=== PATIENT | male | born 1945 | race American Indian/Alaskan Native ===

== ENCOUNTER 2016-07-19 | Inpatient (IN) | payer MEDICAID, MEDICARE ==
[2016-07-19 00:51] LABS: Hematocrit 28.9 % (35.5-45.6); Hemoglobin 9.3 gm/dl (11.8-15.2); Mean Corpuscular HGB Conc 32 % (32-34); Mean Corpuscular Hemoglobin 29 pg (28-32); Mean Corpuscular Volume 89 fl (84-94); Platelet Count 287 K/mm3 (140-440); Red Blood Count 3.24 M/mm3 (3.65-5.03); White Blood Count 6.2 K/mm3 (4.5-11.0)
[2016-07-19 01:03] LABS: Red Cell Distribution Width 20.5 % (13.2-15.2)
[2016-07-19 01:13] LABS: BUN/Creatinine Ratio 6.12; Calcium 8.5 mg/dL (8.4-10.2); Chloride 96.5 mmol/L (98-107); Potassium 3.6 mmol/L (3.6-5.0)
[2016-07-19 03:50] LABS: Basophils % (Manual) 0 % (0.0-1.8); Blastocytes % (Manual) 0 %
[2016-07-19 03:51] LABS: Anisocytosis 1+; Diff Status Complete; Hypochromasia 1+; Smudge Cells Few
--- NOTE | 2016-07-19 07:31 | Emergency Department Report ---
ED General Adult HPI - General Chief complaint: Medical Clearance Stated complaint: BODY PAIN Time Seen by Provider: 07/19/16 07:23 Source: patient Mode of arrival: Wheelchair Limitations: No Limitations - History of Present Illness Initial comments: Patient presents to the emergency department with an apparently necrotic foot. He has had an ulcer on his foot for quite some time. The time of presentation the foot is apparently nonviable. Patient does not complain of pain. His foot is turned essentially black and gangrenous. He had a blister on the dorsum of his left foot which she identifies as an acute problem. However his foot at large is obviously gangrenous and without pulses. Despite the above the patient denies any recent fever or chills. He does not report any acute change in color. -: week(s) Location: left, lower extremity Consistency: constant Improves with: none Worsens with: none Associated Symptoms: denies other symptoms - Related Data Home Medications Medication Instructions Recorded Confirmed Last Taken Simvastatin [Zocor TAB] 20 mg PO QHS 07/20/16 07/20/16 07/19/16 Previous Rx's Medication Instructions Recorded Last Taken Type amLODIPine [Norvasc] 5 mg PO DAILY #60 tablet 12/10/13 03/16/14 14:00 Rx Labetalol [Normodyne TAB] 300 mg PO BID #60 tablet 03/19/14 Unknown Rx Allergies Allergy/AdvReac Type Severity Reaction Status Date / Time hydrocodone bitartrate AdvReac SWEAT/CRAMP Verified 03/15/15 15:37 [From Vicodin] ED Review of Systems ROS: Stated complaint: BODY PAIN Other details as noted in HPI Constitutional: denies: chills, fever Eyes: denies: eye pain, eye discharge, vision change ENT: denies: ear pain, throat pain Respiratory: denies: cough, shortness of breath, wheezing Cardiovascular: denies: chest pain, palpitations Endocrine: no symptoms reported Gastrointestinal: denies: abdominal pain, nausea, diarrhea Genitourinary: discharge. denies: urgency, dysuria Musculoskeletal: as per HPI Skin: denies: rash, lesions Neurological: denies: headache, weakness, paresthesias Psychiatric: denies: anxiety, depression Hematological/Lymphatic: denies: easy bleeding, easy bruising ED Past Medical Hx - Past Medical History Hx Hypertension: Yes Hx Heart Attack/AMI: Yes Hx Congestive Heart Failure: Yes Hx Diabetes: Yes Hx Renal Disease: Yes (M-W-F) Hx HIV: No - Surgical History Additional Surgical History: Right BKA & r wrist. Vas cath R chest-REMOVED. GRAFT LEFT UPPER ARM - Social History Smoking Status: Current Every Day Smoker Substance Use Type: None - Medications Home Medications: Home Medications Medication Instructions Recorded Confirmed Last Taken Type amLODIPine [Norvasc] 5 mg PO DAILY #60 tablet 12/10/13 07/19/16 03/16/14 14:00 Rx Labetalol [Normodyne TAB] 300 mg PO BID #60 tablet 03/19/14 07/19/16 Unknown Rx Simvastatin [Zocor TAB] 20 mg PO QHS 07/20/16 07/20/16 07/19/16 History ED Physical Exam - General Limitations: No Limitations General appearance: alert, in no apparent distress - Head Head exam: Present: atraumatic, normocephalic - Eye Eye exam: Present: normal appearance - ENT ENT exam: Present: mucous membranes moist - Neck Neck exam: Present: normal inspection - Respiratory Respiratory exam: Present: normal lung sounds bilaterally. Absent: respiratory distress - Cardiovascular Cardiovascular Exam: Present: regular rate, normal rhythm. Absent: systolic murmur, diastolic murmur, rubs, gallop - GI/Abdominal GI/Abdominal exam: Present: soft, normal bowel sounds - Rectal Rectal exam: Present: deferred - Extremities Exam Extremities exam: Present: other (bullae noted dorsum of the foot. The foot is necrotic. There are no pulses. It is cool. There is dry gangrene. On the plantar aspect of the foot there is an ulcer as well. There is edema that stands above the ankle associated with warmth to the distal calf) - Back Exam Back exam: Present: normal inspection - Neurological Exam Neurological exam: Present: alert, oriented X3 - Psychiatric Psychiatric exam: Present: normal affect, normal mood - Skin Skin exam: Present: warm, dry, intact, normal color. Absent: rash ED Course Vital Signs 07/19/16 07/19/16 07/19/16 00:20 06:31 06:46 Temperature 98.8 F Pulse Rate 75 70 Respiratory 20 20 12 Rate Blood Pressure 184/76 Blood Pressure [Left] O2 Sat by Pulse 100 Oximetry 07/19/16 07/19/16 07/19/16 06:58 07:00 08:00 Temperature 98.3 F 99 F Pulse Rate 73 82 Respiratory 10 L 15 Rate Blood Pressure 177/70 174/74 Blood Pressure 174/84 [Left] O2 Sat by Pulse 100 100 Oximetry 07/19/16 07/19/16 07/19/16 08:54 09:00 09:33 Temperature Pulse Rate 74 75 80 Respiratory 14 16 Rate Blood Pressure 177/63 177/63 177/63 Blood Pressure [Left] O2 Sat by Pulse 96 98 Oximetry 07/19/16 07/19/16 11:25 17:00 Temperature 99.4 F 99.1 F Pulse Rate 80 80 Respiratory 16 16 Rate Blood Pressure Blood Pressure 145/49 135/50 [Left] O2 Sat by Pulse 100 100 Oximetry - Reevaluation(s) Reevaluation #1: Patient was given empiric antibiotics. He does appear to have an inevitable amputation. He is admitted to the hospital service in stable condition. 08/01/16 01:53 ED Medical Decision Making - Lab Data Result diagrams: 07/28/16 06:37 07/30/16 12:48 Laboratory Results - last 24 hr 07/19/16 07/19/16 00:34 00:34 WBC 6.2 RBC 3.24 L Hgb 9.3 L Hct 28.9 L MCV 89 MCH 29 MCHC 32 RDW 20.5 H Plt Count 287 Add Manual Diff Complete Total Counted 100 Seg Neuts % (Manual) 73.0 H Band Neutrophils % 0 Lymphocytes % (Manual) 9.0 L Reactive Lymphs % (Man) 0 Monocytes % (Manual) 15.0 H Eosinophils % (Manual) 3.0 Basophils % (Manual) 0 Metamyelocytes % 0 Myelocytes % 0 Promyelocytes % 0 Blast Cells % 0 Nucleated RBC % Not Reportable Seg Neutrophils # Man 4.5 Band Neutrophils # 0.0 Lymphocytes # (Manual) 0.6 L Abs React Lymphs (Man) 0.0 Monocytes # (Manual) 0.9 H Eosinophils # (Manual) 0.2 Basophils # (Manual) 0.0 Metamyelocytes # 0.0 Myelocytes # 0.0 Promyelocytes # 0.0 Blast Cells # 0.0 WBC Morphology Not Reportable Hypersegmented Neuts Not Reportable Hyposegmented Neuts Not Reportable Hypogranular Neuts Not Reportable Smudge Cells Few Toxic Granulation Not Reportable Toxic Vacuolation Not Reportable Dohle Bodies Not Reportable Pelger-Huet Anomaly Not Reportable Maria Eugenia Rods Not Reportable Platelet Estimate Appears normal Clumped Platelets Not Reportable Plt Clumps, EDTA Not Reportable Large Platelets Not Reportable Giant Platelets Not Reportable Platelet Satelliting Not Reportable Plt Morphology Comment Not Reportable RBC Morphology Not Reportable Dimorphic RBCs Not Reportable Polychromasia Not Reportable Hypochromasia 1+ Poikilocytosis Not Reportable Anisocytosis 1+ Microcytosis Not Reportable Macrocytosis Not Reportable Spherocytes Not Reportable Pappenheimer Bodies Not Reportable Sickle Cells Not Reportable Target Cells Not Reportable Tear Drop Cells Not Reportable Ovalocytes Not Reportable Helmet Cells Not Reportable [place] Bodies Not Reportable [place] Rings Not Reportable [place] Cells Not Reportable Bite Cells Not Reportable Crenated Cell Not Reportable Elliptocytes Not Reportable Acanthocytes (Spur) Not Reportable Rouleaux Not Reportable Hemoglobin C Crystals Not Reportable Schistocytes Not Reportable Malaria parasites Not Reportable Ronal Bodies Not Reportable Hem Pathologist Commnt No Sodium 136 L Potassium 3.6 Chloride 96.5 L Carbon Dioxide 23 Anion Gap 20 BUN 38 H Creatinine 6.2 H Estimated GFR 11 BUN/Creatinine Ratio 6.12 Glucose 108 H Calcium 8.5 Critical care attestation.: If time is entered above; I have spent that time in minutes in the direct care of this critically ill patient, excluding procedure time. ED Disposition Clinical Impression: Gangrene of foot, ESRD (end stage renal disease) on dialysis Disposition: OP ADMITTED IP TO THIS HOSP Is pt being admited?: Yes Does the pt Need Aspirin: No Condition: Stable
[2016-07-19] MEDS ORDERED: ZOSYN/NS 3.375GM/50ML 50 ML IV ONE (08:22)
--- NOTE | 2016-07-19 08:27 | Admit Criteria Form ---
Admission Criteria Documentation: VASCULAR DISEASE GRG Clinical Indications for Admission to Inpatient Care (Place 'X' for any and all applicable criteria): Hospital admission is needed for appropriate care of the patient because of ANY ONE of the following (1)(2)(3)(4): [X ]I. Life-threatening or limb-threatening skin ulcer as indicated by ANY ONE of the following(5): [ ]a) Surrounding cellulitis unresponsive to outpatient treatment [ X]b) Wet gangrene [ ]c) Lymphangitis [ ]d) Bacteremia [X ]II. Gangrene requiring intensity and frequency of care not manageable to outpatient, emergency, or observation level of care(5) [ ]III. Severe pain requiring acute inpatient management [ ]IV. Interventional revascularization (eg, surgery, thrombolysis) needed (eg , critical limb ischemia)(21) [ ]V. Urgent inpatient IV anticoagulation needed due to ALL of the following: [ ]a) Temporary subtherapeutic anticoagulation unacceptable because of high risk of short-term venous or arterial thromboembolism due to ANY ONE of the following(7)(8)(9): [ ]i) Venous thromboembolism within the past 12 months [ ]ii) Underlying malignancy [ ]iii) Patient with mechanical cardiac valve(10)(11) [ ]iv) Underlying hypercoagulable state (eg, protein C or protein S deficiency, antithrombin deficiency, antiphospholipid antibodies) [ ]v) Patient at high risk of thromboembolism (eg, status post orthopedic surgery, history of recurrent venous thromboembolism) [ ]vi) Atrial fibrillation with rheumatic valvular heart disease [ ]vii) Atrial fibrillation with 3 or MORE of the following : [ ]1) Congestive heart failure [ ]2) Hypertension [ ]3) Age 65 years or older [ ]4) Diabetes mellitus [ ]5) History of thromboembolism (eg, stroke, TIA , or systemic embolization) more than 3 months ago [ ]6) Female gender [ ]b) Contraindications to outpatient use of "bridging" agent or alternative oral anticoagulant as indicated by ALL of the following: [ ]i) Contraindication to outpatient use of low-molecular -weight heparin as "bridging" agent as indicated by ANY ONE of the following(8) : [ ]1) Documented current or history of heparin- induced thrombocytopenia(12) [ ]2) Severe thrombocytopenia (eg, platelet count less than 50,000/mm3 (50 x109/L)) [ ]3) Documented allergy to heparin, low- molecular-weight heparin, or pork products [ ]4) Renal failure (creatinine clearance < 30 mL /min/1.73m2 (0.50 mL/sec/1.73m2) or on dialysis) [ ]5) Inability to manage self-injection (eg, by patient, caregiver, or visiting nurse) [ ]ii) Contraindication to outpatient use of fondaparinux as "bridging" agent as indicated by ANY ONE of the following(13)(14)(15)(16): [ ]1) Severe thrombocytopenia (eg, platelet count less than 50,000/mm3 (50 x109/L)) [ ]2) Hypersensitivity to fondaparinux, related drugs, or product components [ ]3) Renal failure (creatinine clearance less than 30 mL/min/1.73m2 (0.50 mL/sec/1.73m2) or on dialysis) [ ]4) Inability to manage self-injection (eg, by patient, caregiver, or visiting nurse) [ ]iii) Oral direct thrombin inhibitor (eg, dabigatran) or oral coagulation factor Xa inhibitor (eg, rivaroxaban) not appropriate as oral anticoagulation (eg, indication not appropriate) or contraindicated (eg, hypersensitivity, renal failure)(13)(16)(17)(18)(19)(20) [ ]. Suspected severe acute ischemia due to peripheral vascular disease as indicated by ANY ONE of the following(5)(6): [ ]a) Tissue necrosis [ ]b) Severe pain [ ]c) Acute pulselessness [ ]d) Other evidence of acute severe ischemia (eg, lactic acidosis , motor dysfunction) [ ]VII. Acute or newly diagnosed major vessel (eg, aorta) dissection, rupture, or leakage(5)(6)(22)(23) [ ]VIII.Vascular Disease and ALL of the following: [ ]a) Symptom or finding for which emergency and observation care have failed or are not considered appropriate (Use General Criteria: Observation Care as appropriate) [ ]b) Presence of ANY ONE of the following: [ ]i) A General Admission Criteria [ ]ii) A Pediatric General Admission Criteria The original [facility] content created by [facility] has been revised. The portions of the content which have been revised are identified through the use of italic text or in bold, and [facility] has neither reviewed nor approved the modified material. All other unmodified content is copyright [facility]. Please see references footnoted in the original [facility] edition 2016 Admission Criteria Met: Yes
[2016-07-19] MEDS ORDERED: DUONEB 0.5 MG-3 MG/3 ML SOLN IH PRN (08:46)
--- NOTE | 2016-07-19 08:46 | History and Physical Report ---
History of Present Illness Chief complaint: left Foot pain History of present illness: 70 YO Male with HTN, DE, DM, CHF,Nicotine Dependence, PAD, ESRD on HD(MWF) presents to ED for evaluation. PT states that his left foot blister has gotten worse over the past few days. Pt acknowledges foot pain as well as his foot changing color, and getting dark. Pt denies fever, chills, CP, palpitations, NVD , recent ill contacts. Vascular and Nephrology notified in ED. Past History Past Medical History: acute DE, diabetes, ESRD, heart failure, hypertension Past Surgical History: Other (R BKA, AVF) Social history: single, smoking Family history: diabetes, hypertension Medications and Allergies Allergies Allergy/AdvReac Type Severity Reaction Status Date / Time hydrocodone bitartrate AdvReac SWEAT/CRAMP Verified 03/15/15 15:37 [From Vicodin] Home Medications Medication Instructions Recorded Confirmed Last Taken Type amLODIPine [Norvasc] 5 mg PO DAILY #60 tablet 12/10/13 07/19/16 03/16/14 14:00 Rx Labetalol [Normodyne TAB] 300 mg PO BID #60 tablet 03/19/14 07/19/16 Unknown Rx Active Meds: Active Medications Piperacillin Sod/Tazobactam Sod (Zosyn/Ns 3.375gm/50ml) 50 mls @ 100 mls/hr IV Q6HR ONE Stop: 07/19/16 08:51 Vancomycin HCl (Vancomycin Pharmacy To Dose) 1 each IV PKCONSULT NATALIE PRN Reason: Protocol Review of Systems All systems: negative Musculoskeletal: other (foot pain) Exam - Constitutional Vitals: Temp Pulse Resp BP Pulse Ox 99 F 85 20 174/84 100 07/19/16 08:00 07/19/16 08:00 07/19/16 08:00 07/19/16 08:00 07/19/16 08:00 General appearance: Present: no acute distress - EENT Eyes: Present: PERRL ENT: hearing intact, clear oral mucosa - Neck Neck: Present: supple, normal ROM - Respiratory Respiratory: bilateral: CTA - Cardiovascular Rhythm: regular Heart Sounds: Present: S1 & S2 - Extremities Extremity abnormal: ulceration, black, cold, pulses diminished Peripheral Pulses: abnormal - Abdominal General gastrointestinal: Present: soft, non-tender, non-distended, normal bowel sounds Male genitourinary: Present: normal - Integumentary Integumentary: Present: clear, dry, decreased turgor - Musculoskeletal Musculoskeletal: generalized weakness - Psychiatric Psychiatric: appropriate mood/affect, intact judgment & insight - Neurologic Neurologic: CNII-XII intact, moves all extremities Results - Labs CBC & Chem 7: 07/19/16 00:34 07/19/16 00:34 Labs: Abnormal lab results 07/19/16 07/19/16 Range/Units 00:34 00:34 RBC 3.24 L (3.65-5.03) M/mm3 Hgb 9.3 L (11.8-15.2) gm/dl Hct 28.9 L (35.5-45.6) % RDW 20.5 H (13.2-15.2) % Seg Neuts % (Manual) 73.0 H (40.0-70.0) % Lymphocytes % (Manual) 9.0 L (13.4-35.0) % Monocytes % (Manual) 15.0 H (0.0-7.3) % Lymphocytes # (Manual) 0.6 L (1.2-5.4) K/mm3 Monocytes # (Manual) 0.9 H (0.0-0.8) K/mm3 Sodium 136 L (137-145) mmol/L Chloride 96.5 L (98-107) mmol/L BUN 38 H (9-20) mg/dL Creatinine 6.2 H (0.8-1.5) mg/dL Glucose 108 H (75-100) mg/dL Assessment and Plan - Patient Problems (1) Gangrene of foot Current Visit: Yes Status: Acute Plan to address problem: empiric abx, supportive care, Vascular surgery consulted for amputation. (2) ESRD (end stage renal disease) Current Visit: No Status: Acute Plan to address problem: Nephrology consulted, dialysis as per nephrology (3) Essential hypertension Current Visit: No Status: Acute Plan to address problem: monitor bp q shift, continue current therapy (4) Diabetes Diagnosis Date: 12/01/13 Current Visit: No Status: Chronic Plan to address problem: ada diet, insulin, accu check (5) DVT prophylaxis Current Visit: No Status: Acute
[2016-07-19] MEDS ORDERED: VANCOMYCIN PHARMACY TO DOSE IV SCH (09:00)
--- NOTE | 2016-07-19 09:06 | XRay Report ---
Portable chest: Comparison is made to prior study June 28, 2016. There is currently triple-lumen catheter entering the left jugular vein with the tip in the mid SVC. The right triple-lumen catheter seen on prior study has been removed. Interstitial pattern is somewhat prominent but unchanged. The heart is normal in size. Impression: Interval removal and placement of new triple lumen catheter.
[2016-07-19 09:10] LABS: INR 1.16 (0.87-1.13)
[2016-07-19 09:13] LABS: Albumin 2.7 g/dL (3.9-5); Albumin/Globulin Ratio 0.6 %; Bilirubin,Direct 0.2 mg/dL (0-0.2); Bilirubin,Indirect 0.4 mg/dL; Bilirubin,Total 0.6 mg/dL (0.1-1.2); Total Protein 7.2 g/dL (6.3-8.2)
[2016-07-19] MEDS ORDERED: MORPHINE ONE (09:18)
[2016-07-19] MEDS ORDERED: NORVASC ONE (09:19)
[2016-07-19] MEDS ORDERED: ZOFRAN ONE (09:19)
[2016-07-19] MEDS ORDERED: MORPHINE IV ONE (09:30)
[2016-07-19] MEDS ORDERED: ZOFRAN IV ONE (09:31)
[2016-07-19] MEDS ORDERED: NORVASC PO ONE (09:31)
[2016-07-19 09:51] LABS: Partial Thromboplastin Time 44.8 Sec. (24.2-36.6)
[2016-07-19] MEDS ORDERED: VANCOMYCIN VIAL 2,000 MG in NACL 0.9% 500 ML 500 ML IV ONE (10:00)
[2016-07-20] MEDS: TYLENOL PO PRN ×2 (00:45→19:35)
[2016-07-20] MEDS ORDERED: NACL 0.9% 1000 ML 100 ML IV PRN (09:33)
[2016-07-20 09:39] LABS: Basophils % (Auto) 1.1 % (0.0-1.8); Eosinophils % (Auto) 6.8 % (0.0-4.3); Hematocrit 26.9 % (35.5-45.6); Hemoglobin 8.5 gm/dl (11.8-15.2); Mean Corpuscular HGB Conc 32 % (32-34); Mean Corpuscular Hemoglobin 28 pg (28-32); Mean Corpuscular Volume 90 fl (84-94); Platelet Count 293 K/mm3 (140-440); Red Blood Count 3.01 M/mm3 (3.65-5.03); White Blood Count 4.4 K/mm3 (4.5-11.0)
[2016-07-20 09:52] LABS: BUN/Creatinine Ratio 5.73; Chloride 100.2 mmol/L (98-107); Red Cell Distribution Width 20.4 % (13.2-15.2)
--- NOTE | 2016-07-20 12:35 | Consultation ---
History of Present Illness - Reason for Consult Consult date: 07/20/16 peripheral vascular disease Requesting physician: JUANY FERRIS - History of Present Illness 70 year-old gentleman with history of gangrenous changes of the left great toe who was seen previously and was determined to need an angiogram. Presents to the hospital was complaining of pain at the left foot. Patient has had multiple dialysis related procedures. Patient had a right BKA 13 years ago. Patient states that now vascular workup was done at that time. Currently patient is not complaining of significant foot pain. He denies any smell of the foot in the past. Past History Past Medical History: acute MA, diabetes, ESRD, heart failure, hypertension Past Surgical History: Other (R BKA, AVF) Social history: single, smoking Family history: diabetes, hypertension Medications and Allergies Allergies Allergy/AdvReac Type Severity Reaction Status Date / Time hydrocodone bitartrate AdvReac SWEAT/CRAMP Verified 03/15/15 15:37 [From Vicodin] Home Medications Medication Instructions Recorded Confirmed Last Taken Type amLODIPine [Norvasc] 5 mg PO DAILY #60 tablet 12/10/13 07/19/16 03/16/14 14:00 Rx Labetalol [Normodyne TAB] 300 mg PO BID #60 tablet 03/19/14 07/19/16 Unknown Rx Active Meds: Active Medications Acetaminophen (Tylenol) 650 mg PO Q4H PRN PRN Reason: Pain MILD(1-3)/Fever >100.5/JACKSON Last Admin: 07/20/16 00:45 Dose: 650 mg Albuterol/Ipratropium (Duoneb 0.5 Mg-3 Mg/3 Ml Soln) 1 ampul IH Q6HRT PRN PRN Reason: Wheezing Last Admin: 07/20/16 01:16 Dose: 1 ampul Heparin Sodium (Porcine) (Heparin 10,000 Units/10 Ml) 2,000 unit IV SHRUTHI PRN PRN Reason: hemodialysis Heparin Sodium (Porcine) (Heparin) 5,000 unit IV SHRUTHI PRN PRN Reason: hemodialysis Sodium Chloride (Nacl 0.9% 1000 Ml) 100 mls @ 999 mls/hr IV SHRUTHI PRN PRN Reason: Hypotension Vancomycin HCl (Vancomycin Pharmacy To Dose) 1 each IV PKCONSULT NATALIE PRN Reason: Protocol Review of Systems Constitutional: no weight loss, no weight gain Ears, nose, mouth and throat: deferred Cardiovascular: no chest pain, no orthopnea Respiratory: no cough Gastrointestinal: no abdominal pain Genitourinary Male: no dysuria Musculoskeletal: no neck stiffness Integumentary: deferred Neurological: no head injury Psychiatric: no anxiety Exam - Physical Exam Narrative exam: Head normocephalic atraumatic Eyes extraocular muscles intact. Oral mucosa moist. Neck no carotid bruit lymph nodes or JVD. Heart regular rate and rhythm. Lungs clear to auscultation bilaterally. Abdomen soft, mild tenderness nondistended normal bowel sounds. Peripheral vascular exam 2+ femoral, left popliteal Pedal pulses are nonpalpable on the left. Extremities dry gangrene of the left foot. Right BKA - Constitutional Vitals: Temp Pulse Resp BP Pulse Ox 98.2 F 68 18 178/84 98 07/20/16 11:23 07/20/16 12:00 07/20/16 11:23 07/20/16 12:00 07/20/16 08:00 Results - Labs CBC & Chem 7: 07/20/16 09:13 07/20/16 09:13 Labs: Abnormal lab results 07/19/16 07/20/16 07/20/16 Range/Units 17:43 09:13 09:13 WBC 4.4 L (4.5-11.0) K/mm3 RBC 3.01 L (3.65-5.03) M/mm3 Hgb 8.5 L (11.8-15.2) gm/dl Hct 26.9 L (35.5-45.6) % RDW 20.4 H (13.2-15.2) % Lymph % (Auto) 6.5 L (13.4-35.0) % [place] % (Auto) 12.8 H (0.0-7.3) % Eos % (Auto) 6.8 H (0.0-4.3) % Lymph # 0.3 L (1.2-5.4) K/mm3 Seg Neutrophils % 72.8 H (40.0-70.0) % Carbon Dioxide 20 L (22-30) mmol/L BUN 43 H (9-20) mg/dL Creatinine 7.5 H (0.8-1.5) mg/dL Glucose 147 H (75-100) mg/dL POC Glucose 151 H (70-105) Calcium 8.0 L (8.4-10.2) mg/dL Assessment and Plan Peripheral vascular disease with gangrene of the right foot. It is stable at the moment. However, patient is at high risk for limb loss. Patient needs a vascular workup was an angiogram to optimize circulation to the left foot. Once the flow is optimal patient most likely will require TMA. Plan: patient will be scheduled for an angiogram on Friday.
--- NOTE | 2016-07-20 13:09 | Consultation ---
History of Present Illness - Reason for Consult Consult date: 07/20/16 end stage renal disease - History of Present Illness Mr. Oconnor is a 70yo with ESRD on HD MWF and PAD who presented to the ED with left foot blister which progressively worsened, left foot pain and darkening of color. He denies fevers, chills, nausea and vomiting. He has been admitted for further management. Past History Past Medical History: acute ID, diabetes, ESRD, heart failure, hypertension Past Surgical History: Other (R BKA, AVF) Social history: single, smoking Family history: diabetes, hypertension Medications and Allergies Allergies Allergy/AdvReac Type Severity Reaction Status Date / Time hydrocodone bitartrate AdvReac SWEAT/CRAMP Verified 03/15/15 15:37 [From Vicodin] Home Medications Medication Instructions Recorded Confirmed Last Taken Type amLODIPine [Norvasc] 5 mg PO DAILY #60 tablet 12/10/13 07/19/16 03/16/14 14:00 Rx Labetalol [Normodyne TAB] 300 mg PO BID #60 tablet 03/19/14 07/19/16 Unknown Rx Simvastatin [Zocor TAB] 20 mg PO QHS 07/20/16 07/20/16 07/19/16 History Active Meds: Active Medications Acetaminophen (Tylenol) 650 mg PO Q4H PRN PRN Reason: Pain MILD(1-3)/Fever >100.5/JACKSON Last Admin: 07/20/16 00:45 Dose: 650 mg Albuterol/Ipratropium (Duoneb 0.5 Mg-3 Mg/3 Ml Soln) 1 ampul IH Q6HRT PRN PRN Reason: Wheezing Last Admin: 07/20/16 01:16 Dose: 1 ampul Heparin Sodium (Porcine) (Heparin 10,000 Units/10 Ml) 2,000 unit IV SHRUTHI PRN PRN Reason: hemodialysis Heparin Sodium (Porcine) (Heparin) 5,000 unit IV SHRUTHI PRN PRN Reason: hemodialysis Sodium Chloride (Nacl 0.9% 1000 Ml) 100 mls @ 999 mls/hr IV SHRUTHI PRN PRN Reason: Hypotension Vancomycin HCl (Vancomycin Pharmacy To Dose) 1 each IV PKCONSULT NATALIE PRN Reason: Protocol Exam - Vital Signs Vital signs: Vital Signs Temp Pulse Resp BP Pulse Ox 98.8 F 75 20 184/76 100 07/19/16 00:20 07/19/16 00:20 07/19/16 00:20 07/19/16 00:20 07/19/16 00:20 - General Appearance General appearance: well-developed, well-nourished EENT: ATNC Respiratory: Clear to Ascultation Heart: regular, S1S2 Gastrointestinal: Present: normal. Absent: tenderness, distended Neurologic: alert and oriented x3 Musculoskeletal: Present: other (left foot dry gangrene) Results - Lab Results 07/20/16 09:13 07/20/16 09:13 Most recent lab results Calcium 8.0 mg/dL (8.4-10.2) L 07/20/16 09:13 Phosphorus 5.4 mg/dL (2.5-4.5) H 07/19/16 08:29 Assessment and Plan Impression: * End stage renal disease on HD MWF * Left foot wound * Peripheral artery disease * Type II DM * Hypertension * Anemia secondary to ESRD * Secondary hyperparathyroidism Plan: * Hemodialysis today * Note plans for arteriogram on Friday * Will resume MWF schedule next week * Epogen with dialysis * Renal diet * Abx per primary team * Tight glycemic control * Continue antiHTN medications * Will see again on Friday
[2016-07-20] MEDS: HEPARIN 10,000 UNITS/10 ML IV PRN (13:50)
[2016-07-20] MEDS: HEPARIN IV PRN (13:52)
--- NOTE | 2016-07-20 21:35 | Progress Note ---
Assessment and Plan - Patient Problems (1) Gangrene of foot Current Visit: Yes Status: Acute Plan to address problem: empiric abx, supportive care, Vascular surgery consulted for amputation. (2) ESRD (end stage renal disease) Current Visit: No Status: Acute Plan to address problem: Nephrology consulted, dialysis as per nephrology (3) Essential hypertension Current Visit: No Status: Acute Plan to address problem: monitor bp q shift, continue current therapy (4) Diabetes Diagnosis Date: 12/01/13 Current Visit: No Status: Chronic Plan to address problem: ada diet, insulin, accu check (5) DVT prophylaxis Current Visit: No Status: Acute History Interval history: Pt resting in bed, No reported nursing events. Hospitalist Physical - Constitutional Vitals: Temp Pulse Resp BP Pulse Ox 98.4 F 80 20 158/78 100 07/20/16 16:00 07/20/16 16:00 07/20/16 16:00 07/20/16 16:00 07/20/16 19:54 General appearance: Present: no acute distress - EENT Eyes: Present: PERRL, EOM intact ENT: hearing intact - Neck Neck: Present: supple - Respiratory Respiratory: bilateral: diminished - Cardiovascular Rhythm: regular Heart Sounds: Present: S1 & S2 - Extremities Extremity abnormal: ulceration, black, cold, pulses diminished Peripheral Pulses: abnormal - Abdominal General gastrointestinal: soft, non-tender, non-distended - Integumentary Integumentary: Present: clear, dry - Psychiatric Psychiatric: appropriate mood/affect, cooperative - Neurologic Neurologic: CNII-XII intact Results - Labs CBC & Chem 7: 07/20/16 09:13 07/20/16 09:13 Labs: Laboratory Last Values WBC 4.4 K/mm3 (4.5-11.0) L 07/20/16 09:13 RBC 3.01 M/mm3 (3.65-5.03) L 07/20/16 09:13 Hgb 8.5 gm/dl (11.8-15.2) L 07/20/16 09:13 Hct 26.9 % (35.5-45.6) L 07/20/16 09:13 MCV 90 fl (84-94) 07/20/16 09:13 MCH 28 pg (28-32) 07/20/16 09:13 MCHC 32 % (32-34) 07/20/16 09:13 RDW 20.4 % (13.2-15.2) H 07/20/16 09:13 Plt Count 293 K/mm3 (140-440) 07/20/16 09:13 Lymph % (Auto) 6.5 % (13.4-35.0) L 07/20/16 09:13 [place] % (Auto) 12.8 % (0.0-7.3) H 07/20/16 09:13 Eos % (Auto) 6.8 % (0.0-4.3) H 07/20/16 09:13 Baso % (Auto) 1.1 % (0.0-1.8) 07/20/16 09:13 Lymph # 0.3 K/mm3 (1.2-5.4) L 07/20/16 09:13 [place] # 0.6 K/mm3 (0.0-0.8) 07/20/16 09:13 Eos # 0.3 K/mm3 (0.0-0.4) 07/20/16 09:13 Baso # 0.0 K/mm3 (0.0-0.1) 07/20/16 09:13 Add Manual Diff Complete 07/19/16 00:34 Total Counted 100 07/19/16 00:34 Seg Neutrophils % 72.8 % (40.0-70.0) H 07/20/16 09:13 Seg Neuts % (Manual) 73.0 % (40.0-70.0) H 07/19/16 00:34 Band Neutrophils % 0 % 07/19/16 00:34 Lymphocytes % (Manual) 9.0 % (13.4-35.0) L 07/19/16 00:34 Reactive Lymphs % (Man) 0 % 07/19/16 00:34 Monocytes % (Manual) 15.0 % (0.0-7.3) H 07/19/16 00:34 Eosinophils % (Manual) 3.0 % (0.0-4.3) 07/19/16 00:34 Basophils % (Manual) 0 % (0.0-1.8) 07/19/16 00:34 Metamyelocytes % 0 % 07/19/16 00:34 Myelocytes % 0 % 07/19/16 00:34 Promyelocytes % 0 % 07/19/16 00:34 Blast Cells % 0 % 07/19/16 00:34 Nucleated RBC % Not Reportable 07/19/16 00:34 Seg Neutrophils # 3.2 K/mm3 (1.8-7.7) 07/20/16 09:13 Seg Neutrophils # Man 4.5 K/mm3 (1.8-7.7) 07/19/16 00:34 Band Neutrophils # 0.0 K/mm3 07/19/16 00:34 Lymphocytes # (Manual) 0.6 K/mm3 (1.2-5.4) L 07/19/16 00:34 Abs React Lymphs (Man) 0.0 K/mm3 07/19/16 00:34 Monocytes # (Manual) 0.9 K/mm3 (0.0-0.8) H 07/19/16 00:34 Eosinophils # (Manual) 0.2 K/mm3 (0.0-0.4) 07/19/16 00:34 Basophils # (Manual) 0.0 K/mm3 (0.0-0.1) 07/19/16 00:34 Metamyelocytes # 0.0 K/mm3 07/19/16 00:34 Myelocytes # 0.0 K/mm3 07/19/16 00:34 Promyelocytes # 0.0 K/mm3 07/19/16 00:34 Blast Cells # 0.0 K/mm3 07/19/16 00:34 WBC Morphology Not Reportable 07/19/16 00:34 Hypersegmented Neuts Not Reportable 07/19/16 00:34 Hyposegmented Neuts Not Reportable 07/19/16 00:34 Hypogranular Neuts Not Reportable 07/19/16 00:34 Smudge Cells Few 07/19/16 00:34 Toxic Granulation Not Reportable 07/19/16 00:34 Toxic Vacuolation Not Reportable 07/19/16 00:34 Dohle Bodies Not Reportable 07/19/16 00:34 Pelger-Huet Anomaly Not Reportable 07/19/16 00:34 Maria Eugenia Rods Not Reportable 07/19/16 00:34 Platelet Estimate Appears normal 07/19/16 00:34 Clumped Platelets Not Reportable 07/19/16 00:34 Plt Clumps, EDTA Not Reportable 07/19/16 00:34 Large Platelets Not Reportable 07/19/16 00:34 Giant Platelets Not Reportable 07/19/16 00:34 Platelet Satelliting Not Reportable 07/19/16 00:34 Plt Morphology Comment Not Reportable 07/19/16 00:34 RBC Morphology Not Reportable 07/19/16 00:34 Dimorphic RBCs Not Reportable 07/19/16 00:34 Polychromasia Not Reportable 07/19/16 00:34 Hypochromasia 1+ 07/19/16 00:34 Poikilocytosis Not Reportable 07/19/16 00:34 Anisocytosis 1+ 07/19/16 00:34 Microcytosis Not Reportable 07/19/16 00:34 Macrocytosis Not Reportable 07/19/16 00:34 Spherocytes Not Reportable 07/19/16 00:34 Pappenheimer Bodies Not Reportable 07/19/16 00:34 Sickle Cells Not Reportable 07/19/16 00:34 Target Cells Not Reportable 07/19/16 00:34 Tear Drop Cells Not Reportable 07/19/16 00:34 Ovalocytes Not Reportable 07/19/16 00:34 Helmet Cells Not Reportable 07/19/16 00:34 [place] Bodies Not Reportable 07/19/16 00:34 [place] Rings Not Reportable 07/19/16 00:34 [place] Cells Not Reportable 07/19/16 00:34 Bite Cells Not Reportable 07/19/16 00:34 Crenated Cell Not Reportable 07/19/16 00:34 Elliptocytes Not Reportable 07/19/16 00:34 Acanthocytes (Spur) Not Reportable 07/19/16 00:34 Rouleaux Not Reportable 07/19/16 00:34 Hemoglobin C Crystals Not Reportable 07/19/16 00:34 Schistocytes Not Reportable 07/19/16 00:34 Malaria parasites Not Reportable 07/19/16 00:34 Ronal Bodies Not Reportable 07/19/16 00:34 Hem Pathologist Commnt No 07/19/16 00:34 PT 14.7 Sec. (12.2-14.9) 07/19/16 08:29 INR 1.16 (0.87-1.13) H 07/19/16 08:29 APTT 44.8 Sec. (24.2-36.6) H 07/19/16 08:29 Sodium 137 mmol/L (137-145) 07/20/16 09:13 Potassium 4.0 mmol/L (3.6-5.0) 07/20/16 09:13 Chloride 100.2 mmol/L (98-107) 07/20/16 09:13 Carbon Dioxide 20 mmol/L (22-30) L 07/20/16 09:13 Anion Gap 21 mmol/L 07/20/16 09:13 BUN 43 mg/dL (9-20) H 07/20/16 09:13 Creatinine 7.5 mg/dL (0.8-1.5) H 07/20/16 09:13 Estimated GFR 9 ml/min 07/20/16 09:13 BUN/Creatinine Ratio 5.73 % 07/20/16 09:13 Glucose 147 mg/dL (75-100) H 07/20/16 09:13 POC Glucose 151 (70-105) H 07/19/16 17:43 Lactic Acid 0.7 mmol/L (0.7-2.0) 07/19/16 08:29 Calcium 8.0 mg/dL (8.4-10.2) L 07/20/16 09:13 Phosphorus 5.4 mg/dL (2.5-4.5) H 07/19/16 08:29 Total Bilirubin 0.6 mg/dL (0.1-1.2) 07/19/16 08:29 Direct Bilirubin 0.2 mg/dL (0-0.2) 07/19/16 08:29 Indirect Bilirubin 0.4 mg/dL 07/19/16 08:29 AST 12 units/L (5-40) 07/19/16 08:29 ALT 11 units/L (7-56) 07/19/16 08:29 Alkaline Phosphatase 148 units/L (35-129) H 07/19/16 08:29 NT-Pro-B Natriuret Pep 86602 pg/mL (0-900) H 07/19/16 08:29 Total Protein 7.2 g/dL (6.3-8.2) 07/19/16 08:29 Albumin 2.7 g/dL (3.9-5) L 07/19/16 08:29 Albumin/Globulin Ratio 0.6 % 07/19/16 08:29 Blood Type A POSITIVE 07/19/16 08:29 Antibody Screen Negative 07/19/16 08:29
[2016-07-21] MEDS: TYLENOL PO PRN (01:54)
--- NOTE | 2016-07-21 11:16 | Progress Note ---
Assessment and Plan - Patient Problems (1) Gangrene of foot Current Visit: Yes Status: Acute Plan to address problem: empiric abx, supportive care, Vascular surgery consulted for amputation. (2) ESRD (end stage renal disease) Current Visit: No Status: Acute Plan to address problem: Nephrology consulted, dialysis as per nephrology (3) Essential hypertension Current Visit: No Status: Acute Plan to address problem: monitor bp q shift, continue current therapy (4) Diabetes Diagnosis Date: 12/01/13 Current Visit: No Status: Chronic Plan to address problem: ada diet, insulin, accu check (5) DVT prophylaxis Current Visit: No Status: Acute (6) PAD (peripheral artery disease) Current Visit: Yes Status: Acute Plan to address problem: Vascular consulted, angiogram in AM. History Interval history: Pt resting in bed, No reported nursing events. Discussed care plan with patient. Pending Angiogram in AM. Hospitalist Physical - Constitutional Vitals: Temp Pulse Resp BP Pulse Ox 98.3 F 82 20 162/70 96 07/21/16 08:00 07/21/16 08:00 07/21/16 08:00 07/21/16 08:00 07/21/16 09:35 General appearance: Present: no acute distress - EENT Eyes: Present: PERRL, EOM intact ENT: hearing intact - Neck Neck: Present: supple - Respiratory Respiratory: bilateral: CTA - Cardiovascular Rhythm: regular Heart Sounds: Present: S1 & S2 - Extremities Extremity abnormal: ulceration, black, cold, pulses diminished, tenderness Peripheral Pulses: abnormal - Abdominal General gastrointestinal: soft, non-tender, non-distended - Integumentary Integumentary: Present: clear, dry - Psychiatric Psychiatric: appropriate mood/affect, cooperative - Neurologic Neurologic: CNII-XII intact Results - Labs CBC & Chem 7: 07/20/16 09:13 07/20/16 09:13 Labs: Laboratory Last Values WBC 4.4 K/mm3 (4.5-11.0) L 07/20/16 09:13 RBC 3.01 M/mm3 (3.65-5.03) L 07/20/16 09:13 Hgb 8.5 gm/dl (11.8-15.2) L 07/20/16 09:13 Hct 26.9 % (35.5-45.6) L 07/20/16 09:13 MCV 90 fl (84-94) 07/20/16 09:13 MCH 28 pg (28-32) 07/20/16 09:13 MCHC 32 % (32-34) 07/20/16 09:13 RDW 20.4 % (13.2-15.2) H 07/20/16 09:13 Plt Count 293 K/mm3 (140-440) 07/20/16 09:13 Lymph % (Auto) 6.5 % (13.4-35.0) L 07/20/16 09:13 [place] % (Auto) 12.8 % (0.0-7.3) H 07/20/16 09:13 Eos % (Auto) 6.8 % (0.0-4.3) H 07/20/16 09:13 Baso % (Auto) 1.1 % (0.0-1.8) 07/20/16 09:13 Lymph # 0.3 K/mm3 (1.2-5.4) L 07/20/16 09:13 [place] # 0.6 K/mm3 (0.0-0.8) 07/20/16 09:13 Eos # 0.3 K/mm3 (0.0-0.4) 07/20/16 09:13 Baso # 0.0 K/mm3 (0.0-0.1) 07/20/16 09:13 Add Manual Diff Complete 07/19/16 00:34 Total Counted 100 07/19/16 00:34 Seg Neutrophils % 72.8 % (40.0-70.0) H 07/20/16 09:13 Seg Neuts % (Manual) 73.0 % (40.0-70.0) H 07/19/16 00:34 Band Neutrophils % 0 % 07/19/16 00:34 Lymphocytes % (Manual) 9.0 % (13.4-35.0) L 07/19/16 00:34 Reactive Lymphs % (Man) 0 % 07/19/16 00:34 Monocytes % (Manual) 15.0 % (0.0-7.3) H 07/19/16 00:34 Eosinophils % (Manual) 3.0 % (0.0-4.3) 07/19/16 00:34 Basophils % (Manual) 0 % (0.0-1.8) 07/19/16 00:34 Metamyelocytes % 0 % 07/19/16 00:34 Myelocytes % 0 % 07/19/16 00:34 Promyelocytes % 0 % 07/19/16 00:34 Blast Cells % 0 % 07/19/16 00:34 Nucleated RBC % Not Reportable 07/19/16 00:34 Seg Neutrophils # 3.2 K/mm3 (1.8-7.7) 07/20/16 09:13 Seg Neutrophils # Man 4.5 K/mm3 (1.8-7.7) 07/19/16 00:34 Band Neutrophils # 0.0 K/mm3 07/19/16 00:34 Lymphocytes # (Manual) 0.6 K/mm3 (1.2-5.4) L 07/19/16 00:34 Abs React Lymphs (Man) 0.0 K/mm3 07/19/16 00:34 Monocytes # (Manual) 0.9 K/mm3 (0.0-0.8) H 07/19/16 00:34 Eosinophils # (Manual) 0.2 K/mm3 (0.0-0.4) 07/19/16 00:34 Basophils # (Manual) 0.0 K/mm3 (0.0-0.1) 07/19/16 00:34 Metamyelocytes # 0.0 K/mm3 07/19/16 00:34 Myelocytes # 0.0 K/mm3 07/19/16 00:34 Promyelocytes # 0.0 K/mm3 07/19/16 00:34 Blast Cells # 0.0 K/mm3 07/19/16 00:34 WBC Morphology Not Reportable 07/19/16 00:34 Hypersegmented Neuts Not Reportable 07/19/16 00:34 Hyposegmented Neuts Not Reportable 07/19/16 00:34 Hypogranular Neuts Not Reportable 07/19/16 00:34 Smudge Cells Few 07/19/16 00:34 Toxic Granulation Not Reportable 07/19/16 00:34 Toxic Vacuolation Not Reportable 07/19/16 00:34 Dohle Bodies Not Reportable 07/19/16 00:34 Pelger-Huet Anomaly Not Reportable 07/19/16 00:34 Maria Eugenia Rods Not Reportable 07/19/16 00:34 Platelet Estimate Appears normal 07/19/16 00:34 Clumped Platelets Not Reportable 07/19/16 00:34 Plt Clumps, EDTA Not Reportable 07/19/16 00:34 Large Platelets Not Reportable 07/19/16 00:34 Giant Platelets Not Reportable 07/19/16 00:34 Platelet Satelliting Not Reportable 07/19/16 00:34 Plt Morphology Comment Not Reportable 07/19/16 00:34 RBC Morphology Not Reportable 07/19/16 00:34 Dimorphic RBCs Not Reportable 07/19/16 00:34 Polychromasia Not Reportable 07/19/16 00:34 Hypochromasia 1+ 07/19/16 00:34 Poikilocytosis Not Reportable 07/19/16 00:34 Anisocytosis 1+ 07/19/16 00:34 Microcytosis Not Reportable 07/19/16 00:34 Macrocytosis Not Reportable 07/19/16 00:34 Spherocytes Not Reportable 07/19/16 00:34 Pappenheimer Bodies Not Reportable 07/19/16 00:34 Sickle Cells Not Reportable 07/19/16 00:34 Target Cells Not Reportable 07/19/16 00:34 Tear Drop Cells Not Reportable 07/19/16 00:34 Ovalocytes Not Reportable 07/19/16 00:34 Helmet Cells Not Reportable 07/19/16 00:34 Spicer-[place] Bodies Not Reportable 07/19/16 00:34 [place] Rings Not Reportable 07/19/16 00:34 [place] Cells Not Reportable 07/19/16 00:34 Bite Cells Not Reportable 07/19/16 00:34 Crenated Cell Not Reportable 07/19/16 00:34 Elliptocytes Not Reportable 07/19/16 00:34 Acanthocytes (Spur) Not Reportable 07/19/16 00:34 Rouleaux Not Reportable 07/19/16 00:34 Hemoglobin C Crystals Not Reportable 07/19/16 00:34 Schistocytes Not Reportable 07/19/16 00:34 Malaria parasites Not Reportable 07/19/16 00:34 Ronal Bodies Not Reportable 07/19/16 00:34 Hem Pathologist Commnt No 07/19/16 00:34 PT 14.7 Sec. (12.2-14.9) 07/19/16 08:29 INR 1.16 (0.87-1.13) H 07/19/16 08:29 APTT 44.8 Sec. (24.2-36.6) H 07/19/16 08:29 Sodium 137 mmol/L (137-145) 07/20/16 09:13 Potassium 4.0 mmol/L (3.6-5.0) 07/20/16 09:13 Chloride 100.2 mmol/L (98-107) 07/20/16 09:13 Carbon Dioxide 20 mmol/L (22-30) L 07/20/16 09:13 Anion Gap 21 mmol/L 07/20/16 09:13 BUN 43 mg/dL (9-20) H 07/20/16 09:13 Creatinine 7.5 mg/dL (0.8-1.5) H 07/20/16 09:13 Estimated GFR 9 ml/min 07/20/16 09:13 BUN/Creatinine Ratio 5.73 % 07/20/16 09:13 Glucose 147 mg/dL (75-100) H 07/20/16 09:13 POC Glucose 151 (70-105) H 07/19/16 17:43 Lactic Acid 0.7 mmol/L (0.7-2.0) 07/19/16 08:29 Calcium 8.0 mg/dL (8.4-10.2) L 07/20/16 09:13 Phosphorus 5.4 mg/dL (2.5-4.5) H 07/19/16 08:29 Total Bilirubin 0.6 mg/dL (0.1-1.2) 07/19/16 08:29 Direct Bilirubin 0.2 mg/dL (0-0.2) 07/19/16 08:29 Indirect Bilirubin 0.4 mg/dL 07/19/16 08:29 AST 12 units/L (5-40) 07/19/16 08:29 ALT 11 units/L (7-56) 07/19/16 08:29 Alkaline Phosphatase 148 units/L (35-129) H 07/19/16 08:29 NT-Pro-B Natriuret Pep 63111 pg/mL (0-900) H 07/19/16 08:29 Total Protein 7.2 g/dL (6.3-8.2) 07/19/16 08: Albumin 2.7 g/dL (3.9-5) L 07/19/16 08: Albumin/Globulin Ratio 0.6 % 07/19/16 08:29 Blood Type A POSITIVE 07/19/16 08:29 Antibody Screen Negative 07/19/16 08:
--- NOTE | 2016-07-21 12:01 | Progress Note ---
Assessment and Plan Peripheral vascular disease with gangrene of the right foot. It is stable at the moment. However, patient is at high risk for limb loss. Patient needs a vascular workup was an angiogram to optimize circulation to the left foot. Once the flow is optimal patient most likely will require TMA. Plan: patient will be scheduled for an angiogram on Friday. Subjective Date of service: 07/21/16 Principal diagnosis: PVD with gangrene Interval history: Patient has no complaints today Objective - Exam Narrative Exam: Dry gangrene of the left great toe and the metatarsal area. The left foot otherwise warm. - Constitutional Vitals: Vital Signs - 12hr 07/21/16 07/21/16 07/21/16 03:38 08:00 09:35 Temperature 98.3 F Pulse Rate [ 77 82 Left Popliteal] Respiratory 20 Rate Blood Pressure 162/70 [Left Arm] O2 Sat by Pulse 100 100 96 Oximetry - Labs CBC & Chem 7: 07/20/16 09:13 07/20/16 09:13
[2016-07-21] MEDS: MUCINEX ER PO SCH ×2 (12:45→21:32)
[2016-07-21] MEDS: ZOSYN/NS 2.25 GM/50ML 50 ML IV SCH ×3 (12:46→21:32)
[2016-07-21] MEDS: PERCOCET 5/325 PO PRN (15:35)
[2016-07-22] MEDS: ZOFRAN IV PRN (02:24)
[2016-07-22] MEDS: ZOSYN/NS 2.25 GM/50ML 50 ML IV SCH ×3 (05:55→22:08)
[2016-07-22] MEDS ORDERED: HEPARIN 10,000 UNITS/10 ML ONE (10:28)
[2016-07-22] MEDS ORDERED: HEPARIN/NS 5000 UNIT/500ML(CATH LAB) 1,000 ML IR ONE (10:28)
[2016-07-22] MEDS ORDERED: XYLOCAINE 1%/ EPI 1:100,000 INFILTRATI ONE (10:29)
[2016-07-22] MEDS ORDERED: ANCEF/STERILE WATER 2 GM/20 ML 20 ML IV ONE (10:29)
[2016-07-22] MEDS ORDERED: NACL 0.9% 500 ML 500 ML ONE (10:30)
[2016-07-22] MEDS: MUCINEX ER PO SCH ×2 (10:37→22:08)
[2016-07-22] MEDS: SUBLIMAZE ONE ×2 (10:50→11:20)
[2016-07-22] MEDS: VERSED ONE ×2 (10:50→11:20)
--- NOTE | 2016-07-22 12:05 | Operative Report ---
Operative Report Operative Report: Date of procedure: 07/22/2016 Pre-operative diagnosis: Left lower extremity peripheral vascular disease with gangrene Post-operative diagnosis: The same Procedure name(s): 1. Ultrasound-guided cannulation of the right common femoral artery. 2. Placement of the catheter in the aorta. 3. Aortogram. 4. Selective cannulation of the left popliteal artery from contralateral side. 5. Left leg angiogram. 6. Balloon angioplasty of distal posterior tibial artery using a 2.5 x 200 balloon. 7. Balloon angioplasty of the proximal posterior tibial artery using 3 x 40 balloon. 8. Balloon angioplasty of the distal popliteal and take off of the posterior tibial artery with 4 x 40 balloon. 9. Closure of the right common femoral artery with Angio-Seal. 10. Radiologic supervision and interpretation. Surgeon: Blue Farah MD, RPVI Clinical Administrator: None Anesthesia: Local with IV sedation Findings 1. No significant stenosis of the aorta, bilateral iliac, bilateral common femoral, left superficial femoral, left popliteal artery stenosis. 2. High-grade stenosis in the proximal left posterior tibial artery. 3. Patent left posterior tibial artery down to the ankle with occlusion at the ankle. 4. Occluded left peroneal and anterior tibial artery. 5. Complete resolution of stenosis of posterior tibial artery at the end of the procedure. 6. Successful closure of the right common femoral artery. Specimens: None EBL: Minimal IV fluids: KV0 Urine output: None Disposition: The recovery Indications: Peripheral vascular disease with tissue loss. Procedure Patient was brought to the [facility] and on the table in supine position. After adequate sedation was achieved patient was prepped draped in usual sterile fashion. The right common femoral artery was interrogated with an ultrasound and under ultrasonic guidance and micropuncture needle was inserted with good blood return. Micropuncture wire was advanced under fluoroscopic guidance without resistance. The micropuncture introducer was placed. The wire was exchanged to a Bentson wire and the micropuncture introducer was exchanged to a 5 [place] sheath. The Sos Omni flush catheter was advanced into the infrarenal aorta. The angiogram of the aorta was performed please see findings for details. The contralateral cannulation was achieved with Bentson wire and the Sos Omni Flush catheter. The tip of the catheter was advanced to the proximal SFA. The left leg angiogram was performed. The glide advantage wire was inserted through the catheter and brought down to the level of the popliteal artery. The 5 [place] sheath was exchanged to a 6 x 90 Up & Over sheath with the tip of the sheath in the popliteal artery. The glide catheter was inserted over the wire. The patient received 3000 units of heparin. The posterior tibial artery was then cannulated using a 0.014 wire. The wire was able to be advanced into the plantar artery into the foot. At 2.5 mm balloon was attempted to be advanced into the plantar artery however it did not go. The distal posterior tibial artery was then balloon angioplastied using that same balloon with significant increase in lumen. This balloon was withdrawn and 3 x 40 balloon was placed in the proximal posterior tibial artery. It was successfully angioplastied was significant improvement in the lumen. The very takeoff of the posterior tibial arteries was a distal popliteal artery were balloon angioplastied using 4 mm balloon. Postprocedure angiogram revealed complete resolution of all stenosis and excellent brisk flow down the posterior tibial artery. It filled foot through the collaterals. The 6 [place] sheath was withdrawn back to the level of the right external iliac artery. The angiogram of the right common femoral artery showed that the patient was a good candidate for an Angio-Seal closure. The arteriotomy was closed with a 6 [place] Angio-Seal. Patient tolerated procedure well and was transferred to the recovery room
--- NOTE | 2016-07-22 13:59 | Vascular Lab Report ---
MISCELLANEOUS VESSEL IDENTIFICATION: COMMENTS ON THE SCAN: The right common femoral artery was identified and under real-time ultrasound guidance was cannulated. IMPRESSION: Successful ultrasound guided arterial cannulation.
[2016-07-22] MEDS: PERCOCET 5/325 PO PRN (17:34)
[2016-07-23] MEDS: PERCOCET 5/325 PO PRN (01:14)
--- NOTE | 2016-07-23 03:16 | Progress Note ---
Assessment and Plan Impression: * End stage renal disease on HD MWF * Left foot dry gangrene * Peripheral artery disease * Type II DM * Hypertension * Anemia secondary to ESRD * Secondary hyperparathyroidism Plan: * Hemodialysis tomorrow * Vascular surgery following * Epogen with dialysis * Renal diet * Abx per primary team * Tight glycemic control * Continue antiHTN medications Subjective Date of service: 07/22/16 Principal diagnosis: PVD with gangrene Interval history: Patient has no complaints today. Objective - Vital Signs Vital signs: Vital Signs - 12hr 07/22/16 07/22/16 07/22/16 16:00 17:34 20:00 Temperature 99.0 F 99.3 F Pulse Rate [ 73 73 Left Radial] Respiratory 22 20 20 Rate Blood Pressure 193/87 168/72 [Left Arm] O2 Sat by Pulse 99 96 Oximetry - General Appearance General appearance: well-developed, well-nourished EENT: ATNC Respiratory: Present: Clear to Ascultation Cardiology: regular, S1S2 Gastrointestinal: normal, no tenderness, no distended Integumentary: no rash Neurologic: no focal deficit Musculoskeletal: other (no edema) Psychiatric: mood/affect appropriate, cooperative - Lab 07/20/16 09:13 07/20/16 09:13 Most recent lab results Calcium 8.0 mg/dL (8.4-10.2) L 07/20/16 09:13 Phosphorus 5.4 mg/dL (2.5-4.5) H 07/19/16 08:29
--- NOTE | 2016-07-23 04:12 | Progress Note ---
Assessment and Plan - Patient Problems (1) Gangrene of foot Current Visit: Yes Status: Acute Plan to address problem: empiric abx, supportive care, Vascular surgery consulted for amputation. (2) ESRD (end stage renal disease) Current Visit: No Status: Acute Plan to address problem: Nephrology consulted, dialysis as per nephrology (3) Essential hypertension Current Visit: No Status: Acute Plan to address problem: monitor bp q shift, continue current therapy (4) Diabetes Diagnosis Date: 12/01/13 Current Visit: No Status: Chronic Plan to address problem: ada diet, insulin, accu check (5) PAD (peripheral artery disease) Current Visit: Yes Status: Acute Plan to address problem: Vascular consulted, angiogram in AM. (6) DVT prophylaxis Current Visit: No Status: Acute History Interval history: Pt resting in bed, No reported nursing events. Discussed care plan with patient. Pending Angiogram today. Pt informed of high probability of limb amputation. Pt upset regarding pending amputation. Will discuss further after angiogram. Vascular surgery consulted. Hospitalist Physical - Constitutional Vitals: Temp Pulse Resp BP Pulse Ox 99.3 F 73 20 168/72 96 07/22/16 20:00 07/22/16 20:00 07/22/16 20:00 07/22/16 20:00 07/22/16 20:00 General appearance: Present: no acute distress - EENT Eyes: Present: PERRL ENT: hearing intact - Neck Neck: Present: supple - Respiratory Respiratory: bilateral: CTA - Cardiovascular Rhythm: regular Heart Sounds: Present: S1 & S2 - Extremities Extremity abnormal: ulceration, deformity, black, pulses diminished Peripheral Pulses: abnormal - Abdominal General gastrointestinal: soft, non-tender, non-distended, no hepatomegaly, no splenomegaly - Integumentary Integumentary: Present: clear, dry, decreased turgor - Psychiatric Psychiatric: appropriate mood/affect, cooperative - Neurologic Neurologic: CNII-XII intact, no gait normal Results - Labs CBC & Chem 7: 07/20/16 09:13 07/20/16 09:13 Labs: Laboratory Last Values WBC 4.4 K/mm3 (4.5-11.0) L 07/20/16 09:13 RBC 3.01 M/mm3 (3.65-5.03) L 07/20/16 09:13 Hgb 8.5 gm/dl (11.8-15.2) L 07/20/16 09:13 Hct 26.9 % (35.5-45.6) L 07/20/16 09:13 MCV 90 fl (84-94) 07/20/16 09:13 MCH 28 pg (28-32) 07/20/16 09:13 MCHC 32 % (32-34) 07/20/16 09:13 RDW 20.4 % (13.2-15.2) H 07/20/16 09:13 Plt Count 293 K/mm3 (140-440) 07/20/16 09:13 Lymph % (Auto) 6.5 % (13.4-35.0) L 07/20/16 09:13 [place] % (Auto) 12.8 % (0.0-7.3) H 07/20/16 09:13 Eos % (Auto) 6.8 % (0.0-4.3) H 07/20/16 09:13 Baso % (Auto) 1.1 % (0.0-1.8) 07/20/16 09:13 Lymph # 0.3 K/mm3 (1.2-5.4) L 07/20/16 09:13 [place] # 0.6 K/mm3 (0.0-0.8) 07/20/16 09:13 Eos # 0.3 K/mm3 (0.0-0.4) 07/20/16 09:13 Baso # 0.0 K/mm3 (0.0-0.1) 07/20/16 09:13 Add Manual Diff Complete 07/19/16 00:34 Total Counted 100 07/19/16 00:34 Seg Neutrophils % 72.8 % (40.0-70.0) H 07/20/16 09:13 Seg Neuts % (Manual) 73.0 % (40.0-70.0) H 07/19/16 00:34 Band Neutrophils % 0 % 07/19/16 00:34 Lymphocytes % (Manual) 9.0 % (13.4-35.0) L 07/19/16 00:34 Reactive Lymphs % (Man) 0 % 07/19/16 00:34 Monocytes % (Manual) 15.0 % (0.0-7.3) H 07/19/16 00:34 Eosinophils % (Manual) 3.0 % (0.0-4.3) 07/19/16 00:34 Basophils % (Manual) 0 % (0.0-1.8) 07/19/16 00:34 Metamyelocytes % 0 % 07/19/16 00:34 Myelocytes % 0 % 07/19/16 00:34 Promyelocytes % 0 % 07/19/16 00:34 Blast Cells % 0 % 07/19/16 00:34 Nucleated RBC % Not Reportable 07/19/16 00:34 Seg Neutrophils # 3.2 K/mm3 (1.8-7.7) 07/20/16 09:13 Seg Neutrophils # Man 4.5 K/mm3 (1.8-7.7) 07/19/16 00:34 Band Neutrophils # 0.0 K/mm3 07/19/16 00:34 Lymphocytes # (Manual) 0.6 K/mm3 (1.2-5.4) L 07/19/16 00:34 Abs React Lymphs (Man) 0.0 K/mm3 07/19/16 00:34 Monocytes # (Manual) 0.9 K/mm3 (0.0-0.8) H 07/19/16 00:34 Eosinophils # (Manual) 0.2 K/mm3 (0.0-0.4) 07/19/16 00:34 Basophils # (Manual) 0.0 K/mm3 (0.0-0.1) 07/19/16 00:34 Metamyelocytes # 0.0 K/mm3 07/19/16 00:34 Myelocytes # 0.0 K/mm3 07/19/16 00:34 Promyelocytes # 0.0 K/mm3 07/19/16 00:34 Blast Cells # 0.0 K/mm3 07/19/16 00:34 WBC Morphology Not Reportable 07/19/16 00:34 Hypersegmented Neuts Not Reportable 07/19/16 00:34 Hyposegmented Neuts Not Reportable 07/19/16 00:34 Hypogranular Neuts Not Reportable 07/19/16 00:34 Smudge Cells Few 07/19/16 00:34 Toxic Granulation Not Reportable 07/19/16 00:34 Toxic Vacuolation Not Reportable 07/19/16 00:34 Dohle Bodies Not Reportable 07/19/16 00:34 Pelger-Huet Anomaly Not Reportable 07/19/16 00:34 Maria Eugenia Rods Not Reportable 07/19/16 00:34 Platelet Estimate Appears normal 07/19/16 00:34 Clumped Platelets Not Reportable 07/19/16 00:34 Plt Clumps, EDTA Not Reportable 07/19/16 00:34 Large Platelets Not Reportable 07/19/16 00:34 Giant Platelets Not Reportable 07/19/16 00:34 Platelet Satelliting Not Reportable 07/19/16 00:34 Plt Morphology Comment Not Reportable 07/19/16 00:34 RBC Morphology Not Reportable 07/19/16 00:34 Dimorphic RBCs Not Reportable 07/19/16 00:34 Polychromasia Not Reportable 07/19/16 00:34 Hypochromasia 1+ 07/19/16 00:34 Poikilocytosis Not Reportable 07/19/16 00:34 Anisocytosis 1+ 07/19/16 00:34 Microcytosis Not Reportable 07/19/16 00:34 Macrocytosis Not Reportable 07/19/16 00:34 Spherocytes Not Reportable 07/19/16 00:34 Pappenheimer Bodies Not Reportable 07/19/16 00:34 Sickle Cells Not Reportable 07/19/16 00:34 Target Cells Not Reportable 07/19/16 00:34 Tear Drop Cells Not Reportable 07/19/16 00:34 Ovalocytes Not Reportable 07/19/16 00:34 Helmet Cells Not Reportable 07/19/16 00:34 [place] Bodies Not Reportable 07/19/16 00:34 [place] Rings Not Reportable 07/19/16 00:34 [place] Cells Not Reportable 07/19/16 00:34 Bite Cells Not Reportable 07/19/16 00:34 Crenated Cell Not Reportable 07/19/16 00:34 Elliptocytes Not Reportable 07/19/16 00:34 Acanthocytes (Spur) Not Reportable 07/19/16 00:34 Rouleaux Not Reportable 07/19/16 00:34 Hemoglobin C Crystals Not Reportable 07/19/16 00:34 Schistocytes Not Reportable 07/19/16 00:34 Malaria parasites Not Reportable 07/19/16 00:34 Ronal Bodies Not Reportable 07/19/16 00:34 Hem Pathologist Commnt No 07/19/16 00:34 PT 14.7 Sec. (12.2-14.9) 07/19/16 08:29 INR 1.16 (0.87-1.13) H 07/19/16 08:29 APTT 44.8 Sec. (24.2-36.6) H 07/19/16 08:29 Sodium 137 mmol/L (137-145) 07/20/16 09:13 Potassium 4.0 mmol/L (3.6-5.0) 07/20/16 09:13 Chloride 100.2 mmol/L (98-107) 07/20/16 09:13 Carbon Dioxide 20 mmol/L (22-30) L 07/20/16 09:13 Anion Gap 21 mmol/L 07/20/16 09:13 BUN 43 mg/dL (9-20) H 07/20/16 09:13 Creatinine 7.5 mg/dL (0.8-1.5) H 07/20/16 09:13 Estimated GFR 9 ml/min 07/20/16 09:13 BUN/Creatinine Ratio 5.73 % 07/20/16 09:13 Glucose 147 mg/dL (75-100) H 07/20/16 09:13 POC Glucose 130 (70-105) H 07/22/16 06:57 Lactic Acid 0.7 mmol/L (0.7-2.0) 07/19/16 08:29 Calcium 8.0 mg/dL (8.4-10.2) L 07/20/16 09:13 Phosphorus 5.4 mg/dL (2.5-4.5) H 07/19/16 08:29 Total Bilirubin 0.6 mg/dL (0.1-1.2) 07/19/16 08:29 Direct Bilirubin 0.2 mg/dL (0-0.2) 07/19/16 08:29 Indirect Bilirubin 0.4 mg/dL 07/19/16 08:29 AST 12 units/L (5-40) 07/19/16 08:29 ALT 11 units/L (7-56) 07/19/16 08:29 Alkaline Phosphatase 148 units/L (35-129) H 07/19/16 08:29 NT-Pro-B Natriuret Pep 56523 pg/mL (0-900) H 07/19/16 08:29 Total Protein 7.2 g/dL (6.3-8.2) 07/19/16 08:29 Albumin 2.7 g/dL (3.9-5) L 07/19/16 08:29 Albumin/Globulin Ratio 0.6 % 07/19/16 08:29 Random Vancomycin 15.8 ug/mL (0-40.0) 07/22/16 04:34 Blood Type A POSITIVE 07/22/16 04:34 Antibody Screen Negative 07/22/16 04:34
[2016-07-23] MEDS: TYLENOL PO PRN ×4 (05:10→23:49)
[2016-07-23] MEDS: ZOSYN/NS 2.25 GM/50ML 50 ML IV SCH ×3 (05:11→21:01)
[2016-07-23] MEDS: ZOFRAN IV PRN ×3 (05:14→18:22)
--- NOTE | 2016-07-23 08:42 | Progress Note ---
Assessment and Plan Impression: * End stage renal disease on HD MWF as outpatient * Left foot dry gangrene * Peripheral artery disease * Type II DM * Hypertension * Anemia secondary to ESRD * Secondary hyperparathyroidism Plan: * Hemodialysis TTHSAt while here * Vascular surgery following, s/p intervention * Epogen with dialysis * Renal diet * Abx per primary team * Tight glycemic control * Continue antiHTN medications Subjective Date of service: 07/23/16 Principal diagnosis: PVD with gangrene Interval history: resting well in bed today Objective - Exam Narrative Exam: General appearance: well-developed, well-nourished EENT: ATNC Respiratory: Present: Clear to Ascultation Cardiology: regular, S1S2 Gastrointestinal: normal, no tenderness, no distended Integumentary: no rash Neurologic: no focal deficit Musculoskeletal: other (no edema) Psychiatric: mood/affect appropriate, cooperative - Vital Signs Vital signs: Vital Signs - 12hr 07/23/16 08:00 Temperature 98.3 F Pulse Rate [ 87 Right Radial] Respiratory 20 Rate Blood Pressure 161/68 [Right Arm] O2 Sat by Pulse 100 Oximetry - Lab 07/20/16 09:13 07/20/16 09:13 Most recent lab results Calcium 8.0 mg/dL (8.4-10.2) L 07/20/16 09:13 Phosphorus 5.4 mg/dL (2.5-4.5) H 07/19/16 08:29
--- NOTE | 2016-07-23 09:04 | Progress Note ---
Assessment and Plan Assessment and plan: Acute gangrene of the left foot s/p arteriogram End-stage renal disease on dialysis Hypertension, benign essentiaL Diabetes mellitus type 2 Peripheral vascular disease Anemia of chronic kidney disease. Plan: Continue vancomycin and Zosyn for now Add heparin for DVT prophylaxis Continue tight glycemic control Follow-up with vascular for further recommendation We'll consult ID for abx recommendation Continue to monitor BP, and adjust medications As necessary History Interval history: Patient seen and examined. Medical records and medication list reviewed. No acute event overnight noted by the RN. Patient denies any chest pain or difficulty breathing. Patient is tolerating diet. He is getting HD now, plan for amputation per surgery Discussed plan of care at bedside with patient. Hospitalist Physical - Physical exam Narrative exam: GENERAL: Elderly AAM lying on bed appeared to be in no discomfort. HEENT: Normocephalic. Atraumatic. No conjunctival congestion or icterus. Patient has moist mucous membranes. NECK: Supple. Trachea midline. CHEST/LUNGS: Clear to auscultated bilaterally, breathing nonlabored. No wheezes crackles or rhonchi. HEART/CARDIOVASCULAR: Regular in rate and rhythm. S1 and S2 positive. ABDOMEN: Abdomen is soft, nontender. Patient has normal bowel sounds. SKIN: There is no rash. Warm and dry. NEURO: No focal motor deficit. Follows command. MUSCULOSKELETAL: No joint effusion or tenderness. EXTRIMITY: Right LE BKA, left foot blackish discoloration. PSYCH: Cooperative. - Constitutional Vitals: Temp Pulse Resp BP Pulse Ox 98.3 F 87 20 161/68 100 07/23/16 08:00 07/23/16 08:00 07/23/16 08:00 07/23/16 08:00 07/23/16 08:00 General appearance: Present: no acute distress Results - Labs CBC & Chem 7: 07/20/16 09:13 07/20/16 09:13 Labs: Laboratory Last Values WBC 4.4 K/mm3 (4.5-11.0) L 07/20/16 09:13 RBC 3.01 M/mm3 (3.65-5.03) L 07/20/16 09:13 Hgb 8.5 gm/dl (11.8-15.2) L 07/20/16 09:13 Hct 26.9 % (35.5-45.6) L 07/20/16 09:13 MCV 90 fl (84-94) 07/20/16 09:13 MCH 28 pg (28-32) 07/20/16 09:13 MCHC 32 % (32-34) 07/20/16 09:13 RDW 20.4 % (13.2-15.2) H 07/20/16 09:13 Plt Count 293 K/mm3 (140-440) 07/20/16 09:13 Lymph % (Auto) 6.5 % (13.4-35.0) L 07/20/16 09:13 [place] % (Auto) 12.8 % (0.0-7.3) H 07/20/16 09:13 Eos % (Auto) 6.8 % (0.0-4.3) H 07/20/16 09:13 Baso % (Auto) 1.1 % (0.0-1.8) 07/20/16 09:13 Lymph # 0.3 K/mm3 (1.2-5.4) L 07/20/16 09:13 [place] # 0.6 K/mm3 (0.0-0.8) 07/20/16 09:13 Eos # 0.3 K/mm3 (0.0-0.4) 07/20/16 09:13 Baso # 0.0 K/mm3 (0.0-0.1) 07/20/16 09:13 Add Manual Diff Complete 07/19/16 00:34 Total Counted 100 07/19/16 00:34 Seg Neutrophils % 72.8 % (40.0-70.0) H 07/20/16 09:13 Seg Neuts % (Manual) 73.0 % (40.0-70.0) H 07/19/16 00:34 Band Neutrophils % 0 % 07/19/16 00:34 Lymphocytes % (Manual) 9.0 % (13.4-35.0) L 07/19/16 00:34 Reactive Lymphs % (Man) 0 % 07/19/16 00:34 Monocytes % (Manual) 15.0 % (0.0-7.3) H 07/19/16 00:34 Eosinophils % (Manual) 3.0 % (0.0-4.3) 07/19/16 00:34 Basophils % (Manual) 0 % (0.0-1.8) 07/19/16 00:34 Metamyelocytes % 0 % 07/19/16 00:34 Myelocytes % 0 % 07/19/16 00:34 Promyelocytes % 0 % 07/19/16 00:34 Blast Cells % 0 % 07/19/16 00:34 Nucleated RBC % Not Reportable 07/19/16 00:34 Seg Neutrophils # 3.2 K/mm3 (1.8-7.7) 07/20/16 09:13 Seg Neutrophils # Man 4.5 K/mm3 (1.8-7.7) 07/19/16 00:34 Band Neutrophils # 0.0 K/mm3 07/19/16 00:34 Lymphocytes # (Manual) 0.6 K/mm3 (1.2-5.4) L 07/19/16 00:34 Abs React Lymphs (Man) 0.0 K/mm3 07/19/16 00:34 Monocytes # (Manual) 0.9 K/mm3 (0.0-0.8) H 07/19/16 00:34 Eosinophils # (Manual) 0.2 K/mm3 (0.0-0.4) 07/19/16 00:34 Basophils # (Manual) 0.0 K/mm3 (0.0-0.1) 07/19/16 00:34 Metamyelocytes # 0.0 K/mm3 07/19/16 00:34 Myelocytes # 0.0 K/mm3 07/19/16 00:34 Promyelocytes # 0.0 K/mm3 07/19/16 00:34 Blast Cells # 0.0 K/mm3 07/19/16 00:34 WBC Morphology Not Reportable 07/19/16 00:34 Hypersegmented Neuts Not Reportable 07/19/16 00:34 Hyposegmented Neuts Not Reportable 07/19/16 00:34 Hypogranular Neuts Not Reportable 07/19/16 00:34 Smudge Cells Few 07/19/16 00:34 Toxic Granulation Not Reportable 07/19/16 00:34 Toxic Vacuolation Not Reportable 07/19/16 00:34 Dohle Bodies Not Reportable 07/19/16 00:34 Pelger-Huet Anomaly Not Reportable 07/19/16 00:34 Maria Eugenia Rods Not Reportable 07/19/16 00:34 Platelet Estimate Appears normal 07/19/16 00:34 Clumped Platelets Not Reportable 07/19/16 00:34 Plt Clumps, EDTA Not Reportable 07/19/16 00:34 Large Platelets Not Reportable 07/19/16 00:34 Giant Platelets Not Reportable 07/19/16 00:34 Platelet Satelliting Not Reportable 07/19/16 00:34 Plt Morphology Comment Not Reportable 07/19/16 00:34 RBC Morphology Not Reportable 07/19/16 00:34 Dimorphic RBCs Not Reportable 07/19/16 00:34 Polychromasia Not Reportable 07/19/16 00:34 Hypochromasia 1+ 07/19/16 00:34 Poikilocytosis Not Reportable 07/19/16 00:34 Anisocytosis 1+ 07/19/16 00:34 Microcytosis Not Reportable 07/19/16 00:34 Macrocytosis Not Reportable 07/19/16 00:34 Spherocytes Not Reportable 07/19/16 00:34 Pappenheimer Bodies Not Reportable 07/19/16 00:34 Sickle Cells Not Reportable 07/19/16 00:34 Target Cells Not Reportable 07/19/16 00:34 Tear Drop Cells Not Reportable 07/19/16 00:34 Ovalocytes Not Reportable 07/19/16 00:34 Helmet Cells Not Reportable 07/19/16 00:34 [place] Bodies Not Reportable 07/19/16 00:34 [place] Rings Not Reportable 07/19/16 00:34 [place] Cells Not Reportable 07/19/16 00:34 Bite Cells Not Reportable 07/19/16 00:34 Crenated Cell Not Reportable 07/19/16 00:34 Elliptocytes Not Reportable 07/19/16 00:34 Acanthocytes (Spur) Not Reportable 07/19/16 00:34 Rouleaux Not Reportable 07/19/16 00:34 Hemoglobin C Crystals Not Reportable 07/19/16 00:34 Schistocytes Not Reportable 07/19/16 00:34 Malaria parasites Not Reportable 07/19/16 00:34 Ronal Bodies Not Reportable 07/19/16 00:34 Hem Pathologist Commnt No 07/19/16 00:34 PT 14.7 Sec. (12.2-14.9) 07/19/16 08:29 INR 1.16 (0.87-1.13) H 07/19/16 08:29 APTT 44.8 Sec. (24.2-36.6) H 07/19/16 08:29 Sodium 137 mmol/L (137-145) 07/20/16 09:13 Potassium 4.0 mmol/L (3.6-5.0) 07/20/16 09:13 Chloride 100.2 mmol/L (98-107) 07/20/16 09:13 Carbon Dioxide 20 mmol/L (22-30) L 07/20/16 09:13 Anion Gap 21 mmol/L 07/20/16 09:13 BUN 43 mg/dL (9-20) H 07/20/16 09:13 Creatinine 7.5 mg/dL (0.8-1.5) H 07/20/16 09:13 Estimated GFR 9 ml/min 07/20/16 09:13 BUN/Creatinine Ratio 5.73 % 07/20/16 09:13 Glucose 147 mg/dL (75-100) H 07/20/16 09:13 POC Glucose 130 (70-105) H 07/22/16 06:57 Lactic Acid 0.7 mmol/L (0.7-2.0) 07/19/16 08:29 Calcium 8.0 mg/dL (8.4-10.2) L 07/20/16 09:13 Phosphorus 5.4 mg/dL (2.5-4.5) H 07/19/16 08:29 Total Bilirubin 0.6 mg/dL (0.1-1.2) 07/19/16 08:29 Direct Bilirubin 0.2 mg/dL (0-0.2) 07/19/16 08:29 Indirect Bilirubin 0.4 mg/dL 07/19/16 08:29 AST 12 units/L (5-40) 07/19/16 08:29 ALT 11 units/L (7-56) 07/19/16 08:29 Alkaline Phosphatase 148 units/L (35-129) H 07/19/16 08:29 NT-Pro-B Natriuret Pep 09447 pg/mL (0-900) H 07/19/16 08:29 Total Protein 7.2 g/dL (6.3-8.2) 07/19/16 08:29 Albumin 2.7 g/dL (3.9-5) L 07/19/16 08:29 Albumin/Globulin Ratio 0.6 % 07/19/16 08:29 Random Vancomycin 15.8 ug/mL (0-40.0) 07/22/16 04:34 Blood Type A POSITIVE 07/22/16 04:34 Antibody Screen Negative 07/22/16 04:34
[2016-07-23] MEDS: MUCINEX ER PO SCH ×2 (09:47→21:00)
[2016-07-23] MEDS: HEPARIN 10,000 UNITS/10 ML IV PRN (11:15)
[2016-07-23] MEDS: HEPARIN IV PRN (11:30)
--- NOTE | 2016-07-23 13:28 | Consultation ---
History of Present Illness - Reason for Consult Consult date: 07/23/16 left foot gangrene Requesting physician: NORA GRIMES - History of Present Illness This is a 70 year old man with ESRD on hemodialysis, DM, tobacco abuse and CHF. Patient is a poor informant, he could not provide details regarding the events surrounding his left foot ischemic changes. He did inform me that one month prior to admission he had a clear fluid filled blister on the lateral and dorsal aspect of the left foot great toe that broke open. The weeks following that the area became dark and hard with worsening discoloration. He did not have fevers or chills. On admission to the hospital on 07/19/16 wbc was 4.4 and lactic acid 0.7. Patient underwent left lower extremity ultrasound guided cannulation of the right common femoral artery, placement of catheter in aorta, aortagram and balloon angioplasty of distal posterior tibial artery, proximal posterior tibial artery and distal popliteal. Patient has been on iv antibiotics namely vancomycin and zosyn. Past History Past Medical History: acute [place], diabetes, ESRD, heart failure, hypertension Past Surgical History: Other (R BKA, AVF) Social history: single, smoking Family history: diabetes, hypertension Medications and Allergies Allergies Allergy/AdvReac Type Severity Reaction Status Date / Time hydrocodone bitartrate AdvReac SWEAT/CRAMP Verified 03/15/15 15:37 [From Vicodin] Home Medications Medication Instructions Recorded Confirmed Last Taken Type amLODIPine [Norvasc] 5 mg PO DAILY #60 tablet 12/10/13 07/19/16 03/16/14 14:00 Rx Labetalol [Normodyne TAB] 300 mg PO BID #60 tablet 03/19/14 07/19/16 Unknown Rx Simvastatin [Zocor TAB] 20 mg PO QHS 07/20/16 07/20/16 07/19/16 History Active Meds: Active Medications Acetaminophen (Tylenol) 650 mg PO Q4H PRN PRN Reason: Pain MILD(1-3)/Fever >100.5/JACK[place] Last Admin: 07/23/16 09:47 Dose: 650 mg Albuterol/Ipratropium (Duoneb 0.5 Mg-3 Mg/3 Ml Soln) 1 ampul IH Q6HRT PRN PRN Reason: Wheezing Last Admin: 07/20/16 01:16 Dose: 1 ampul Guaifenesin (Mucinex Er) 600 mg PO BID [facility] Last Admin: 07/23/16 09:47 Dose: 600 mg Heparin Sodium (Porcine) (Heparin 10,000 Units/10 Ml) 2,000 unit IV SHRUTHI PRN PRN Reason: hemodialysis Last Admin: 07/23/16 11:15 Dose: 2,000 unit Heparin Sodium (Porcine) (Heparin) 5,000 unit IV SHRUTHI PRN PRN Reason: hemodialysis Last Admin: 07/23/16 11:30 Dose: 5,000 unit Heparin Sodium (Porcine) (Heparin) 5,000 unit SUB-Q Q8HR [facility] Sodium Chloride (Nacl 0.9% 1000 Ml) 100 mls @ 999 mls/hr IV SHRUTHI PRN PRN Reason: Hypotension Piperacillin Sod/Tazobactam Sod (Zosyn/Ns 2.25 Gm/50ml) 50 mls @ 100 mls/hr IV Q8HR [facility] Last Admin: 07/23/16 05:11 Dose: 100 mls/hr Vancomycin HCl (Vancomycin/Ns 1 Gm/250 Ml) 250 mls @ 166.667 mls/hr IV TuThSa@ 1800 [facility] Ondansetron HCl (Zofran) 4 mg IV Q4H PRN PRN Reason: Nausea And Vomiting Last Admin: 07/23/16 09:48 Dose: 4 mg Oxycodone/Acetaminophen (Percocet 5/325) 1 tab PO Q6H PRN PRN Reason: Pain, Moderate (4-6) Last Admin: 07/23/16 01:14 Dose: 1 tab Vancomycin HCl (Vancomycin Pharmacy To Dose) 1 each IV PKCONSULT [facility] PRN Reason: Protocol Review of Systems Constitutional: no weight loss, no weight gain, no fever, no chills, no sweats, no fatigue, no weakness Ears, nose, mouth and throat: deferred, no ear pain, no ear discharge, no tinnitis, no decreased hearing, no nose pain, no dental pain, no mouth pain Cardiovascular: no chest pain, no orthopnea, no palpitations, no shortness of breath, no dyspnea on exertion Respiratory: cough (ongoing x 2 weeks) Gastrointestinal: no nausea, no vomiting, no diarrhea, no melena, no hematochezia Genitourinary Male: no dysuria, no hematuria Rectal: no pain, no incontinence Musculoskeletal: no neck pain, no shooting arm pain, no low back pain Integumentary: no pruritis, no redness, no sores, no lesions, no darkening of skin Neurological: no weakness, no parathesias, no headaches, no migraines Psychiatric: no memory loss, no insomnia Endocrine: no polyphagia, no excessive thirst, no polydipsia Physical Examination - Constitutional Vitals: Selected Entries 07/23/16 07/23/16 07/23/16 08:00 10:33 12:45 Temperature 98.3 F 98 F Pulse Rate 76 Blood Pressure 148/78 General appearance: Present: no acute distress, well-nourished - EENT Eyes: Present: PERRL, EOM intact. Absent: scleral icterus, conjunctival injection ENT: hearing intact, clear oral mucosa, poor dentition - Neck Neck: Present: supple, normal ROM. Absent: enlarged thyroid, masses or JVD - Respiratory Respiratory effort: normal Respiratory: bilateral: CTA - Cardiovascular Rhythm: regular Heart Sounds: Present: S1 & S2 - Extremities Extremities: abnormal Extremity abnormal: cyanosis, ulceration, black, cold (left foot with only digits 1 and 3 present. the entire foot is black, worse on the great toe with dry gangrene) Peripheral Pulses: abnormal (not palpable) - Abdominal General gastrointestinal: Present: soft, non-tender, normal bowel sounds Male genitourinary: Present: deferred - Rectal Rectal Exam: deferred - Integumentary Integumentary: Absent: jaundice, rash, clammy Results - Labs CBC & Chem 7: 07/20/16 09:13 07/20/16 09:13 Labs: Vital Signs Temp Pulse Resp BP Pulse Ox 98 F 76 16 148/78 100 07/23/16 10:33 07/23/16 12:45 07/23/16 10:33 07/23/16 12:45 07/23/16 08:00 Temperature -Last 24 Hours Temperature 98 F Temperature 98.3 F Temperature 99.3 F Temperature 99.0 F Assessment and Plan Antibiotics: 1) vancomycin pulse dosing (07/19 2) zosyn 2.25gm iv Q8H (07/21 This is a 70 year old man with ESRD on HD via a left chest wall permacath, DM, PVD s/p right below knee amputation. Presented on 07/19/16 with one month of worsening ischemic changes of left foot with the great toe with worsening dry gangrene. No drainage or purulence noticed. Patient underwent left leg angioplasty (posterior tibial artery, proximal posterior tibial artery and distal popliteal). 1) Severe left leg peripheral arterial disease with the development of dry gangrene of the left great toe. No sign of active infection. I believe the great to will need to be amputated. He might need to have a transmetatarsal amputation or possible below knee amputation. At this point there is no significant changes to suggest gross infection, this is all dry gangrene and does not necessarily need antibiotics. Patient is clinically stable, no fevers or chills and wbc is normal 2) left great toe dry gangrene. see number one above. 3) persistent cough, patient said this hacking cough has been present for 2 weeks. Will need to check patient's Tdap status Plan: 1) discontinue vancomycin 2) continue zosyn for now, will reassess the need once decision regarding further surgery is decided. 3) obtain nasopharyngeal bordetella pertussis PCR
--- NOTE | 2016-07-23 14:01 | Progress Note ---
Assessment and Plan Status post successful revascularization via endovascular means. The foot perfusion somewhat marginal based on angiogram but clinically foot is warm and appears to ready for his trans-metatarsal amputation. Look to schedule this in the very near future within the next 24-72 hours Subjective Date of service: 07/23/16 Principal diagnosis: PVD with gangrene Interval history: Says his foot feels better. Would like to have his toes removed once no when asked going to happen Objective - Exam Narrative Exam: It is warm. Dry gangrene of the great toe and remaining digit and no odor. - Constitutional Vitals: Vital Signs - 12hr 07/23/16 07/23/16 07/23/16 08:00 10:33 10:45 Temperature 98.3 F 98 F Pulse Rate 72 76 Pulse Rate [ 87 Right Radial] Respiratory 20 16 Rate Blood Pressure 160/74 140/80 Blood Pressure 161/68 [Right Arm] O2 Sat by Pulse 100 Oximetry 07/23/16 07/23/16 07/23/16 11:00 11:15 11:18 Temperature Pulse Rate 68 68 72 Pulse Rate [ Right Radial] Respiratory Rate Blood Pressure 166/74 132/62 142/64 Blood Pressure [Right Arm] O2 Sat by Pulse Oximetry 07/23/16 07/23/16 07/23/16 11:30 11:45 12:00 Temperature Pulse Rate 100 H 94 H 92 H Pulse Rate [ Right Radial] Respiratory Rate Blood Pressure 130/70 168/80 144/72 Blood Pressure [Right Arm] O2 Sat by Pulse Oximetry 07/23/16 07/23/16 07/23/16 12:15 12:30 12:45 Temperature Pulse Rate 66 66 76 Pulse Rate [ Right Radial] Respiratory Rate Blood Pressure 150/76 182/80 148/78 Blood Pressure [Right Arm] O2 Sat by Pulse Oximetry - Labs CBC & Chem 7: 07/20/16 09:13 07/20/16 09:13
[2016-07-23] MEDS: HEPARIN SUB-Q SCH ×2 (14:26→21:00)
[2016-07-23] MEDS: TESSALON PERLES PO SCH ×2 (16:20→21:00)
[2016-07-23] MEDS ORDERED: VANCOMYCIN/NS 1 GM/250 ML 250 ML IV SCH (18:00)
[2016-07-24] MEDS: TESSALON PERLES PO SCH ×3 (06:00→21:25)
[2016-07-24] MEDS: ZOSYN/NS 2.25 GM/50ML 50 ML IV SCH ×3 (06:00→21:24)
[2016-07-24] MEDS: HEPARIN SUB-Q SCH ×3 (06:01→21:33)
--- NOTE | 2016-07-24 06:32 | Progress Note ---
Assessment and Plan Impression: * End stage renal disease on HD MWF as outpatient * Left foot dry gangrene * Peripheral artery disease * Type II DM * Hypertension * Anemia secondary to ESRD * Secondary hyperparathyroidism Plan: * Hemodialysis [facility] while here * Vascular surgery following, s/p intervention, plans for metatarsal amputation noted * Epogen with dialysis * Renal diet * Abx per primary team * Tight glycemic control * Continue antiHTN medications Subjective Date of service: 07/24/16 Principal diagnosis: PVD with gangrene Interval history: resting well in bed today Objective - Exam Narrative Exam: General appearance: well-developed, well-nourished EENT: ATNC Respiratory: Present: Clear to Ascultation Cardiology: regular, S1S2 Gastrointestinal: normal, no tenderness, no distended Integumentary: no rash Neurologic: no focal deficit Musculoskeletal: other (no edema) Psychiatric: mood/affect appropriate, cooperative - Vital Signs Vital signs: Vital Signs - 12hr 07/23/16 23:00 Temperature 100.2 F H Pulse Rate [ 83 Right Radial] Respiratory 20 Rate Blood Pressure 175/72 [Right Arm] O2 Sat by Pulse 97 Oximetry - Lab 07/20/16 09:13 07/20/16 09:13 Most recent lab results Calcium 8.0 mg/dL (8.4-10.2) L 07/20/16 09:13 Phosphorus 5.4 mg/dL (2.5-4.5) H 07/19/16 08:29
[2016-07-24 07:05] LABS: Hematocrit 28.1 % (35.5-45.6); Mean Corpuscular HGB Conc 32 % (32-34); Mean Corpuscular Hemoglobin 28 pg (28-32); Mean Corpuscular Volume 88 fl (84-94); Platelet Count 269 K/mm3 (140-440); Red Blood Count 3.21 M/mm3 (3.65-5.03); Red Cell Distribution Width 20.1 % (13.2-15.2); White Blood Count 3.9 K/mm3 (4.5-11.0)
[2016-07-24 07:15] LABS: BUN/Creatinine Ratio 3.38; Calcium 7.9 mg/dL (8.4-10.2); Chloride 95.4 mmol/L (98-107); Potassium 4.1 mmol/L (3.6-5.0)
[2016-07-24] MEDS: MUCINEX ER PO SCH ×2 (09:25→21:25)
[2016-07-24] MEDS: ZOFRAN IV PRN (11:40)
--- NOTE | 2016-07-24 17:34 | Progress Note ---
Assessment and Plan Assessment and plan: Acute gangrene of the left foot s/p left posterior tibial and popliteal angioplasty End-stage renal disease on dialysis Hypertension, benign essentiaL Diabetes mellitus type 2 Peripheral vascular disease Anemia of chronic kidney disease. Nausea/vomiting likely due to GERD? Plan: Continue Zosyn for now cont heparin for DVT prophylaxis Continue tight glycemic control Follow-up with vascular for further recommendation ID is following Continue to monitor BP, and adjust medications As necessary add protonix History Interval history: Patient seen and examined. Medical records and medication list reviewed. No acute event overnight noted by the RN. Patient c/o nausea. plan for amputation per surgery pending depending on improvement of blood supply to the foot. Discussed plan of care at bedside with patient. Hospitalist Physical - Physical exam Narrative exam: GENERAL: Elderly AAM lying on bed appeared to be in no discomfort. HEENT: Normocephalic. Atraumatic. No conjunctival congestion or icterus. Patient has moist mucous membranes. NECK: Supple. Trachea midline. CHEST/LUNGS: Clear to auscultated bilaterally, breathing nonlabored. No wheezes crackles or rhonchi. HEART/CARDIOVASCULAR: Regular in rate and rhythm. S1 and S2 positive. ABDOMEN: Abdomen is soft, nontender. Patient has normal bowel sounds. SKIN: There is no rash. Warm and dry. NEURO: No focal motor deficit. Follows command. MUSCULOSKELETAL: No joint effusion or tenderness. EXTRIMITY: Right LE BKA, left foot blackish discoloration. PSYCH: Cooperative. - Constitutional Vitals: Temp Pulse Resp BP Pulse Ox 99.5 F 76 20 183/80 98 07/24/16 16:58 07/24/16 16:58 07/24/16 16:58 07/24/16 16:58 07/24/16 08:32 General appearance: Present: no acute distress Results - Labs CBC & Chem 7: 07/24/16 06:41 07/24/16 06:41 Labs: Laboratory Last Values WBC 3.9 K/mm3 (4.5-11.0) L 07/24/16 06:41 RBC 3.21 M/mm3 (3.65-5.03) L 07/24/16 06:41 Hgb 9.0 gm/dl (11.8-15.2) L 07/24/16 06:41 Hct 28.1 % (35.5-45.6) L 07/24/16 06:41 MCV 88 fl (84-94) 07/24/16 06:41 MCH 28 pg (28-32) 07/24/16 06:41 MCHC 32 % (32-34) 07/24/16 06:41 RDW 20.1 % (13.2-15.2) H 07/24/16 06:41 Plt Count 269 K/mm3 (140-440) 07/24/16 06:41 Lymph % (Auto) Manager Payment 07/24/16 06:41 Barren % (Auto) Manager Payment 07/24/16 06:41 Eos % (Auto) Manager Payment 07/24/16 06:41 Baso % (Auto) Manager Payment 07/24/16 06:41 Lymph # Manager Payment 07/24/16 06:41 Barren # Manager Payment 07/24/16 06:41 Eos # Manager Payment 07/24/16 06:41 Baso # Manager Payment 07/24/16 06:41 Add Manual Diff Complete 07/19/16 00:34 Total Counted 100 07/19/16 00:34 Seg Neutrophils % Manager Payment 07/24/16 06:41 Seg Neuts % (Manual) 73.0 % (40.0-70.0) H 07/19/16 00:34 Band Neutrophils % 0 % 07/19/16 00:34 Lymphocytes % (Manual) 9.0 % (13.4-35.0) L 07/19/16 00:34 Reactive Lymphs % (Man) 0 % 07/19/16 00:34 Monocytes % (Manual) 15.0 % (0.0-7.3) H 07/19/16 00:34 Eosinophils % (Manual) 3.0 % (0.0-4.3) 07/19/16 00:34 Basophils % (Manual) 0 % (0.0-1.8) 07/19/16 00:34 Metamyelocytes % 0 % 07/19/16 00:34 Myelocytes % 0 % 07/19/16 00:34 Promyelocytes % 0 % 07/19/16 00:34 Blast Cells % 0 % 07/19/16 00:34 Nucleated RBC % Not Reportable 07/19/16 00:34 Seg Neutrophils # Manager Payment 07/24/16 06:41 Seg Neutrophils # Man 4.5 K/mm3 (1.8-7.7) 07/19/16 00:34 Band Neutrophils # 0.0 K/mm3 07/19/16 00:34 Lymphocytes # (Manual) 0.6 K/mm3 (1.2-5.4) L 07/19/16 00:34 Abs React Lymphs (Man) 0.0 K/mm3 07/19/16 00:34 Monocytes # (Manual) 0.9 K/mm3 (0.0-0.8) H 07/19/16 00:34 Eosinophils # (Manual) 0.2 K/mm3 (0.0-0.4) 07/19/16 00:34 Basophils # (Manual) 0.0 K/mm3 (0.0-0.1) 07/19/16 00:34 Metamyelocytes # 0.0 K/mm3 07/19/16 00:34 Myelocytes # 0.0 K/mm3 07/19/16 00:34 Promyelocytes # 0.0 K/mm3 07/19/16 00:34 Blast Cells # 0.0 K/mm3 07/19/16 00:34 WBC Morphology Not Reportable 07/19/16 00:34 Hypersegmented Neuts Not Reportable 07/19/16 00:34 Hyposegmented Neuts Not Reportable 07/19/16 00:34 Hypogranular Neuts Not Reportable 07/19/16 00:34 Smudge Cells Few 07/19/16 00:34 Toxic Granulation Not Reportable 07/19/16 00:34 Toxic Vacuolation Not Reportable 07/19/16 00:34 Dohle Bodies Not Reportable 07/19/16 00:34 Pelger-Huet Anomaly Not Reportable 07/19/16 00:34 Maria Eugenia Rods Not Reportable 07/19/16 00:34 Platelet Estimate Appears normal 07/19/16 00:34 Clumped Platelets Not Reportable 07/19/16 00:34 Plt Clumps, EDTA Not Reportable 07/19/16 00:34 Large Platelets Not Reportable 07/19/16 00:34 Giant Platelets Not Reportable 07/19/16 00:34 Platelet Satelliting Not Reportable 07/19/16 00:34 Plt Morphology Comment Not Reportable 07/19/16 00:34 RBC Morphology Not Reportable 07/19/16 00:34 Dimorphic RBCs Not Reportable 07/19/16 00:34 Polychromasia Not Reportable 07/19/16 00:34 Hypochromasia 1+ 07/19/16 00:34 Poikilocytosis Not Reportable 07/19/16 00:34 Anisocytosis 1+ 07/19/16 00:34 Microcytosis Not Reportable 07/19/16 00:34 Macrocytosis Not Reportable 07/19/16 00:34 Spherocytes Not Reportable 07/19/16 00:34 Pappenheimer Bodies Not Reportable 07/19/16 00:34 Sickle Cells Not Reportable 07/19/16 00:34 Target Cells Not Reportable 07/19/16 00:34 Tear Drop Cells Not Reportable 07/19/16 00:34 Ovalocytes Not Reportable 07/19/16 00:34 Helmet Cells Not Reportable 07/19/16 00:34 [place] Bodies Not Reportable 07/19/16 00:34 [place] Rings Not Reportable 07/19/16 00:34 [place] Cells Not Reportable 07/19/16 00:34 Bite Cells Not Reportable 07/19/16 00:34 Crenated Cell Not Reportable 07/19/16 00:34 Elliptocytes Not Reportable 07/19/16 00:34 Acanthocytes (Spur) Not Reportable 07/19/16 00:34 Rouleaux Not Reportable 07/19/16 00:34 Hemoglobin C Crystals Not Reportable 07/19/16 00:34 Schistocytes Not Reportable 07/19/16 00:34 Malaria parasites Not Reportable 07/19/16 00:34 Ronal Bodies Not Reportable 07/19/16 00:34 Hem Pathologist Commnt No 07/19/16 00:34 PT 14.7 Sec. (12.2-14.9) 07/19/16 08:29 INR 1.16 (0.87-1.13) H 07/19/16 08:29 APTT 44.8 Sec. (24.2-36.6) H 07/19/16 08:29 Sodium 135 mmol/L (137-145) L 07/24/16 06:41 Potassium 4.1 mmol/L (3.6-5.0) 07/24/16 06:41 Chloride 95.4 mmol/L (98-107) L 07/24/16 06:41 Carbon Dioxide 25 mmol/L (22-30) 07/24/16 06:41 Anion Gap 19 mmol/L 07/24/16 06:41 BUN 20 mg/dL (9-20) 07/24/16 06:41 Creatinine 5.9 mg/dL (0.8-1.5) H 07/24/16 06:41 Estimated GFR 12 ml/min 07/24/16 06:41 BUN/Creatinine Ratio 3.38 % 07/24/16 06:41 Glucose 96 mg/dL (75-100) 07/24/16 06:41 POC Glucose 130 (70-105) H 07/22/16 06:57 Lactic Acid 0.7 mmol/L (0.7-2.0) 07/19/16 08:29 Calcium 7.9 mg/dL (8.4-10.2) L 07/24/16 06:41 Phosphorus 5.4 mg/dL (2.5-4.5) H 07/19/16 08:29 Total Bilirubin 0.6 mg/dL (0.1-1.2) 07/19/16 08:29 Direct Bilirubin 0.2 mg/dL (0-0.2) 07/19/16 08:29 Indirect Bilirubin 0.4 mg/dL 07/19/16 08:29 AST 12 units/L (5-40) 07/19/16 08:29 ALT 11 units/L (7-56) 07/19/16 08:29 Alkaline Phosphatase 148 units/L (35-129) H 07/19/16 08:29 NT-Pro-B Natriuret Pep 90501 pg/mL (0-900) H 07/19/16 08:29 Total Protein 7.2 g/dL (6.3-8.2) 07/19/16 08:29 Albumin 2.7 g/dL (3.9-5) L 07/19/16 08:29 Albumin/Globulin Ratio 0.6 % 07/19/16 08:29 Random Vancomycin 15.8 ug/mL (0-40.0) 07/22/16 04:34 Blood Type A POSITIVE 07/22/16 04:34 Antibody Screen Negative 07/22/16 04:34
--- NOTE | 2016-07-24 17:38 | Progress Note ---
Assessment and Plan Patient will need toe amputation with his contact lens blocker service. However prior to that we will perform angiogram was possible improvement of foot blood supply. Subjective Date of service: 07/24/16 Principal diagnosis: PVD with gangrene Interval history: [id number] gentleman status post popliteal and posterior tibial angioplasty on the left. Patient has no new complaints. He denies pain. He is asking for possible TMA to be as soon as possible so he can go home. Objective - Exam Narrative Exam: Kacie Parekh previous below-knee amputation on the right side was recently was cauterization left side and gangrene of his toes. Patient had previous 2 toe amputation on the same side. His dialysis patient, has PermCath on the left side. - Constitutional Vitals: Vital Signs - 12hr 07/24/16 07/24/16 08:32 16:58 Temperature 99.1 F 99.5 F Pulse Rate [ 76 76 Right Radial] Respiratory 20 20 Rate Blood Pressure 187/78 183/80 [Right Arm] O2 Sat by Pulse 98 Oximetry General appearance: Present: no acute distress - EENT Eyes: PERRL - Neck Neck: supple - Respiratory Respiratory effort: normal Respiratory: bilateral: CTA - Cardiovascular Heart Sounds: Present: S1 & S2 Extremities: abnormal (left foot toe gangrene was extension of the medial side forefoot) - Gastrointestinal General gastrointestinal: Present: soft - Labs CBC & Chem 7: 07/24/16 06:41 07/24/16 06:41 Labs: Abnormal lab results 07/24/16 07/24/16 Range/Units 06:41 06:41 WBC 3.9 L (4.5-11.0) K/mm3 RBC 3.21 L (3.65-5.03) M/mm3 Hgb 9.0 L (11.8-15.2) gm/dl Hct 28.1 L (35.5-45.6) % RDW 20.1 H (13.2-15.2) % Sodium 135 L (137-145) mmol/L Chloride 95.4 L (98-107) mmol/L Creatinine 5.9 H (0.8-1.5) mg/dL Calcium 7.9 L (8.4-10.2) mg/dL
[2016-07-24] MEDS: PROTONIX PO SCH (18:24)
[2016-07-24] MEDS: ZOCOR PO SCH (21:25)
[2016-07-24] MEDS: NORMODYNE PO SCH (21:27)
[2016-07-24] MEDS ORDERED: OYSCO D 500 MG-200 UNIT PO SCH (22:00)
[2016-07-24] MEDS ORDERED: NORMODYNE PO SCH (22:00)
[2016-07-25] MEDS: ZOSYN/NS 2.25 GM/50ML 50 ML IV SCH ×3 (05:28→23:39)
[2016-07-25] MEDS: TESSALON PERLES PO SCH ×3 (05:28→23:39)
[2016-07-25] MEDS: HEPARIN SUB-Q SCH ×3 (05:30→23:38)
[2016-07-25] MEDS: NORMODYNE PO SCH ×2 (09:12→23:50)
[2016-07-25] MEDS: NORVASC PO SCH (09:13)
[2016-07-25] MEDS: TYLENOL PO PRN (09:13)
[2016-07-25] MEDS: PROTONIX PO SCH (09:13)
[2016-07-25] MEDS: MUCINEX ER PO SCH ×2 (09:13→23:39)
--- NOTE | 2016-07-25 11:57 | Progress Note ---
Assessment and Plan Antibiotics: 1) zosyn 2.25gm iv Q8H (07/21 Previous Antibiotics 1) vancomycin pulse dosing (07/19-07/03 This is a 70 year old man with ESRD on HD via a left chest wall permacath, DM, PVD s/p right below knee amputation. Presented on 07/19/16 with one month of worsening ischemic changes of left foot with the great toe with worsening dry gangrene. No drainage or purulence noticed. Patient underwent left leg angioplasty (posterior tibial artery, proximal posterior tibial artery and distal popliteal). 1) Severe left leg peripheral arterial disease with the development of dry gangrene of the left great toe. No sign of active infection. I believe the great to will need to be amputated. He might need to have a transmetatarsal amputation or possible below knee amputation. At this point there is no significant changes to suggest gross infection, this is dry gangrene and does not necessarily need antibiotics. Patient is clinically stable, no fevers or chills and wbc is normal --left great toe without drainage or acute inflammation, appears to be dry gangrene --patient to have repeat angiogram 2) left great toe dry gangrene. see number one above. 3) persistent cough, patient said this hacking cough has been present for 2 weeks. Will need to check patient's Tdap status --cough is better with tessalon perls Plan: 1) continue zosyn for now 2) follow up nasopharyngeal bordetella pertussis PCR 3) further decisions on antibiotics based on surgical plans, discussed with vascular surgery Subjective Date of service: 07/25/16 Principal diagnosis: PVD with gangrene Interval history: Patient seen in bed comfortable, no new complaints. He said his cough is better. Left foot without pain Objective - Constitutional Vitals: Selected Entries 07/24/16 07/25/16 07/25/16 23:48 07:33 09:12 Temperature 100.2 F H 98.5 F Pulse Rate 76 Pulse Rate [ 64 Left Radial] Blood Pressure 117/65 [Right Arm] Blood Pressure 82 Mean [Right Arm ] General appearance: Present: no acute distress, mild distress, well-nourished - EENT Eyes: PERRL, EOM intact, no scleral icterus, no conjunctival injection ENT: hearing intact - Neck Neck: supple, normal ROM, no enlarged thyroid, no masses or JVD - Respiratory Respiratory effort: normal Respiratory: bilateral: CTA - Breasts Breasts: deferred - Cardiovascular Rhythm: regular Heart Sounds: Present: S1 & S2 Extremities: abnormal (right BKA, left foot 1st digit dry gangrene) - Gastrointestinal General gastrointestinal: Present: soft, non-tender, normal bowel sounds - Genitourinary Male genitourinary: deferred - Integumentary Integumentary: clear, dry, no jaundice, no rash - Labs CBC & Chem 7: 07/24/16 06:41 07/24/16 06:41 Labs: Microbiology 07/19/16 09:18 Peripheral/Venous Blood Culture - Final NO GROWTH AFTER 5 DAYS 07/19/16 08:50 Peripheral/Venous Blood Culture - Final NO GROWTH AFTER 5 DAYS 07/19/16 09:18 Peripheral/Venous Blood Culture - Preliminary NO GROWTH AFTER 4 DAYS 07/19/16 08:50 Peripheral/Venous Blood Culture - Preliminary NO GROWTH AFTER 4 DAYS Laboratory Tests 07/19/16 07/19/16 07/19/16 00:34 08:29 08:29 WBC 6.2 Plt Count INR 1.16 H Potassium Creatinine Glucose POC Glucose Lactic Acid Calcium AST 12 ALT 11 Alkaline Phosphatase 148 H NT-Pro-B Natriuret Pep 65443 H Random Vancomycin 07/19/16 07/20/16 07/20/16 08:29 09:13 09:13 WBC 4.4 L Plt Count 293 INR Potassium 4.0 Creatinine 7.5 H Glucose 147 H POC Glucose Lactic Acid 0.7 Calcium 8.0 L AST ALT Alkaline Phosphatase NT-Pro-B Natriuret Pep Random Vancomycin 07/22/16 07/22/16 07/24/16 04:34 06:57 06:41 WBC Plt Count INR Potassium Creatinine 5.9 H Glucose POC Glucose 130 H Lactic Acid Calcium AST ALT Alkaline Phosphatase NT-Pro-B Natriuret Pep Random Vancomycin 15.8
--- NOTE | 2016-07-25 13:23 | Progress Note ---
Assessment and Plan Impression: * End stage renal disease on HD (outpaient MWF) * Left foot dry gangrene * Peripheral artery disease --s/p LLE revascularization * Type II DM * Hypertension * Anemia secondary to ESRD * Secondary hyperparathyroidism Plan: * Hemodialysis TTS for now; will change to MWF schedule next week * Abx per ID * Vascular surgery following - note plans for transmetatarsal amputation in future * Epogen with dialysis * Renal diet * Tight glycemic control * Continue antiHTN medications Subjective Date of service: 07/25/16 Principal diagnosis: PVD with gangrene Interval history: Patient reports persistent cough. Objective - Vital Signs Vital signs: Vital Signs - 12hr 07/25/16 07/25/16 07:33 09:12 Temperature 98.5 F Pulse Rate 76 Pulse Rate [ 64 Left Radial] Respiratory 20 Rate Blood Pressure 117/65 [Right Arm] O2 Sat by Pulse 97 Oximetry - General Appearance General appearance: well-developed, appears stated age EENT: ATNC Respiratory: Present: Clear to Ascultation Cardiology: regular, S1S2 Gastrointestinal: normal, no tenderness, no distended Integumentary: other (left foot gangrene) Musculoskeletal: other (Right BKA) Psychiatric: cooperative - Lab 07/24/16 06:41 07/24/16 06:41 Most recent lab results Calcium 7.9 mg/dL (8.4-10.2) L 07/24/16 06:41 Phosphorus 5.4 mg/dL (2.5-4.5) H 07/19/16 08:29
--- NOTE | 2016-07-25 13:32 | Progress Note ---
Assessment and Plan 70-year-old male with severe peripheral vascular disease status post endovascular revascularization of the left lower extremity. Review of angiogram demonstrates marginal flow to the foot. Patient will require revascularization in order to attempt limb salvage. Unfortunately, patient was provided food today despite NPO order. Restarted diet. Nothing by mouth after midnight. Plan for revascularization tomorrow given by mouth intake today. Subjective Date of service: 07/25/16 Principal diagnosis: PVD with gangrene Interval history: Patient in no acute distress. Left lower extremity warm to ankle, cooler in foot. Not cold. Nonpalpable pedal pulses. Gangrene of the left predominantly first ray which is dry. No infection. No purulence. Objective - Constitutional Vitals: Vital Signs - 12hr 07/25/16 07/25/16 07:33 09:12 Temperature 98.5 F Pulse Rate 76 Pulse Rate [ 64 Left Radial] Respiratory 20 Rate Blood Pressure 117/65 [Right Arm] O2 Sat by Pulse 97 Oximetry General appearance: Present: no acute distress - EENT Eyes: EOM intact ENT: hearing intact - Respiratory Respiratory effort: normal Extremities: normal temperature, normal color, abnormal (see subjective) Extremity abnormal: pulses diminished - Psychiatric Psychiatric: appropriate mood/affect, cooperative - Labs CBC & Chem 7: 07/24/16 06:41 07/24/16 06:41
--- NOTE | 2016-07-25 13:45 | Progress Note ---
Assessment and Plan Assessment and plan: Acute gangrene of the left foot s/p left posterior tibial and popliteal angioplasty End-stage renal disease on dialysis Hypertension, benign essentiaL Diabetes mellitus type 2 Peripheral vascular disease Anemia of chronic kidney disease. Nausea/vomiting likely due to GERD? Plan: Continue Zosyn for now, ID is following cont heparin for DVT prophylaxis, protonix for GERD Continue tight glycemic control will need another angiogram, planned for tomorrow Continue to monitor BP, and adjust medications As necessary cont protonix, plan for amputation depending on improvement of blood flow to the left foot. History Interval history: Patient seen and examined. Medical records and medication list reviewed. No acute event overnight noted by the RN. Revascularization postponded as he got meal in the am, plan for reattempt tomorrow plan for amputation per surgery pending depending on improvement of blood supply to the foot. Discussed plan of care at bedside with patient. Hospitalist Physical - Physical exam Narrative exam: GENERAL: Elderly AAM lying on bed appeared to be in no discomfort. HEENT: Normocephalic. Atraumatic. No conjunctival congestion or icterus. Patient has moist mucous membranes. NECK: Supple. Trachea midline. CHEST/LUNGS: Clear to auscultated bilaterally, breathing nonlabored. No wheezes crackles or rhonchi. HEART/CARDIOVASCULAR: Regular in rate and rhythm. S1 and S2 positive. ABDOMEN: Abdomen is soft, nontender. Patient has normal bowel sounds. SKIN: There is no rash. Warm and dry. NEURO: No focal motor deficit. Follows command. MUSCULOSKELETAL: No joint effusion or tenderness. EXTRIMITY: Right LE BKA, left foot blackish discoloration. PSYCH: Cooperative. - Constitutional Vitals: Temp Pulse Resp BP Pulse Ox 98.5 F 76 20 117/65 97 07/25/16 07:33 07/25/16 09:12 07/25/16 07:33 07/25/16 07:33 07/25/16 07:33 General appearance: Present: no acute distress Results - Labs CBC & Chem 7: 07/24/16 06:41 07/24/16 06:41 Labs: Laboratory Last Values WBC 3.9 K/mm3 (4.5-11.0) L 07/24/16 06:41 RBC 3.21 M/mm3 (3.65-5.03) L 07/24/16 06:41 Hgb 9.0 gm/dl (11.8-15.2) L 07/24/16 06:41 Hct 28.1 % (35.5-45.6) L 07/24/16 06:41 MCV 88 fl (84-94) 07/24/16 06:41 MCH 28 pg (28-32) 07/24/16 06:41 MCHC 32 % (32-34) 07/24/16 06:41 RDW 20.1 % (13.2-15.2) H 07/24/16 06:41 Plt Count 269 K/mm3 (140-440) 07/24/16 06:41 Lymph % (Auto) [facility] 07/24/16 06:41 [place] % (Auto) [facility] Manager 07/24/16 06:41 Eos % (Auto) [facility] Manager 07/24/16 06:41 Baso % (Auto) [facility] Service Manager 07/24/16 06:41 Lymph # [facility] Service Manager 07/24/16 06:41 [place] # [facility] Service Manager 07/24/16 06:41 Eos # [facility] Service Manager 07/24/16 06:41 Baso # [facility] Service Manager 07/24/16 06:41 Add Manual Diff Complete 07/19/16 00:34 Total Counted 100 07/19/16 00:34 Seg Neutrophils % [facility] 07/24/16 06:41 Seg Neuts % (Manual) 73.0 % (40.0-70.0) H 07/19/16 00:34 Band Neutrophils % 0 % 07/19/16 00:34 Lymphocytes % (Manual) 9.0 % (13.4-35.0) L 07/19/16 00:34 Reactive Lymphs % (Man) 0 % 07/19/16 00:34 Monocytes % (Manual) 15.0 % (0.0-7.3) H 07/19/16 00:34 Eosinophils % (Manual) 3.0 % (0.0-4.3) 07/19/16 00:34 Basophils % (Manual) 0 % (0.0-1.8) 07/19/16 00:34 Metamyelocytes % 0 % 07/19/16 00:34 Myelocytes % 0 % 07/19/16 00:34 Promyelocytes % 0 % 07/19/16 00:34 Blast Cells % 0 % 07/19/16 00:34 Nucleated RBC % Not Reportable 07/19/16 00:34 Seg Neutrophils # [facility] 07/24/16 06:41 Seg Neutrophils # Man 4.5 K/mm3 (1.8-7.7) 07/19/16 00:34 Band Neutrophils # 0.0 K/mm3 07/19/16 00:34 Lymphocytes # (Manual) 0.6 K/mm3 (1.2-5.4) L 07/19/16 00:34 Abs React Lymphs (Man) 0.0 K/mm3 07/19/16 00:34 Monocytes # (Manual) 0.9 K/mm3 (0.0-0.8) H 07/19/16 00:34 Eosinophils # (Manual) 0.2 K/mm3 (0.0-0.4) 07/19/16 00:34 Basophils # (Manual) 0.0 K/mm3 (0.0-0.1) 07/19/16 00:34 Metamyelocytes # 0.0 K/mm3 07/19/16 00:34 Myelocytes # 0.0 K/mm3 07/19/16 00:34 Promyelocytes # 0.0 K/mm3 07/19/16 00:34 Blast Cells # 0.0 K/mm3 07/19/16 00:34 WBC Morphology Not Reportable 07/19/16 00:34 Hypersegmented Neuts Not Reportable 07/19/16 00:34 Hyposegmented Neuts Not Reportable 07/19/16 00:34 Hypogranular Neuts Not Reportable 07/19/16 00:34 Smudge Cells Few 07/19/16 00:34 Toxic Granulation Not Reportable 07/19/16 00:34 Toxic Vacuolation Not Reportable 07/19/16 00:34 Dohle Bodies Not Reportable 07/19/16 00:34 Pelger-Huet Anomaly Not Reportable 07/19/16 00:34 Maria Eugenia Rods Not Reportable 07/19/16 00:34 Platelet Estimate Appears normal 07/19/16 00:34 Clumped Platelets Not Reportable 07/19/16 00:34 Plt Clumps, EDTA Not Reportable 07/19/16 00:34 Large Platelets Not Reportable 07/19/16 00:34 Giant Platelets Not Reportable 07/19/16 00:34 Platelet Satelliting Not Reportable 07/19/16 00:34 Plt Morphology Comment Not Reportable 07/19/16 00:34 RBC Morphology Not Reportable 07/19/16 00:34 Dimorphic RBCs Not Reportable 07/19/16 00:34 Polychromasia Not Reportable 07/19/16 00:34 Hypochromasia 1+ 07/19/16 00:34 Poikilocytosis Not Reportable 07/19/16 00:34 Anisocytosis 1+ 07/19/16 00:34 Microcytosis Not Reportable 07/19/16 00:34 Macrocytosis Not Reportable 07/19/16 00:34 Spherocytes Not Reportable 07/19/16 00:34 Pappenheimer Bodies Not Reportable 07/19/16 00:34 Sickle Cells Not Reportable 07/19/16 00:34 Target Cells Not Reportable 07/19/16 00:34 Tear Drop Cells Not Reportable 07/19/16 00:34 Ovalocytes Not Reportable 07/19/16 00:34 Helmet Cells Not Reportable 07/19/16 00:34 Spicer-[place] Bodies Not Reportable 07/19/16 00:34 [place] Rings Not Reportable 07/19/16 00:34 [place] Cells Not Reportable 07/19/16 00:34 Bite Cells Not Reportable 07/19/16 00:34 Crenated Cell Not Reportable 07/19/16 00:34 Elliptocytes Not Reportable 07/19/16 00:34 Acanthocytes (Spur) Not Reportable 07/19/16 00:34 Rouleaux Not Reportable 07/19/16 00:34 Hemoglobin C Crystals Not Reportable 07/19/16 00:34 Schistocytes Not Reportable 07/19/16 00:34 Malaria parasites Not Reportable 07/19/16 00:34 Ronal Bodies Not Reportable 07/19/16 00:34 Hem Pathologist Commnt No 07/19/16 00:34 PT 14.7 Sec. (12.2-14.9) 07/19/16 08:29 INR 1.16 (0.87-1.13) H 07/19/16 08:29 APTT 44.8 Sec. (24.2-36.6) H 07/19/16 08:29 Sodium 135 mmol/L (137-145) L 07/24/16 06:41 Potassium 4.1 mmol/L (3.6-5.0) 07/24/16 06:41 Chloride 95.4 mmol/L (98-107) L 07/24/16 06:41 Carbon Dioxide 25 mmol/L (22-30) 07/24/16 06:41 Anion Gap 19 mmol/L 07/24/16 06:41 BUN 20 mg/dL (9-20) 07/24/16 06:41 Creatinine 5.9 mg/dL (0.8-1.5) H 07/24/16 06:41 Estimated GFR 12 ml/min 07/24/16 06:41 BUN/Creatinine Ratio 3.38 % 07/24/16 06:41 Glucose 96 mg/dL (75-100) 07/24/16 06:41 POC Glucose 130 (70-105) H 07/22/16 06:57 Lactic Acid 0.7 mmol/L (0.7-2.0) 07/19/16 08:29 Calcium 7.9 mg/dL (8.4-10.2) L 07/24/16 06:41 Phosphorus 5.4 mg/dL (2.5-4.5) H 07/19/16 08:29 Total Bilirubin 0.6 mg/dL (0.1-1.2) 07/19/16 08:29 Direct Bilirubin 0.2 mg/dL (0-0.2) 07/19/16 08:29 Indirect Bilirubin 0.4 mg/dL 07/19/16 08:29 AST 12 units/L (5-40) 07/19/16 08:29 ALT 11 units/L (7-56) 07/19/16 08:29 Alkaline Phosphatase 148 units/L (35-129) H 07/19/16 08:29 NT-Pro-B Natriuret Pep 94907 pg/mL (0-900) H 07/19/16 08:29 Total Protein 7.2 g/dL (6.3-8.2) 07/19/16 08:29 Albumin 2.7 g/dL (3.9-5) L 07/19/16 08:29 Albumin/Globulin Ratio 0.6 % 07/19/16 08:29 Random Vancomycin 15.8 ug/mL (0-40.0) 07/22/16 04:34 Blood Type A POSITIVE 07/22/16 04:34 Antibody Screen Negative 07/22/16 04:34
[2016-07-25] MEDS: HEPARIN IV PRN (20:59)
[2016-07-25] MEDS: HEPARIN 10,000 UNITS/10 ML IV PRN (21:01)
[2016-07-25] MEDS ORDERED: HEPARIN 10,000 UNITS/10 ML ONE (21:02)
[2016-07-25] MEDS ORDERED: NACL 0.9 (PRIMING MACHINE ONLY DIALYSIS) MC ONE (21:02)
[2016-07-25] MEDS: HEPARIN ONE (23:37)
[2016-07-25] MEDS: ZOCOR PO SCH (23:39)
[2016-07-26] MEDS: ZOSYN/NS 2.25 GM/50ML 50 ML IV SCH (05:07)
[2016-07-26] MEDS: TESSALON PERLES PO SCH ×3 (05:07→21:09)
[2016-07-26] MEDS: HEPARIN SUB-Q SCH ×3 (05:24→21:36)
--- NOTE | 2016-07-26 08:04 | Progress Note ---
Assessment and Plan Impression: * End stage renal disease on HD MWF as outpatient * Left foot dry gangrene * Peripheral artery disease * Type II DM * Hypertension * Anemia secondary to ESRD * Secondary hyperparathyroidism Plan: * Hemodialysis [facility] while here * Vascular surgery following, s/p intervention, plans for metatarsal amputation noted * Epogen with dialysis * Renal diet * Abx per primary team * Tight glycemic control * Continue antiHTN medications Subjective Date of service: 07/26/16 Principal diagnosis: PVD with gangrene Interval history: resting well in bed today Objective - Exam Narrative Exam: General appearance: well-developed, well-nourished EENT: ATNC Respiratory: Present: Clear to Ascultation Cardiology: regular, S1S2 Gastrointestinal: normal, no tenderness, no distended Integumentary: no rash Neurologic: no focal deficit Musculoskeletal: other (no edema) Psychiatric: mood/affect appropriate, cooperative - Vital Signs Vital signs: Vital Signs - 12hr 07/25/16 07/25/16 07/25/16 20:15 20:30 20:45 Temperature Pulse Rate 60 59 L 60 Respiratory Rate Blood Pressure 114/67 131/63 138/68 07/25/16 07/25/16 07/25/16 21:00 21:15 21:30 Temperature Pulse Rate 61 60 60 Respiratory Rate Blood Pressure 143/65 141/68 164/68 07/25/16 07/25/16 07/25/16 21:45 22:00 22:15 Temperature Pulse Rate 68 60 61 Respiratory Rate Blood Pressure 126/78 151/70 142/70 07/25/16 07/25/16 07/25/16 22:30 22:45 23:00 Temperature Pulse Rate 67 64 66 Respiratory Rate Blood Pressure 126/66 133/61 130/60 07/25/16 07/25/16 23:05 23:50 Temperature 98.2 F Pulse Rate 63 Respiratory 20 Rate Blood Pressure 128/63 122/58 - Lab 07/24/16 06:41 07/24/16 06:41 Most recent lab results Calcium 7.9 mg/dL (8.4-10.2) L 07/24/16 06:41 Phosphorus 5.4 mg/dL (2.5-4.5) H 07/19/16 08:29
[2016-07-26] MEDS: NORMODYNE PO SCH ×3 (10:40→21:17)
[2016-07-26] MEDS: NORVASC PO SCH ×2 (10:40→11:22)
[2016-07-26] MEDS: PROTONIX PO SCH (10:40)
[2016-07-26] MEDS: MUCINEX ER PO SCH ×2 (10:40→21:09)
--- NOTE | 2016-07-26 11:29 | Progress Note ---
Assessment and Plan Current antibiotics: Zosyn 2.25 gm IV q8h 07/21 --> Previous antibiotics: Vancomycin pulse dosing (07/19-07/23) ASSESSMENT: Brando Oconnor is a 70 year old man with ESRD on chronic HD via a left chest wall permacath, type 2 DM and PVD (s/p right below knee amputation) who was admitted to [facility] on 07/19/16 with one month of worsening ischemic changes of left foot with great toe dry gangrene and he underwent left leg angioplasty (posterior tibial artery, proximal posterior tibial artery and distal popliteal) on 07/22. Problem list: 1. Peripheral vascular disease -Dry gangrene of the left great toe without signs of secondary infection -Status post left lower extremity angioplasty 07/22 -Status post right BKA 2. End-stage renal failure -Maintenance hemodialysis 3. Type 2 diabetes mellitus 4. Chronic anemia 5. Persistent cough -Patient said this hacking cough has been present for 2 weeks. -Pertussis PCR negative -Cough is better with tessalon perls PLAN: 1. Will stop Zosyn as there are no signs of active infection 2. For vascular procedure today to attempt again revascularization 3. Glycemic control Wm Luevano MD [facility] Office: [phone] Subjective Date of service: 07/26/16 Principal diagnosis: PVD with gangrene Interval history: No complaints except that he is "not being fed." ROS: No subjective fever or chills. No nausea, vomiting or diarrhea. No shortness of breath, cough or pleuritic chest pain Objective - Exam Narrative Exam: GENERAL: Well-developed, well-nourished appearing who is alert and in no acute distress. He appears somewhat chronically ill. HEAD: Normocephalic. No lesions seen. EYES: Pupils are equal reactive to light and accommodation. There is no scleral icterus. Optic fundi are not examined. EARS: Tympanic membranes are normal. THROAT: Oropharynx is normal with no evidence of oral candidiasis or pharyngitis. NECK: Supple. No enlargement of the thyroid gland. No significant cervical lymphadenopathy. No jugular venous distention at 30. LUNGS: Clear with no adventitious sounds. CHEST: Right sided PermCath with no signs of infection HEART: Regular rate. S1 and S2 are normal. There are no gallops, clicks or rubs heard. Grade II/ KEE heard best over the left upper sternal border. No diastolic murmur. ABDOMEN: Soft and nontender. Liver and spleen are not palpably enlarged or tender. No palpable masses. Bowel sounds are normoactive. EXTREMITIES: Dry gangrenous changes of the left great toe and also to a lesser extent the second toe. No signs of secondary infection. Status post right BKA with stump well healed with no signs of infection nor ischemia. : Not examined NEUROLOGIC: No focal findings. - Constitutional Vitals: Vital Signs Temp Pulse Resp BP Pulse Ox 98.4 F 61 16 127/61 97 07/26/16 11:18 07/26/16 11:18 07/26/16 11:18 07/26/16 11:18 07/26/16 11:18 Temperature -Last 24 Hours Temperature 98.4 F Temperature 98.2 F Temperature 98.1 F Temperature 98.0 F - Labs CBC & Chem 7: 07/24/16 06:41 07/24/16 06:41 Labs: Abnormal lab results Microbiology 07/19/16 09:18 Peripheral/Venous Blood Culture - Final NO GROWTH AFTER 5 DAYS 07/19/16 08:50 Peripheral/Venous Blood Culture - Final NO GROWTH AFTER 5 DAYS Pertussis PCR negative
--- NOTE | 2016-07-26 13:36 | Progress Note ---
Assessment and Plan Assessment and plan: Acute gangrene of the left foot s/p left posterior tibial and popliteal angioplasty End-stage renal disease on dialysis Hypertension, benign essentiaL Diabetes mellitus type 2 Peripheral vascular disease Anemia of chronic kidney disease. Nausea/vomiting likely due to GERD? Plan: Stopped Zosyn today, ID is following, monitor off antibiotics cont heparin for DVT prophylaxis, protonix for GERD Continue tight glycemic control will need another angiogram, planned for today as previous angioplasty did not improve the blood supply to the foot Continue to monitor BP, and adjust medications As necessary cont protonix, plan for amputation depending on improvement of blood flow to the left foot. History Interval history: Patient seen and examined. Medical records and medication list reviewed. No acute event overnight noted by the RN. Revascularization of lower extremity today his previous angioplasty was unsuccessful to improve blood supply to his left foot plan for amputation per surgery pending depending on improvement of blood supply to the foot. Discussed plan of care at bedside with patient. Hospitalist Physical - Physical exam Narrative exam: GENERAL: Elderly AAM lying on bed appeared to be in no discomfort. HEENT: Normocephalic. Atraumatic. No conjunctival congestion or icterus. Patient has moist mucous membranes. NECK: Supple. Trachea midline. CHEST/LUNGS: Clear to auscultated bilaterally, breathing nonlabored. No wheezes crackles or rhonchi. HEART/CARDIOVASCULAR: Regular in rate and rhythm. S1 and S2 positive. ABDOMEN: Abdomen is soft, nontender. Patient has normal bowel sounds. SKIN: There is no rash. Warm and dry. NEURO: No focal motor deficit. Follows command. MUSCULOSKELETAL: No joint effusion or tenderness. EXTRIMITY: Right LE BKA, left foot blackish discoloration. PSYCH: Cooperative. - Constitutional Vitals: Temp Pulse Resp BP Pulse Ox 98.4 F 61 16 127/61 97 07/26/16 11:18 07/26/16 11:18 07/26/16 11:18 07/26/16 11:18 07/26/16 11:18 General appearance: Present: no acute distress Results - Labs CBC & Chem 7: 07/24/16 06:41 07/24/16 06:41 Labs: Laboratory Last Values WBC 3.9 K/mm3 (4.5-11.0) L 07/24/16 06:41 RBC 3.21 M/mm3 (3.65-5.03) L 07/24/16 06:41 Hgb 9.0 gm/dl (11.8-15.2) L 07/24/16 06:41 Hct 28.1 % (35.5-45.6) L 07/24/16 06:41 MCV 88 fl (84-94) 07/24/16 06:41 MCH 28 pg (28-32) 07/24/16 06:41 MCHC 32 % (32-34) 07/24/16 06:41 RDW 20.1 % (13.2-15.2) H 07/24/16 06:41 Plt Count 269 K/mm3 (140-440) 07/24/16 06:41 Lymph % (Auto) [employer] 07/24/16 06:41 [place] % (Auto) [employer] 07/24/16 06:41 Eos % (Auto) [employer] 07/24/16 06:41 Baso % (Auto) [employer] 07/24/16 06:41 Lymph # [employer] 07/24/16 06:41 [place] # [employer] 07/24/16 06:41 Eos # [employer] 07/24/16 06:41 Baso # [employer] 07/24/16 06:41 Add Manual Diff Complete 07/19/16 00:34 Total Counted 100 07/19/16 00:34 Seg Neutrophils % [employer] 07/24/16 06:41 Seg Neuts % (Manual) 73.0 % (40.0-70.0) H 07/19/16 00:34 Band Neutrophils % 0 % 07/19/16 00:34 Lymphocytes % (Manual) 9.0 % (13.4-35.0) L 07/19/16 00:34 Reactive Lymphs % (Man) 0 % 07/19/16 00:34 Monocytes % (Manual) 15.0 % (0.0-7.3) H 07/19/16 00:34 Eosinophils % (Manual) 3.0 % (0.0-4.3) 07/19/16 00:34 Basophils % (Manual) 0 % (0.0-1.8) 07/19/16 00:34 Metamyelocytes % 0 % 07/19/16 00:34 Myelocytes % 0 % 07/19/16 00:34 Promyelocytes % 0 % 07/19/16 00:34 Blast Cells % 0 % 07/19/16 00:34 Nucleated RBC % Not Reportable 07/19/16 00:34 Seg Neutrophils # [employer] 07/24/16 06:41 Seg Neutrophils # Man 4.5 K/mm3 (1.8-7.7) 07/19/16 00:34 Band Neutrophils # 0.0 K/mm3 07/19/16 00:34 Lymphocytes # (Manual) 0.6 K/mm3 (1.2-5.4) L 07/19/16 00:34 Abs React Lymphs (Man) 0.0 K/mm3 07/19/16 00:34 Monocytes # (Manual) 0.9 K/mm3 (0.0-0.8) H 07/19/16 00:34 Eosinophils # (Manual) 0.2 K/mm3 (0.0-0.4) 07/19/16 00:34 Basophils # (Manual) 0.0 K/mm3 (0.0-0.1) 07/19/16 00:34 Metamyelocytes # 0.0 K/mm3 07/19/16 00:34 Myelocytes # 0.0 K/mm3 07/19/16 00:34 Promyelocytes # 0.0 K/mm3 07/19/16 00:34 Blast Cells # 0.0 K/mm3 07/19/16 00:34 WBC Morphology Not Reportable 07/19/16 00:34 Hypersegmented Neuts Not Reportable 07/19/16 00:34 Hyposegmented Neuts Not Reportable 07/19/16 00:34 Hypogranular Neuts Not Reportable 07/19/16 00:34 Smudge Cells Few 07/19/16 00:34 Toxic Granulation Not Reportable 07/19/16 00:34 Toxic Vacuolation Not Reportable 07/19/16 00:34 Dohle Bodies Not Reportable 07/19/16 00:34 Pelger-Huet Anomaly Not Reportable 07/19/16 00:34 Maria Eugenia Rods Not Reportable 07/19/16 00:34 Platelet Estimate Appears normal 07/19/16 00:34 Clumped Platelets Not Reportable 07/19/16 00:34 Plt Clumps, EDTA Not Reportable 07/19/16 00:34 Large Platelets Not Reportable 07/19/16 00:34 Giant Platelets Not Reportable 07/19/16 00:34 Platelet Satelliting Not Reportable 07/19/16 00:34 Plt Morphology Comment Not Reportable 07/19/16 00:34 RBC Morphology Not Reportable 07/19/16 00:34 Dimorphic RBCs Not Reportable 07/19/16 00:34 Polychromasia Not Reportable 07/19/16 00:34 Hypochromasia 1+ 07/19/16 00:34 Poikilocytosis Not Reportable 07/19/16 00:34 Anisocytosis 1+ 07/19/16 00:34 Microcytosis Not Reportable 07/19/16 00:34 Macrocytosis Not Reportable 07/19/16 00:34 Spherocytes Not Reportable 07/19/16 00:34 Pappenheimer Bodies Not Reportable 07/19/16 00:34 Sickle Cells Not Reportable 07/19/16 00:34 Target Cells Not Reportable 07/19/16 00:34 Tear Drop Cells Not Reportable 07/19/16 00:34 Ovalocytes Not Reportable 07/19/16 00:34 Helmet Cells Not Reportable 07/19/16 00:34 Spicer-[place] Bodies Not Reportable 07/19/16 00:34 [place] Rings Not Reportable 07/19/16 00:34 [place] Cells Not Reportable 07/19/16 00:34 Bite Cells Not Reportable 07/19/16 00:34 Crenated Cell Not Reportable 07/19/16 00:34 Elliptocytes Not Reportable 07/19/16 00:34 Acanthocytes (Spur) Not Reportable 07/19/16 00:34 Rouleaux Not Reportable 07/19/16 00:34 Hemoglobin C Crystals Not Reportable 07/19/16 00:34 Schistocytes Not Reportable 07/19/16 00:34 Malaria parasites Not Reportable 07/19/16 00:34 Ronal Bodies Not Reportable 07/19/16 00:34 Hem Pathologist Commnt No 07/19/16 00:34 PT 14.7 Sec. (12.2-14.9) 07/19/16 08:29 INR 1.16 (0.87-1.13) H 07/19/16 08:29 APTT 44.8 Sec. (24.2-36.6) H 07/19/16 08:29 Sodium 135 mmol/L (137-145) L 07/24/16 06:41 Potassium 4.1 mmol/L (3.6-5.0) 07/24/16 06:41 Chloride 95.4 mmol/L (98-107) L 07/24/16 06:41 Carbon Dioxide 25 mmol/L (22-30) 07/24/16 06:41 Anion Gap 19 mmol/L 07/24/16 06:41 BUN 20 mg/dL (9-20) 07/24/16 06:41 Creatinine 5.9 mg/dL (0.8-1.5) H 07/24/16 06:41 Estimated GFR 12 ml/min 07/24/16 06:41 BUN/Creatinine Ratio 3.38 % 07/24/16 06:41 Glucose 96 mg/dL (75-100) 07/24/16 06:41 POC Glucose 121 (70-105) H 07/26/16 05:21 Lactic Acid 0.7 mmol/L (0.7-2.0) 07/19/16 08:29 Calcium 7.9 mg/dL (8.4-10.2) L 07/24/16 06:41 Phosphorus 5.4 mg/dL (2.5-4.5) H 07/19/16 08:29 Total Bilirubin 0.6 mg/dL (0.1-1.2) 07/19/16 08:29 Direct Bilirubin 0.2 mg/dL (0-0.2) 07/19/16 08:29 Indirect Bilirubin 0.4 mg/dL 07/19/16 08:29 AST 12 units/L (5-40) 07/19/16 08:29 ALT 11 units/L (7-56) 07/19/16 08:29 Alkaline Phosphatase 148 units/L (35-129) H 07/19/16 08:29 NT-Pro-B Natriuret Pep 85792 pg/mL (0-900) H 07/19/16 08:29 Total Protein 7.2 g/dL (6.3-8.2) 07/19/16 08:29 Albumin 2.7 g/dL (3.9-5) L 07/19/16 08:29 Albumin/Globulin Ratio 0.6 % 07/19/16 08:29 Random Vancomycin 15.8 ug/mL (0-40.0) 07/22/16 04:34 Miscellaneous Test Flexitest 1 (()) 07/23/16 18:40 Blood Type A POSITIVE 07/22/16 04:34 Antibody Screen Negative 07/22/16 04:34
[2016-07-26] MEDS ORDERED: HEPARIN 10,000 UNITS/10 ML ONE (15:08)
[2016-07-26] MEDS ORDERED: HEPARIN/NS 5000 UNIT/500ML(CATH LAB) 1,000 ML IR ONE (15:08)
[2016-07-26] MEDS ORDERED: ANCEF/STERILE WATER 2 GM/20 ML 20 ML IV ONE (15:09)
[2016-07-26] MEDS ORDERED: XYLOCAINE 1%/ EPI 1:100,000 INFILTRATI ONE (15:09)
[2016-07-26] MEDS ORDERED: NACL 0.9% 500 ML 500 ML ONE (15:12)
[2016-07-26] MEDS: VERSED ONE ×4 (15:35→17:26)
[2016-07-26] MEDS: SUBLIMAZE ONE ×4 (15:35→17:26)
[2016-07-26] MEDS: HEPARIN ONE ×2 (15:54→17:25)
[2016-07-26] MEDS ORDERED: TRIDIL DRIP 50MG/250ML 250 ML ONE (16:29)
[2016-07-26] MEDS ORDERED: NITRO-BID 2% TP ONE (18:36)
--- NOTE | 2016-07-26 19:01 | Operative Report ---
Operative Report Operative Report: EXAM: 1. Ultrasound-guided access of the right common femoral artery. 2. Angiography of the right lower extremity (clinical change) 3. Selection of the suprarenal abdominal aorta with angiography (clinical change) 4. Third order selection of the left lower extremity with angiography of the left lower extremity (clinical change) 5. Selection of the anterior tibial artery with angiography 6. Angioplasty of the left anterior tibial artery with a 1.5-2 mm angioplasty balloon 7. Angioplasty of the left anterior tibial artery with a 2-2.5 mm angioplasty balloon 8. Angioplasty of the left anterior tibial artery with a 2.5 mm angioplasty balloon 9. Selection of the left posterior tibial artery with angiography 10. Angioplasty of the left posterior tibial artery with a 1.5-2 mm angioplasty balloon 11. Angioplasty of the left posterior tibial artery with a 2 mm angioplasty balloon 12. Angioplasty of the left posterior tibial artery with a 2.5 mm angioplasty balloon 13. Angioplasty of the pedal arch with a 2.5 mm angioplasty balloon, including coronary balloons 14. Angioplasty of the distal popliteal artery with a 4 mm angioplasty balloon 15. Angioplasty of the tibioperoneal trunk with a 4 mm angioplasty balloon 16. Angioplasty of the proximal posterior tibial artery with a 2.5 mm angioplasty balloon 17. Closure of the arteriotomy with a 6 Greek Angio-Seal device DATE: 07/26/16 CAMPGROUND MANAGER: KHADAR SANTOS MD INDICATION: End-stage renal disease with gangrene of the left lower extremity and nonpalpable or dopplerable pedal pulses with prior endovascular reconstruction with lack of clinical progress. This represents a clinical change since the prior intervention. MEDICATIONS: Please see nursing report for full details. DEVICES: 1.5-2 mm angioplasty balloon 2 mm angioplasty will 2-2.5 mm angioplasty balloon 2.5 mm angioplasty balloon 4 mm angioplasty balloon CONTRAST: Please see slabber light report for full details PROCEDURE: The risks, benefits, and alternatives were discussed with the patient; written informed consent was obtained. The patient's groins were prepped and draped in sterile fashion of the patient' s left foot was prepped and draped in a sterile fashion. Right common femoral artery was evaluated with ultrasound was patent. The right common femoral artery was accessed with a 21-gauge micropuncture needle. 0.018 inch wire was passed into the aorta. Needle was exchanged for transitional dilator. 035 inch wire was passed into the aorta. Transitional dilator was exchanged for 5 Greek sheath. Digital subtraction angiography was performed to the sheath demonstrating a high bifurcation. The right common femoral artery was appropriately accessed with the sheath below the inferior epigastric artery and above the bifurcation. The right external iliac artery, and right common femoral artery were patent. There was a mild to moderate narrowing in the proximal portion of the superficial femoral artery and the proximal to midportion of the profunda femoral artery. Omni flush cath was advanced over the wire and positioned into the abdominal aorta at the level of the renal arteries. Digital subtraction angiography was performed demonstrating no evidence of left proximal renal artery stenosis. The right renal artery is not well-visualized. The infrarenal abdominal aorta was patent. The bilateral common iliac arteries were patent. Bilateral external iliac arteries were patent. The bilateral internal iliac arteries had moderate ostial narrowing. Wire and catheter were used to select the left external iliac artery. Digital subtraction angiography was performed demonstrating patency of the left common iliac artery distally, and redemonstrating the moderate ostial narrowing of the left internal iliac artery. The left external iliac artery was patent. The left common femoral artery was patent. The left proximal profunda femoral artery and superficial femoral artery were patent. Wire and catheter were used to select the proximal superficial femoral artery. The catheter was exchanged for vertebral catheter. Digital subtraction angiography was performed to the proximal superficial femoral artery. The proximal and mid superficial femoral artery were patent. There is advanced into the mid superficial femoral artery. Digital subtraction angiography was performed demonstrating patency of the distal superficial femoral artery except for mild less than 20% narrowing. Digital subtraction angiography was repeated demonstrating approximately 40% narrowing of the proximal popliteal artery and 30% narrowing of the distal popliteal artery. Wire and catheter were positioned in the popliteal artery. Digital subtraction angiography was repeated demonstrating the rest of the runoff. The tibioperoneal trunk was dissected with severe flow limiting narrowing associated with it. The anterior tibial artery, approximately 2-3 cm after its origin, probably occluded with possible late reconstitution of a diseased dorsalis pedis. The peroneal artery was occluded 1-2 cm after its origin and did not reconstitute. The posterior tibial artery a small keu-towd-knjfbrjy dissection proximally, in the midportion of the posterior tibial artery was patent. The distal portion of the posterior tibial artery became occluded in the distal third of the calf. No clear reconstitution noted. The patient was systemically heparinized. Sawant wire was passed into the popliteal artery. Sheath was exchanged for a 90 cm [place] destination. This was positioned in the popliteal artery. Vertebral catheter and V 18 were used to select the anterior tibial artery. Vertebral catheter was then exchanged for a 0.018 inch Trailblazer. This was used in conjunction with the V 18 and a treasure 12 wire in order to pass a wire back into the dorsalis pedis, crossing the total occlusion. Unfortunately, the support catheter would not advance. I removed the wire and then used a choice PT support wire and passed this and to the dorsalis pedis. I attempted to advance a 0.014 inch Trailblazer over the wire, but the same issues arose, and I could not completely cross the occlusion with the support catheter. In order to pass a support catheter, I used a 1.5 mm to 2 mm angioplasty balloon and sequentially angioplastied the proximal and midportion of the anterior tibial artery. This was done at moderate to high pressure for prolonged insufflation. After this angioplasty was performed, was able to advance the 0.014 Trailblazer catheter over the wire and towards the dorsalis pedis. I was in a side branch, or subintimal. I redirected the wire, and was able to navigate into the dorsalis pedis artery. Digital subtraction angiography was performed in the dorsalis pedis confirming position. Choice PT was passed into the dorsalis pedis. 2-2.5 mm nanocross was advanced over the wire and used to perform angioplasty at the level of the ankle throughout the length of the anterior tibial artery. The 2.5 mm portion of the angioplasty balloon was used above the ankle. Digital subtraction angiography was performed, but there was slow flow through the newly reconstituted anterior tibial artery. Vertebral catheter with Candida Sarmiento was advanced over the wire and digital subtraction angiography was performed within the anterior tibial artery demonstrating that along the midportion of the anterior tibial artery there was irregularity and mild to moderate dissections. There was flow into the dorsalis pedis. I decided that stenting this segment will require an unnecessarily large amount of stents. I left the Choice PT in the dorsalis pedis, but decided to attempt to reconstruct the pedal circulation to the posterior tibial artery. Vertebral catheter and V 18 were used to carefully navigate the dissection in the tibioperoneal trunk, and then passed into the posterior tibial artery. This was then exchanged for a 0.018 inch Trailblazer. V 18 and Trailblazer were then used to cross the chronic occlusion in the distal posterior tibial artery, crossing to the lateral plantar artery, through the pedal arch and back into the anterior tibial artery. I used a 2 mm angioplasty balloon to pre-dilate the lateral plantar and pedal arch segments with multiple inflations and the distal posterior tibial artery. This was all performed at moderate pressure with long insufflations. Digital subtraction angiography was then performed demonstrating sluggish flow through the newly reconstructed segments. I then obtained a 2.5 mm angioplasty balloon, and sequentially angioplastied the distal anterior tibial artery, the lateral plantar artery, and the pedal arch with moderate pressure, long insufflation's. I partially performed angioplasty of the dorsalis pedis from the pedal arch, but I could not advance the balloon beyond the dorsalis pedis past the navicular bone. I removed the balloon, and perform digital subtraction angiography, demonstrating flow through the distal posterior tibial artery through part of the pedal arch into the foot. Anterior tibial artery still had sluggish flow throughout it. I then passed the 2.5 mm angioplasty balloon through the anterior tibial artery and perform long segment insufflation in this segment. I still could not pass the balloon beyond the dorsalis pedis at the navicular bone. I then obtained a 2.5 mm coronary balloon and passed this beyond the navicular bone. I perform sequential angioplasty the dorsalis pedis at the level of the navicular bone. Digital subtraction angiography was then performed demonstrating flow into the proximal dorsalis pedis from the anterior tibial artery, and into the pedal arch through the posterior tibial artery through the lateral plantar artery. There was mild residual disease of the posterior tibial artery. Wires were then partially retracted in order to limit spasm. Nitroglycerin was administered multiple times. Digital subtraction angiography was performed proximally demonstrating again, the dissection of the tibioperoneal trunk. 4 mm angioplasty balloon was advanced over the wire and used to perform angioplasty of the distal popliteal artery. Then balloon was used to perform prolonged 4 mm 5 minute angioplasty of the tibioperoneal trunk in order to close the dissection flap. Digital subtraction angiography was performed demonstrating complete resolution of the dissection flap in the tibioperoneal trunk. There is only minimal residual narrowing of the distal popliteal artery. The small dissection flap in the posterior tibial artery was again noted. 2.5 mm angioplasty balloon was advanced over the wire and angioplasty was performed for 5 minutes insufflation across the proximal posterior tibial artery. Digital subtraction angiography was performed demonstrating slight improvement of the pqa-mpex-[id number] dissection flap in the proximal posterior tibial artery. The wires were then removed. Digital subtraction angiography was performed demonstrating brisk flow through both the anterior tibial artery, newly constructed, and the posterior tibial artery. This brisk flow resulted in flow into the dorsalis pedis proximally from the anterior tibial artery and the lateral plantar artery into small branches in the midfoot from the posterior tibial artery. After obtaining this excellent angiographic result, all wires, catheters, and sheaths were retracted into the right external iliac artery. Wire was passed essentially into the aorta. Sheath was exchanged for 6 Greek Angio-Seal device which was used to obtain hemostasis in the right common femoral artery access site. Near immediate hemostasis was achieved. Patient tolerated the procedure well. No immediate postprocedural complication. Nitro paste was administered to the left foot. Patient was placed on aspirin and Plavix. FINDINGS: Please see procedure note above IMPRESSION: Successful revascularization of the anterior tibial artery, posterior tibial artery, tibioperoneal trunk, and distal popliteal artery with angioplasty.
[2016-07-26] MEDS ORDERED: PLAVIX PO ONE (19:04)
[2016-07-26] MEDS ORDERED: HALFPRIN EC PO ONE (19:05)
[2016-07-26] MEDS: ZOCOR PO SCH (21:09)
[2016-07-26] MEDS: PERCOCET 5/325 PO PRN (21:16)
[2016-07-26] MEDS: ZOFRAN IV PRN (21:16)
[2016-07-26] MEDS: NITRO-BID 2% TP SCH (21:23)
[2016-07-27] MEDS: PERCOCET 5/325 PO PRN ×4 (05:36→23:20)
[2016-07-27] MEDS: TESSALON PERLES PO SCH ×3 (05:40→23:08)
[2016-07-27] MEDS: NITRO-BID 2% TP SCH ×4 (05:40→18:02)
[2016-07-27] MEDS: HEPARIN SUB-Q SCH ×3 (05:44→23:08)
--- NOTE | 2016-07-27 08:18 | Progress Note ---
Assessment and Plan Impression: * End stage renal disease on HD MWF as outpatient * Left foot dry gangrene * Peripheral artery disease * Type II DM * Hypertension * Anemia secondary to ESRD * Secondary hyperparathyroidism Plan: * Hemodialysis [facility] while here * Vascular surgery following, s/p intervention, plans for metatarsal amputation noted * Epogen with dialysis * Renal diet * Abx per primary team * Tight glycemic control * Continue antiHTN medications Subjective Date of service: 07/27/16 Principal diagnosis: PVD with gangrene Interval history: resting well in bed today Objective - Exam Narrative Exam: General appearance: well-developed, well-nourished EENT: ATNC Respiratory: Present: Clear to Ascultation Cardiology: regular, S1S2 Gastrointestinal: normal, no tenderness, no distended Integumentary: no rash Neurologic: no focal deficit Musculoskeletal: other (no edema) Psychiatric: mood/affect appropriate, cooperative - Vital Signs Vital signs: Vital Signs - 12hr 07/26/16 07/26/16 07/26/16 20:30 21:17 21:23 Temperature 98.4 F Pulse Rate 71 71 Pulse Rate [ 69 Left] Respiratory 18 Rate Blood Pressure 152/67 152/67 Blood Pressure 139/63 [Right Arm] 07/27/16 05:40 Temperature Pulse Rate 63 Pulse Rate [ Left] Respiratory Rate Blood Pressure 142/67 Blood Pressure [Right Arm] - Lab 07/24/16 06:41 07/24/16 06:41 Most recent lab results Calcium 7.9 mg/dL (8.4-10.2) L 07/24/16 06:41 Phosphorus 5.4 mg/dL (2.5-4.5) H 07/19/16 08:29
--- NOTE | 2016-07-27 13:16 | Progress Note ---
Assessment and Plan Current antibiotics: Off antibiotics Previous antibiotics: Zosyn 2.25 gm IV q8h (07/21 -> 07/26) Vancomycin pulse dosing (07/19-07/23) ASSESSMENT: Brando Oconnor is a 70 year old man with ESRD on chronic HD via a left chest wall permacath, type 2 DM and PVD (s/p right below knee amputation) who was admitted to [facility] on 07/19/16 with one month of worsening ischemic changes of left foot with great toe dry gangrene and he underwent left leg angioplasty (posterior tibial artery, proximal posterior tibial artery and distal popliteal) on 07/22. Problem list: 1. Peripheral vascular disease -Dry gangrene of the left great toe without signs of secondary infection -Status post left lower extremity angioplasty 07/22 -Status post right BKA 2. End-stage renal failure -Maintenance hemodialysis 3. Type 2 diabetes mellitus 4. Chronic anemia 5. Persistent cough -Patient said this hacking cough has been present for 2 weeks. -Pertussis PCR negative -Cough is better with tessalon perls 6. Mild neutropenia PLAN: 1. Follow off antibiotics 2. Status post vascular procedure 07/26 to attempt again revascularization 3. Glycemic control Subjective Date of service: 07/27/16 Principal diagnosis: PVD with gangrene Interval history: Patient's awake and interactive while on dialysis. Patient complains of mild headache. Patient states he is able to move his toes and his foot feels better after the procedure yesterday. Review of systems: Patient denies chest pain or chest pressure. Patient denies shortness of breath or sputum production. Patient does complain of a headache and current time Objective - Exam Narrative Exam: GENERAL: Well-developed, well-nourished appearing who is alert and in no acute distress. Currently on hemodialysis HEAD: Normocephalic. No lesions seen. EYES: Pupils are equal reactive to light and accommodation. There is no scleral icterus. Optic fundi are not examined. EARS: There is no external drainage THROAT: Oropharynx is normal with no evidence of oral candidiasis or pharyngitis. NECK: Supple. No enlargement of the thyroid gland. No significant cervical lymphadenopathy. No jugular venous distention at 30. LUNGS: Clear with no adventitious sounds. CHEST: Right sided PermCath with no signs of infection and actively accessed for dialysis HEART: Regular rate. S1 and S2 are normal. There are no gallops, clicks or rubs heard. Grade II/ KEE heard best over the left upper sternal border. No diastolic murmur. ABDOMEN: Soft and nontender. Liver and spleen are not palpably enlarged or tender. No palpable masses. Bowel sounds are normoactive. EXTREMITIES: Dry gangrenous changes of the left great toe and also to a lesser extent the second toe. No signs of secondary infection. Status post right BKA with stump well healed with no signs of infection nor ischemia. NEUROLOGIC: No focal findings. - Constitutional Vitals: Vital Signs Temp Pulse Resp BP Pulse Ox 98.4 F 60 20 143/75 100 07/27/16 10:50 07/27/16 12:30 07/27/16 10:50 07/27/16 12:30 07/27/16 07:25 Temperature -Last 24 Hours Temperature 98.4 F Temperature 98.4 F Temperature 98.4 F Temperature 98.2 F - Labs CBC & Chem 7: 07/24/16 06:41 07/24/16 06:41
[2016-07-27] MEDS: HEPARIN IV PRN (14:32)
--- NOTE | 2016-07-27 14:44 | Progress Note ---
Assessment and Plan Assessment and plan: Acute gangrene of the left foot s/p left lower extremity angioplasty x2 End-stage renal disease on dialysis Hypertension, benign essentiaL Diabetes mellitus type 2 Peripheral vascular disease Anemia of chronic kidney disease. Nausea/vomiting likely due to GERD? Plan: ID is following, monitor off antibiotics cont heparin for DVT prophylaxis, protonix for GERD Continue tight glycemic control improvement the blood supply to the foot following second angioplasty Continue to monitor BP, and adjust medications As necessary cont protonix, plan for amputation depending on improvement of blood flow to the left foot per vascular. History Interval history: Patient seen and examined. Medical records and medication list reviewed. No acute event overnight noted by the RN. Patient complains of mild headache. Patient states he is able to move his toes and his foot feels better after the procedure yesterday. plan for amputation per surgery pending depending on improvement of blood supply to the foot. Discussed plan of care at bedside with patient. Hospitalist Physical - Physical exam Narrative exam: GENERAL: Elderly AAM lying on bed appeared to be in no discomfort. HEENT: Normocephalic. Atraumatic. No conjunctival congestion or icterus. Patient has moist mucous membranes. NECK: Supple. Trachea midline. CHEST/LUNGS: Clear to auscultated bilaterally, breathing nonlabored. No wheezes crackles or rhonchi. HEART/CARDIOVASCULAR: Regular in rate and rhythm. S1 and S2 positive. ABDOMEN: Abdomen is soft, nontender. Patient has normal bowel sounds. SKIN: There is no rash. Warm and dry. NEURO: No focal motor deficit. Follows command. MUSCULOSKELETAL: No joint effusion or tenderness. EXTRIMITY: Right LE BKA, left foot blackish discoloration. PSYCH: Cooperative. - Constitutional Vitals: Temp Pulse Resp BP Pulse Ox 98.4 F 60 20 143/75 100 07/27/16 10:50 07/27/16 12:30 07/27/16 10:50 07/27/16 12:30 07/27/16 07:25 General appearance: Present: no acute distress Results - Labs CBC & Chem 7: 07/24/16 06:41 07/24/16 06:41 Labs: Laboratory Last Values WBC 3.9 K/mm3 (4.5-11.0) L 07/24/16 06:41 RBC 3.21 M/mm3 (3.65-5.03) L 07/24/16 06:41 Hgb 9.0 gm/dl (11.8-15.2) L 07/24/16 06:41 Hct 28.1 % (35.5-45.6) L 07/24/16 06:41 MCV 88 fl (84-94) 07/24/16 06:41 MCH 28 pg (28-32) 07/24/16 06:41 MCHC 32 % (32-34) 07/24/16 06:41 RDW 20.1 % (13.2-15.2) H 07/24/16 06:41 Plt Count 269 K/mm3 (140-440) 07/24/16 06:41 Lymph % (Auto) Training Development Director 07/24/16 06:41 Ross % (Auto) Training Development Director 07/24/16 06:41 Eos % (Auto) Training Development Director 07/24/16 06:41 Baso % (Auto) Training Development Director 07/24/16 06:41 Lymph # Training Development Director 07/24/16 06:41 Ross # Training Development Director 07/24/16 06:41 Eos # Training Development Director 07/24/16 06:41 Baso # Training Development Director 07/24/16 06:41 Add Manual Diff Complete 07/19/16 00:34 Total Counted 100 07/19/16 00:34 Seg Neutrophils % Training Development Director 07/24/16 06:41 Seg Neuts % (Manual) 73.0 % (40.0-70.0) H 07/19/16 00:34 Band Neutrophils % 0 % 07/19/16 00:34 Lymphocytes % (Manual) 9.0 % (13.4-35.0) L 07/19/16 00:34 Reactive Lymphs % (Man) 0 % 07/19/16 00:34 Monocytes % (Manual) 15.0 % (0.0-7.3) H 07/19/16 00:34 Eosinophils % (Manual) 3.0 % (0.0-4.3) 07/19/16 00:34 Basophils % (Manual) 0 % (0.0-1.8) 07/19/16 00:34 Metamyelocytes % 0 % 07/19/16 00:34 Myelocytes % 0 % 07/19/16 00:34 Promyelocytes % 0 % 07/19/16 00:34 Blast Cells % 0 % 07/19/16 00:34 Nucleated RBC % Not Reportable 07/19/16 00:34 Seg Neutrophils # Training Development Director 07/24/16 06:41 Seg Neutrophils # Man 4.5 K/mm3 (1.8-7.7) 07/19/16 00:34 Band Neutrophils # 0.0 K/mm3 07/19/16 00:34 Lymphocytes # (Manual) 0.6 K/mm3 (1.2-5.4) L 07/19/16 00:34 Abs React Lymphs (Man) 0.0 K/mm3 07/19/16 00:34 Monocytes # (Manual) 0.9 K/mm3 (0.0-0.8) H 07/19/16 00:34 Eosinophils # (Manual) 0.2 K/mm3 (0.0-0.4) 07/19/16 00:34 Basophils # (Manual) 0.0 K/mm3 (0.0-0.1) 07/19/16 00:34 Metamyelocytes # 0.0 K/mm3 07/19/16 00:34 Myelocytes # 0.0 K/mm3 07/19/16 00:34 Promyelocytes # 0.0 K/mm3 07/19/16 00:34 Blast Cells # 0.0 K/mm3 07/19/16 00:34 WBC Morphology Not Reportable 07/19/16 00:34 Hypersegmented Neuts Not Reportable 07/19/16 00:34 Hyposegmented Neuts Not Reportable 07/19/16 00:34 Hypogranular Neuts Not Reportable 07/19/16 00:34 Smudge Cells Few 07/19/16 00:34 Toxic Granulation Not Reportable 07/19/16 00:34 Toxic Vacuolation Not Reportable 07/19/16 00:34 Dohle Bodies Not Reportable 07/19/16 00:34 Pelger-Huet Anomaly Not Reportable 07/19/16 00:34 Maria Eugenia Rods Not Reportable 07/19/16 00:34 Platelet Estimate Appears normal 07/19/16 00:34 Clumped Platelets Not Reportable 07/19/16 00:34 Plt Clumps, EDTA Not Reportable 07/19/16 00:34 Large Platelets Not Reportable 07/19/16 00:34 Giant Platelets Not Reportable 07/19/16 00:34 Platelet Satelliting Not Reportable 07/19/16 00:34 Plt Morphology Comment Not Reportable 07/19/16 00:34 RBC Morphology Not Reportable 07/19/16 00:34 Dimorphic RBCs Not Reportable 07/19/16 00:34 Polychromasia Not Reportable 07/19/16 00:34 Hypochromasia 1+ 07/19/16 00:34 Poikilocytosis Not Reportable 07/19/16 00:34 Anisocytosis 1+ 07/19/16 00:34 Microcytosis Not Reportable 07/19/16 00:34 Macrocytosis Not Reportable 07/19/16 00:34 Spherocytes Not Reportable 07/19/16 00:34 Pappenheimer Bodies Not Reportable 07/19/16 00:34 Sickle Cells Not Reportable 07/19/16 00:34 Target Cells Not Reportable 07/19/16 00:34 Tear Drop Cells Not Reportable 07/19/16 00:34 Ovalocytes Not Reportable 07/19/16 00:34 Helmet Cells Not Reportable 07/19/16 00:34 [place] Bodies Not Reportable 07/19/16 00:34 Ramsay Rings Not Reportable 07/19/16 00:34 [place] Cells Not Reportable 07/19/16 00:34 Bite Cells Not Reportable 07/19/16 00:34 Crenated Cell Not Reportable 07/19/16 00:34 Elliptocytes Not Reportable 07/19/16 00:34 Acanthocytes (Spur) Not Reportable 07/19/16 00:34 Rouleaux Not Reportable 07/19/16 00:34 Hemoglobin C Crystals Not Reportable 07/19/16 00:34 Schistocytes Not Reportable 07/19/16 00:34 Malaria parasites Not Reportable 07/19/16 00:34 Ronal Bodies Not Reportable 07/19/16 00:34 Hem Pathologist Commnt No 07/19/16 00:34 PT 14.7 Sec. (12.2-14.9) 07/19/16 08:29 INR 1.16 (0.87-1.13) H 07/19/16 08:29 APTT 44.8 Sec. (24.2-36.6) H 07/19/16 08:29 Sodium 135 mmol/L (137-145) L 07/24/16 06:41 Potassium 4.1 mmol/L (3.6-5.0) 07/24/16 06:41 Chloride 95.4 mmol/L (98-107) L 07/24/16 06:41 Carbon Dioxide 25 mmol/L (22-30) 07/24/16 06:41 Anion Gap 19 mmol/L 07/24/16 06:41 BUN 20 mg/dL (9-20) 07/24/16 06:41 Creatinine 5.9 mg/dL (0.8-1.5) H 07/24/16 06:41 Estimated GFR 12 ml/min 07/24/16 06:41 BUN/Creatinine Ratio 3.38 % 07/24/16 06:41 Glucose 96 mg/dL (75-100) 07/24/16 06:41 POC Glucose 89 (70-105) 07/27/16 06:00 Lactic Acid 0.7 mmol/L (0.7-2.0) 07/19/16 08:29 Calcium 7.9 mg/dL (8.4-10.2) L 07/24/16 06:41 Phosphorus 5.4 mg/dL (2.5-4.5) H 07/19/16 08:29 Total Bilirubin 0.6 mg/dL (0.1-1.2) 07/19/16 08:29 Direct Bilirubin 0.2 mg/dL (0-0.2) 07/19/16 08:29 Indirect Bilirubin 0.4 mg/dL 07/19/16 08:29 AST 12 units/L (5-40) 07/19/16 08:29 ALT 11 units/L (7-56) 07/19/16 08:29 Alkaline Phosphatase 148 units/L (35-129) H 07/19/16 08:29 NT-Pro-B Natriuret Pep 08260 pg/mL (0-900) H 07/19/16 08:29 Total Protein 7.2 g/dL (6.3-8.2) 07/19/16 08:29 Albumin 2.7 g/dL (3.9-5) L 07/19/16 08:29 Albumin/Globulin Ratio 0.6 % 07/19/16 08:29 Random Vancomycin 15.8 ug/mL (0-40.0) 07/22/16 04:34 Miscellaneous Test Flexitest 1 (()) 07/23/16 18:40 Blood Type A POSITIVE 07/22/16 04:34 Antibody Screen Negative 07/22/16 04:34
--- NOTE | 2016-07-27 15:20 | Progress Note ---
Assessment and Plan 70-year-old male with severe peripheral vascular disease status post endovascular revascularization of the left lower extremity. Successful revascularization was performed with reconstruction of the pedal loop. Continue aspirin and Plavix. Continue Nitropaste until later today. Right groin site clean, dry, and intact without issue. Discussed situation with patient, but the patient has no telephone, with limited home resources and will likely not follow-up for definitive therapy. I would optimally like to have hyperbaric oxygen involved with the patient's therapy, but I suspect the patient will not be able to follow up for his therapy. We will consult podiatry to see if they can perform a TMA with or without flap to attempt limb salvage. Consulted Dr. Diaz. I suspect they will not be able to see the patient until at least Friday. Subjective Date of service: 07/27/16 Principal diagnosis: PVD with gangrene Interval history: Patient in no acute distress. Hot left lower extremity. Dopplerable PT and DP. Nitro paste on foot. Gangrene of the left predominantly first ray which is dry. No infection. No purulence. Objective - Constitutional Vitals: Vital Signs - 12hr 07/27/16 07/27/16 07/27/16 05:40 07:25 10:50 Temperature 98.4 F 98.4 F Pulse Rate 63 59 L Pulse Rate [ 61 Left Radial] Respiratory 16 20 Rate Blood Pressure 142/67 158/71 Blood Pressure 135/60 [Left Arm] O2 Sat by Pulse 100 Oximetry 07/27/16 07/27/16 07/27/16 11:00 11:15 11:30 Temperature Pulse Rate 58 L 57 L 57 L Pulse Rate [ Left Radial] Respiratory Rate Blood Pressure 158/69 153/76 147/68 Blood Pressure [Left Arm] O2 Sat by Pulse Oximetry 07/27/16 07/27/16 07/27/16 11:45 12:00 12:15 Temperature Pulse Rate 57 L 60 61 Pulse Rate [ Left Radial] Respiratory Rate Blood Pressure 147/76 157/64 139/71 Blood Pressure [Left Arm] O2 Sat by Pulse Oximetry 07/27/16 12:30 Temperature Pulse Rate 60 Pulse Rate [ Left Radial] Respiratory Rate Blood Pressure 143/75 Blood Pressure [Left Arm] O2 Sat by Pulse Oximetry General appearance: Present: no acute distress - EENT Eyes: EOM intact ENT: hearing intact - Respiratory Respiratory effort: normal Extremities: normal temperature (left foot), normal color (left foot), abnormal (right BKA, long-standing) Extremity abnormal: pulses diminished (dopplerable left posterior tibial and dorsalis pedis; nonpalpable, but currently receiving dialysis) - Psychiatric Psychiatric: intact judgment & insight, cooperative - Labs CBC & Chem 7: 07/24/16 06:41 07/24/16 06:41
[2016-07-27] MEDS: PROTONIX PO SCH (17:59)
[2016-07-27] MEDS: MUCINEX ER PO SCH ×2 (17:59→23:08)
[2016-07-27] MEDS: PLAVIX PO SCH (18:00)
[2016-07-27] MEDS: NORVASC PO SCH (18:00)
[2016-07-27] MEDS: HALFPRIN EC PO SCH (18:00)
[2016-07-27] MEDS: NORMODYNE PO SCH ×2 (18:01→23:13)
[2016-07-27] MEDS: ZOCOR PO SCH (23:08)
[2016-07-28] MEDS: ZOFRAN IV PRN (03:26)
[2016-07-28] MEDS: HEPARIN SUB-Q SCH ×2 (05:41→14:18)
[2016-07-28] MEDS: TESSALON PERLES PO SCH ×3 (05:41→23:52)
[2016-07-28 07:32] LABS: Basophils % (Auto) 1.2 % (0.0-1.8); Eosinophils % (Auto) 6.7 % (0.0-4.3); Hematocrit 29.2 % (35.5-45.6); Hemoglobin 9.3 gm/dl (11.8-15.2); Mean Corpuscular HGB Conc 32 % (32-34); Mean Corpuscular Hemoglobin 28 pg (28-32); Mean Corpuscular Volume 88 fl (84-94); Platelet Count 360 K/mm3 (140-440); Red Blood Count 3.33 M/mm3 (3.65-5.03); White Blood Count 4.9 K/mm3 (4.5-11.0)
[2016-07-28 07:36] LABS: Red Cell Distribution Width 20.4 % (13.2-15.2)
[2016-07-28 08:19] LABS: BUN/Creatinine Ratio 2.7; Calcium 8.1 mg/dL (8.4-10.2); Chloride 94.3 mmol/L (98-107); Potassium 4.2 mmol/L (3.6-5.0)
[2016-07-28] MEDS: NORVASC PO SCH (11:34)
[2016-07-28] MEDS: PERCOCET 5/325 PO PRN ×3 (11:35→23:56)
[2016-07-28] MEDS: PROTONIX PO SCH (11:35)
[2016-07-28] MEDS: PLAVIX PO SCH (11:35)
[2016-07-28] MEDS: HALFPRIN EC PO SCH (11:35)
[2016-07-28] MEDS: MUCINEX ER PO SCH ×2 (11:35→23:52)
[2016-07-28] MEDS: NORMODYNE PO SCH ×2 (11:35)
--- NOTE | 2016-07-28 12:36 | Progress Note ---
Assessment and Plan 70-year-old male with severe peripheral vascular disease status post endovascular revascularization of the left lower extremity. Successful revascularization was performed with reconstruction of the pedal loop. Continue aspirin and Plavix. Discussed situation with patient, but the patient has no telephone, with limited home resources and will likely not follow-up for definitive therapy. I would optimally like to have hyperbaric oxygen involved with the patient's therapy, but I suspect the patient will not be able to follow up for his therapy. Has a tiny amount of drainage from dry site since yesterday, likely related to reperfusion. Start empiric antibiotics until surgery. Start Augmentin. May need ID consult after surgery. I consulted Dr. Valencia to see if he can perform a TMA with or without flap to attempt limb salvage. I suspect they will not be able to see the patient until at least Friday. Subjective Date of service: 07/28/16 Principal diagnosis: PVD with gangrene Interval history: Patient in no acute distress. Hot left lower extremity. Dopplerable PT and DP. Gangrene of the left predominantly first ray which has a focal spot which is now draining. Expressed all purulence at bedside. Objective - Constitutional Vitals: Vital Signs - 12hr 07/28/16 07/28/16 07/28/16 08:30 11:34 11:35 Temperature 98.7 F Pulse Rate 81 81 Pulse Rate [ 67 Left Radial] Respiratory 18 Rate Blood Pressure 150/78 150/81 Blood Pressure 151/70 [Left Arm] O2 Sat by Pulse 98 Oximetry General appearance: Present: no acute distress - EENT Eyes: EOM intact ENT: hearing intact - Respiratory Respiratory effort: normal Extremities: normal temperature (left), normal color (left), abnormal ( dopplerable left PT and DP) - Psychiatric Psychiatric: intact judgment & insight, cooperative - Labs CBC & Chem 7: 07/28/16 06:37 07/28/16 06:37 Labs: Abnormal lab results 07/27/16 07/28/16 07/28/16 Range/Units 16:50 06:37 06:37 RBC 3.33 L (3.65-5.03) M/mm3 Hgb 9.3 L (11.8-15.2) gm/dl Hct 29.2 L (35.5-45.6) % RDW 20.4 H (13.2-15.2) % [place] % (Auto) 8.7 H (0.0-7.3) % Eos % (Auto) 6.7 H (0.0-4.3) % Lymph # 0.8 L (1.2-5.4) K/mm3 Sodium 135 L (137-145) mmol/L Chloride 94.3 L (98-107) mmol/L Creatinine 4.8 H (0.8-1.5) mg/dL POC Glucose 225 H (70-105) Calcium 8.1 L (8.4-10.2) mg/dL
[2016-07-28] MEDS ORDERED: AUGMENTIN 500 MG PO SCH (13:00)
--- NOTE | 2016-07-28 13:25 | Progress Note ---
Assessment and Plan Impression: * End stage renal disease on HD MWF as outpatient * Left foot dry gangrene * Peripheral artery disease * Type II DM * Hypertension * Anemia secondary to ESRD * Secondary hyperparathyroidism Plan: * Hemodialysis MWF * Vascular surgery following, s/p intervention, plans for metatarsal amputation noted * Epogen with dialysis * Renal diet * Abx per primary team * Tight glycemic control * Continue antiHTN medications Subjective Date of service: 07/28/16 Principal diagnosis: PVD with gangrene Interval history: resting well in bed today Objective - Exam Narrative Exam: General appearance: well-developed, well-nourished EENT: ATNC Respiratory: Present: Clear to Ascultation Cardiology: regular, S1S2 Gastrointestinal: normal, no tenderness, no distended Integumentary: no rash Neurologic: no focal deficit Musculoskeletal: other (no edema) Psychiatric: mood/affect appropriate, cooperative - Vital Signs Vital signs: Vital Signs - 12hr 07/28/16 07/28/16 07/28/16 08:30 11:34 11:35 Temperature 98.7 F Pulse Rate 81 81 Pulse Rate [ 67 Left Radial] Respiratory 18 Rate Blood Pressure 150/78 150/81 Blood Pressure 151/70 [Left Arm] O2 Sat by Pulse 98 Oximetry - Lab 07/28/16 06:37 07/28/16 06:37 Most recent lab results Calcium 8.1 mg/dL (8.4-10.2) L 07/28/16 06:37 Phosphorus 5.4 mg/dL (2.5-4.5) H 07/19/16 08:29
--- NOTE | 2016-07-28 14:03 | Progress Note ---
Assessment and Plan Current antibiotics: Off antibiotics Previous antibiotics: Zosyn 2.25 gm IV q8h (07/21 -> 07/26) Vancomycin pulse dosing (07/19-07/23) ASSESSMENT: Brando Oconnor is a 70 year old man with ESRD on chronic HD via a left chest wall permacath, type 2 DM and PVD (s/p right below knee amputation) who was admitted to [facility] on 07/19/16 with one month of worsening ischemic changes of left foot with great toe dry gangrene and he underwent left leg angioplasty (posterior tibial artery, proximal posterior tibial artery and distal popliteal) on 07/22. Problem list: 1. Peripheral vascular disease -Dry gangrene of the left great toe without signs of secondary infection -Status post left lower extremity angioplasty 07/22 -Status post right BKA 2. End-stage renal failure -Maintenance hemodialysis 3. Type 2 diabetes mellitus 4. Chronic anemia 5. Persistent cough -Patient said this hacking cough has been present for 2 weeks. -Pertussis PCR negative -Cough is better with tessalon perls 6. Mild neutropenia PLAN: 1. Follow off antibiotics 2. Status post vascular procedure 07/26 to attempt again revascularization 3. Glycemic control Subjective Date of service: 07/28/16 Principal diagnosis: PVD with gangrene Interval history: No specific complaints. States that his "cold" is better. Objective - Exam Narrative Exam: GENERAL: Well-developed, well-nourished appearing who is alert and in no acute distress. HEAD: Normocephalic. No lesions seen. EYES: Pupils are equal reactive to light and accommodation. There is no scleral icterus. Optic fundi are not examined. EARS: There is no external drainage THROAT: Oropharynx is normal with no evidence of oral candidiasis or pharyngitis. NECK: Supple. No enlargement of the thyroid gland. No significant cervical lymphadenopathy. No jugular venous distention at 30. LUNGS: Clear with no adventitious sounds. CHEST: PermCath without signs of infection. HEART: Regular rate. S1 and S2 are normal. There are no gallops, clicks or rubs heard. Grade II/ KEE heard best over the left upper sternal border. No diastolic murmur. ABDOMEN: Soft and nontender. Liver and spleen are not palpably enlarged or tender. No palpable masses. Bowel sounds are normoactive. EXTREMITIES: Dry gangrenous changes of the left great toe and also to a lesser extent the second toe. No signs of secondary infection. Status post right BKA with stump well healed with no signs of infection nor ischemia. NEUROLOGIC: No focal findings. - Constitutional Vitals: Vital Signs Temp Pulse Resp BP Pulse Ox 98.7 F 81 18 150/81 98 07/28/16 08:30 07/28/16 11:35 07/28/16 08:30 07/28/16 11:35 07/28/16 08:30 Temperature -Last 24 Hours Temperature 98.7 F Temperature 98.2 F Temperature 98 F Temperature 97.6 F - Labs CBC & Chem 7: 07/28/16 06:37 07/28/16 06:37 Labs: Abnormal lab results 07/27/16 07/28/16 07/28/16 Range/Units 16:50 06:37 06:37 RBC 3.33 L (3.65-5.03) M/mm3 Hgb 9.3 L (11.8-15.2) gm/dl Hct 29.2 L (35.5-45.6) % RDW 20.4 H (13.2-15.2) % [place] % (Auto) 8.7 H (0.0-7.3) % Eos % (Auto) 6.7 H (0.0-4.3) % Lymph # 0.8 L (1.2-5.4) K/mm3 Sodium 135 L (137-145) mmol/L Chloride 94.3 L (98-107) mmol/L Creatinine 4.8 H (0.8-1.5) mg/dL POC Glucose 225 H (70-105) Calcium 8.1 L (8.4-10.2) mg/dL
[2016-07-28] MEDS: BETADINE TP SCH ×2 (14:18→22:00)
[2016-07-28] MEDS: AUGMENTIN 500 MG PO SCH (14:18)
--- NOTE | 2016-07-28 14:43 | Progress Note ---
Assessment and Plan Assessment and plan: Acute gangrene of the left foot * No sign of a superimposed secondary infection, likely due to diabetes mellitus and history of peripheral vascular disease * s/p left lower extremity angioplasty on 07/22 and 07/26 * patient states he is able to move his toes and his foot feels better after the procedure on 07/26. * plan for amputation, Dr. Valencia has been consulted * ID is following, monitor off antibiotics; Zosyn 2.25 gm IV q8h (07/21 -> 07/26 ) and Vancomycin pulse dosing (07/19-07/23) End-stage renal disease on dialysis * Nephrology following Hypertension, benign essentiaL * Continue to monitor BP, and adjust medications As necessary * On amlodipine and labetalol Diabetes mellitus type 2 * A1c 8.1 * Continue ADA diet and sliding scale of insulin Peripheral vascular disease * s/p left lower extremity angioplasty on 07/22 and 07/26 * Vascular following Anemia of chronic kidney disease. * Epogen as needed Nausea/vomiting likely due to GERD? * Continue Protonix History Interval history: Patient seen and examined. Medical records and medication list reviewed. No acute event overnight noted by the RN. Patient status post angioplasty on 07/22 and 07/26. patient states he is able to move his toes and his foot feels better after the procedure on 07/26. plan for amputation, Dr. Valencia has been consulted Discussed plan of care at bedside with patient. Hospitalist Physical - Physical exam Narrative exam: GENERAL: Elderly AAM lying on bed appeared to be in no discomfort. HEENT: Normocephalic. Atraumatic. No conjunctival congestion or icterus. Patient has moist mucous membranes. NECK: Supple. Trachea midline. CHEST/LUNGS: Clear to auscultated bilaterally, breathing nonlabored. No wheezes crackles or rhonchi. HEART/CARDIOVASCULAR: Regular in rate and rhythm. S1 and S2 positive. ABDOMEN: Abdomen is soft, nontender. Patient has normal bowel sounds. SKIN: There is no rash. Warm and dry. NEURO: No focal motor deficit. Follows command. MUSCULOSKELETAL: No joint effusion or tenderness. EXTRIMITY: Right LE BKA, left foot blackish discoloration. PSYCH: Cooperative. - Constitutional Vitals: Temp Pulse Resp BP Pulse Ox 98.7 F 81 18 150/81 98 07/28/16 08:30 07/28/16 11:35 07/28/16 08:30 07/28/16 11:35 07/28/16 08:30 General appearance: Present: no acute distress Results - Labs CBC & Chem 7: 07/28/16 06:37 07/28/16 06:37 Labs: Laboratory Last Values WBC 4.9 K/mm3 (4.5-11.0) 07/28/16 06:37 RBC 3.33 M/mm3 (3.65-5.03) L 07/28/16 06:37 Hgb 9.3 gm/dl (11.8-15.2) L 07/28/16 06:37 Hct 29.2 % (35.5-45.6) L 07/28/16 06:37 MCV 88 fl (84-94) 07/28/16 06:37 MCH 28 pg (28-32) 07/28/16 06:37 MCHC 32 % (32-34) 07/28/16 06:37 RDW 20.4 % (13.2-15.2) H 07/28/16 06:37 Plt Count 360 K/mm3 (140-440) 07/28/16 06:37 Lymph % (Auto) 16.9 % (13.4-35.0) 07/28/16 06:37 [place] % (Auto) 8.7 % (0.0-7.3) H 07/28/16 06:37 Eos % (Auto) 6.7 % (0.0-4.3) H 07/28/16 06:37 Baso % (Auto) 1.2 % (0.0-1.8) 07/28/16 06:37 Lymph # 0.8 K/mm3 (1.2-5.4) L 07/28/16 06:37 [place] # 0.4 K/mm3 (0.0-0.8) 07/28/16 06:37 Eos # 0.3 K/mm3 (0.0-0.4) 07/28/16 06:37 Baso # 0.1 K/mm3 (0.0-0.1) 07/28/16 06:37 Add Manual Diff Complete 07/19/16 00:34 Total Counted 100 07/19/16 00:34 Seg Neutrophils % 66.5 % (40.0-70.0) 07/28/16 06:37 Seg Neuts % (Manual) 73.0 % (40.0-70.0) H 07/19/16 00:34 Band Neutrophils % 0 % 07/19/16 00:34 Lymphocytes % (Manual) 9.0 % (13.4-35.0) L 07/19/16 00:34 Reactive Lymphs % (Man) 0 % 07/19/16 00:34 Monocytes % (Manual) 15.0 % (0.0-7.3) H 07/19/16 00:34 Eosinophils % (Manual) 3.0 % (0.0-4.3) 07/19/16 00:34 Basophils % (Manual) 0 % (0.0-1.8) 07/19/16 00:34 Metamyelocytes % 0 % 07/19/16 00:34 Myelocytes % 0 % 07/19/16 00:34 Promyelocytes % 0 % 07/19/16 00:34 Blast Cells % 0 % 07/19/16 00:34 Nucleated RBC % Not Reportable 07/19/16 00:34 Seg Neutrophils # 3.2 K/mm3 (1.8-7.7) 07/28/16 06:37 Seg Neutrophils # Man 4.5 K/mm3 (1.8-7.7) 07/19/16 00:34 Band Neutrophils # 0.0 K/mm3 07/19/16 00:34 Lymphocytes # (Manual) 0.6 K/mm3 (1.2-5.4) L 07/19/16 00:34 Abs React Lymphs (Man) 0.0 K/mm3 07/19/16 00:34 Monocytes # (Manual) 0.9 K/mm3 (0.0-0.8) H 07/19/16 00:34 Eosinophils # (Manual) 0.2 K/mm3 (0.0-0.4) 07/19/16 00:34 Basophils # (Manual) 0.0 K/mm3 (0.0-0.1) 07/19/16 00:34 Metamyelocytes # 0.0 K/mm3 07/19/16 00:34 Myelocytes # 0.0 K/mm3 07/19/16 00:34 Promyelocytes # 0.0 K/mm3 07/19/16 00:34 Blast Cells # 0.0 K/mm3 07/19/16 00:34 WBC Morphology Not Reportable 07/19/16 00:34 Hypersegmented Neuts Not Reportable 07/19/16 00:34 Hyposegmented Neuts Not Reportable 07/19/16 00:34 Hypogranular Neuts Not Reportable 07/19/16 00:34 Smudge Cells Few 07/19/16 00:34 Toxic Granulation Not Reportable 07/19/16 00:34 Toxic Vacuolation Not Reportable 07/19/16 00:34 Dohle Bodies Not Reportable 07/19/16 00:34 Pelger-Huet Anomaly Not Reportable 07/19/16 00:34 Maria Eugenia Rods Not Reportable 07/19/16 00:34 Platelet Estimate Appears normal 07/19/16 00:34 Clumped Platelets Not Reportable 07/19/16 00:34 Plt Clumps, EDTA Not Reportable 07/19/16 00:34 Large Platelets Not Reportable 07/19/16 00:34 Giant Platelets Not Reportable 07/19/16 00:34 Platelet Satelliting Not Reportable 07/19/16 00:34 Plt Morphology Comment Not Reportable 07/19/16 00:34 RBC Morphology Not Reportable 07/19/16 00:34 Dimorphic RBCs Not Reportable 07/19/16 00:34 Polychromasia Not Reportable 07/19/16 00:34 Hypochromasia 1+ 07/19/16 00:34 Poikilocytosis Not Reportable 07/19/16 00:34 Anisocytosis 1+ 07/19/16 00:34 Microcytosis Not Reportable 07/19/16 00:34 Macrocytosis Not Reportable 07/19/16 00:34 Spherocytes Not Reportable 07/19/16 00:34 Pappenheimer Bodies Not Reportable 07/19/16 00:34 Sickle Cells Not Reportable 07/19/16 00:34 Target Cells Not Reportable 07/19/16 00:34 Tear Drop Cells Not Reportable 07/19/16 00:34 Ovalocytes Not Reportable 07/19/16 00:34 Helmet Cells Not Reportable 07/19/16 00:34 [place] Bodies Not Reportable 07/19/16 00:34 [place] Rings Not Reportable 07/19/16 00:34 [place] Cells Not Reportable 07/19/16 00:34 Bite Cells Not Reportable 07/19/16 00:34 Crenated Cell Not Reportable 07/19/16 00:34 Elliptocytes Not Reportable 07/19/16 00:34 Acanthocytes (Spur) Not Reportable 07/19/16 00:34 Rouleaux Not Reportable 07/19/16 00:34 Hemoglobin C Crystals Not Reportable 07/19/16 00:34 Schistocytes Not Reportable 07/19/16 00:34 Malaria parasites Not Reportable 07/19/16 00:34 Ronal Bodies Not Reportable 07/19/16 00:34 Hem Pathologist Commnt No 07/19/16 00:34 PT 14.7 Sec. (12.2-14.9) 07/19/16 08:29 INR 1.16 (0.87-1.13) H 07/19/16 08:29 APTT 44.8 Sec. (24.2-36.6) H 07/19/16 08:29 Sodium 135 mmol/L (137-145) L 07/28/16 06:37 Potassium 4.2 mmol/L (3.6-5.0) 07/28/16 06:37 Chloride 94.3 mmol/L (98-107) L 07/28/16 06:37 Carbon Dioxide 27 mmol/L (22-30) 07/28/16 06:37 Anion Gap 18 mmol/L 07/28/16 06:37 BUN 13 mg/dL (9-20) 07/28/16 06:37 Creatinine 4.8 mg/dL (0.8-1.5) H 07/28/16 06:37 Estimated GFR 15 ml/min 07/28/16 06:37 BUN/Creatinine Ratio 2.70 % 07/28/16 06:37 Glucose 91 mg/dL (75-100) 07/28/16 06:37 POC Glucose 225 (70-105) H 07/27/16 16:50 Lactic Acid 0.7 mmol/L (0.7-2.0) 07/19/16 08:29 Calcium 8.1 mg/dL (8.4-10.2) L 07/28/16 06:37 Phosphorus 5.4 mg/dL (2.5-4.5) H 07/19/16 08:29 Total Bilirubin 0.6 mg/dL (0.1-1.2) 07/19/16 08:29 Direct Bilirubin 0.2 mg/dL (0-0.2) 07/19/16 08:29 Indirect Bilirubin 0.4 mg/dL 07/19/16 08:29 AST 12 units/L (5-40) 07/19/16 08:29 ALT 11 units/L (7-56) 07/19/16 08:29 Alkaline Phosphatase 148 units/L (35-129) H 07/19/16 08:29 NT-Pro-B Natriuret Pep 93306 pg/mL (0-900) H 07/19/16 08:29 Total Protein 7.2 g/dL (6.3-8.2) 07/19/16 08:29 Albumin 2.7 g/dL (3.9-5) L 07/19/16 08:29 Albumin/Globulin Ratio 0.6 % 07/19/16 08:29 Random Vancomycin 15.8 ug/mL (0-40.0) 07/22/16 04:34 Miscellaneous Test Flexitest 1 (()) 07/23/16 18:40 Blood Type A POSITIVE 07/22/16 04:34 Antibody Screen Negative 07/22/16 04:34
[2016-07-28] MEDS: ZOCOR PO SCH (22:00)
[2016-07-29] MEDS: HEPARIN SUB-Q SCH ×4 (00:50→21:58)
[2016-07-29] MEDS: AUGMENTIN 500 MG PO SCH (02:11)
[2016-07-29] MEDS: TESSALON PERLES PO SCH ×3 (06:35→21:56)
[2016-07-29] MEDS: PERCOCET 5/325 PO PRN ×2 (06:35→22:34)
--- NOTE | 2016-07-29 08:53 | Progress Note ---
Assessment and Plan Impression: * End stage renal disease on HD MWF as outpatient * Left foot dry gangrene * Peripheral artery disease * Type II DM * Hypertension * Anemia secondary to ESRD * Secondary hyperparathyroidism Plan: * Hemodialysis MWF * Vascular surgery following, s/p intervention, plans for metatarsal amputation noted * Epogen with dialysis * Renal diet * Abx per primary team * Tight glycemic control * Continue antiHTN medications Subjective Date of service: 07/29/16 Principal diagnosis: PVD with gangrene Interval history: resting well in bed today Objective - Exam Narrative Exam: General appearance: well-developed, well-nourished EENT: ATNC Respiratory: Present: Clear to Ascultation Cardiology: regular, S1S2 Gastrointestinal: normal, no tenderness, no distended Integumentary: no rash Neurologic: no focal deficit Musculoskeletal: other (no edema) Psychiatric: mood/affect appropriate, cooperative - Vital Signs Vital signs: Vital Signs - 12hr 07/28/16 07/28/16 07/29/16 22:00 23:56 00:00 Temperature 98.3 F Pulse Rate [ Apical] Pulse Rate [ 70 Left] Pulse Rate [ 70 Right Radial] Respiratory 18 18 18 Rate Respiratory 20 Rate [ Generalized] Respiratory 20 Rate [Head] Respiratory 20 Rate [Left Foot ] Blood Pressure 130/70 [Left Arm] Blood Pressure [Right Arm] O2 Sat by Pulse 98 98 Oximetry 07/29/16 07/29/16 07/29/16 00:56 06:35 08:26 Temperature 98.0 F Pulse Rate [ 65 Apical] Pulse Rate [ Left] Pulse Rate [ Right Radial] Respiratory 18 18 20 Rate Respiratory Rate [ Generalized] Respiratory Rate [Head] Respiratory Rate [Left Foot ] Blood Pressure [Left Arm] Blood Pressure 133/67 [Right Arm] O2 Sat by Pulse 99 Oximetry - Lab 07/28/16 06:37 07/28/16 06:37 Most recent lab results Calcium 8.1 mg/dL (8.4-10.2) L 07/28/16 06:37 Phosphorus 5.4 mg/dL (2.5-4.5) H 07/19/16 08:29
[2016-07-29] MEDS: NORVASC PO SCH (09:15)
[2016-07-29] MEDS: PROTONIX PO SCH (09:15)
[2016-07-29] MEDS: NORMODYNE PO SCH ×2 (09:15→21:57)
[2016-07-29] MEDS: BETADINE TP SCH ×2 (09:15→22:02)
[2016-07-29] MEDS: PLAVIX PO SCH (09:15)
[2016-07-29] MEDS: HALFPRIN EC PO SCH (09:15)
[2016-07-29] MEDS: MUCINEX ER PO SCH ×2 (09:15→21:56)
--- NOTE | 2016-07-29 10:41 | Progress Note ---
Assessment and Plan Current antibiotics: Off antibiotics Previous antibiotics: Zosyn 2.25 gm IV q8h (07/21 -> 07/26) Vancomycin pulse dosing (07/19-07/23) ASSESSMENT: Brando Oconnor is a 70 year old man with ESRD on chronic HD via a left chest wall permacath, type 2 DM and PVD (s/p right below knee amputation) who was admitted to [facility] on 07/19/16 with one month of worsening ischemic changes of left foot with great toe dry gangrene and he underwent left leg angioplasty (posterior tibial artery, proximal posterior tibial artery and distal popliteal) on 07/22. Problem list: 1. Peripheral vascular disease -Dry gangrene of the left great toe without signs of secondary infection -Status post left lower extremity angioplasty 07/22 -Status post right BKA --the first toe necrotic toe is now draining purulent material, I obtained culture of the drainage, in view of the drainage will cover with antibiotics until surgery is performed 2. End-stage renal failure -Maintenance hemodialysis 3. Type 2 diabetes mellitus 4. Chronic anemia 5. Persistent cough -Patient said this hacking cough has been present for 2 weeks. -Pertussis PCR negative -Cough is better with tessalon perls 6. Mild neutropenia PLAN: 1. restart zosyn 2.25gm iv Q8H in view of the purulent drainage of the great toe 2. follow up wound culture 3. await surgical plans Subjective Date of service: 07/29/16 Principal diagnosis: PVD with gangrene Interval history: Patient seen in bed comfortable, he was asking when will the surgical amputation of his left foot be performed Objective - Constitutional Vitals: Selected Entries 07/29/16 08:26 Temperature 98.0 F Pulse Rate [ 65 Apical] Respiratory 20 Rate O2 Sat by Pulse 99 Oximetry Blood Pressure 133/67 [Right Arm] Blood Pressure 89 Mean [Right Arm ] General appearance: Present: no acute distress, well-nourished - EENT Eyes: PERRL, EOM intact, no scleral icterus, no conjunctival injection ENT: hearing intact, poor dentition Ears: bilateral: normal - Neck Neck: supple, normal ROM, no enlarged thyroid, no masses or JVD - Respiratory Respiratory: bilateral: CTA - Breasts Breasts: deferred - Cardiovascular Rhythm: regular Heart Sounds: Present: S1 & S2 Extremities: abnormal (left foot gangrene with an area of drainage at the 1st toe necrosis) - Gastrointestinal General gastrointestinal: Present: soft, non-tender, normal bowel sounds Rectal Exam: deferred - Genitourinary Male genitourinary: deferred - Integumentary Integumentary: no jaundice, no rash - Labs CBC & Chem 7: 07/28/16 06:37 07/28/16 06:37 Labs: Microbiology 07/19/16 09:18 Peripheral/Venous Blood Culture - Final NO GROWTH AFTER 5 DAYS 07/19/16 08:50 Peripheral/Venous Blood Culture - Final NO GROWTH AFTER 5 DAYS Laboratory Tests 07/28/16 07/28/16 06:37 06:37 WBC 4.9 Plt Count 360 Creatinine 4.8 H
--- NOTE | 2016-07-29 11:25 | Progress Note ---
Assessment and Plan Assessment and plan: Acute left foot gangrene * s/p left lower extremity angioplasty on 07/22 and 07/26 * Continue Zosyn * plan for amputation, Dr. Valencia has been consulted * ID is following. End-stage renal disease on dialysis * Nephrology following Hypertension, benign essentiaL * Continue to monitor BP, and adjust medications As necessary * On amlodipine and labetalol Diabetes mellitus type 2 * A1c 8.1 * Continue ADA diet and sliding scale of insulin Peripheral vascular disease * s/p left lower extremity angioplasty on 07/22 and 07/26 * Vascular following Anemia of chronic kidney disease Full code status History Interval history: Left foot black with drainage, no more fever past 3 days Hospitalist Physical - Physical exam Narrative exam: Gen: Not in acute distress HEENT: Normocephalic, atraumatic Neck :supple, no JVD Lungs clear to auscultation bilaterally no crackles or wheeze Heart S1 and S2 regular, no murmurs no gallop Abdomen:soft, nontender, nondistended, normal bowel sounds Ext: Left foot gangrene,black with small area of drainage Neuro: Awake alert oriented - Constitutional Vitals: Temp Pulse Resp BP Pulse Ox 98.0 F 65 20 133/67 99 07/29/16 08:26 07/29/16 08:26 07/29/16 08:26 07/29/16 08:26 07/29/16 08:26 Results - Labs CBC & Chem 7: 07/28/16 06:37 07/28/16 06:37 Labs: Laboratory Last Values WBC 4.9 K/mm3 (4.5-11.0) 07/28/16 06:37 RBC 3.33 M/mm3 (3.65-5.03) L 07/28/16 06:37 Hgb 9.3 gm/dl (11.8-15.2) L 07/28/16 06:37 Hct 29.2 % (35.5-45.6) L 07/28/16 06:37 MCV 88 fl (84-94) 07/28/16 06:37 MCH 28 pg (28-32) 07/28/16 06:37 MCHC 32 % (32-34) 07/28/16 06:37 RDW 20.4 % (13.2-15.2) H 07/28/16 06:37 Plt Count 360 K/mm3 (140-440) 07/28/16 06:37 Lymph % (Auto) 16.9 % (13.4-35.0) 07/28/16 06:37 [place] % (Auto) 8.7 % (0.0-7.3) H 07/28/16 06:37 Eos % (Auto) 6.7 % (0.0-4.3) H 07/28/16 06:37 Baso % (Auto) 1.2 % (0.0-1.8) 07/28/16 06:37 Lymph # 0.8 K/mm3 (1.2-5.4) L 07/28/16 06:37 [place] # 0.4 K/mm3 (0.0-0.8) 07/28/16 06:37 Eos # 0.3 K/mm3 (0.0-0.4) 07/28/16 06:37 Baso # 0.1 K/mm3 (0.0-0.1) 07/28/16 06:37 Add Manual Diff Complete 07/19/16 00:34 Total Counted 100 07/19/16 00:34 Seg Neutrophils % 66.5 % (40.0-70.0) 07/28/16 06:37 Seg Neuts % (Manual) 73.0 % (40.0-70.0) H 07/19/16 00:34 Band Neutrophils % 0 % 07/19/16 00:34 Lymphocytes % (Manual) 9.0 % (13.4-35.0) L 07/19/16 00:34 Reactive Lymphs % (Man) 0 % 07/19/16 00:34 Monocytes % (Manual) 15.0 % (0.0-7.3) H 07/19/16 00:34 Eosinophils % (Manual) 3.0 % (0.0-4.3) 07/19/16 00:34 Basophils % (Manual) 0 % (0.0-1.8) 07/19/16 00:34 Metamyelocytes % 0 % 07/19/16 00:34 Myelocytes % 0 % 07/19/16 00:34 Promyelocytes % 0 % 07/19/16 00:34 Blast Cells % 0 % 07/19/16 00:34 Nucleated RBC % Not Reportable 07/19/16 00:34 Seg Neutrophils # 3.2 K/mm3 (1.8-7.7) 07/28/16 06:37 Seg Neutrophils # Man 4.5 K/mm3 (1.8-7.7) 07/19/16 00:34 Band Neutrophils # 0.0 K/mm3 07/19/16 00:34 Lymphocytes # (Manual) 0.6 K/mm3 (1.2-5.4) L 07/19/16 00:34 Abs React Lymphs (Man) 0.0 K/mm3 07/19/16 00:34 Monocytes # (Manual) 0.9 K/mm3 (0.0-0.8) H 07/19/16 00:34 Eosinophils # (Manual) 0.2 K/mm3 (0.0-0.4) 07/19/16 00:34 Basophils # (Manual) 0.0 K/mm3 (0.0-0.1) 07/19/16 00:34 Metamyelocytes # 0.0 K/mm3 07/19/16 00:34 Myelocytes # 0.0 K/mm3 07/19/16 00:34 Promyelocytes # 0.0 K/mm3 07/19/16 00:34 Blast Cells # 0.0 K/mm3 07/19/16 00:34 WBC Morphology Not Reportable 07/19/16 00:34 Hypersegmented Neuts Not Reportable 07/19/16 00:34 Hyposegmented Neuts Not Reportable 07/19/16 00:34 Hypogranular Neuts Not Reportable 07/19/16 00:34 Smudge Cells Few 07/19/16 00:34 Toxic Granulation Not Reportable 07/19/16 00:34 Toxic Vacuolation Not Reportable 07/19/16 00:34 Dohle Bodies Not Reportable 07/19/16 00:34 Pelger-Huet Anomaly Not Reportable 07/19/16 00:34 Maria Eugenia Rods Not Reportable 07/19/16 00:34 Platelet Estimate Appears normal 07/19/16 00:34 Clumped Platelets Not Reportable 07/19/16 00:34 Plt Clumps, EDTA Not Reportable 07/19/16 00:34 Large Platelets Not Reportable 07/19/16 00:34 Giant Platelets Not Reportable 07/19/16 00:34 Platelet Satelliting Not Reportable 07/19/16 00:34 Plt Morphology Comment Not Reportable 07/19/16 00:34 RBC Morphology Not Reportable 07/19/16 00:34 Dimorphic RBCs Not Reportable 07/19/16 00:34 Polychromasia Not Reportable 07/19/16 00:34 Hypochromasia 1+ 07/19/16 00:34 Poikilocytosis Not Reportable 07/19/16 00:34 Anisocytosis 1+ 07/19/16 00:34 Microcytosis Not Reportable 07/19/16 00:34 Macrocytosis Not Reportable 07/19/16 00:34 Spherocytes Not Reportable 07/19/16 00:34 Pappenheimer Bodies Not Reportable 07/19/16 00:34 Sickle Cells Not Reportable 07/19/16 00:34 Target Cells Not Reportable 07/19/16 00:34 Tear Drop Cells Not Reportable 07/19/16 00:34 Ovalocytes Not Reportable 07/19/16 00:34 Helmet Cells Not Reportable 07/19/16 00:34 [place] Bodies Not Reportable 07/19/16 00:34 [place] Rings Not Reportable 07/19/16 00:34 [place] Cells Not Reportable 07/19/16 00:34 Bite Cells Not Reportable 07/19/16 00:34 Crenated Cell Not Reportable 07/19/16 00:34 Elliptocytes Not Reportable 07/19/16 00:34 Acanthocytes (Spur) Not Reportable 07/19/16 00:34 Rouleaux Not Reportable 07/19/16 00:34 Hemoglobin C Crystals Not Reportable 07/19/16 00:34 Schistocytes Not Reportable 07/19/16 00:34 Malaria parasites Not Reportable 07/19/16 00:34 Ronal Bodies Not Reportable 07/19/16 00:34 Hem Pathologist Commnt No 07/19/16 00:34 PT 14.7 Sec. (12.2-14.9) 07/19/16 08:29 INR 1.16 (0.87-1.13) H 07/19/16 08:29 APTT 44.8 Sec. (24.2-36.6) H 07/19/16 08:29 Sodium 135 mmol/L (137-145) L 07/28/16 06:37 Potassium 4.2 mmol/L (3.6-5.0) 07/28/16 06:37 Chloride 94.3 mmol/L (98-107) L 07/28/16 06:37 Carbon Dioxide 27 mmol/L (22-30) 07/28/16 06:37 Anion Gap 18 mmol/L 07/28/16 06:37 BUN 13 mg/dL (9-20) 07/28/16 06:37 Creatinine 4.8 mg/dL (0.8-1.5) H 07/28/16 06:37 Estimated GFR 15 ml/min 07/28/16 06:37 BUN/Creatinine Ratio 2.70 % 07/28/16 06:37 Glucose 91 mg/dL (75-100) 07/28/16 06:37 POC Glucose 225 (70-105) H 07/27/16 16:50 Lactic Acid 0.7 mmol/L (0.7-2.0) 07/19/16 08:29 Calcium 8.1 mg/dL (8.4-10.2) L 07/28/16 06:37 Phosphorus 5.4 mg/dL (2.5-4.5) H 07/19/16 08:29 Total Bilirubin 0.6 mg/dL (0.1-1.2) 07/19/16 08:29 Direct Bilirubin 0.2 mg/dL (0-0.2) 07/19/16 08:29 Indirect Bilirubin 0.4 mg/dL 07/19/16 08:29 AST 12 units/L (5-40) 07/19/16 08:29 ALT 11 units/L (7-56) 07/19/16 08:29 Alkaline Phosphatase 148 units/L (35-129) H 07/19/16 08:29 NT-Pro-B Natriuret Pep 50272 pg/mL (0-900) H 07/19/16 08:29 Total Protein 7.2 g/dL (6.3-8.2) 07/19/16 08:29 Albumin 2.7 g/dL (3.9-5) L 07/19/16 08:29 Albumin/Globulin Ratio 0.6 % 07/19/16 08:29 Random Vancomycin 15.8 ug/mL (0-40.0) 07/22/16 04:34 Miscellaneous Test Flexitest 1 (()) 07/23/16 18:40 Blood Type A POSITIVE 07/22/16 04:34 Antibody Screen Negative 07/22/16 04:34
[2016-07-29] MEDS: ZOSYN/NS 2.25 GM/50ML 50 ML IV SCH ×2 (14:00→21:51)
--- NOTE | 2016-07-29 14:07 | Progress Note ---
Assessment and Plan 70-year-old male with severe peripheral vascular disease status post endovascular revascularization of the left lower extremity. Successful revascularization was performed with reconstruction of the pedal loop. Continue aspirin and Plavix. Discussed situation with patient, but the patient has no telephone, with limited home resources and will likely not follow-up for definitive therapy. I would optimally like to have hyperbaric oxygen involved with the patient's therapy, but I suspect the patient will not be able to follow up for his therapy. Has a small amount of drainage from dry site since yesterday, likely related to reperfusion. Has a small amount of wet gangrene. ID consult started Zosyn. I discussed the situation with Dr. Valencia who will see the patient. I believe podiatric TMA vs TMA with flap provides the patient with the best chance at limb perservation. He will see the patient today or tomorrow. Subjective Date of service: 07/29/16 Principal diagnosis: PVD with gangrene Interval history: Patient in no acute distress. Hot left lower extremity. Gangrene of the left predominantly first ray which has a focal spot which is now draining. Objective - Constitutional Vitals: Vital Signs - 12hr 07/29/16 07/29/16 06:35 08:26 Temperature 98.0 F Pulse Rate [ 65 Apical] Respiratory 18 20 Rate Blood Pressure 133/67 [Right Arm] O2 Sat by Pulse 99 Oximetry General appearance: Present: no acute distress - EENT Eyes: EOM intact ENT: hearing intact - Respiratory Respiratory effort: normal Extremities: normal temperature (lle), normal color (lle) Extremity abnormal: black (lle), other (draining purulent material lle) - Psychiatric Psychiatric: appropriate mood/affect, cooperative - Labs CBC & Chem 7: 07/28/16 06:37 07/28/16 06:37
[2016-07-29] MEDS: ZOCOR PO SCH (21:57)
[2016-07-29] MEDS: ZOFRAN IV PRN (22:33)
[2016-07-30] MEDS: HEPARIN SUB-Q SCH ×3 (05:42→23:40)
[2016-07-30] MEDS: TESSALON PERLES PO SCH ×3 (05:43→22:36)
[2016-07-30] MEDS: ZOSYN/NS 2.25 GM/50ML 50 ML IV SCH ×3 (05:46→22:30)
--- NOTE | 2016-07-30 09:26 | XRay Report ---
LEFT FOOT RADIOGRAPHS INDICATION: Necrotic left foot. COMPARISON: None similar. FINDINGS: AP and lateral left foot radiographs demonstrate moderate hallux valgus and amputated second, fourth and fifth toes as also the fifth metatarsal. Demineralized bones, approximately 1.7 cm os naviculare, tiny calcaneal spurs, mild dorsal midfoot spurring and moderate atherosclerotic vascular calcifications also noted. No significant soft tissue swelling or air appreciated radiographically. CONCLUSION: Left foot postsurgical and degenerative changes, as detailed above. Please correlate. Thank you for the opportunity to participate in this patient's care.
--- NOTE | 2016-07-30 09:56 | Progress Note ---
Assessment and Plan Impression: * End stage renal disease on HD MWF as outpatient * Left foot dry gangrene * Peripheral artery disease * Type II DM * Hypertension * Anemia secondary to ESRD * Secondary hyperparathyroidism Plan: * Patient refused to have dialysis yesterday. He is also not agreeable today. States that he has surgery today * Shall check his electrolytes today. * Continue Hemodialysis MWF * Vascular surgery following, s/p intervention, plans for metatarsal amputation noted * Epogen with dialysis * Renal diet * Abx per primary team * Tight glycemic control * Continue antiHTN medications Subjective Date of service: 07/30/16 Principal diagnosis: PVD with gangrene Interval history: Patient is comfortable this morning. Denies any shortness of breath. Patient refused to have dialysis yesterday. Objective - Vital Signs Vital signs: Vital Signs - 12hr 07/29/16 07/29/16 07/30/16 21:57 22:00 00:00 Temperature 98.3 F Pulse Rate 58 L Pulse Rate [ 80 Apical] Pulse Rate [ 68 Right Radial] Respiratory 20 20 Rate Blood Pressure 130/58 Blood Pressure 133/65 [Right Arm] O2 Sat by Pulse 96 Oximetry 07/30/16 07:19 Temperature 98.4 F Pulse Rate Pulse Rate [ 61 Apical] Pulse Rate [ Right Radial] Respiratory 12 Rate Blood Pressure Blood Pressure 159/71 [Right Arm] O2 Sat by Pulse 99 Oximetry - General Appearance General appearance: well-developed, well-nourished, appears stated age EENT: PERRL, mucous membranes moist Neck: no JVD, no thyromegaly, no carotid bruit, supple, other (left IJ PermCath in place) Respiratory: Present: Rales (at the left base) Cardiology: regular, normal heart rate, S1S2, no murmurs Gastrointestinal: normal, normoactive bowel sounds Integumentary: other (right below-knee amputation. 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
[2016-07-30] MEDS: NORVASC PO SCH (10:00)
[2016-07-30] MEDS: PLAVIX PO SCH (10:00)
[2016-07-30] MEDS: MUCINEX ER PO SCH ×2 (10:00→22:36)
[2016-07-30] MEDS: PROTONIX PO SCH (10:00)
[2016-07-30] MEDS: BETADINE TP SCH ×2 (10:00→23:40)
[2016-07-30] MEDS: HALFPRIN EC PO SCH (10:00)
--- NOTE | 2016-07-30 10:54 | Progress Note ---
Assessment and Plan Assessment and plan: Acute left foot gangrene * s/p left lower extremity angioplasty on 07/22 and 07/26 * Continue Zosyn * plan for amputation, today. * ID is following. End-stage renal disease on dialysis * Nephrology following Hypertension, benign essentiaL * Continue to monitor BP, and adjust medications As necessary * On amlodipine and labetalol Diabetes mellitus type 2 * A1c 8.1 * Continue ADA diet and sliding scale of insulin Peripheral vascular disease * s/p left lower extremity angioplasty on 07/22 and 07/26 * Vascular following Anemia of chronic kidney disease Full code status History Interval history: Left foot black with drainage, no more fever past few days, for surgery today Hospitalist Physical - Physical exam Narrative exam: Gen: Not in acute distress HEENT: Normocephalic, atraumatic Neck :supple, no JVD Lungs clear to auscultation bilaterally no crackles or wheeze Heart S1 and S2 regular, no murmurs no gallop Abdomen:soft, nontender, nondistended, normal bowel sounds Ext: Left foot gangrene,black with small area of drainage. Right BKA Neuro: Awake alert oriented - Constitutional Vitals: Temp Pulse Resp BP Pulse Ox 98.4 F 61 12 159/71 99 07/30/16 07:19 07/30/16 07:19 07/30/16 07:19 07/30/16 07:19 07/30/16 07:19 General appearance: Present: no acute distress Results - Labs CBC & Chem 7: 07/28/16 06:37 07/30/16 12:48 Labs: Laboratory Last Values WBC 4.9 K/mm3 (4.5-11.0) 07/28/16 06:37 RBC 3.33 M/mm3 (3.65-5.03) L 07/28/16 06:37 Hgb 9.3 gm/dl (11.8-15.2) L 07/28/16 06:37 Hct 29.2 % (35.5-45.6) L 07/28/16 06:37 MCV 88 fl (84-94) 07/28/16 06:37 MCH 28 pg (28-32) 07/28/16 06:37 MCHC 32 % (32-34) 07/28/16 06:37 RDW 20.4 % (13.2-15.2) H 07/28/16 06:37 Plt Count 360 K/mm3 (140-440) 07/28/16 06:37 Lymph % (Auto) 16.9 % (13.4-35.0) 07/28/16 06:37 Victoria % (Auto) 8.7 % (0.0-7.3) H 07/28/16 06:37 Eos % (Auto) 6.7 % (0.0-4.3) H 07/28/16 06:37 Baso % (Auto) 1.2 % (0.0-1.8) 07/28/16 06:37 Lymph # 0.8 K/mm3 (1.2-5.4) L 07/28/16 06:37 Victoria # 0.4 K/mm3 (0.0-0.8) 07/28/16 06:37 Eos # 0.3 K/mm3 (0.0-0.4) 07/28/16 06:37 Baso # 0.1 K/mm3 (0.0-0.1) 07/28/16 06:37 Add Manual Diff Complete 07/19/16 00:34 Total Counted 100 07/19/16 00:34 Seg Neutrophils % 66.5 % (40.0-70.0) 07/28/16 06:37 Seg Neuts % (Manual) 73.0 % (40.0-70.0) H 07/19/16 00:34 Band Neutrophils % 0 % 07/19/16 00:34 Lymphocytes % (Manual) 9.0 % (13.4-35.0) L 07/19/16 00:34 Reactive Lymphs % (Man) 0 % 07/19/16 00:34 Monocytes % (Manual) 15.0 % (0.0-7.3) H 07/19/16 00:34 Eosinophils % (Manual) 3.0 % (0.0-4.3) 07/19/16 00:34 Basophils % (Manual) 0 % (0.0-1.8) 07/19/16 00:34 Metamyelocytes % 0 % 07/19/16 00:34 Myelocytes % 0 % 07/19/16 00:34 Promyelocytes % 0 % 07/19/16 00:34 Blast Cells % 0 % 07/19/16 00:34 Nucleated RBC % Not Reportable 07/19/16 00:34 Seg Neutrophils # 3.2 K/mm3 (1.8-7.7) 07/28/16 06:37 Seg Neutrophils # Man 4.5 K/mm3 (1.8-7.7) 07/19/16 00:34 Band Neutrophils # 0.0 K/mm3 07/19/16 00:34 Lymphocytes # (Manual) 0.6 K/mm3 (1.2-5.4) L 07/19/16 00:34 Abs React Lymphs (Man) 0.0 K/mm3 07/19/16 00:34 Monocytes # (Manual) 0.9 K/mm3 (0.0-0.8) H 07/19/16 00:34 Eosinophils # (Manual) 0.2 K/mm3 (0.0-0.4) 07/19/16 00:34 Basophils # (Manual) 0.0 K/mm3 (0.0-0.1) 07/19/16 00:34 Metamyelocytes # 0.0 K/mm3 07/19/16 00:34 Myelocytes # 0.0 K/mm3 07/19/16 00:34 Promyelocytes # 0.0 K/mm3 07/19/16 00:34 Blast Cells # 0.0 K/mm3 07/19/16 00:34 WBC Morphology Not Reportable 07/19/16 00:34 Hypersegmented Neuts Not Reportable 07/19/16 00:34 Hyposegmented Neuts Not Reportable 07/19/16 00:34 Hypogranular Neuts Not Reportable 07/19/16 00:34 Smudge Cells Few 07/19/16 00:34 Toxic Granulation Not Reportable 07/19/16 00:34 Toxic Vacuolation Not Reportable 07/19/16 00:34 Dohle Bodies Not Reportable 07/19/16 00:34 Pelger-Huet Anomaly Not Reportable 07/19/16 00:34 Maria Eugenia Rods Not Reportable 07/19/16 00:34 Platelet Estimate Appears normal 07/19/16 00:34 Clumped Platelets Not Reportable 07/19/16 00:34 Plt Clumps, EDTA Not Reportable 07/19/16 00:34 Large Platelets Not Reportable 07/19/16 00:34 Giant Platelets Not Reportable 07/19/16 00:34 Platelet Satelliting Not Reportable 07/19/16 00:34 Plt Morphology Comment Not Reportable 07/19/16 00:34 RBC Morphology Not Reportable 07/19/16 00:34 Dimorphic RBCs Not Reportable 07/19/16 00:34 Polychromasia Not Reportable 07/19/16 00:34 Hypochromasia 1+ 07/19/16 00:34 Poikilocytosis Not Reportable 07/19/16 00:34 Anisocytosis 1+ 07/19/16 00:34 Microcytosis Not Reportable 07/19/16 00:34 Macrocytosis Not Reportable 07/19/16 00:34 Spherocytes Not Reportable 07/19/16 00:34 Pappenheimer Bodies Not Reportable 07/19/16 00:34 Sickle Cells Not Reportable 07/19/16 00:34 Target Cells Not Reportable 07/19/16 00:34 Tear Drop Cells Not Reportable 07/19/16 00:34 Ovalocytes Not Reportable 07/19/16 00:34 Helmet Cells Not Reportable 07/19/16 00:34 [place] Bodies Not Reportable 07/19/16 00:34 [place] Rings Not Reportable 07/19/16 00:34 [place] Cells Not Reportable 07/19/16 00:34 Bite Cells Not Reportable 07/19/16 00:34 Crenated Cell Not Reportable 07/19/16 00:34 Elliptocytes Not Reportable 07/19/16 00:34 Acanthocytes (Spur) Not Reportable 07/19/16 00:34 Rouleaux Not Reportable 07/19/16 00:34 Hemoglobin C Crystals Not Reportable 07/19/16 00:34 Schistocytes Not Reportable 07/19/16 00:34 Malaria parasites Not Reportable 07/19/16 00:34 Ronal Bodies Not Reportable 07/19/16 00:34 Hem Pathologist Commnt No 07/19/16 00:34 PT 14.7 Sec. (12.2-14.9) 07/19/16 08:29 INR 1.16 (0.87-1.13) H 07/19/16 08:29 APTT 44.8 Sec. (24.2-36.6) H 07/19/16 08:29 Sodium 135 mmol/L (137-145) L 07/28/16 06:37 Potassium 4.2 mmol/L (3.6-5.0) 07/28/16 06:37 Chloride 94.3 mmol/L (98-107) L 07/28/16 06:37 Carbon Dioxide 27 mmol/L (22-30) 07/28/16 06:37 Anion Gap 18 mmol/L 07/28/16 06:37 BUN 13 mg/dL (9-20) 07/28/16 06:37 Creatinine 4.8 mg/dL (0.8-1.5) H 07/28/16 06:37 Estimated GFR 15 ml/min 07/28/16 06:37 BUN/Creatinine Ratio 2.70 % 07/28/16 06:37 Glucose 91 mg/dL (75-100) 07/28/16 06:37 POC Glucose 225 (70-105) H 07/27/16 16:50 Lactic Acid 0.7 mmol/L (0.7-2.0) 07/19/16 08:29 Calcium 8.1 mg/dL (8.4-10.2) L 07/28/16 06:37 Phosphorus 5.4 mg/dL (2.5-4.5) H 07/19/16 08:29 Total Bilirubin 0.6 mg/dL (0.1-1.2) 07/19/16 08:29 Direct Bilirubin 0.2 mg/dL (0-0.2) 07/19/16 08:29 Indirect Bilirubin 0.4 mg/dL 07/19/16 08:29 AST 12 units/L (5-40) 07/19/16 08:29 ALT 11 units/L (7-56) 07/19/16 08:29 Alkaline Phosphatase 148 units/L (35-129) H 07/19/16 08:29 NT-Pro-B Natriuret Pep 25998 pg/mL (0-900) H 07/19/16 08:29 Total Protein 7.2 g/dL (6.3-8.2) 07/19/16 08:29 Albumin 2.7 g/dL (3.9-5) L 07/19/16 08:29 Albumin/Globulin Ratio 0.6 % 07/19/16 08:29 Random Vancomycin 15.8 ug/mL (0-40.0) 07/22/16 04:34 Miscellaneous Test Flexitest 1 (()) 07/23/16 18:40 Blood Type A POSITIVE 07/22/16 04:34 Antibody Screen Negative 07/22/16 04:34
--- NOTE | 2016-07-30 11:03 | Progress Note ---
Assessment and Plan Current antibiotics: Zosyn 2.25 gm IV q8h 07/29 --> Previous antibiotics: Augmentin 875 mg po BID Zosyn 2.25 gm IV q8h 07/21-07/23 Vancomycin pulse dosing (07/19-07/23) ASSESSMENT: Brando Oconnor is a 70 year old man with ESRD on chronic HD via a left chest wall permacath, type 2 DM and PVD (s/p right below knee amputation) who was admitted to [facility] on 07/19/16 with one month of worsening ischemic changes of left foot with great toe dry gangrene and he underwent left leg angioplasty (posterior tibial artery, proximal posterior tibial artery and distal popliteal) on 07/22. Problem list: 1. Peripheral vascular disease -Dry gangrene of the left great toe with some purulent drainage now. Gram- negative rods growing on superficial culture. -Status post left lower extremity angioplasty 07/22 -Status post right BKA 2. End-stage renal failure -Maintenance hemodialysis 3. Type 2 diabetes mellitus 4. Chronic anemia 5. Persistent cough -Patient said this hacking cough has been present for 2 weeks. -Pertussis PCR negative -Cough is better with tessalon perls PLAN: 1. Will continue Zosyn 2. Vascular note reviewed. Podiatry to reevaluate. 3. Glycemic control Wm Luevano MD [facility] Office: [phone] Subjective Date of service: 07/30/16 Principal diagnosis: PVD with gangrene Interval history: Seen in dialysis. No complaints. ROS: No subjective fever or chills. No nausea, vomiting or diarrhea. No shortness of breath, cough or pleuritic chest pain Objective - Exam Narrative Exam: GENERAL: Well-developed, well-nourished appearing who is alert and in no acute distress. He appears somewhat chronically ill. HEAD: Normocephalic. No lesions seen. EYES: Pupils are equal reactive to light and accommodation. There is no scleral icterus. Optic fundi are not examined. EARS: Tympanic membranes are normal. THROAT: Oropharynx is normal with no evidence of oral candidiasis or pharyngitis. NECK: Supple. No enlargement of the thyroid gland. No significant cervical lymphadenopathy. No jugular venous distention at 30. LUNGS: Clear with no adventitious sounds. CHEST: Right sided PermCath with no signs of infection HEART: Regular rate. S1 and S2 are normal. There are no gallops, clicks or rubs heard. Grade II/ KEE heard best over the left upper sternal border. No diastolic murmur. ABDOMEN: Soft and nontender. Liver and spleen are not palpably enlarged or tender. No palpable masses. Bowel sounds are normoactive. EXTREMITIES: Dry gangrenous changes of the left great toe with a small amount of purulent drainage expressible. Status post right BKA with stump well healed with no signs of infection nor ischemia. : Not examined NEUROLOGIC: No focal findings. - Constitutional Vitals: Vital Signs Temp Pulse Resp BP Pulse Ox 98.4 F 61 12 159/71 99 07/30/16 07:19 07/30/16 07:19 07/30/16 07:19 07/30/16 07:19 07/30/16 07:19 Temperature -Last 24 Hours Temperature 98.4 F Temperature 98.3 F Temperature 99.0 F - Labs CBC & Chem 7: 07/28/16 06:37 07/28/16 06:37 Labs: Microbiology 07/29/16 Unknown Foot - Left Wound Culture - Preliminary Gram Negative Yunier Gram stain: Many PMNs, gram-positive rods, few gram-negative rods. 07/19/16 09:18 Peripheral/Venous Blood Culture - Final NO GROWTH AFTER 5 DAYS 07/19/16 08:50 Peripheral/Venous Blood Culture - Final NO GROWTH AFTER 5 DAYS
[2016-07-30] MEDS: NORMODYNE PO SCH ×2 (12:19→22:39)
[2016-07-30 13:18] LABS: BUN/Creatinine Ratio 4.12; Calcium 8.8 mg/dL (8.4-10.2)
[2016-07-30 13:19] LABS: Chloride 96.2 mmol/L (98-107); Potassium 4.7 mmol/L (3.6-5.0)
--- NOTE | 2016-07-30 14:25 | Event Note ---
Date: 07/30/16 May proceed with Surgery.
--- NOTE | 2016-07-30 14:30 | Event Note ---
Date: 07/30/16 Pt s/p multiple endovascular procedures to improve bloodflow to his left lower ext. Okay to proceed with Podiatric surgery from vascular surgery stand point.
--- NOTE | 2016-07-30 16:59 | Magnetic Resonance Report ---
MRI OF THE LEFT FOOT WITHOUT CONTRAST. Intravenous contrast was not used due to patient's GFR of 15. FINDINGS: Amputation of the fifth toe and partial limitations of the second and fourth toes are evident. There is abnormal hypointense T1 and hyperintense T2 signal in the distal aspect of the first metatarsal and the proximal aspect of the first proximal phalanx. Signal within the remaining osseous structures is normal. There is soft tissue edema surrounding the first digit. No soft tissue fluid collections or other signs of abscess are seen. IMPRESSION: Osteomyelitis of the first metatarsal and proximal phalanx.
--- NOTE | 2016-07-30 17:06 | Anesthesia Day of Surgery ---
Anesthesia Day of Surgery - Day of Surgery Patient Examined: Yes Patient H&P Reviewed: Yes Patient is NPO: Yes Beta Blockers: Yes
--- NOTE | 2016-07-30 17:09 | Anesthesia Consultation ---
Anesthesia Consult and Med Hx Date of service: 07/30/16 - Airway Anesthetic Teeth Evaluation: Poor (missing most of the top and the rest are in poor condition), Chipped ROM Head & Neck: Adequate Mental/Hyoid Distance: Adequate Mallampati Class: Class II Intubation Access Assessment: Probably Good - Pulmonary Exam CTA: Yes - Cardiac Exam Cardiac Exam: RRR - Pre-Operative Health Status ASA Pre-Surgery Classification: ASA3 Proposed Anesthetic Plan: General - Pulmonary Hx Smoking: Yes (1 pack every 3 days for the last 46 yr) Hx Pneumonia: Yes - Cardiovascular System Hx Hypertension: Yes Hx Heart Attack/AMI: Yes (2010) Hx Peripheral Vascular Disease: Yes - Central Nervous System CVA: Yes Hx Psychiatric Problems: Yes - Gastrointestinal Hx Gastroesophageal Reflux Disease: (Admitted with abdominal pain and N&V) - Endocrine Hx Renal Disease: Yes (, last dialysis on friday) Hx End Stage Renal Disease: Yes Hx Insulin Dependent Diabetes: Yes - Other Systems Hx Substance Use: Yes (Recreational Marijuana use) Hx Cancer: No
--- NOTE | 2016-07-30 17:11 | Event Note ---
Date: 07/30/16 Pt is cleared for surgery from Renal standpoint
[2016-07-30] MEDS ORDERED: NACL 0.9% 1000 ML 1,000 ML ONE (18:40)
[2016-07-30] MEDS ORDERED: NEOSPORIN GU IR ONE ×2 (18:58)
[2016-07-30] MEDS ORDERED: NACL 0.9% 1000 ML 1,000 ML IV SCH (19:00)
[2016-07-30] MEDS ORDERED: BACITRACIN ZINC OINT TP ONE (19:26)
[2016-07-30] MEDS ORDERED: MARCAINE 0.25% INFILTRATI ONE (19:26)
[2016-07-30] MEDS ORDERED: XYLOCAINE 1% 20 mL INFILTRATI ONE (19:26)
[2016-07-30] MEDS ORDERED: VERSED ONE ×3 (19:30→20:29)
[2016-07-30] MEDS ORDERED: ANCEF ONE (19:45)
[2016-07-30] MEDS ORDERED: DILAUDID IV PRN (20:41)
--- NOTE | 2016-07-30 20:58 | Post Anesthesia Evaluation ---
- Post Anesthesia Evaluation Patient Participated: Yes Airway Patent: Yes Stable Respiratory Function: Yes Temp > 96.8F: Yes Pain Manageable: Yes Adequeate Hydration: Yes Anesthesia Complications: No Block Receding Appropriately: Not Applicable
[2016-07-30] MEDS: ZOCOR PO SCH (22:37)
--- NOTE | 2016-07-31 03:50 | Consultation ---
HISTORY OF PRESENT ILLNESS: This -[place] male who was evaluated at bedside on referral from Dr. Tono Nicholas with [facility] for evaluation of gangrenous foot. The patient appeared to be resting, however, combative with nursing staff as I visited due to the patient's denial to have his dialysis performed tonight. The patient relates that too much fluid is being taken off and he refuses to take his dialysis at this time. However, the patient was informed on importance of him following through with his dialysis, but the patient will talk to his renal physician in that regard. The patient's chart was reviewed. All labs were noted. Foot evaluation reveals gangrenous left big toe with non-vitalized tissue at the medial aspect, hard to touch, also third digit appeared to be gangrenous, dry at the third digit, however, there is mild purulence at the central aspect of the medial first ray. The the foot appeared to be warm. However, I spoke with Dr. Nicholas and appears to be good flow to the areas, status post vascular procedures to promote more circulation to the area. X-rays and MRI were ordered and we anticipate possible resection of left great toe and third digit or possible TMA, but more likely than not a partial first ray resection and partial third digit resection may be performed. ASSESSMENT: Gangrenous left big toe in first ray, gangrenous third digit, left foot. PLAN: We will discuss future surgical intervention with Dr. Nicholas, and we will seek all medical clearance from all treating physicians for possible p.m. surgery for tomorrow or whenever clearance is given. Anticipate continued followup. JOB# [id number] JOSE/DEVONTE HOWELL
[2016-07-31] MEDS: PERCOCET 5/325 PO PRN ×3 (05:50→19:57)
[2016-07-31] MEDS: TESSALON PERLES PO SCH ×3 (05:52→21:22)
[2016-07-31] MEDS: ZOSYN/NS 2.25 GM/50ML 50 ML IV SCH ×3 (05:53→21:20)
[2016-07-31] MEDS: HEPARIN SUB-Q SCH (06:13)
--- NOTE | 2016-07-31 07:35 | Operative Report ---
PREOPERATIVE DIAGNOSES: 1. Gangrenous left great toe, first ray. 2. Gangrenous left foot. 3. Peripheral vascular disease. POSTOPERATIVE DIAGNOSES: 1. Gangrenous left great toe, first ray. 2. Gangrenous left foot. 3. Peripheral vascular disease. SURGEON: Dr. Akin Valencia. ANESTHESIA: MAC with local IV sedation. TOURNIQUET: None. ESTIMATED BLOOD LOSS: Less than 60 mL. PROCEDURE IN DETAIL: The patient was brought into the operating room, placed on the operating table, placed in the supine position. Following intravenous sedation, the patient was given 10 mL of 1:1 mixture of 1% lidocaine plain and 0.5% Marcaine plain after thoroughly cleansing the patient's feet. We noted the patient is significantly neuropathic, so additional measures were not needed per Anesthesia. Therefore, the foot was then scrubbed, prepped and draped in the usual aseptic manner and attention was directed to the first ray in which nonvitalized tissue was removed and passed from the operative field. It should be noted a flap was used to cover the proximal aspect of the wound after resection of the distal two-thirds of the first ray and the distal phalanx and the proximal phalanx. All nonvitalized tissue was removed without incident and the area was pulse lavaged with gentamicin mix. Let it be noted that distal phalanx and the middle phalanx and the proximal phalanx were removed from the affected areas and passed from the operative field and also was pulse lavaged. Let it be noted, the cultures were performed, with aerobic, anaerobic, and fungal of the tissues and let it be noted area was closed without incident. There was noted to be good red blood tissue, bleeding throughout the procedure. The area was dressed with bacitracin ointment, Adaptic, and sterile compression dressing. The patient will be readmitted to the floor, room 357 and all preop orders will be resumed. JOB# [id number] JOSE/DEVONTE HOWELL
--- NOTE | 2016-07-31 09:09 | Progress Note ---
Assessment and Plan Impression: * End stage renal disease on HD MWF as outpatient * Left foot dry gangrene * Peripheral artery disease * Type II DM * Hypertension * Anemia secondary to ESRD * Secondary hyperparathyroidism Plan: * Patient had refused dialysis on Friday . * He is scheduled for dialysis again today. Seems to be agreeable to proceed . * Continue Hemodialysis MWF * Peripheral vascular disease with dry gangrene. s/p left foot surgery * Epogen with dialysis * Renal diet * Abx per primary team * Tight glycemic control * Continue antiHTN medications Subjective Date of service: 07/31/16 Principal diagnosis: PVD with gangrene Interval history: Patient had left foot surgery yesterday. He is comfortable this morning. Denies any shortness of breath Objective - Vital Signs Vital signs: Vital Signs - 12hr 07/30/16 07/30/16 07/31/16 22:00 22:39 00:00 Temperature 97.8 F Pulse Rate 70 Pulse Rate [ 70 62 Right Radial] Respiratory 20 18 Rate Blood Pressure 140/70 Blood Pressure 123/61 [Right Arm] O2 Sat by Pulse Oximetry 07/31/16 07:20 Temperature 97.8 F Pulse Rate Pulse Rate [ 60 Right Radial] Respiratory 16 Rate Blood Pressure Blood Pressure 129/54 [Right Arm] O2 Sat by Pulse 96 Oximetry - General Appearance General appearance: well-developed, well-nourished, appears stated age EENT: PERRL, mucous membranes moist Neck: no JVD, no thyromegaly, no carotid bruit, supple, other (IJ PermCath in place) Respiratory: Present: Clear to Ascultation Cardiology: regular, normal heart rate, S1S2, no murmurs Gastrointestinal: normal, normoactive bowel sounds Integumentary: no rash, other (right BKA. Left foot wrapped with dressing) - Lab 07/28/16 06:37 07/30/16 12:48 Most recent lab results Calcium 8.8 mg/dL (8.4-10.2) 07/30/16 12:48 Phosphorus 5.4 mg/dL (2.5-4.5) H 07/19/16 08:29
--- NOTE | 2016-07-31 09:34 | Progress Note ---
Assessment and Plan Assessment and plan: Acute left foot gangrene * s/p left lower extremity angioplasty on 07/22 and 07/26 * Continue Zosyn * Had amputation left first toe and partial amputation left third toe yesterday , 07/30/[address] 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 End-stage renal disease on dialysis * Nephrology managing Hypertension, benign essentiaL * Continue to monitor BP, and adjust medications As necessary * On amlodipine and labetalol Diabetes mellitus type 2 * A1c 8.1 * Continue ADA diet and sliding scale of insulin Peripheral vascular disease * s/p left lower extremity angioplasty on 07/22 and 07/26 * Vascular following Anemia of chronic kidney disease Full code status. History Interval history: Had amputation left first toe and partial amputation of left third toe yesterday no more fever past few days, Hospitalist Physical - Physical exam Narrative exam: Gen: Not in acute distress HEENT: Normocephalic, atraumatic Neck :supple, no JVD Lungs clear to auscultation bilaterally no crackles or wheeze Heart S1 and S2 regular, no murmurs no gallop Abdomen:soft, nontender, nondistended, normal bowel sounds Ext: Left foot covered with dressing, bandage. Right BKA Neuro: Awake alert oriented x 3, non focal - Constitutional Vitals: Temp Pulse Resp BP Pulse Ox 97.8 F 60 16 129/54 96 07/31/16 07:20 07/31/16 07:20 07/31/16 07:20 07/31/16 07:20 07/31/16 07:20 General appearance: Present: no acute distress Results - Labs CBC & Chem 7: 07/28/16 06:37 07/30/16 12:48 Labs: Laboratory Last Values WBC 4.9 K/mm3 (4.5-11.0) 07/28/16 06:37 RBC 3.33 M/mm3 (3.65-5.03) L 07/28/16 06:37 Hgb 9.3 gm/dl (11.8-15.2) L 07/28/16 06:37 Hct 29.2 % (35.5-45.6) L 07/28/16 06:37 MCV 88 fl (84-94) 07/28/16 06:37 MCH 28 pg (28-32) 07/28/16 06:37 MCHC 32 % (32-34) 07/28/16 06:37 RDW 20.4 % (13.2-15.2) H 07/28/16 06:37 Plt Count 360 K/mm3 (140-440) 07/28/16 06:37 Lymph % (Auto) 16.9 % (13.4-35.0) 07/28/16 06:37 [place] % (Auto) 8.7 % (0.0-7.3) H 07/28/16 06:37 Eos % (Auto) 6.7 % (0.0-4.3) H 07/28/16 06:37 Baso % (Auto) 1.2 % (0.0-1.8) 07/28/16 06:37 Lymph # 0.8 K/mm3 (1.2-5.4) L 07/28/16 06:37 [place] # 0.4 K/mm3 (0.0-0.8) 07/28/16 06:37 Eos # 0.3 K/mm3 (0.0-0.4) 07/28/16 06:37 Baso # 0.1 K/mm3 (0.0-0.1) 07/28/16 06:37 Add Manual Diff Complete 07/19/16 00:34 Total Counted 100 07/19/16 00:34 Seg Neutrophils % 66.5 % (40.0-70.0) 07/28/16 06:37 Seg Neuts % (Manual) 73.0 % (40.0-70.0) H 07/19/16 00:34 Band Neutrophils % 0 % 07/19/16 00:34 Lymphocytes % (Manual) 9.0 % (13.4-35.0) L 07/19/16 00:34 Reactive Lymphs % (Man) 0 % 07/19/16 00:34 Monocytes % (Manual) 15.0 % (0.0-7.3) H 07/19/16 00:34 Eosinophils % (Manual) 3.0 % (0.0-4.3) 07/19/16 00:34 Basophils % (Manual) 0 % (0.0-1.8) 07/19/16 00:34 Metamyelocytes % 0 % 07/19/16 00:34 Myelocytes % 0 % 07/19/16 00:34 Promyelocytes % 0 % 07/19/16 00:34 Blast Cells % 0 % 07/19/16 00:34 Nucleated RBC % Not Reportable 07/19/16 00:34 Seg Neutrophils # 3.2 K/mm3 (1.8-7.7) 07/28/16 06:37 Seg Neutrophils # Man 4.5 K/mm3 (1.8-7.7) 07/19/16 00:34 Band Neutrophils # 0.0 K/mm3 07/19/16 00:34 Lymphocytes # (Manual) 0.6 K/mm3 (1.2-5.4) L 07/19/16 00:34 Abs React Lymphs (Man) 0.0 K/mm3 07/19/16 00:34 Monocytes # (Manual) 0.9 K/mm3 (0.0-0.8) H 07/19/16 00:34 Eosinophils # (Manual) 0.2 K/mm3 (0.0-0.4) 07/19/16 00:34 Basophils # (Manual) 0.0 K/mm3 (0.0-0.1) 07/19/16 00:34 Metamyelocytes # 0.0 K/mm3 07/19/16 00:34 Myelocytes # 0.0 K/mm3 07/19/16 00:34 Promyelocytes # 0.0 K/mm3 07/19/16 00:34 Blast Cells # 0.0 K/mm3 07/19/16 00:34 WBC Morphology Not Reportable 07/19/16 00:34 Hypersegmented Neuts Not Reportable 07/19/16 00:34 Hyposegmented Neuts Not Reportable 07/19/16 00:34 Hypogranular Neuts Not Reportable 07/19/16 00:34 Smudge Cells Few 07/19/16 00:34 Toxic Granulation Not Reportable 07/19/16 00:34 Toxic Vacuolation Not Reportable 07/19/16 00:34 Dohle Bodies Not Reportable 07/19/16 00:34 Pelger-Huet Anomaly Not Reportable 07/19/16 00:34 Maria Eugenia Rods Not Reportable 07/19/16 00:34 Platelet Estimate Appears normal 07/19/16 00:34 Clumped Platelets Not Reportable 07/19/16 00:34 Plt Clumps, EDTA Not Reportable 07/19/16 00:34 Large Platelets Not Reportable 07/19/16 00:34 Giant Platelets Not Reportable 07/19/16 00:34 Platelet Satelliting Not Reportable 07/19/16 00:34 Plt Morphology Comment Not Reportable 07/19/16 00:34 RBC Morphology Not Reportable 07/19/16 00:34 Dimorphic RBCs Not Reportable 07/19/16 00:34 Polychromasia Not Reportable 07/19/16 00:34 Hypochromasia 1+ 07/19/16 00:34 Poikilocytosis Not Reportable 07/19/16 00:34 Anisocytosis 1+ 07/19/16 00:34 Microcytosis Not Reportable 07/19/16 00:34 Macrocytosis Not Reportable 07/19/16 00:34 Spherocytes Not Reportable 07/19/16 00:34 Pappenheimer Bodies Not Reportable 07/19/16 00:34 Sickle Cells Not Reportable 07/19/16 00:34 Target Cells Not Reportable 07/19/16 00:34 Tear Drop Cells Not Reportable 07/19/16 00:34 Ovalocytes Not Reportable 07/19/16 00:34 Helmet Cells Not Reportable 07/19/16 00:34 Spicer-Wilsey Bodies Not Reportable 07/19/16 00:34 [place] Rings Not Reportable 07/19/16 00:34 [place] Cells Not Reportable 07/19/16 00:34 Bite Cells Not Reportable 07/19/16 00:34 Crenated Cell Not Reportable 07/19/16 00:34 Elliptocytes Not Reportable 07/19/16 00:34 Acanthocytes (Spur) Not Reportable 07/19/16 00:34 Rouleaux Not Reportable 07/19/16 00:34 Hemoglobin C Crystals Not Reportable 07/19/16 00:34 Schistocytes Not Reportable 07/19/16 00:34 Malaria parasites Not Reportable 07/19/16 00:34 Ronal Bodies Not Reportable 07/19/16 00:34 Hem Pathologist Commnt No 07/19/16 00:34 PT 14.7 Sec. (12.2-14.9) 07/19/16 08:29 INR 1.16 (0.87-1.13) H 07/19/16 08:29 APTT 44.8 Sec. (24.2-36.6) H 07/19/16 08:29 Sodium 136 mmol/L (137-145) L 07/30/16 12:48 Potassium 4.7 mmol/L (3.6-5.0) 07/30/16 12:48 Chloride 96.2 mmol/L (98-107) L 07/30/16 12:48 Carbon Dioxide 26 mmol/L (22-30) 07/30/16 12:48 Anion Gap 19 mmol/L 07/30/16 12:48 BUN 33 mg/dL (9-20) H 07/30/16 12:48 Creatinine 8.0 mg/dL (0.8-1.5) H D 07/30/16 12:48 Estimated GFR 8 ml/min 07/30/16 12:48 BUN/Creatinine Ratio 4.12 % 07/30/16 12:48 Glucose 106 mg/dL (75-100) H 07/30/16 12:48 POC Glucose 225 (70-105) H 07/27/16 16:50 Lactic Acid 0.7 mmol/L (0.7-2.0) 07/19/16 08:29 Calcium 8.8 mg/dL (8.4-10.2) 07/30/16 12:48 Phosphorus 5.4 mg/dL (2.5-4.5) H 07/19/16 08:29 Total Bilirubin 0.6 mg/dL (0.1-1.2) 07/19/16 08:29 Direct Bilirubin 0.2 mg/dL (0-0.2) 07/19/16 08:29 Indirect Bilirubin 0.4 mg/dL 07/19/16 08:29 AST 12 units/L (5-40) 07/19/16 08:29 ALT 11 units/L (7-56) 07/19/16 08:29 Alkaline Phosphatase 148 units/L (35-129) H 07/19/16 08:29 NT-Pro-B Natriuret Pep 21509 pg/mL (0-900) H 07/19/16 08:29 Total Protein 7.2 g/dL (6.3-8.2) 07/19/16 08:29 Albumin 2.7 g/dL (3.9-5) L 07/19/16 08:29 Albumin/Globulin Ratio 0.6 % 07/19/16 08:29 Random Vancomycin 15.8 ug/mL (0-40.0) 07/22/16 04:34 Miscellaneous Test Flexitest 1 (()) 07/23/16 18:40 Blood Type A POSITIVE 07/22/16 04:34 Antibody Screen Negative 07/22/16 04:34
[2016-07-31] MEDS: HALFPRIN EC PO SCH (10:00)
[2016-07-31] MEDS: BETADINE TP SCH (10:00)
[2016-07-31] MEDS: NORMODYNE PO SCH ×2 (10:00→21:23)
[2016-07-31] MEDS: PROTONIX PO SCH (10:27)
[2016-07-31] MEDS: PLAVIX PO SCH (10:27)
[2016-07-31] MEDS: ZOFRAN IV PRN (10:27)
[2016-07-31] MEDS: MUCINEX ER PO SCH ×2 (10:27→21:23)
--- NOTE | 2016-07-31 10:30 | Progress Note ---
Assessment and Plan Current antibiotics: Zosyn 2.25 gm IV q8h 07/29 --> Previous antibiotics: Augmentin 875 mg po BID Zosyn 2.25 gm IV q8h 07/21-07/23 Vancomycin pulse dosing (07/19-07/23) ASSESSMENT: Brando Oconnor is a 70 year old man with ESRD on chronic HD via a left chest wall permacath, type 2 DM and PVD (s/p right below knee amputation) who was admitted to [facility] on 07/19/16 with one month of worsening ischemic changes of left foot with great toe dry gangrene and he underwent left leg angioplasty (posterior tibial artery, proximal posterior tibial artery and distal popliteal) on 07/22. Problem list: 1. Peripheral vascular disease -Dry gangrene of the left great toe with some purulent drainage now. Gram- negative rods growing on superficial culture. -Status post amputation of the left great toe and partial amputation of the left third toe 07/30/16 -Status post left lower extremity angioplasty 07/22 -Status post right BKA 2. End-stage renal failure -Maintenance hemodialysis 3. Type 2 diabetes mellitus 4. Chronic anemia 5. Persistent cough -Patient said this hacking cough has been present for 2 weeks. -Pertussis PCR negative -Cough is better with tessalon perls PLAN: 1. Will continue Zosyn 2. Length of therapy to be determined by clinical course and pathology findings 3. Glycemic control Wm Luevano MD [facility] Office: [phone] Subjective Date of service: 07/31/16 Principal diagnosis: PVD with gangrene Interval history: No complaints. Seen in hemodialysis. Status post amputation of the left great toe and partial amputation of the left third toe by Dr. Valencia on 07/30. ROS: No subjective fever or chills. No nausea, vomiting or diarrhea. No shortness of breath, cough or pleuritic chest pain Objective - Exam Narrative Exam: GENERAL: Well-developed, well-nourished appearing who is alert and in no acute distress. He appears somewhat chronically ill. Initially sleeping on hemodialysis but easily aroused. HEAD: Normocephalic. No lesions seen. EYES: Pupils are equal reactive to light and accommodation. There is no scleral icterus. Optic fundi are not examined. EARS: Tympanic membranes are normal. THROAT: Oropharynx is normal with no evidence of oral candidiasis or pharyngitis. NECK: Supple. No enlargement of the thyroid gland. No significant cervical lymphadenopathy. No jugular venous distention at 30. LUNGS: Clear with no adventitious sounds. CHEST: Right sided PermCath with no signs of infection HEART: Regular rate. S1 and S2 are normal. There are no gallops, clicks or rubs heard. Grade II/ KEE heard best over the left upper sternal border. No diastolic murmur. ABDOMEN: Soft and nontender. Liver and spleen are not palpably enlarged or tender. No palpable masses. Bowel sounds are normoactive. EXTREMITIES: Left foot dressings in place with no signs of proximal infection nor ischemia. Status post right BKA with stump well healed with no signs of infection nor ischemia. : Not examined NEUROLOGIC: Decreased sensation to pinprick in a stocking distribution. - Constitutional Vitals: Vital Signs Temp Pulse Resp BP Pulse Ox 97.8 F 60 16 129/54 96 07/31/16 07:20 07/31/16 07:20 07/31/16 07:20 07/31/16 07:20 07/31/16 07:20 Temperature -Last 24 Hours Temperature 97.8 F Temperature 97.8 F Temperature 97.7 F Temperature 98.0 F Temperature 98.2 F Temperature 98.3 F - Labs CBC & Chem 7: 07/28/16 06:37 07/30/16 12:48 Labs: Abnormal lab results Microbiology 07/30 Left foot surgical culture pending. Gram stain with no PMN or organisms. 07/29/16 Unknown Foot - Left Wound Culture - Preliminary Gram Negative Yunier Gram stain: Many PMNs, gram-positive rods, few gram-negative rods. 07/19/16 09:18 Peripheral/Venous Blood Culture - Final NO GROWTH AFTER 5 DAYS 07/19/16 08:50 Peripheral/Venous Blood Culture - Final NO GROWTH AFTER 5 DAYS
[2016-07-31] MEDS: HEPARIN 10,000 UNITS/10 ML IV PRN (12:21)
[2016-07-31] MEDS: HEPARIN IV PRN (15:08)
[2016-07-31] MEDS: NORVASC PO SCH (20:54)
[2016-07-31] MEDS: ZOCOR PO SCH (21:22)
[2016-08-01] MEDS: HEPARIN SUB-Q SCH ×6 (01:47→22:34)
[2016-08-01] MEDS: BETADINE TP SCH ×3 (02:44→22:31)
[2016-08-01] MEDS: ZOSYN/NS 2.25 GM/50ML 50 ML IV SCH (06:16)
[2016-08-01] MEDS: TESSALON PERLES PO SCH ×3 (06:17→22:30)
[2016-08-01] MEDS: PERCOCET 5/325 PO PRN ×3 (06:23→20:40)
--- NOTE | 2016-08-01 09:18 | Progress Note ---
Assessment and Plan Impression: * End stage renal disease on HD MWF as outpatient * Left foot dry gangrene * Peripheral artery disease * Type II DM * Hypertension * Anemia secondary to ESRD * Secondary hyperparathyroidism Plan: * Uneventful hemodialysis yesterday. * Continue Hemodialysis MWF * Peripheral vascular disease with dry gangrene. s/p left foot surgery * Epogen with dialysis * Renal diet * Abx per ID services * Tight glycemic control * Continue antiHTN medications Subjective Date of service: 08/01/16 Principal diagnosis: PVD with gangrene Interval history: Patient is awake and alert. Comfortable. Wants to go home. Uneventful hemodialysis yesterday Objective - Vital Signs Vital signs: Vital Signs - 12hr 07/31/16 07/31/16 07/31/16 21:23 22:00 23:19 Temperature 97.6 F Pulse Rate 79 Pulse Rate [ 79 Apical] Pulse Rate [ 79 Right Radial] Respiratory 20 20 Rate Blood Pressure 119/57 Blood Pressure 119/57 [Right Arm] O2 Sat by Pulse 100 Oximetry - General Appearance General appearance: well-developed, well-nourished, appears stated age EENT: PERRL, mucous membranes moist Neck: no JVD, no thyromegaly, no carotid bruit, supple, other (left IJ PermCath in place) Respiratory: Present: Ronchi (few scattered rhonchi) Cardiology: regular, normal heart rate, S1S2, no murmurs Gastrointestinal: normal, normoactive bowel sounds Integumentary: no rash, other (right below-knee amputation. Left foot wrapped with a bandage) - Lab 07/28/16 06:37 07/30/16 12:48 Most recent lab results Calcium 8.8 mg/dL (8.4-10.2) 07/30/16 12:48 Phosphorus 5.4 mg/dL (2.5-4.5) H 07/19/16 08:29
--- NOTE | 2016-08-01 10:44 | Progress Note ---
Assessment and Plan Current antibiotics: Zosyn 2.25 gm IV q8h 07/29 --> Previous antibiotics: Augmentin 875 mg po BID Zosyn 2.25 gm IV q8h 07/21-07/23 Vancomycin pulse dosing (07/19-07/23) ASSESSMENT: Brando Oconnor is a 70 year old man with ESRD on chronic HD via a left chest wall permacath, type 2 DM and PVD (s/p right below knee amputation) who was admitted to [facility] on 07/19/16 with one month of worsening ischemic changes of left foot with great toe dry gangrene and he underwent left leg angioplasty (posterior tibial artery, proximal posterior tibial artery and distal popliteal) on 07/22. Problem list: 1. Peripheral vascular disease -Dry gangrene of the left great toe with some purulent drainage now. Fairly resistant Enterobacter cloacae (Zosyn intermediate) and fairly sensitive Proteus mirabilis growing on superficial culture. -Status post amputation of the left great toe and partial amputation of the left third toe 07/30/16. Surgical cultures pending -Status post left lower extremity angioplasty 07/22 -Status post right BKA 2. End-stage renal failure -Maintenance hemodialysis 3. Type 2 diabetes mellitus 4. Chronic anemia 5. Persistent cough -Patient said this hacking cough has been present for 2 weeks. -Pertussis PCR negative -Cough is better with tessalon perls PLAN: 1. With the Enterobacter Zosyn and intermediate, will change antibiotics to IV cefepime and po Flagyl 2. Await further surgical culture data 3. Length of therapy to be determined by clinical course and pathology findings 4. Glycemic control as per primary team Wm Luevano MD [facility] Office: [phone] Subjective Date of service: 08/01/16 Principal diagnosis: PVD with gangrene Interval history: No complaints. Continues to tolerate antibiotics well so far. No pain. ROS: No subjective fever or chills. No nausea, vomiting or diarrhea. No shortness of breath, cough or pleuritic chest pain Objective - Exam Narrative Exam: GENERAL: Well-developed, well-nourished appearing who is alert and in no acute distress. He appears somewhat chronically ill. Initially sleeping on hemodialysis but easily aroused. HEAD: Normocephalic. No lesions seen. EYES: Pupils are equal reactive to light and accommodation. There is no scleral icterus. Optic fundi are not examined. EARS: Tympanic membranes are normal. THROAT: Oropharynx is normal with no evidence of oral candidiasis or pharyngitis. NECK: Supple. No enlargement of the thyroid gland. No significant cervical lymphadenopathy. No jugular venous distention at 30. LUNGS: Clear with no adventitious sounds. CHEST: Right sided PermCath with no signs of infection HEART: Regular rate. S1 and S2 are normal. There are no gallops, clicks or rubs heard. Grade II/ KEE heard best over the left upper sternal border. No diastolic murmur. ABDOMEN: Soft and nontender. Liver and spleen are not palpably enlarged or tender. No palpable masses. Bowel sounds are normoactive. EXTREMITIES: Left foot dressings in place with no signs of proximal infection nor ischemia. Status post right BKA with stump well healed with no signs of infection nor ischemia. : Not examined NEUROLOGIC: Decreased sensation to pinprick in a stocking distribution. - Constitutional Vitals: Vital Signs Temp Pulse Resp BP Pulse Ox 98.9 F 68 15 103/52 99 08/01/16 07:45 08/01/16 07:45 08/01/16 07:45 08/01/16 07:45 08/01/16 07:45 Temperature -Last 24 Hours Temperature 98.9 F Temperature 97.6 F Temperature 97.6 F Temperature 98.7 F Temperature 98.2 F Temperature 97.8 F - Labs CBC & Chem 7: 07/28/16 06:37 07/30/16 12:48 Labs: Abnormal lab results Microbiology 07/30 Left foot surgical culture pending. Gram stain with no PMN or organisms. 07/29/16 Foot - Left Wound Culture - Preliminary Enterobacter cloacae (resistant to ampicillin, Unasyn, aztreonam, ceftriaxone; Zosyn and intermediate; sensitive to quinolones and cefepime); Proteus mirabilis (Levaquin sensitive, Cipro intermediate) Gram stain: Many PMNs, gram-positive rods, few gram-negative rods. 07/19/16 09:18 Peripheral/Venous Blood Culture - Final NO GROWTH AFTER 5 DAYS 07/19/16 08:50 Peripheral/Venous Blood Culture - Final NO GROWTH AFTER 5 DAYS
[2016-08-01] MEDS: NORVASC PO SCH (11:18)
[2016-08-01] MEDS: HALFPRIN EC PO SCH (11:18)
[2016-08-01] MEDS: PROTONIX PO SCH (11:18)
[2016-08-01] MEDS: MUCINEX ER PO SCH ×2 (11:18→22:29)
[2016-08-01] MEDS: NORMODYNE PO SCH ×2 (11:19→22:29)
[2016-08-01] MEDS: PLAVIX PO SCH (11:19)
[2016-08-01] MEDS: FLAGYL PO SCH ×2 (13:13→22:30)
[2016-08-01] MEDS: MAXIPIME/NS 2 GM/100 ML 100 ML IV SCH ×2 (13:13→22:31)
--- NOTE | 2016-08-01 13:50 | Progress Note ---
Assessment and Plan 70-year-old male with severe peripheral vascular disease status post endovascular revascularization of the left lower extremity. Successful revascularization was performed with reconstruction of the pedal loop. Continue aspirin and Plavix. Excellent appearance of the left foot status post surgery. Will need to followup with [facility] in 1-[address] Valencia. Discussed with patient that lack of followup may result in infection, limb loss , bacteremia, possible . Discussed the importance of followup with this extremely noncompliant patient. Subjective Date of service: 08/01/16 Principal diagnosis: PVD with gangrene Interval history: Patient is complaining of cramps from "too much fluid taken off" from dialysis. His left foot is warm. Removed bandages with Dr. Valencia. Foot is warm and well perfused. No purulence from the sites. Margins are well approximated. Objective - Constitutional Vitals: Vital Signs - 12hr 08/01/16 08/01/16 07:45 11:18 Temperature 98.9 F Pulse Rate [ 68 Left] Respiratory 15 Rate Blood Pressure 112/62 Blood Pressure 103/52 [Left Arm] O2 Sat by Pulse 99 Oximetry General appearance: Present: mild distress (from cramping) - EENT Eyes: EOM intact ENT: hearing intact - Respiratory Respiratory effort: normal Extremities: normal temperature, normal color (LLE ; status post 1st digit and 3rd digit amputation ; margins look good) - Psychiatric Psychiatric: cooperative - Labs CBC & Chem 7: 07/28/16 06:37 07/30/16 12:48 Labs: Abnormal lab results 08/01/16 08/01/16 Range/Units 06:35 12:11 POC Glucose 142 H 214 H (70-105)
--- NOTE | 2016-08-01 15:16 | Progress Note ---
Assessment and Plan Assessment and plan: Acute left foot gangrene * s/p left lower extremity angioplasty on 07/22 and 07/26 * Had amputation left first toe and partial amputation left third toe 07/30/[address] Valencia, telegraph installer. * Wound cultures show Enterobacter and Proteus mirabilis. Started on cefepime IV and Flagyl by mouth by ID physician. End-stage renal disease on dialysis * Nephrology managing Hypertension, benign essentiaL * Continue to monitor BP, and adjust medications As necessary * On amlodipine and labetalol Diabetes mellitus type 2 * A1c 8.1 * Continue consistent carbohydrate diet and sliding scale of insulin Peripheral vascular disease * s/p left lower extremity angioplasty on 07/22 and 07/26 * Vascular following Anemia of chronic kidney disease Full code status. History Interval history: Had amputation left first toe and partial amputation of left third toe on 07/30/16 , no more fever, mild pain at surgical site Hospitalist Physical - Physical exam Narrative exam: Gen: Not in acute distress HEENT: Normocephalic, atraumatic Neck :supple, no JVD Lungs:clear to auscultation bilaterally no crackles or wheeze Heart:S1 and S2 regular, no murmurs no gallop Abdomen:soft, non-tender, non-distended, normal bowel sounds Ext: Left foot covered with dressing, bandage. Right BKA Neuro: Awake alert oriented x 3, non focal - Constitutional Vitals: Temp Pulse Resp BP Pulse Ox 98.9 F 68 15 112/62 99 08/01/16 07:45 08/01/16 07:45 08/01/16 07:45 08/01/16 11:18 08/01/16 07:45 General appearance: Present: mild distress (from cramping) Results - Labs CBC & Chem 7: 07/28/16 06:37 07/30/16 12:48 Labs: Laboratory Last Values WBC 4.9 K/mm3 (4.5-11.0) 07/28/16 06:37 RBC 3.33 M/mm3 (3.65-5.03) L 07/28/16 06:37 Hgb 9.3 gm/dl (11.8-15.2) L 07/28/16 06:37 Hct 29.2 % (35.5-45.6) L 07/28/16 06:37 MCV 88 fl (84-94) 07/28/16 06:37 MCH 28 pg (28-32) 07/28/16 06:37 MCHC 32 % (32-34) 07/28/16 06:37 RDW 20.4 % (13.2-15.2) H 07/28/16 06:37 Plt Count 360 K/mm3 (140-440) 07/28/16 06:37 Lymph % (Auto) 16.9 % (13.4-35.0) 07/28/16 06:37 [place] % (Auto) 8.7 % (0.0-7.3) H 07/28/16 06:37 Eos % (Auto) 6.7 % (0.0-4.3) H 07/28/16 06:37 Baso % (Auto) 1.2 % (0.0-1.8) 07/28/16 06:37 Lymph # 0.8 K/mm3 (1.2-5.4) L 07/28/16 06:37 [place] # 0.4 K/mm3 (0.0-0.8) 07/28/16 06:37 Eos # 0.3 K/mm3 (0.0-0.4) 07/28/16 06:37 Baso # 0.1 K/mm3 (0.0-0.1) 07/28/16 06:37 Add Manual Diff Complete 07/19/16 00:34 Total Counted 100 07/19/16 00:34 Seg Neutrophils % 66.5 % (40.0-70.0) 07/28/16 06:37 Seg Neuts % (Manual) 73.0 % (40.0-70.0) H 07/19/16 00:34 Band Neutrophils % 0 % 07/19/16 00:34 Lymphocytes % (Manual) 9.0 % (13.4-35.0) L 07/19/16 00:34 Reactive Lymphs % (Man) 0 % 07/19/16 00:34 Monocytes % (Manual) 15.0 % (0.0-7.3) H 07/19/16 00:34 Eosinophils % (Manual) 3.0 % (0.0-4.3) 07/19/16 00:34 Basophils % (Manual) 0 % (0.0-1.8) 07/19/16 00:34 Metamyelocytes % 0 % 07/19/16 00:34 Myelocytes % 0 % 07/19/16 00:34 Promyelocytes % 0 % 07/19/16 00:34 Blast Cells % 0 % 07/19/16 00:34 Nucleated RBC % Not Reportable 07/19/16 00:34 Seg Neutrophils # 3.2 K/mm3 (1.8-7.7) 07/28/16 06:37 Seg Neutrophils # Man 4.5 K/mm3 (1.8-7.7) 07/19/16 00:34 Band Neutrophils # 0.0 K/mm3 07/19/16 00:34 Lymphocytes # (Manual) 0.6 K/mm3 (1.2-5.4) L 07/19/16 00:34 Abs React Lymphs (Man) 0.0 K/mm3 07/19/16 00:34 Monocytes # (Manual) 0.9 K/mm3 (0.0-0.8) H 07/19/16 00:34 Eosinophils # (Manual) 0.2 K/mm3 (0.0-0.4) 07/19/16 00:34 Basophils # (Manual) 0.0 K/mm3 (0.0-0.1) 07/19/16 00:34 Metamyelocytes # 0.0 K/mm3 07/19/16 00:34 Myelocytes # 0.0 K/mm3 07/19/16 00:34 Promyelocytes # 0.0 K/mm3 07/19/16 00:34 Blast Cells # 0.0 K/mm3 07/19/16 00:34 WBC Morphology Not Reportable 07/19/16 00:34 Hypersegmented Neuts Not Reportable 07/19/16 00:34 Hyposegmented Neuts Not Reportable 07/19/16 00:34 Hypogranular Neuts Not Reportable 07/19/16 00:34 Smudge Cells Few 07/19/16 00:34 Toxic Granulation Not Reportable 07/19/16 00:34 Toxic Vacuolation Not Reportable 07/19/16 00:34 Dohle Bodies Not Reportable 07/19/16 00:34 Pelger-Huet Anomaly Not Reportable 07/19/16 00:34 Maria Eugenia Rods Not Reportable 07/19/16 00:34 Platelet Estimate Appears normal 07/19/16 00:34 Clumped Platelets Not Reportable 07/19/16 00:34 Plt Clumps, EDTA Not Reportable 07/19/16 00:34 Large Platelets Not Reportable 07/19/16 00:34 Giant Platelets Not Reportable 07/19/16 00:34 Platelet Satelliting Not Reportable 07/19/16 00:34 Plt Morphology Comment Not Reportable 07/19/16 00:34 RBC Morphology Not Reportable 07/19/16 00:34 Dimorphic RBCs Not Reportable 07/19/16 00:34 Polychromasia Not Reportable 07/19/16 00:34 Hypochromasia 1+ 07/19/16 00:34 Poikilocytosis Not Reportable 07/19/16 00:34 Anisocytosis 1+ 07/19/16 00:34 Microcytosis Not Reportable 07/19/16 00:34 Macrocytosis Not Reportable 07/19/16 00:34 Spherocytes Not Reportable 07/19/16 00:34 Pappenheimer Bodies Not Reportable 07/19/16 00:34 Sickle Cells Not Reportable 07/19/16 00:34 Target Cells Not Reportable 07/19/16 00:34 Tear Drop Cells Not Reportable 07/19/16 00:34 Ovalocytes Not Reportable 07/19/16 00:34 Helmet Cells Not Reportable 07/19/16 00:34 Spicer-[place] Bodies Not Reportable 07/19/16 00:34 [place] Rings Not Reportable 07/19/16 00:34 [place] Cells Not Reportable 07/19/16 00:34 Bite Cells Not Reportable 07/19/16 00:34 Crenated Cell Not Reportable 07/19/16 00:34 Elliptocytes Not Reportable 07/19/16 00:34 Acanthocytes (Spur) Not Reportable 07/19/16 00:34 Rouleaux Not Reportable 07/19/16 00:34 Hemoglobin C Crystals Not Reportable 07/19/16 00:34 Schistocytes Not Reportable 07/19/16 00:34 Malaria parasites Not Reportable 07/19/16 00:34 Ronal Bodies Not Reportable 07/19/16 00:34 Hem Pathologist Commnt No 07/19/16 00:34 PT 14.7 Sec. (12.2-14.9) 07/19/16 08:29 INR 1.16 (0.87-1.13) H 07/19/16 08:29 APTT 44.8 Sec. (24.2-36.6) H 07/19/16 08:29 Sodium 136 mmol/L (137-145) L 07/30/16 12:48 Potassium 4.7 mmol/L (3.6-5.0) 07/30/16 12:48 Chloride 96.2 mmol/L (98-107) L 07/30/16 12:48 Carbon Dioxide 26 mmol/L (22-30) 07/30/16 12:48 Anion Gap 19 mmol/L 07/30/16 12:48 BUN 33 mg/dL (9-20) H 07/30/16 12:48 Creatinine 8.0 mg/dL (0.8-1.5) H D 07/30/16 12:48 Estimated GFR 8 ml/min 07/30/16 12:48 BUN/Creatinine Ratio 4.12 % 07/30/16 12:48 Glucose 106 mg/dL (75-100) H 07/30/16 12:48 POC Glucose 214 (70-105) H 08/01/16 12:11 Lactic Acid 0.7 mmol/L (0.7-2.0) 07/19/16 08:29 Calcium 8.8 mg/dL (8.4-10.2) 07/30/16 12:48 Phosphorus 5.4 mg/dL (2.5-4.5) H 07/19/16 08:29 Total Bilirubin 0.6 mg/dL (0.1-1.2) 07/19/16 08:29 Direct Bilirubin 0.2 mg/dL (0-0.2) 07/19/16 08:29 Indirect Bilirubin 0.4 mg/dL 07/19/16 08:29 AST 12 units/L (5-40) 07/19/16 08:29 ALT 11 units/L (7-56) 07/19/16 08:29 Alkaline Phosphatase 148 units/L (35-129) H 07/19/16 08:29 NT-Pro-B Natriuret Pep 45744 pg/mL (0-900) H 07/19/16 08:29 Total Protein 7.2 g/dL (6.3-8.2) 07/19/16 08:29 Albumin 2.7 g/dL (3.9-5) L 07/19/16 08:29 Albumin/Globulin Ratio 0.6 % 07/19/16 08:29 Random Vancomycin 15.8 ug/mL (0-40.0) 07/22/16 04:34 Miscellaneous Test Flexitest 1 (()) 07/23/16 18:40 Blood Type A POSITIVE 07/22/16 04:34 Antibody Screen Negative 07/22/16 04:34
[2016-08-01] MEDS: ZOCOR PO SCH (22:30)
[2016-08-02] MEDS: PERCOCET 5/325 PO PRN ×3 (02:28→20:58)
[2016-08-02] MEDS: ZOFRAN IV PRN ×3 (05:06→13:47)
[2016-08-02] MEDS: HEPARIN SUB-Q SCH ×2 (05:08→17:54)
[2016-08-02] MEDS: FLAGYL PO SCH ×2 (05:13→20:08)
[2016-08-02] MEDS: TESSALON PERLES PO SCH ×2 (06:15→20:07)
[2016-08-02] MEDS: MUCINEX ER PO SCH (09:57)
[2016-08-02] MEDS: PROTONIX PO SCH (09:57)
[2016-08-02] MEDS: PLAVIX PO SCH (09:57)
[2016-08-02] MEDS: HALFPRIN EC PO SCH (09:57)
[2016-08-02] MEDS: NORMODYNE PO SCH (09:58)
--- NOTE | 2016-08-02 10:32 | Progress Note ---
Assessment and Plan Current antibiotics: Zosyn 2.25 gm IV q8h 07/29 --> Previous antibiotics: Augmentin 875 mg po BID Zosyn 2.25 gm IV q8h 07/21-07/23 Vancomycin pulse dosing (07/19-07/23) ASSESSMENT: Brando Oconnor is a 70 year old man with ESRD on chronic HD via a left chest wall permacath, type 2 DM and PVD (s/p right below knee amputation) who was admitted to [facility] on 07/19/16 with one month of worsening ischemic changes of left foot with great toe dry gangrene and he underwent left leg angioplasty (posterior tibial artery, proximal posterior tibial artery and distal popliteal) on 07/22. Problem list: 1. Peripheral vascular disease -Dry gangrene of the left great toe with some purulent drainage . Fairly resistant Enterobacter cloacae (Zosyn intermediate) and fairly sensitive Proteus mirabilis growing on superficial culture. -Status post amputation of the left great toe and partial amputation of the left third toe 07/30/16. Surgical cultures pending ( C/S with gram-negative rods ; anaerobic culture negative) -Status post left lower extremity angioplasty 07/22 -Status post right BKA 2. End-stage renal failure -Maintenance hemodialysis 3. Type 2 diabetes mellitus 4. Chronic anemia 5. Persistent cough -Patient said this hacking cough has been present for 2 weeks. -Pertussis PCR negative -Cough is better with tessalon perls PLAN: 1. Continue IV cefepime and po Flagyl 2. Await further surgical culture data from 07/30 3. Length of therapy to be determined by clinical course and pathology findings 4. Glycemic control as per primary team Subjective Date of service: 08/02/16 Principal diagnosis: PVD with gangrene Interval history: Patient complaining of having too much fluid taken off with hemodialysis. Now complaining of headache, nausea and vomiting following HD. Objective - Exam Narrative Exam: GENERAL: Well-developed, well-nourished appearing who is alert and in no acute distress. HEAD: Normocephalic. No lesions seen. EYES: Pupils are equal reactive to light and accommodation. There is no scleral icterus. Optic fundi are not examined. EARS: There is no external drainage THROAT: Oropharynx is normal with no evidence of oral candidiasis or pharyngitis. NECK: Supple. No enlargement of the thyroid gland. No significant cervical lymphadenopathy. No jugular venous distention at 30. LUNGS: Clear with no adventitious sounds. CHEST: PermCath without signs of infection. HEART: Regular rate. S1 and S2 are normal. There are no gallops, clicks or rubs heard. Grade II/ KEE heard best over the left upper sternal border. No diastolic murmur. ABDOMEN: Soft and nontender. Liver and spleen are not palpably enlarged or tender. No palpable masses. Bowel sounds are normoactive. EXTREMITIES: Left foot surgical site dressings not removed.. Status post right BKA with stump well healed with no signs of infection nor ischemia. NEUROLOGIC: No focal findings. - Constitutional Vitals: Vital Signs Temp Pulse Resp BP Pulse Ox 98.3 F 70 18 139/65 98 08/01/16 23:15 08/01/16 23:15 08/02/16 03:28 08/01/16 23:15 08/01/16 23:15 Temperature -Last 24 Hours Temperature 98.3 F Temperature 99 F - Labs CBC & Chem 7: 07/28/16 06:37 07/30/16 12:48 Labs: Abnormal lab results 08/01/16 Range/Units 12:11 POC Glucose 214 H (70-105)
[2016-08-02] MEDS: BETADINE TP SCH (11:27)
[2016-08-02] MEDS: MAXIPIME/NS 2 GM/100 ML 100 ML IV SCH (11:27)
--- NOTE | 2016-08-02 11:44 | Progress Note ---
Assessment and Plan Assessment and plan: Acute left foot gangrene * s/p left lower extremity angioplasty on 07/22 and 07/26 * Had amputation left first toe and partial amputation left third toe 07/30/[address] Valencia, medical care administrator. * Wound cultures show Enterobacter and Proteus mirabilis. Continue cefepime IV and Flagyl by mouth by ID physician. * Probably discharge home in a few days End-stage renal disease on dialysis * Nephrology managing Hypertension, benign essentiaL * Continue to monitor BP, * On amlodipine and labetalol Diabetes mellitus type 2 * A1c 8.1 * Continue consistent carbohydrate diet and sliding scale of insulin Peripheral vascular disease * s/p left lower extremity angioplasty on 07/22 and 07/26 * Vascular following Anemia of chronic kidney disease Full code status. History Interval history: Had amputation left first toe and partial amputation of left third toe on 07/30/16 , no more fever, mild pain at surgical site Hospitalist Physical - Physical exam Narrative exam: Gen: Not in acute distress HEENT: Normocephalic, atraumatic Neck :supple, no JVD Lungs:clear to auscultation bilaterally no crackles or wheeze Heart:S1 and S2 regular, no murmurs no gallop Abdomen:soft, non-tender, non-distended, normal bowel sounds Ext: Left foot covered with dressing, bandage. Right BKA Neuro: Awake alert oriented x 3, non focal - Constitutional Vitals: Temp Pulse Resp BP Pulse Ox 98.3 F 70 18 139/65 98 08/01/16 23:15 08/01/16 23:15 08/02/16 03:28 08/01/16 23:15 08/01/16 23:15 General appearance: Present: mild distress (from cramping) Results - Labs CBC & Chem 7: 07/28/16 06:37 07/30/16 12:48 Labs: Laboratory Last Values WBC 4.9 K/mm3 (4.5-11.0) 07/28/16 06:37 RBC 3.33 M/mm3 (3.65-5.03) L 07/28/16 06:37 Hgb 9.3 gm/dl (11.8-15.2) L 07/28/16 06:37 Hct 29.2 % (35.5-45.6) L 07/28/16 06:37 MCV 88 fl (84-94) 07/28/16 06:37 MCH 28 pg (28-32) 07/28/16 06:37 MCHC 32 % (32-34) 07/28/16 06:37 RDW 20.4 % (13.2-15.2) H 07/28/16 06:37 Plt Count 360 K/mm3 (140-440) 07/28/16 06:37 Lymph % (Auto) 16.9 % (13.4-35.0) 07/28/16 06:37 [place] % (Auto) 8.7 % (0.0-7.3) H 07/28/16 06:37 Eos % (Auto) 6.7 % (0.0-4.3) H 07/28/16 06:37 Baso % (Auto) 1.2 % (0.0-1.8) 07/28/16 06:37 Lymph # 0.8 K/mm3 (1.2-5.4) L 07/28/16 06:37 [place] # 0.4 K/mm3 (0.0-0.8) 07/28/16 06:37 Eos # 0.3 K/mm3 (0.0-0.4) 07/28/16 06:37 Baso # 0.1 K/mm3 (0.0-0.1) 07/28/16 06:37 Add Manual Diff Complete 07/19/16 00:34 Total Counted 100 07/19/16 00:34 Seg Neutrophils % 66.5 % (40.0-70.0) 07/28/16 06:37 Seg Neuts % (Manual) 73.0 % (40.0-70.0) H 07/19/16 00:34 Band Neutrophils % 0 % 07/19/16 00:34 Lymphocytes % (Manual) 9.0 % (13.4-35.0) L 07/19/16 00:34 Reactive Lymphs % (Man) 0 % 07/19/16 00:34 Monocytes % (Manual) 15.0 % (0.0-7.3) H 07/19/16 00:34 Eosinophils % (Manual) 3.0 % (0.0-4.3) 07/19/16 00:34 Basophils % (Manual) 0 % (0.0-1.8) 07/19/16 00:34 Metamyelocytes % 0 % 07/19/16 00:34 Myelocytes % 0 % 07/19/16 00:34 Promyelocytes % 0 % 07/19/16 00:34 Blast Cells % 0 % 07/19/16 00:34 Nucleated RBC % Not Reportable 07/19/16 00:34 Seg Neutrophils # 3.2 K/mm3 (1.8-7.7) 07/28/16 06:37 Seg Neutrophils # Man 4.5 K/mm3 (1.8-7.7) 07/19/16 00:34 Band Neutrophils # 0.0 K/mm3 07/19/16 00:34 Lymphocytes # (Manual) 0.6 K/mm3 (1.2-5.4) L 07/19/16 00:34 Abs React Lymphs (Man) 0.0 K/mm3 07/19/16 00:34 Monocytes # (Manual) 0.9 K/mm3 (0.0-0.8) H 07/19/16 00:34 Eosinophils # (Manual) 0.2 K/mm3 (0.0-0.4) 07/19/16 00:34 Basophils # (Manual) 0.0 K/mm3 (0.0-0.1) 07/19/16 00:34 Metamyelocytes # 0.0 K/mm3 07/19/16 00:34 Myelocytes # 0.0 K/mm3 07/19/16 00:34 Promyelocytes # 0.0 K/mm3 07/19/16 00:34 Blast Cells # 0.0 K/mm3 07/19/16 00:34 WBC Morphology Not Reportable 07/19/16 00:34 Hypersegmented Neuts Not Reportable 07/19/16 00:34 Hyposegmented Neuts Not Reportable 07/19/16 00:34 Hypogranular Neuts Not Reportable 07/19/16 00:34 Smudge Cells Few 07/19/16 00:34 Toxic Granulation Not Reportable 07/19/16 00:34 Toxic Vacuolation Not Reportable 07/19/16 00:34 Dohle Bodies Not Reportable 07/19/16 00:34 Pelger-Huet Anomaly Not Reportable 07/19/16 00:34 Maria Eugenia Rods Not Reportable 07/19/16 00:34 Platelet Estimate Appears normal 07/19/16 00:34 Clumped Platelets Not Reportable 07/19/16 00:34 Plt Clumps, EDTA Not Reportable 07/19/16 00:34 Large Platelets Not Reportable 07/19/16 00:34 Giant Platelets Not Reportable 07/19/16 00:34 Platelet Satelliting Not Reportable 07/19/16 00:34 Plt Morphology Comment Not Reportable 07/19/16 00:34 RBC Morphology Not Reportable 07/19/16 00:34 Dimorphic RBCs Not Reportable 07/19/16 00:34 Polychromasia Not Reportable 07/19/16 00:34 Hypochromasia 1+ 07/19/16 00:34 Poikilocytosis Not Reportable 07/19/16 00:34 Anisocytosis 1+ 07/19/16 00:34 Microcytosis Not Reportable 07/19/16 00:34 Macrocytosis Not Reportable 07/19/16 00:34 Spherocytes Not Reportable 07/19/16 00:34 Pappenheimer Bodies Not Reportable 07/19/16 00:34 Sickle Cells Not Reportable 07/19/16 00:34 Target Cells Not Reportable 07/19/16 00:34 Tear Drop Cells Not Reportable 07/19/16 00:34 Ovalocytes Not Reportable 07/19/16 00:34 Helmet Cells Not Reportable 07/19/16 00:34 Sp[place] Bodies Not Reportable 07/19/16 00:34 [place] Rings Not Reportable 07/19/16 00:34 [place] Cells Not Reportable 07/19/16 00:34 Bite Cells Not Reportable 07/19/16 00:34 Crenated Cell Not Reportable 07/19/16 00:34 Elliptocytes Not Reportable 07/19/16 00:34 Acanthocytes (Spur) Not Reportable 07/19/16 00:34 Rouleaux Not Reportable 07/19/16 00:34 Hemoglobin C Crystals Not Reportable 07/19/16 00:34 Schistocytes Not Reportable 07/19/16 00:34 Malaria parasites Not Reportable 07/19/16 00:34 Ronal Bodies Not Reportable 07/19/16 00:34 Hem Pathologist Commnt No 07/19/16 00:34 PT 14.7 Sec. (12.2-14.9) 07/19/16 08:29 INR 1.16 (0.87-1.13) H 07/19/16 08:29 APTT 44.8 Sec. (24.2-36.6) H 07/19/16 08:29 Sodium 136 mmol/L (137-145) L 07/30/16 12:48 Potassium 4.7 mmol/L (3.6-5.0) 07/30/16 12:48 Chloride 96.2 mmol/L (98-107) L 07/30/16 12:48 Carbon Dioxide 26 mmol/L (22-30) 07/30/16 12:48 Anion Gap 19 mmol/L 07/30/16 12:48 BUN 33 mg/dL (9-20) H 07/30/16 12:48 Creatinine 8.0 mg/dL (0.8-1.5) H D 07/30/16 12:48 Estimated GFR 8 ml/min 07/30/16 12:48 BUN/Creatinine Ratio 4.12 % 07/30/16 12:48 Glucose 106 mg/dL (75-100) H 07/30/16 12:48 POC Glucose 214 (70-105) H 08/01/16 12:11 Lactic Acid 0.7 mmol/L (0.7-2.0) 07/19/16 08:29 Calcium 8.8 mg/dL (8.4-10.2) 07/30/16 12:48 Phosphorus 5.4 mg/dL (2.5-4.5) H 07/19/16 08:29 Total Bilirubin 0.6 mg/dL (0.1-1.2) 07/19/16 08:29 Direct Bilirubin 0.2 mg/dL (0-0.2) 07/19/16 08:29 Indirect Bilirubin 0.4 mg/dL 07/19/16 08:29 AST 12 units/L (5-40) 07/19/16 08:29 ALT 11 units/L (7-56) 07/19/16 08:29 Alkaline Phosphatase 148 units/L (35-129) H 07/19/16 08:29 NT-Pro-B Natriuret Pep 93519 pg/mL (0-900) H 07/19/16 08:29 Total Protein 7.2 g/dL (6.3-8.2) 07/19/16 08:29 Albumin 2.7 g/dL (3.9-5) L 07/19/16 08:29 Albumin/Globulin Ratio 0.6 % 07/19/16 08:29 Random Vancomycin 15.8 ug/mL (0-40.0) 07/22/16 04:34 Miscellaneous Test Flexitest 1 (()) 07/23/16 18:40 Blood Type A POSITIVE 07/22/16 04:34 Antibody Screen Negative 07/22/16 04:34
[2016-08-02] MEDS ORDERED: NACL 0.9% 1000 ML 100 ML IV PRN (14:15)
--- NOTE | 2016-08-02 19:56 | Progress Note ---
Assessment and Plan end-stage renal disease patient is currently on maintenance hemodialysis and seems to be tolerating treatment fairly well Current access is a central venous catheter which appears to be working well Currently status post amputation on antibiotic therapy being followed by infectious disease Chronic intermittent nausea I would suggest that patient should be seen by gastroenterology as this has been a recurrent problem Chronically noncompliant patient expected prognosis very poor long-term he is aware Multiple vascular access-related issues must follow-up with vascular surgery upon discharge Anemia secondary hyperparathyroidism malnutrition risk; discussed with patient needs monitoring of phosphorus PTH as well as high protein diet Overall prognosis will depend on patient's compliance, last hemoglobin was 9.3 Acute systolic blood pressure under 150 his case Subjective Principal diagnosis: PVD with gangrene Interval history: patient was seen today for follow-up on multiple renal-related issues He was also seen and supervised him hemodialysis today around 145pm He seems to be tolerating dialysis treatment well other than some cramping and nausea Patient has had amputation done currently and antibiotic followed by infectious disease Objective - Vital Signs Vital signs: Vital Signs - 12hr 08/02/16 08/02/16 08/02/16 13:20 13:30 13:45 Temperature 97 F L Pulse Rate 68 64 72 Pulse Rate [ Right Radial] Respiratory 18 Rate Blood Pressure 142/70 150/74 116/40 Blood Pressure [Right Arm] 08/02/16 08/02/16 08/02/16 14:15 14:30 14:45 Temperature Pulse Rate 68 68 68 Pulse Rate [ Right Radial] Respiratory Rate Blood Pressure 128/60 114/54 120/58 Blood Pressure [Right Arm] 08/02/16 08/02/16 08/02/16 15:00 15:15 15:30 Temperature Pulse Rate 66 66 66 Pulse Rate [ Right Radial] Respiratory Rate Blood Pressure 144/68 164/70 164/72 Blood Pressure [Right Arm] 08/02/16 08/02/16 08/02/16 15:45 16:00 18:04 Temperature 97.9 F Pulse Rate 64 66 Pulse Rate [ 65 Right Radial] Respiratory 20 Rate Blood Pressure 164/68 164/70 Blood Pressure 142/65 [Right Arm] - General Appearance General appearance: well-developed EENT: mucous membranes moist Neck: no JVD (catheter site appears to be clear) Respiratory: Present: Clear to Ascultation Cardiology: regular (no evidence offS3-S4) Gastrointestinal: normal (nontender abdomen), splenomegaly - Lab 07/28/16 06:37 07/30/16 12:48 Most recent lab results Calcium 8.8 mg/dL (8.4-10.2) 07/30/16 12:48 Phosphorus 5.4 mg/dL (2.5-4.5) H 07/19/16 08:29
[2016-08-02] MEDS: NORVASC PO SCH (20:35)
[2016-08-03] MEDS: ZOCOR PO SCH ×2 (00:19→22:32)
[2016-08-03] MEDS: MUCINEX ER PO SCH ×3 (00:19→22:32)
[2016-08-03] MEDS: TESSALON PERLES PO SCH ×4 (00:19→22:32)
[2016-08-03] MEDS: FLAGYL PO SCH ×4 (00:19→22:31)
[2016-08-03] MEDS: HEPARIN SUB-Q SCH ×4 (00:20→22:35)
[2016-08-03] MEDS: BETADINE TP SCH ×4 (00:22→22:37)
[2016-08-03] MEDS: NORMODYNE PO SCH ×3 (00:25→22:34)
[2016-08-03 07:53] LABS: Hematocrit 24.3 % (35.5-45.6); Hemoglobin 7.7 gm/dl (11.8-15.2)
[2016-08-03] MEDS: TYLENOL PO PRN (08:40)
[2016-08-03] MEDS: ZOFRAN IV PRN ×2 (10:47→15:28)
[2016-08-03] MEDS: MAXIPIME/NS 2 GM/100 ML 100 ML IV SCH (10:47)
[2016-08-03] MEDS: NORVASC PO SCH (10:50)
[2016-08-03] MEDS: PLAVIX PO SCH (10:50)
[2016-08-03] MEDS: PROTONIX PO SCH (10:50)
[2016-08-03] MEDS: HALFPRIN EC PO SCH (10:50)
--- NOTE | 2016-08-03 11:03 | Progress Note ---
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 * Wound cultures show Enterobacter and Proteus mirabilis. Continue cefepime IV and Flagyl by mouth by ID physician. * Probably discharge home in a few days End-stage renal disease on dialysis * Nephrology managing nausea and vomiting. Zofran iv prn. Obtain Abd X ray, Amylase, Lipase Hypertension, benign essentiaL * Continue to monitor BP, * On amlodipine and labetalol Diabetes mellitus type 2 * A1c 8.1 * Continue consistent carbohydrate diet and sliding scale of insulin Peripheral vascular disease * s/p left lower extremity angioplasty on 07/22 and 07/26 * Vascular following Anemia of chronic kidney disease Full code status. History Interval history: Had amputation left first toe and partial amputation of left third toe on 07/30/16 , nausea and vomiting no more fever, mild pain at surgical site Hospitalist Physical - Physical exam Narrative exam: Gen: Not in acute distress HEENT: Normocephalic, atraumatic Neck :supple, no JVD Lungs:clear to auscultation bilaterally no crackles or wheeze Heart:S1 and S2 regular, no murmurs no gallop Abdomen:soft, non-tender, non-distended, normal bowel sounds Ext: Left foot covered with dressing, bandage. Right BKA Neuro: Awake alert oriented x 3, non focal - Constitutional Vitals: Temp Pulse Resp BP Pulse Ox 98 F 70 16 126/58 97 08/03/16 08:00 08/03/16 08:00 08/03/16 08:00 08/03/16 08:00 08/03/16 08:00 General appearance: Present: mild distress (from cramping) Results - Labs CBC & Chem 7: 08/03/16 12:07 08/03/16 12:07 Labs: Laboratory Last Values WBC 4.9 K/mm3 (4.5-11.0) 07/28/16 06:37 RBC 3.33 M/mm3 (3.65-5.03) L 07/28/16 06:37 Hgb 7.7 gm/dl (11.8-15.2) L 08/03/16 05:54 Hct 24.3 % (35.5-45.6) L 08/03/16 05:54 MCV 88 fl (84-94) 07/28/16 06:37 MCH 28 pg (28-32) 07/28/16 06:37 MCHC 32 % (32-34) 07/28/16 06:37 RDW 20.4 % (13.2-15.2) H 07/28/16 06:37 Plt Count 360 K/mm3 (140-440) 07/28/16 06:37 Lymph % (Auto) 16.9 % (13.4-35.0) 07/28/16 06:37 [place] % (Auto) 8.7 % (0.0-7.3) H 07/28/16 06:37 Eos % (Auto) 6.7 % (0.0-4.3) H 07/28/16 06:37 Baso % (Auto) 1.2 % (0.0-1.8) 07/28/16 06:37 Lymph # 0.8 K/mm3 (1.2-5.4) L 07/28/16 06:37 [place] # 0.4 K/mm3 (0.0-0.8) 07/28/16 06:37 Eos # 0.3 K/mm3 (0.0-0.4) 07/28/16 06:37 Baso # 0.1 K/mm3 (0.0-0.1) 07/28/16 06:37 Add Manual Diff Complete 07/19/16 00:34 Total Counted 100 07/19/16 00:34 Seg Neutrophils % 66.5 % (40.0-70.0) 07/28/16 06:37 Seg Neuts % (Manual) 73.0 % (40.0-70.0) H 07/19/16 00:34 Band Neutrophils % 0 % 07/19/16 00:34 Lymphocytes % (Manual) 9.0 % (13.4-35.0) L 07/19/16 00:34 Reactive Lymphs % (Man) 0 % 07/19/16 00:34 Monocytes % (Manual) 15.0 % (0.0-7.3) H 07/19/16 00:34 Eosinophils % (Manual) 3.0 % (0.0-4.3) 07/19/16 00:34 Basophils % (Manual) 0 % (0.0-1.8) 07/19/16 00:34 Metamyelocytes % 0 % 07/19/16 00:34 Myelocytes % 0 % 07/19/16 00:34 Promyelocytes % 0 % 07/19/16 00:34 Blast Cells % 0 % 07/19/16 00:34 Nucleated RBC % Not Reportable 07/19/16 00:34 Seg Neutrophils # 3.2 K/mm3 (1.8-7.7) 07/28/16 06:37 Seg Neutrophils # Man 4.5 K/mm3 (1.8-7.7) 07/19/16 00:34 Band Neutrophils # 0.0 K/mm3 07/19/16 00:34 Lymphocytes # (Manual) 0.6 K/mm3 (1.2-5.4) L 07/19/16 00:34 Abs React Lymphs (Man) 0.0 K/mm3 07/19/16 00:34 Monocytes # (Manual) 0.9 K/mm3 (0.0-0.8) H 07/19/16 00:34 Eosinophils # (Manual) 0.2 K/mm3 (0.0-0.4) 07/19/16 00:34 Basophils # (Manual) 0.0 K/mm3 (0.0-0.1) 07/19/16 00:34 Metamyelocytes # 0.0 K/mm3 07/19/16 00:34 Myelocytes # 0.0 K/mm3 07/19/16 00:34 Promyelocytes # 0.0 K/mm3 07/19/16 00:34 Blast Cells # 0.0 K/mm3 07/19/16 00:34 WBC Morphology Not Reportable 07/19/16 00:34 Hypersegmented Neuts Not Reportable 07/19/16 00:34 Hyposegmented Neuts Not Reportable 07/19/16 00:34 Hypogranular Neuts Not Reportable 07/19/16 00:34 Smudge Cells Few 07/19/16 00:34 Toxic Granulation Not Reportable 07/19/16 00:34 Toxic Vacuolation Not Reportable 07/19/16 00:34 Dohle Bodies Not Reportable 07/19/16 00:34 Pelger-Huet Anomaly Not Reportable 07/19/16 00:34 Maria Eugenia Rods Not Reportable 07/19/16 00:34 Platelet Estimate Appears normal 07/19/16 00:34 Clumped Platelets Not Reportable 07/19/16 00:34 Plt Clumps, EDTA Not Reportable 07/19/16 00:34 Large Platelets Not Reportable 07/19/16 00:34 Giant Platelets Not Reportable 07/19/16 00:34 Platelet Satelliting Not Reportable 07/19/16 00:34 Plt Morphology Comment Not Reportable 07/19/16 00:34 RBC Morphology Not Reportable 07/19/16 00:34 Dimorphic RBCs Not Reportable 07/19/16 00:34 Polychromasia Not Reportable 07/19/16 00:34 Hypochromasia 1+ 07/19/16 00:34 Poikilocytosis Not Reportable 07/19/16 00:34 Anisocytosis 1+ 07/19/16 00:34 Microcytosis Not Reportable 07/19/16 00:34 Macrocytosis Not Reportable 07/19/16 00:34 Spherocytes Not Reportable 07/19/16 00:34 Pappenheimer Bodies Not Reportable 07/19/16 00:34 Sickle Cells Not Reportable 07/19/16 00:34 Target Cells Not Reportable 07/19/16 00:34 Tear Drop Cells Not Reportable 07/19/16 00:34 Ovalocytes Not Reportable 07/19/16 00:34 Helmet Cells Not Reportable 07/19/16 00:34 [place] Bodies Not Reportable 07/19/16 00:34 [place] Rings Not Reportable 07/19/16 00:34 [place] Cells Not Reportable 07/19/16 00:34 Bite Cells Not Reportable 07/19/16 00:34 Crenated Cell Not Reportable 07/19/16 00:34 Elliptocytes Not Reportable 07/19/16 00:34 Acanthocytes (Spur) Not Reportable 07/19/16 00:34 Rouleaux Not Reportable 07/19/16 00:34 Hemoglobin C Crystals Not Reportable 07/19/16 00:34 Schistocytes Not Reportable 07/19/16 00:34 Malaria parasites Not Reportable 07/19/16 00:34 Ronal Bodies Not Reportable 07/19/16 00:34 Hem Pathologist Commnt No 07/19/16 00:34 PT 14.7 Sec. (12.2-14.9) 07/19/16 08:29 INR 1.16 (0.87-1.13) H 07/19/16 08:29 APTT 44.8 Sec. (24.2-36.6) H 07/19/16 08:29 Sodium 136 mmol/L (137-145) L 07/30/16 12:48 Potassium 4.7 mmol/L (3.6-5.0) 07/30/16 12:48 Chloride 96.2 mmol/L (98-107) L 07/30/16 12:48 Carbon Dioxide 26 mmol/L (22-30) 07/30/16 12:48 Anion Gap 19 mmol/L 07/30/16 12:48 BUN 33 mg/dL (9-20) H 07/30/16 12:48 Creatinine 8.0 mg/dL (0.8-1.5) H D 07/30/16 12:48 Estimated GFR 8 ml/min 07/30/16 12:48 BUN/Creatinine Ratio 4.12 % 07/30/16 12:48 Glucose 106 mg/dL (75-100) H 07/30/16 12:48 POC Glucose 177 (70-105) H 08/03/16 06:28 Lactic Acid 0.7 mmol/L (0.7-2.0) 07/19/16 08:29 Calcium 8.8 mg/dL (8.4-10.2) 07/30/16 12:48 Phosphorus 5.4 mg/dL (2.5-4.5) H 07/19/16 08:29 Total Bilirubin 0.6 mg/dL (0.1-1.2) 07/19/16 08:29 Direct Bilirubin 0.2 mg/dL (0-0.2) 07/19/16 08:29 Indirect Bilirubin 0.4 mg/dL 07/19/16 08:29 AST 12 units/L (5-40) 07/19/16 08:29 ALT 11 units/L (7-56) 07/19/16 08:29 Alkaline Phosphatase 148 units/L (35-129) H 07/19/16 08:29 NT-Pro-B Natriuret Pep 79135 pg/mL (0-900) H 07/19/16 08:29 Total Protein 7.2 g/dL (6.3-8.2) 07/19/16 08:29 Albumin 2.7 g/dL (3.9-5) L 07/19/16 08:29 Albumin/Globulin Ratio 0.6 % 07/19/16 08:29 Random Vancomycin 15.8 ug/mL (0-40.0) 07/22/16 04:34 Miscellaneous Test Flexitest 1 (()) 07/23/16 18:40 Blood Type A POSITIVE 07/22/16 04:34 Antibody Screen Negative 07/22/16 04:34
[2016-08-03 12:32] LABS: Hematocrit 25.7 % (35.5-45.6); Hemoglobin 8.3 gm/dl (11.8-15.2); Mean Corpuscular HGB Conc 32 % (32-34); Mean Corpuscular Hemoglobin 29 pg (28-32); Mean Corpuscular Volume 89 fl (84-94); Platelet Count 393 K/mm3 (140-440); Red Blood Count 2.89 M/mm3 (3.65-5.03); White Blood Count 4.9 K/mm3 (4.5-11.0)
[2016-08-03 12:42] LABS: Red Cell Distribution Width 20.5 % (13.2-15.2)
[2016-08-03 12:53] LABS: Albumin 3.1 g/dL (3.9-5); Albumin/Globulin Ratio 0.7 %; Alkaline Phosphatase 105 units/L (35-129); Amylase 68 units/L (27-131); Anion Gap 19 mmol/L; BUN/Creatinine Ratio 3.59; Bilirubin,Total 0.3 mg/dL (0.1-1.2); Blood Urea Nitrogen 23 mg/dL (9-20); Calcium 8.6 mg/dL (8.4-10.2); Carbon Dioxide 29 mmol/L (22-30); Chloride 93.4 mmol/L (98-107); Glucose 114 mg/dL (75-100); Lipase 25 units/L (13-60); Potassium 4.6 mmol/L (3.6-5.0); Sodium 137 mmol/L (137-145); Total Protein 7.8 g/dL (6.3-8.2)
[2016-08-03 12:57] LABS: Alanine Aminotransferase < 5 units/L (7-56)
--- NOTE | 2016-08-03 12:58 | Progress Note ---
Assessment and Plan Current antibiotics: Cefepime 2Gm IV Q24 08/01-> Flagyl 500mg PO Q8 08/01-> Previous antibiotics: Zosyn 2.25 gm IV q8h 07/29 --> 08/01 Augmentin 875 mg po BID Zosyn 2.25 gm IV q8h 07/21-07/23 Vancomycin pulse dosing (07/19-07/23) ASSESSMENT: Brando Oconnor is a 70 year old man with ESRD on chronic HD via a left chest wall permacath, type 2 DM and PVD (s/p right below knee amputation) who was admitted to [facility] on 07/19/16 with one month of worsening ischemic changes of left foot with great toe dry gangrene and he underwent left leg angioplasty (posterior tibial artery, proximal posterior tibial artery and distal popliteal) on 07/22. Problem list: 1. Peripheral vascular disease -Dry gangrene of the left great toe with some purulent drainage now. Fairly resistant Enterobacter cloacae (Zosyn intermediate) and fairly sensitive Proteus mirabilis growing on superficial culture. -Status post amputation of the left great toe and partial amputation of the left third toe 07/30/16. Surgical cultures pending -Status post left lower extremity angioplasty 07/22 -Status post right BKA 2. End-stage renal failure -Maintenance hemodialysis 3. Type 2 diabetes mellitus 4. Chronic anemia 5. Persistent cough -Patient said this hacking cough has been present for 2 weeks. -Pertussis PCR negative -Cough is better with tessalon perls PLAN: 1. Continue IV cefepime and po Flagyl 2. Await further surgical culture data 3. Length of therapy to be determined by clinical course and pathology findings 4. Glycemic control as per primary team Wm Luevano MD [facility] Office: [phone] Subjective Date of service: 08/03/16 Principal diagnosis: PVD with gangrene Interval history: Patient complains of nausea and vomiting today, he states he took 9 pills this morning he thinks the nausea and vomiting is related to his medications. Patient lying left lateral recumbent while lab is fading lab samples. Review of systems: Again patient has positive complaints of nausea and vomiting. Patient is actively not vomiting. Patient denies chest pain chest pressure. Patient denies cough fever or shortness of breath Objective - Exam Narrative Exam: GENERAL: Well-developed, well-nourished appearing who is alert and in no acute distress. He appears somewhat chronically ill. HEAD: Normocephalic. No lesions seen. EYES: Pupils are equal reactive to light and accommodation. There is no scleral icterus. Optic fundi are not examined. EARS: Without external drainage THROAT: Oropharynx is normal with no evidence of oral candidiasis or pharyngitis. NECK: Supple. No enlargement of the thyroid gland. No significant cervical lymphadenopathy. No jugular venous distention at 30. LUNGS: Clear with no adventitious sounds. CHEST: Right sided PermCath with no signs of infection HEART: Regular rate. S1 and S2 are normal. There are no gallops, clicks or rubs heard. Grade II/ KEE heard best over the left upper sternal border. No diastolic murmur. ABDOMEN: Soft and nontender. Liver and spleen are not palpably enlarged or tender. No palpable masses. Bowel sounds are normoactive. EXTREMITIES: Left foot dressings in place with no signs of proximal infection nor ischemia. Status post right BKA with stump well healed with no signs of infection nor ischemia. NEUROLOGIC: Decreased sensation to pinprick in a stocking distribution. - Constitutional Vitals: Vital Signs Temp Pulse Resp BP Pulse Ox 98 F 70 16 126/58 97 08/03/16 08:00 08/03/16 08:00 08/03/16 08:00 08/03/16 08:00 08/03/16 08:00 Temperature -Last 24 Hours Temperature 98 F Temperature 98.9 F Temperature 98.5 F Temperature 97.9 F Temperature 97 F - Labs CBC & Chem 7: 08/03/16 12:07 08/03/16 12:07 Labs: Abnormal lab results
--- NOTE | 2016-08-03 18:44 | XRay Report ---
FINAL REPORT EXAM: XR ABDOMEN 2V HISTORY: vomiting TECHNIQUE: Supine and upright views of the abdomen. PRIORS: CT scan from 06/20/2016 FINDINGS: There is several loops of mildly gas distended loops of small bowel and colon in the upper abdomen. There are a few air-fluid levels on the upright exam. There are no suspicious calcifications. The bones and soft tissues are unremarkable. IMPRESSION: Findings suggest a mild ileus
[2016-08-03] MEDS: DULCOLAX PR SCH (22:32)
[2016-08-04] MEDS: TESSALON PERLES PO SCH ×3 (06:29→23:16)
[2016-08-04] MEDS: FLAGYL PO SCH ×3 (06:29→23:15)
[2016-08-04] MEDS: HEPARIN SUB-Q SCH ×3 (06:30→23:15)
[2016-08-04] MEDS: DULCOLAX PR SCH (11:34)
[2016-08-04] MEDS: MAXIPIME/NS 2 GM/100 ML 100 ML IV SCH (11:35)
[2016-08-04] MEDS: MUCINEX ER PO SCH ×2 (11:36→23:15)
[2016-08-04] MEDS: HALFPRIN EC PO SCH (11:36)
[2016-08-04] MEDS: PROTONIX PO SCH (11:37)
[2016-08-04] MEDS: NORVASC PO SCH (11:38)
[2016-08-04] MEDS: PLAVIX PO SCH (11:38)
[2016-08-04] MEDS: NORMODYNE PO SCH ×2 (11:38→23:16)
[2016-08-04] MEDS: BETADINE TP SCH ×2 (11:39→23:15)
--- NOTE | 2016-08-04 13:00 | Progress Note ---
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 * Wound cultures show Enterobacter and Proteus mirabilis. Continue cefepime IV and Flagyl by mouth by ID physician. * Probably discharge home in a few days End-stage renal disease on dialysis * Nephrology managing Ileus with nausea and vomiting x 2 days Zofran iv prn. Improving. No vomiting today Hypertension, benign essentiaL * Continue to monitor BP, * On amlodipine and labetalol Diabetes mellitus type 2 * A1c 8.1 * Continue consistent carbohydrate diet and sliding scale of insulin Peripheral vascular disease * s/p left lower extremity angioplasty on 07/22 and 07/26 * Vascular following Anemia of chronic kidney disease Full code status. History Interval history: Had amputation left first toe and partial amputation of left third toe on 07/30/16 , nausea and vomiting no more fever, mild pain at surgical site left foot Hospitalist Physical - Physical exam Narrative exam: Gen: Not in acute distress HEENT: Normocephalic, atraumatic Neck :supple, no JVD Lungs:clear to auscultation bilaterally no crackles or wheeze Heart:S1 and S2 regular, no murmurs no gallop Abdomen:soft, non-tender, non-distended, normal bowel sounds Ext: Left foot covered with dressing, . Right BKA Neuro: Awake alert oriented x 3, non focal - Constitutional Vitals: Temp Pulse Resp BP Pulse Ox 98.3 F 72 18 126/62 98 08/04/16 08:00 08/04/16 11:38 08/04/16 08:00 08/04/16 11:38 08/04/16 08:00 General appearance: Present: mild distress (from cramping) Results - Labs CBC & Chem 7: 08/03/16 12:07 08/03/16 12:07 Labs: Laboratory Last Values WBC 4.9 K/mm3 (4.5-11.0) 08/03/16 12:07 RBC 2.89 M/mm3 (3.65-5.03) L 08/03/16 12:07 Hgb 8.3 gm/dl (11.8-15.2) L 08/03/16 12:07 Hct 25.7 % (35.5-45.6) L 08/03/16 12:07 MCV 89 fl (84-94) 08/03/16 12:07 MCH 29 pg (28-32) 08/03/16 12:07 MCHC 32 % (32-34) 08/03/16 12:07 RDW 20.5 % (13.2-15.2) H 08/03/16 12:07 Plt Count 393 K/mm3 (140-440) 08/03/16 12:07 Lymph % (Auto) 16.9 % (13.4-35.0) 07/28/16 06:37 [place] % (Auto) 8.7 % (0.0-7.3) H 07/28/16 06:37 Eos % (Auto) 6.7 % (0.0-4.3) H 07/28/16 06:37 Baso % (Auto) 1.2 % (0.0-1.8) 07/28/16 06:37 Lymph # 0.8 K/mm3 (1.2-5.4) L 07/28/16 06:37 [place] # 0.4 K/mm3 (0.0-0.8) 07/28/16 06:37 Eos # 0.3 K/mm3 (0.0-0.4) 07/28/16 06:37 Baso # 0.1 K/mm3 (0.0-0.1) 07/28/16 06:37 Add Manual Diff Complete 07/19/16 00:34 Total Counted 100 07/19/16 00:34 Seg Neutrophils % 66.5 % (40.0-70.0) 07/28/16 06:37 Seg Neuts % (Manual) 73.0 % (40.0-70.0) H 07/19/16 00:34 Band Neutrophils % 0 % 07/19/16 00:34 Lymphocytes % (Manual) 9.0 % (13.4-35.0) L 07/19/16 00:34 Reactive Lymphs % (Man) 0 % 07/19/16 00:34 Monocytes % (Manual) 15.0 % (0.0-7.3) H 07/19/16 00:34 Eosinophils % (Manual) 3.0 % (0.0-4.3) 07/19/16 00:34 Basophils % (Manual) 0 % (0.0-1.8) 07/19/16 00:34 Metamyelocytes % 0 % 07/19/16 00:34 Myelocytes % 0 % 07/19/16 00:34 Promyelocytes % 0 % 07/19/16 00:34 Blast Cells % 0 % 07/19/16 00:34 Nucleated RBC % Not Reportable 07/19/16 00:34 Seg Neutrophils # 3.2 K/mm3 (1.8-7.7) 07/28/16 06:37 Seg Neutrophils # Man 4.5 K/mm3 (1.8-7.7) 07/19/16 00:34 Band Neutrophils # 0.0 K/mm3 07/19/16 00:34 Lymphocytes # (Manual) 0.6 K/mm3 (1.2-5.4) L 07/19/16 00:34 Abs React Lymphs (Man) 0.0 K/mm3 07/19/16 00:34 Monocytes # (Manual) 0.9 K/mm3 (0.0-0.8) H 07/19/16 00:34 Eosinophils # (Manual) 0.2 K/mm3 (0.0-0.4) 07/19/16 00:34 Basophils # (Manual) 0.0 K/mm3 (0.0-0.1) 07/19/16 00:34 Metamyelocytes # 0.0 K/mm3 07/19/16 00:34 Myelocytes # 0.0 K/mm3 07/19/16 00:34 Promyelocytes # 0.0 K/mm3 07/19/16 00:34 Blast Cells # 0.0 K/mm3 07/19/16 00:34 WBC Morphology Not Reportable 07/19/16 00:34 Hypersegmented Neuts Not Reportable 07/19/16 00:34 Hyposegmented Neuts Not Reportable 07/19/16 00:34 Hypogranular Neuts Not Reportable 07/19/16 00:34 Smudge Cells Few 07/19/16 00:34 Toxic Granulation Not Reportable 07/19/16 00:34 Toxic Vacuolation Not Reportable 07/19/16 00:34 Dohle Bodies Not Reportable 07/19/16 00:34 Pelger-Huet Anomaly Not Reportable 07/19/16 00:34 Maria Eugenia Rods Not Reportable 07/19/16 00:34 Platelet Estimate Appears normal 07/19/16 00:34 Clumped Platelets Not Reportable 07/19/16 00:34 Plt Clumps, EDTA Not Reportable 07/19/16 00:34 Large Platelets Not Reportable 07/19/16 00:34 Giant Platelets Not Reportable 07/19/16 00:34 Platelet Satelliting Not Reportable 07/19/16 00:34 Plt Morphology Comment Not Reportable 07/19/16 00:34 RBC Morphology Not Reportable 07/19/16 00:34 Dimorphic RBCs Not Reportable 07/19/16 00:34 Polychromasia Not Reportable 07/19/16 00:34 Hypochromasia 1+ 07/19/16 00:34 Poikilocytosis Not Reportable 07/19/16 00:34 Anisocytosis 1+ 07/19/16 00:34 Microcytosis Not Reportable 07/19/16 00:34 Macrocytosis Not Reportable 07/19/16 00:34 Spherocytes Not Reportable 07/19/16 00:34 Pappenheimer Bodies Not Reportable 07/19/16 00:34 Sickle Cells Not Reportable 07/19/16 00:34 Target Cells Not Reportable 07/19/16 00:34 Tear Drop Cells Not Reportable 07/19/16 00:34 Ovalocytes Not Reportable 07/19/16 00:34 Helmet Cells Not Reportable 07/19/16 00:34 [place] Bodies Not Reportable 07/19/16 00:34 [place] Rings Not Reportable 07/19/16 00:34 [place] Cells Not Reportable 07/19/16 00:34 Bite Cells Not Reportable 07/19/16 00:34 Crenated Cell Not Reportable 07/19/16 00:34 Elliptocytes Not Reportable 07/19/16 00:34 Acanthocytes (Spur) Not Reportable 07/19/16 00:34 Rouleaux Not Reportable 07/19/16 00:34 Hemoglobin C Crystals Not Reportable 07/19/16 00:34 Schistocytes Not Reportable 07/19/16 00:34 Malaria parasites Not Reportable 07/19/16 00:34 Ronal Bodies Not Reportable 07/19/16 00:34 Hem Pathologist Commnt No 07/19/16 00:34 PT 14.7 Sec. (12.2-14.9) 07/19/16 08:29 INR 1.16 (0.87-1.13) H 07/19/16 08:29 APTT 44.8 Sec. (24.2-36.6) H 07/19/16 08:29 Sodium 137 mmol/L (137-145) 08/03/16 12:07 Potassium 4.6 mmol/L (3.6-5.0) 08/03/16 12:07 Chloride 93.4 mmol/L (98-107) L 08/03/16 12:07 Carbon Dioxide 29 mmol/L (22-30) 08/03/16 12:07 Anion Gap 19 mmol/L 08/03/16 12:07 BUN 23 mg/dL (9-20) H 08/03/16 12:07 Creatinine 6.4 mg/dL (0.8-1.5) H 08/03/16 12:07 Estimated GFR 11 ml/min 08/03/16 12:07 BUN/Creatinine Ratio 3.59 % 08/03/16 12:07 Glucose 114 mg/dL (75-100) H 08/03/16 12:07 POC Glucose 101 (70-105) 08/04/16 06:20 Lactic Acid 0.7 mmol/L (0.7-2.0) 07/19/16 08:29 Calcium 8.6 mg/dL (8.4-10.2) 08/03/16 12:07 Phosphorus 4.9 mg/dL (2.5-4.5) H 08/03/16 12:29 Total Bilirubin 0.3 mg/dL (0.1-1.2) 08/03/16 12:07 Direct Bilirubin 0.2 mg/dL (0-0.2) 07/19/16 08:29 Indirect Bilirubin 0.4 mg/dL 07/19/16 08:29 AST 8 units/L (5-40) 08/03/16 12:07 ALT < 5 units/L (7-56) L 08/03/16 12:07 Alkaline Phosphatase 105 units/L (35-129) 08/03/16 12:07 NT-Pro-B Natriuret Pep 03844 pg/mL (0-900) H 07/19/16 08:29 Total Protein 7.8 g/dL (6.3-8.2) 08/03/16 12:07 Albumin 3.1 g/dL (3.9-5) L 08/03/16 12:07 Albumin/Globulin Ratio 0.7 % 08/03/16 12:07 Amylase 68 units/L (27-131) 08/03/16 12:07 Lipase 25 units/L (13-60) 08/03/16 12:07 Random Vancomycin 15.8 ug/mL (0-40.0) 07/22/16 04:34 Miscellaneous Test Flexitest 1 (()) 07/23/16 18:40 Blood Type A POSITIVE 07/22/16 04:34 Antibody Screen Negative 07/22/16 04:34
--- NOTE | 2016-08-04 17:18 | Progress Note ---
Assessment and Plan Current antibiotics: Cefepime 2Gm IV Q24 08/01-> Flagyl 500mg PO Q8 08/01-> Previous antibiotics: Zosyn 2.25 gm IV q8h 07/29 --> 08/01 Augmentin 875 mg po BID Zosyn 2.25 gm IV q8h 07/21-07/23 Vancomycin pulse dosing (07/19-07/23) ASSESSMENT: Brando Oconnor is a 70 year old man with ESRD on chronic HD via a left chest wall permacath, type 2 DM and PVD (s/p right below knee amputation) who was admitted to [facility] on 07/19/16 with one month of worsening ischemic changes of left foot with great toe dry gangrene and he underwent left leg angioplasty (posterior tibial artery, proximal posterior tibial artery and distal popliteal) on 07/22. Problem list: 1. Peripheral vascular disease -Dry gangrene of the left great toe with some purulent drainage now. Fairly resistant Enterobacter cloacae (Zosyn intermediate) and fairly sensitive Proteus mirabilis growing on superficial culture. -Status post amputation of the left great toe and partial amputation of the left third toe 07/30/16. Surgical cultures showed that the Enterobacter is now Zosyn resistant. -Significance of the surgical cultures with no white cells seen and only scant growth is unclear. -Status post left lower extremity angioplasty 07/22 -Status post right BKA 2. End-stage renal failure -Maintenance hemodialysis 3. Type 2 diabetes mellitus 4. Chronic anemia 5. Persistent cough -Patient said this hacking cough has been present for 2 weeks. -Pertussis PCR negative -Cough is better with tessalon perls PLAN: 1. Continue IV cefepime and po Flagyl for now 2. Await surgical pathology 3. Length of therapy to be determined by clinical course and pathology findings 4. Glycemic control as per primary team Wm Luevano MD [facility] Office: [phone] Subjective Date of service: 08/04/16 Principal diagnosis: PVD with gangrene Interval history: Wants to go home. Angry that he has been switched to a liquid diet for nausea which he states that he has had "for at least 4 years." No new complaints. Objective - Exam Narrative Exam: GENERAL: Well-developed, well-nourished appearing who is alert and in no acute distress. He appears somewhat chronically ill and angry at present.. HEAD: Normocephalic. No lesions seen. EYES: Pupils are equal reactive to light and accommodation. There is no scleral icterus. Optic fundi are not examined. EARS: Without external drainage THROAT: Oropharynx is normal with no evidence of oral candidiasis or pharyngitis. NECK: Supple. No enlargement of the thyroid gland. No significant cervical lymphadenopathy. No jugular venous distention at 30. LUNGS: Clear with no adventitious sounds. CHEST: Right sided PermCath with no signs of infection HEART: Regular rate. S1 and S2 are normal. There are no gallops, clicks or rubs heard. Grade II/ KEE heard best over the left upper sternal border. No diastolic murmur. ABDOMEN: Soft and nontender. Liver and spleen are not palpably enlarged or tender. No palpable masses. Bowel sounds are normoactive. EXTREMITIES: Left foot dressings in place with no signs of proximal infection nor ischemia. Status post right BKA with stump well healed with no signs of infection nor ischemia. NEUROLOGIC: Decreased sensation to pinprick in a stocking distribution. - Constitutional Vitals: Vital Signs Temp Pulse Resp BP Pulse Ox 98.3 F 72 18 126/62 98 08/04/16 08:00 08/04/16 11:38 08/04/16 08:00 08/04/16 11:38 08/04/16 08:00 Temperature -Last 24 Hours Temperature 98.3 F Temperature 98.6 F - Labs CBC & Chem 7: 08/03/16 12:07 08/03/16 12:07 Labs: Abnormal lab results Microbiology 07/30 Left foot surgical culture: Enterobacter cloacae (ampicillin, Unasyn, aztreonam, cefepime, ceftazidime, ceftriaxone, Zosyn resisTNT. Quinolone sensitive) and Proteus mirabilis (sensitive strain except quinolone, tetracycline and Bactrim resistant) Gram stain with no PMN or organisms. 07/29/16 Foot - Left Wound Culture - Preliminary Enterobacter cloacae (resistant to ampicillin, Unasyn, aztreonam, ceftriaxone; Zosyn intermediate; sensitive to quinolones and cefepime); Proteus mirabilis ( Levaquin sensitive, Cipro intermediate) Gram stain: Many PMNs, gram-positive rods, few gram-negative rods. 07/19/16 09:18 Peripheral/Venous Blood Culture - Final NO GROWTH AFTER 5 DAYS 07/19/16 08:50 Peripheral/Venous Blood Culture - Final NO GROWTH AFTER 5 DAYS
--- NOTE | 2016-08-04 17:55 | Progress Note ---
Assessment and Plan end-stage renal disease patient is currently on maintenance hemodialysis and seems to be tolerating treatment fairly well patient will need to continue with hemodialysis on Friday schedule Current axis is central venous catheter which seems to be working well Status post amputation of toe currently in antibiotic therapy being followed by infectious disease Patient does not tolerate excessive ultrafiltration and usually at the dialysis clinic and has been in the range of 0.5-1 kg after which he started experiencing nausea and vomiting Today's feeling much better and does not have any complaints of nausea and vomiting Patient has been very poorly compliant in terms of taking his medication and oftentimes in the outpatient setting would take what he wants to take and has been very stubborn about that Patient hasn't adequately counseled and educated about the nature and severity of his multiple health issues need to comply or else his prognosis is going to be very poor he has already been scheduled for vascular access in the outpatient setting and must keep appointment Patient can be high mortality risk in my opinion Subjective Principal diagnosis: PVD with gangrene Interval history: time of service is around 11:30 in the morning patient was seen today for follow-up on multiple related issues today denies any complaints of chest pain pressure or shortness of breath Hemodialysis has been well tolerated patient is currently being dialyzed at [facility] dialysis clinic Patient denies any nausea vomiting today tolerating antibiotic therapy Objective - Vital Signs Vital signs: Vital Signs - 12hr 08/04/16 08/04/16 08:00 11:38 Temperature 98.3 F Pulse Rate 72 Pulse Rate [ 72 Apical] Respiratory 18 Rate Blood Pressure 126/62 Blood Pressure 126/62 [Right Arm] O2 Sat by Pulse 98 Oximetry - General Appearance General appearance: appears stated age EENT: mucous membranes moist Neck: no JVD Neurologic: no focal deficit Musculoskeletal: deferred - Lab 08/03/16 12:07 08/03/16 12:07 Most recent lab results Calcium 8.6 mg/dL (8.4-10.2) 08/03/16 12:07 Phosphorus 4.9 mg/dL (2.5-4.5) H 08/03/16 12:29
[2016-08-04] MEDS: TYLENOL PO PRN (22:30)
[2016-08-04] MEDS: ZOCOR PO SCH (23:16)
[2016-08-05] MEDS: ZOFRAN IV PRN (04:00)
[2016-08-05] MEDS: TESSALON PERLES PO SCH ×3 (06:09→22:13)
[2016-08-05] MEDS: FLAGYL PO SCH (06:09)
[2016-08-05] MEDS: HEPARIN SUB-Q SCH ×3 (06:09→22:22)
--- NOTE | 2016-08-05 09:10 | Progress Note ---
Assessment and Plan Current antibiotics: Cefepime 2Gm IV Q24 08/01-> Flagyl 500mg PO Q8 08/01-> Previous antibiotics: Zosyn 2.25 gm IV q8h 07/29 --> 08/01 Augmentin 875 mg po BID Zosyn 2.25 gm IV q8h 07/21-07/23 Vancomycin pulse dosing (07/19-07/23) ASSESSMENT: Brando Oconnor is a 70 year old man with ESRD on chronic HD via a left chest wall permacath, type 2 DM and PVD (s/p right below knee amputation) who was admitted to [facility] on 07/19/16 with one month of worsening ischemic changes of left foot with great toe dry gangrene and he underwent left leg angioplasty (posterior tibial artery, proximal posterior tibial artery and distal popliteal) on 07/22. Problem list: 1. Peripheral vascular disease -Dry gangrene of the left great toe with some purulent drainage now. Fairly resistant Enterobacter cloacae (Zosyn intermediate) and fairly sensitive Proteus mirabilis growing on superficial culture. -Status post amputation of the left great toe and partial amputation of the left third toe 07/30/16. Surgical cultures showed that the Enterobacter is now Zosyn resistant. -Significance of the surgical cultures with no white cells seen and only scant growth is unclear. -Status post left lower extremity angioplasty 07/22 -Status post right BKA 2. End-stage renal failure -Maintenance hemodialysis 3. Type 2 diabetes mellitus 4. Chronic anemia 5. Nausea - ? Flagyl po worsening. PLAN: 1. Continue IV cefepime. This can be given in HD if D/C planned. 2. Await surgical pathology ( Undergoing de-calcification) - ? Amputation margin clean? 3. Length of therapy to be determined by clinical course and pathology findings 4. Suggest follow off flagyl 5. Glycemic control as per primary team Subjective Date of service: 08/05/16 Principal diagnosis: PVD with gangrene Interval history: Wants to go home. " Nothing being done". c/o nausea. Objective - Exam Narrative Exam: GENERAL: Well-developed, well-nourished appearing who is alert and in no acute distress. HEAD: Normocephalic. No lesions seen. EYES: Pupils are equal reactive to light and accommodation. There is no scleral icterus. Optic fundi are not examined. EARS: There is no external drainage THROAT: Oropharynx is normal with no evidence of oral candidiasis or pharyngitis. NECK: Supple. No enlargement of the thyroid gland. No significant cervical lymphadenopathy. No jugular venous distention at 30. LUNGS: Clear with no adventitious sounds. CHEST: PermCath without signs of infection. HEART: Regular rate. S1 and S2 are normal. There are no gallops, clicks or rubs heard. Grade II/ KEE heard best over the left upper sternal border. No diastolic murmur. ABDOMEN: Soft and nontender. Liver and spleen are not palpably enlarged or tender. No palpable masses. Bowel sounds are normoactive. EXTREMITIES: Left foot surgical with slight bleeding from wound site. No purulence or marked redness. Slight swelling. Status post right BKA with stump well healed with no signs of infection nor ischemia. NEUROLOGIC: No focal findings. - Constitutional Vitals: Vital Signs Temp Pulse Resp BP Pulse Ox 98.4 F 66 18 150/70 98 08/04/16 16:00 08/04/16 16:00 08/04/16 23:00 08/04/16 16:00 08/04/16 08:00 Temperature -Last 24 Hours Temperature 98.4 F - Labs CBC & Chem 7: 08/03/16 12:07 08/03/16 12:07 Labs: Abnormal lab results 08/04/16 Range/Units 12:42 POC Glucose 202 H (70-105)
--- NOTE | 2016-08-05 09:15 | Progress Note ---
Assessment and Plan - Patient Problems (1) ESRD (end stage renal disease) on dialysis Current Visit: Yes Status: Chronic Plan to address problem: HD today-M/W/ schedule. Failed AV access. Pt has left IJ tunneled catheter (2) PAD (peripheral artery disease) Current Visit: Yes Status: Chronic (3) Diabetic gastroparesis Current Visit: No Status: Chronic (4) Hypertension Current Visit: No Status: Chronic (5) Anemia in ESRD (end-stage renal disease) Current Visit: No Status: Chronic Plan to address problem: Epogen per protocol (6) Diabetes Diagnosis Date: 12/01/13 Current Visit: No Status: Chronic Qualifiers: Diabetes mellitus type: type 2 Chronic kidney disease stage: on chronic dialysis Subjective Date of service: 08/05/16 Principal diagnosis: PVD with gangrene Interval history: pt is alert, C/O vomitings, can't digest food C/O headache, nasal cold Objective - Vital Signs Vital signs: Vital Signs - 12hr 08/04/16 23:00 Respiratory 18 Rate - General Appearance General appearance: well-developed EENT: mucous membranes moist Neck: no JVD, no thyromegaly Respiratory: Present: Clear to Ascultation Cardiology: regular Gastrointestinal: normoactive bowel sounds Neurologic: alert and oriented x3 Musculoskeletal: other (right BKA) Psychiatric: mood/affect appropriate - Lab 08/03/16 12:07 08/03/16 12:07 Most recent lab results Calcium 8.6 mg/dL (8.4-10.2) 08/03/16 12:07 Phosphorus 4.9 mg/dL (2.5-4.5) H 08/03/16 12:29
--- NOTE | 2016-08-05 09:20 | XRay Report ---
KUB: 08/05/16 07:00:00 CLINICAL: Abdominal pain. FINDINGS: Normal bowel gas pattern with a large volume of stool throughout the colon and in the rectum. No distended bowel and no air-fluid levels. No mass or suspicious calcifications. The bones and soft tissues are normal. IMPRESSION: Negative abdomen with abundant stool.
[2016-08-05] MEDS: NORMODYNE PO SCH ×2 (11:14→22:16)
[2016-08-05] MEDS: BETADINE TP SCH ×2 (11:14→22:15)
[2016-08-05] MEDS: MUCINEX ER PO SCH ×2 (11:14→22:14)
[2016-08-05] MEDS: HEPARIN IV PRN (15:45)
--- NOTE | 2016-08-05 16:30 | Progress Note ---
Assessment and Plan Assessment and plan: Acute left foot gangrene * s/p left lower extremity angioplasty on 07/22 and 07/26 * Had amputation left first toe and partial amputation left third toe 07/30/[address] Valencia, cartridge gauger. * Wound cultures show Enterobacter and Proteus mirabilis. Continue cefepime IV and Flagyl by mouth by ID physician. * Probably discharge home in a few days End-stage renal disease on dialysis * Nephrology managing Ileus with nausea and vomiting x 2 days Repeat abdominal x-ray shows ileus has resolved. Flagyl is being discontinued as possible source of nausea vomiting Zofran iv prn. Improving. No vomiting today Hypertension, benign essentiaL * Continue to monitor BP, * On amlodipine and labetalol Diabetes mellitus type 2 * A1c 8.1 * Continue consistent carbohydrate diet and sliding scale of insulin Peripheral vascular disease * s/p left lower extremity angioplasty on 07/22 and 07/26 * Vascular following Anemia of chronic kidney disease Full code status. His position. Discussed with ID physician. Still awaiting pathology report to determine antibiotics and duration of treatment. History Interval history: Had amputation left first toe and partial amputation of left third toe on 07/30/16 , Less nausea and vomiting no more fever, mild pain at surgical site left foot, Wants to go home Hospitalist Physical - Physical exam Narrative exam: Gen: Not in acute distress HEENT: Normocephalic, atraumatic Neck :supple, no JVD Lungs:clear to auscultation bilaterally no crackles or wheeze Heart:S1 and S2 regular, no murmurs no gallop Abdomen:soft, non-tender, non-distended, normal bowel sounds Ext: Left foot covered with dressing, . Right BKA Neuro: Awake alert oriented x 3, non focal - Constitutional Vitals: Temp Pulse Resp BP Pulse Ox 98.0 F 49 L 20 176/87 98 08/05/16 14:35 08/05/16 14:35 08/05/16 14:35 08/05/16 14:35 08/04/16 08:00 Results - Labs CBC & Chem 7: 08/03/16 12:07 08/03/16 12:07 Labs: Laboratory Last Values WBC 4.9 K/mm3 (4.5-11.0) 08/03/16 12:07 RBC 2.89 M/mm3 (3.65-5.03) L 08/03/16 12:07 Hgb 8.3 gm/dl (11.8-15.2) L 08/03/16 12:07 Hct 25.7 % (35.5-45.6) L 08/03/16 12:07 MCV 89 fl (84-94) 08/03/16 12:07 MCH 29 pg (28-32) 08/03/16 12:07 MCHC 32 % (32-34) 08/03/16 12:07 RDW 20.5 % (13.2-15.2) H 08/03/16 12:07 Plt Count 393 K/mm3 (140-440) 08/03/16 12:07 Lymph % (Auto) 16.9 % (13.4-35.0) 07/28/16 06:37 [place] % (Auto) 8.7 % (0.0-7.3) H 07/28/16 06:37 Eos % (Auto) 6.7 % (0.0-4.3) H 07/28/16 06:37 Baso % (Auto) 1.2 % (0.0-1.8) 07/28/16 06:37 Lymph # 0.8 K/mm3 (1.2-5.4) L 07/28/16 06:37 [place] # 0.4 K/mm3 (0.0-0.8) 07/28/16 06:37 Eos # 0.3 K/mm3 (0.0-0.4) 07/28/16 06:37 Baso # 0.1 K/mm3 (0.0-0.1) 07/28/16 06:37 Add Manual Diff Complete 07/19/16 00:34 Total Counted 100 07/19/16 00:34 Seg Neutrophils % 66.5 % (40.0-70.0) 07/28/16 06:37 Seg Neuts % (Manual) 73.0 % (40.0-70.0) H 07/19/16 00:34 Band Neutrophils % 0 % 07/19/16 00:34 Lymphocytes % (Manual) 9.0 % (13.4-35.0) L 07/19/16 00:34 Reactive Lymphs % (Man) 0 % 07/19/16 00:34 Monocytes % (Manual) 15.0 % (0.0-7.3) H 07/19/16 00:34 Eosinophils % (Manual) 3.0 % (0.0-4.3) 07/19/16 00:34 Basophils % (Manual) 0 % (0.0-1.8) 07/19/16 00:34 Metamyelocytes % 0 % 07/19/16 00:34 Myelocytes % 0 % 07/19/16 00:34 Promyelocytes % 0 % 07/19/16 00:34 Blast Cells % 0 % 07/19/16 00:34 Nucleated RBC % Not Reportable 07/19/16 00:34 Seg Neutrophils # 3.2 K/mm3 (1.8-7.7) 07/28/16 06:37 Seg Neutrophils # Man 4.5 K/mm3 (1.8-7.7) 07/19/16 00:34 Band Neutrophils # 0.0 K/mm3 07/19/16 00:34 Lymphocytes # (Manual) 0.6 K/mm3 (1.2-5.4) L 07/19/16 00:34 Abs React Lymphs (Man) 0.0 K/mm3 07/19/16 00:34 Monocytes # (Manual) 0.9 K/mm3 (0.0-0.8) H 07/19/16 00:34 Eosinophils # (Manual) 0.2 K/mm3 (0.0-0.4) 07/19/16 00:34 Basophils # (Manual) 0.0 K/mm3 (0.0-0.1) 07/19/16 00:34 Metamyelocytes # 0.0 K/mm3 07/19/16 00:34 Myelocytes # 0.0 K/mm3 07/19/16 00:34 Promyelocytes # 0.0 K/mm3 07/19/16 00:34 Blast Cells # 0.0 K/mm3 07/19/16 00:34 WBC Morphology Not Reportable 07/19/16 00:34 Hypersegmented Neuts Not Reportable 07/19/16 00:34 Hyposegmented Neuts Not Reportable 07/19/16 00:34 Hypogranular Neuts Not Reportable 07/19/16 00:34 Smudge Cells Few 07/19/16 00:34 Toxic Granulation Not Reportable 07/19/16 00:34 Toxic Vacuolation Not Reportable 07/19/16 00:34 Dohle Bodies Not Reportable 07/19/16 00:34 Pelger-Huet Anomaly Not Reportable 07/19/16 00:34 Maria Eugenia Rods Not Reportable 07/19/16 00:34 Platelet Estimate Appears normal 07/19/16 00:34 Clumped Platelets Not Reportable 07/19/16 00:34 Plt Clumps, EDTA Not Reportable 07/19/16 00:34 Large Platelets Not Reportable 07/19/16 00:34 Giant Platelets Not Reportable 07/19/16 00:34 Platelet Satelliting Not Reportable 07/19/16 00:34 Plt Morphology Comment Not Reportable 07/19/16 00:34 RBC Morphology Not Reportable 07/19/16 00:34 Dimorphic RBCs Not Reportable 07/19/16 00:34 Polychromasia Not Reportable 07/19/16 00:34 Hypochromasia 1+ 07/19/16 00:34 Poikilocytosis Not Reportable 07/19/16 00:34 Anisocytosis 1+ 07/19/16 00:34 Microcytosis Not Reportable 07/19/16 00:34 Macrocytosis Not Reportable 07/19/16 00:34 Spherocytes Not Reportable 07/19/16 00:34 Pappenheimer Bodies Not Reportable 07/19/16 00:34 Sickle Cells Not Reportable 07/19/16 00:34 Target Cells Not Reportable 07/19/16 00:34 Tear Drop Cells Not Reportable 07/19/16 00:34 Ovalocytes Not Reportable 07/19/16 00:34 Helmet Cells Not Reportable 07/19/16 00:34 [place] Bodies Not Reportable 07/19/16 00:34 [place] Rings Not Reportable 07/19/16 00:34 [place] Cells Not Reportable 07/19/16 00:34 Bite Cells Not Reportable 07/19/16 00:34 Crenated Cell Not Reportable 07/19/16 00:34 Elliptocytes Not Reportable 07/19/16 00:34 Acanthocytes (Spur) Not Reportable 07/19/16 00:34 Rouleaux Not Reportable 07/19/16 00:34 Hemoglobin C Crystals Not Reportable 07/19/16 00:34 Schistocytes Not Reportable 07/19/16 00:34 Malaria parasites Not Reportable 07/19/16 00:34 Ronal Bodies Not Reportable 07/19/16 00:34 Hem Pathologist Commnt No 07/19/16 00:34 PT 14.7 Sec. (12.2-14.9) 07/19/16 08:29 INR 1.16 (0.87-1.13) H 07/19/16 08:29 APTT 44.8 Sec. (24.2-36.6) H 07/19/16 08:29 Sodium 137 mmol/L (137-145) 08/03/16 12:07 Potassium 4.6 mmol/L (3.6-5.0) 08/03/16 12:07 Chloride 93.4 mmol/L (98-107) L 08/03/16 12:07 Carbon Dioxide 29 mmol/L (22-30) 08/03/16 12:07 Anion Gap 19 mmol/L 08/03/16 12:07 BUN 23 mg/dL (9-20) H 08/03/16 12:07 Creatinine 6.4 mg/dL (0.8-1.5) H 08/03/16 12:07 Estimated GFR 11 ml/min 08/03/16 12:07 BUN/Creatinine Ratio 3.59 % 08/03/16 12:07 Glucose 114 mg/dL (75-100) H 08/03/16 12:07 POC Glucose 202 (70-105) H 08/04/16 12:42 Lactic Acid 0.7 mmol/L (0.7-2.0) 07/19/16 08:29 Calcium 8.6 mg/dL (8.4-10.2) 08/03/16 12:07 Phosphorus 4.9 mg/dL (2.5-4.5) H 08/03/16 12:29 Total Bilirubin 0.3 mg/dL (0.1-1.2) 08/03/16 12:07 Direct Bilirubin 0.2 mg/dL (0-0.2) 07/19/16 08:29 Indirect Bilirubin 0.4 mg/dL 07/19/16 08:29 AST 8 units/L (5-40) 08/03/16 12:07 ALT < 5 units/L (7-56) L 08/03/16 12:07 Alkaline Phosphatase 105 units/L (35-129) 08/03/16 12:07 NT-Pro-B Natriuret Pep 09279 pg/mL (0-900) H 07/19/16 08:29 Total Protein 7.8 g/dL (6.3-8.2) 08/03/16 12:07 Albumin 3.1 g/dL (3.9-5) L 08/03/16 12:07 Albumin/Globulin Ratio 0.7 % 08/03/16 12:07 Amylase 68 units/L (27-131) 08/03/16 12:07 Lipase 25 units/L (13-60) 08/03/16 12:07 Random Vancomycin 15.8 ug/mL (0-40.0) 07/22/16 04:34 Miscellaneous Test Flexitest 1 (()) 07/23/16 18:40 Blood Type A POSITIVE 07/22/16 04:34 Antibody Screen Negative 07/22/16 04:34
[2016-08-05] MEDS: HALFPRIN EC PO SCH (16:52)
[2016-08-05] MEDS: PROTONIX PO SCH (16:52)
[2016-08-05] MEDS: NORVASC PO SCH (16:52)
[2016-08-05] MEDS: PLAVIX PO SCH (16:52)
[2016-08-05] MEDS: MAXIPIME/NS 2 GM/100 ML 100 ML IV SCH (17:51)
[2016-08-05] MEDS: ZOCOR PO SCH (22:14)
[2016-08-06] MEDS: ZOFRAN IV PRN (01:38)
[2016-08-06] MEDS: TESSALON PERLES PO SCH ×2 (07:07→16:53)
[2016-08-06] MEDS: HEPARIN SUB-Q SCH ×2 (07:08→16:53)
[2016-08-06] MEDS: MAXIPIME/NS 2 GM/100 ML 100 ML IV SCH (09:00)
[2016-08-06] MEDS: MUCINEX ER PO SCH (09:01)
[2016-08-06] MEDS: HALFPRIN EC PO SCH (09:01)
[2016-08-06] MEDS: BETADINE TP SCH (09:01)
[2016-08-06] MEDS: NORVASC PO SCH (09:02)
[2016-08-06] MEDS: PLAVIX PO SCH (09:02)
[2016-08-06] MEDS: NORMODYNE PO SCH (09:02)
[2016-08-06] MEDS: PROTONIX PO SCH (09:03)
--- NOTE | 2016-08-06 09:24 | Progress Note ---
Assessment and Plan - Patient Problems (1) ESRD (end stage renal disease) on dialysis Current Visit: Yes Status: Chronic (2) PAD (peripheral artery disease) Current Visit: Yes Status: Chronic (3) Diabetic gastroparesis Current Visit: No Status: Chronic (4) Hypertension Current Visit: No Status: Chronic (5) Anemia in ESRD (end-stage renal disease) Current Visit: No Status: Chronic (6) Diabetes Diagnosis Date: 12/01/13 Current Visit: No Status: Chronic Subjective Date of service: 08/06/16 Principal diagnosis: PVD with gangrene Objective - Vital Signs Vital signs: Vital Signs - 12hr 08/05/16 08/05/16 08/06/16 22:16 23:00 00:00 Temperature 97.0 F L Pulse Rate 68 Pulse Rate [ 68 72 From Monitor] Pulse Rate [ Left Radial] Respiratory 20 20 Rate Blood Pressure 134/59 Blood Pressure [Left Arm] Blood Pressure 128/66 [Right Arm] O2 Sat by Pulse 98 97 Oximetry 08/06/16 08:02 Temperature 98.2 F Pulse Rate Pulse Rate [ From Monitor] Pulse Rate [ 65 Left Radial] Respiratory 18 Rate Blood Pressure Blood Pressure 135/60 [Left Arm] Blood Pressure [Right Arm] O2 Sat by Pulse 100 Oximetry - Lab 08/03/16 12:07 08/03/16 12:07 Most recent lab results Calcium 8.6 mg/dL (8.4-10.2) 08/03/16 12:07 Phosphorus 4.9 mg/dL (2.5-4.5) H 08/03/16 12:29
--- NOTE | 2016-08-06 09:28 | Progress Note ---
Assessment and Plan Current antibiotics: Cefepime 2Gm IV Q24 08/01-> Previous antibiotics: Flagyl 500 mg by mouth every 8H (08/01 - 08/05) )Zosyn 2.25 gm IV q8h 07/29 --> 08/01 Augmentin 875 mg po BID Zosyn 2.25 gm IV q8h 07/21-07/23 Vancomycin pulse dosing (07/19-07/23) ASSESSMENT: Brando Oconnor is a 70 year old man with ESRD on chronic HD via a left chest wall permacath, type 2 DM and PVD (s/p right below knee amputation) who was admitted to [facility] on 07/19/16 with one month of worsening ischemic changes of left foot with great toe dry gangrene and he underwent left leg angioplasty (posterior tibial artery, proximal posterior tibial artery and distal popliteal) on 07/22. Problem list: 1. Peripheral vascular disease -Dry gangrene of the left great toe with some purulent drainage now. Fairly resistant Enterobacter cloacae (Zosyn intermediate) and fairly sensitive Proteus mirabilis growing on superficial culture. -Status post amputation of the left great toe and partial amputation of the left third toe 07/30/16. Surgical cultures showed that the Enterobacter is now Zosyn resistant. -Significance of the surgical cultures with no white cells seen and only scant growth is unclear. -Status post left lower extremity angioplasty 07/22 -Status post right BKA 2. End-stage renal failure -Maintenance hemodialysis 3. Type 2 diabetes mellitus 4. Chronic anemia 5. Nausea - ? Flagyl po worsening. - Evidence of obstipation by plain x-ray ( 08/05/16) PLAN: 1. Continue IV cefepime. This can be given in HD if D/C planned.( 2gr/2gr/3gr on Mon-Wed-Fri HD schedule) 2. Await surgical pathology ( Undergoing de-calcification) - ? Amputation margin clean? 3. Length of therapy to be determined by clinical course and pathology findings 4. Suggest continued follow off flagyl 5. Glycemic control as per primary team Subjective Date of service: 08/06/16 Principal diagnosis: PVD with gangrene Interval history: Much more pleasant this morning. Complains of persistent nausea despite stopping Flagyl yesterday. Objective - Exam Narrative Exam: GENERAL: Well-developed, well-nourished appearing who is alert and in no acute distress. HEAD: Normocephalic. No lesions seen. EYES: Pupils are equal reactive to light and accommodation. There is no scleral icterus. Optic fundi are not examined. EARS: There is no external drainage THROAT: Oropharynx is normal with no evidence of oral candidiasis or pharyngitis. NECK: Supple. No enlargement of the thyroid gland. No significant cervical lymphadenopathy. No jugular venous distention at 30. LUNGS: Clear with no adventitious sounds. CHEST: PermCath without signs of infection. HEART: Regular rate. S1 and S2 are normal. There are no gallops, clicks or rubs heard. Grade II/ KEE heard best over the left upper sternal border. No diastolic murmur. ABDOMEN: Soft and nontender. Liver and spleen are not palpably enlarged or tender. No palpable masses. Bowel sounds are normoactive. EXTREMITIES: Left foot dressing was not removed today. Status post right BKA with stump well healed with no signs of infection nor ischemia. NEUROLOGIC: No focal findings. - Constitutional Vitals: Vital Signs Temp Pulse Resp BP Pulse Ox 98.2 F 65 18 135/60 100 08/06/16 08:02 08/06/16 08:02 08/06/16 08:02 08/06/16 08:02 08/06/16 08:02 Temperature -Last 24 Hours Temperature 98.2 F Temperature 97.0 F Temperature 97.4 F Temperature 98.3 F Temperature 98.0 F Temperature 98.4 F - Labs CBC & Chem 7: 08/03/16 12:07 08/03/16 12:07 Labs: Abnormal lab results 08/02/16 08/05/16 08/05/16 Range/Units 12:09 16:17 21:52 POC Glucose 119 H 248 H 132 H (70-105) 08/06/16 Range/Units 06:13 POC Glucose 117 H (70-105)
--- NOTE | 2016-08-06 14:13 | Discharge Summary ---
Providers - Providers Date of Admission: 07/19/16 08:46 Date of discharge: 08/06/16 Attending physician: ANGIE SILVA 07/20/16 07:46 Consult to Physician [CONS] Routine Consulting Provider: TIFFANIE MUNOZ Reason For Exam: ischemic foot Place consult to:: Vascular surgery/DR. MUNOZ Notified:: DR. MUNOZ Phone number called:: [phone] Was contact made?: Yes If yes, spoke with:: TED/DR. LLOYD Time called:: 09:30 Comment:: PAT NOTIFIED 07/20/16 07:49 Consult to Physician [CONS] Routine Consulting Provider: HILARIO BIRMINGHAM Reason For Exam: ESRD Place consult to:: Nephrology Notified:: DR. SLADE Time called:: 09:00 Comment:: ROBERT DIAYLSIS NURSE SPOKE WITH DR. SLADE 07/22/16 14:51 Consult to Cardiac Rehabilitation [CONS] Routine Reason For Exam: Cardiac Rehab Evaluation 07/23/16 09:11 Consult to Physician [CONS] Routine Consulting Provider: NOEL ESCOTO Reason For Exam: left foot gangrene Place consult to:: on-call ID Notified:: office Phone number called:: [phone] Was contact made?: Yes If yes, spoke with:: tin Time called:: 09:23 07/27/16 15:14 Consult to Physician [CONS] Routine Consulting Provider: ANA PAULA KIM Reason For Exam: left lower extremity gangrene ; tma +/- flap vs fl Place consult to:: DR. KIM Notified:: ANSWERING SERVICE Phone number called:: [phone] Was contact made?: Yes Time called:: 17:17 Comment:: COMPLETED - MYRON Primary care physician: MARINE DESIGNER Hospitalization Condition: Stable Disposition: DC/TX HOME UNDER HOME HEALTH Core Measure Documentation - Palliative Care Palliative Care/ Comfort Measures: Not Applicable - Core Measures Any of the following diagnoses?: none Exam - Constitutional Vitals: Temp Pulse Resp BP Pulse Ox 98.2 F 65 18 135/60 100 08/06/16 08:02 08/06/16 08:02 08/06/16 08:02 08/06/16 08:02 08/06/16 08:02 General appearance: Present: no acute distress, well-nourished - EENT Eyes: Present: PERRL, EOM intact - Neck Neck: Present: supple, normal ROM - Respiratory Respiratory effort: normal Respiratory: bilateral: diminished, negative: rales, rhonchi, wheezing - Cardiovascular Rhythm: regular Heart Sounds: Present: S1 & S2 - Extremities Extremities: No edema, abnormal (right BKA, third toe amputation, dressing in place) - Abdominal General gastrointestinal: Present: soft, non-tender, non-distended, normal bowel sounds - Integumentary Integumentary: Present: clear, warm - Musculoskeletal Musculoskeletal: strength equal bilaterally - Psychiatric Psychiatric: appropriate mood/affect, cooperative - Neurologic Neurologic: CNII-XII intact, moves all extremities Plan Activity: advance as tolerated Diet: renal Wound: per wound nurse instructions Special Instructions: physical therapy, occupational therapy, home health RN Additional Instructions: Renal/hemodialysis per scheduled. IV anti-biotics during hemodialysis as recommended by ID. IV cefepime 2 g during dialysis on Friday and Friday. IV cefepime 3 g during dialysis on Friday Follow up with: PRIMARY CARE, [Primary Care Provider] - 3-5 Days AYSE HU MD [Staff Physician] - 7 Days NOEL ESCOTO MD [Staff Physician] - 7 Days ANA PAULA KIM DPM [Staff Physician] - 7 Days Prescriptions: Clopidogrel [Plavix] 75 mg PO QDAY #30 tablet amLODIPine [Norvasc] 5 mg PO DAILY #60 tablet guaiFENesin ER [Mucinex ER] 600 mg PO BID #20 tablet oxyCODONE /ACETAMINOPHEN [Percocet 5/325 mg] 1 tab PO Q6H PRN #20 tablet PRN Reason: Pain, Moderate (4-6)
[2016-08-06 15:51] VITALS: BP 120/58
== END 2016-08-06 19:42 | disposition home health service (06) | DRG 250 ==
LOC: ED → 3A 08:46
PROVIDERS: ADMIT Internal Medicine; ATTEND Internal Medicine
PROC: 047N3Z1 Dilation of Left Popliteal Artery using Drug-Coated Balloon, Percutaneous Approach (ICD-10-PCS; 2016-07-22)
PROC: B4101ZZ Fluoroscopy of Abdominal Aorta using Low Osmolar Contrast (ICD-10-PCS; 2016-07-22)
PROC: 04HK33Z Insertion of Infusion Device into Right Femoral Artery, Percutaneous Approach (ICD-10-PCS; 2016-07-22)
PROC: 047S3ZZ Dilation of Left Posterior Tibial Artery, Percutaneous Approach (ICD-10-PCS; 2016-07-22)
PROC: 02703ZZ Dilation of Coronary Artery, One Artery, Percutaneous Approach (ICD-10-PCS; principal; 2016-07-26)
PROC: 047Q3ZZ Dilation of Left Anterior Tibial Artery, Percutaneous Approach (ICD-10-PCS; 2016-07-26)
PROC: 047S3ZZ Dilation of Left Posterior Tibial Artery, Percutaneous Approach (ICD-10-PCS; 2016-07-26)
PROC: 047N3ZZ Dilation of Left Popliteal Artery, Percutaneous Approach (ICD-10-PCS; 2016-07-26)
PROC: B41F1ZZ Fluoroscopy of Right Lower Extremity Arteries using Low Osmolar Contrast (ICD-10-PCS; 2016-07-26)
PROC: B4101ZZ Fluoroscopy of Abdominal Aorta using Low Osmolar Contrast (ICD-10-PCS; 2016-07-26)
PROC: 0Y6Q0Z0 Detachment at Left 1st Toe, Complete, Open Approach (ICD-10-PCS; 2016-07-30)
PROC: 5A1D60Z (ICD-10-PCS; 2016-07-31)
DX: E11.52 Type 2 diabetes mellitus with diabetic peripheral angiopathy with gangrene (principal); N18.6 End stage renal disease; L97.519 Non-pressure chronic ulcer of other part of right foot with unspecified severity; E11.621 Type 2 diabetes mellitus with foot ulcer; E11.22 Type 2 diabetes mellitus with diabetic chronic kidney disease; E11.65 Type 2 diabetes mellitus with hyperglycemia; F17.200 Nicotine dependence, unspecified, uncomplicated; I13.2 Hypertensive heart and chronic kidney disease with heart failure and with stage 5 chronic kidney disease, or end stage renal disease; E11.51 Type 2 diabetes mellitus with diabetic peripheral angiopathy without gangrene; N25.81 Secondary hyperparathyroidism of renal origin; D63.1 Anemia in chronic kidney disease; D70.9 Neutropenia, unspecified; Z79.4 Long term (current) use of insulin; Z79.899 Other long term (current) drug therapy; Z88.8 Allergy status to other drugs, medicaments and biological substances; I25.2 Old myocardial infarction; Z89.511 Acquired absence of right leg below knee; Z98.890 Other specified postprocedural states; Z83.3 Family history of diabetes mellitus; Z82.49 Family history of ischemic heart disease and other diseases of the circulatory system; Z99.2 Dependence on renal dialysis
CPT/HCPCS: 36415; 37224; 37228; 37232; 71010; 73721; 74000; 74020; 75625; 75710; 76937; 80048; 80053; 80074; 80202; 82140; 82150; 82270; 82962; 83690; 83880; 84100; 85007; 85014; 85018; 85025; 85027; 85610; 85730; 86850; 86900; 86901; 87040; 87075; 87076; 87116; 87186; 88302; 88305; 88311; 93005; 93010; 94640; 96365; 96375; C1725; C1760; C1769; C1887; J0690; J0692; J1644; J2250; J2270; J2405; J2543; J3010; J3370; J7030; J7040; Q9967

== ENCOUNTER 2016-09-27 16:59 | Inpatient (IN) | payer MEDICARE, MEDICAID ==
[2016-09-27 17:46] LABS: Basophils % (Auto) 1.6 % (0.0-1.8); Eosinophils % (Auto) 0.8 % (0.0-4.3); Hematocrit 35.3 % (35.5-45.6); Hemoglobin 11.5 gm/dl (11.8-15.2); Mean Corpuscular HGB Conc 33 % (32-34); Mean Corpuscular Hemoglobin 28 pg (28-32); Mean Corpuscular Volume 87 fl (84-94); Platelet Count 214 K/mm3 (140-440); Red Blood Count 4.06 M/mm3 (3.65-5.03); White Blood Count 2.7 K/mm3 (4.5-11.0)
[2016-09-27 18:03] LABS: BUN/Creatinine Ratio 4.65; Calcium 8.4 mg/dL (8.4-10.2); Chloride 90.1 mmol/L (98-107)
[2016-09-27 18:48] LABS: Potassium 2.9 mmol/L (3.6-5.0)
[2016-09-27] MEDS ORDERED: APRESOLINE IV ONE (19:33)
[2016-09-27] MEDS ORDERED: BENTYL PO ONE (19:34)
--- NOTE | 2016-09-27 19:36 | Emergency Department Report ---
ED General Adult HPI - General Chief complaint: High BP Stated complaint: NAUSEA/VOMITING X1 DAY Time Seen by Provider: 09/27/16 19:15 Source: patient, RN notes reviewed, old records reviewed Mode of arrival: Wheelchair Limitations: Physical Limitation - History of Present Illness Initial comments: This is a 70-year-old male. He is previously unknown to me. Vascular surgeon is Dr. Nicholas. Granulator Tender Dr. Toscano. Past medical history includes end-stage renal disease on dialysis, Friday, Friday, Friday. Also has hypertension, anemia of chronic disease, peripheral artery disease. Patient presents to the ER complaining of abdominal pain, nausea, vomiting, inability to tolerate liquid feeds, back pain, generalized weakness. No fevers or chills. No chest pain. Chronic shortness of breath, which is not new, worsening or different. Patient was admitted to the hospital in June, had surgical procedure performed on this left foot, patient reports that he is not following up with vascular surgery, that he is not getting wound care, and he is taking care of the wound itself. In July 2016, he had a wound culture which grew out Proteus Mirabella's, and Enterobacter cloacae; both of which were sensitive to Levaquin. Upon arrival to the ER, patient found to have a low-grade temperature, refused rectal temperature. Head profuse nausea and vomiting, difficulty with tolerating liquid feeds. X- ray of the chest and CT scan suggested large pleural effusions. Patient found to be hypokalemic. Left lower extremity noted to be necrotic, with wound dehiscence, and some purulent discharge. Case was discussed with vascular surgery, Dr. Nicholas. Based on previous culture results, patient will be treated empirically with Levaquin. He is afebrile, therefore only wound cultures will be sent, I will not send blood cultures. Given his obviously infected foot, elevated blood pressure, symptomatic pleural effusions, patient will be admitted for further management. I am currently waiting callback from his covering tail puller. -: Gradual Location: back, abdomen Severity scale (0 -10): 10 Quality: aching Consistency: constant Improves with: none Worsens with: none Associated Symptoms: cough, loss of appetite, malaise, nausea/vomiting, weakness - Related Data Home Medications Medication Instructions Recorded Confirmed Last Taken Simvastatin [Zocor TAB] 20 mg PO QHS 07/20/16 09/28/16 07/19/16 Previous Rx's Medication Instructions Recorded Last Taken Type Labetalol [Normodyne TAB] 300 mg PO BID #60 tablet 03/19/14 Unknown Rx Aspirin EC [Aspirin Enteric Coated 81 mg PO QDAY tablet 08/06/16 Unknown Rx TAB] Clopidogrel [Plavix] 75 mg PO QDAY #30 tablet 08/06/16 Unknown Rx amLODIPine [Norvasc] 5 mg PO DAILY #60 tablet 08/06/16 1 Day Ago Rx guaiFENesin ER [Mucinex ER] 600 mg PO BID #20 tablet 08/06/16 Unknown Rx oxyCODONE /ACETAMINOPHEN [Percocet 1 tab PO Q6H PRN #20 tablet 08/06/16 Unknown Rx 5/325 mg] Allergies Allergy/AdvReac Type Severity Reaction Status Date / Time hydrocodone bitartrate AdvReac SWEAT/CRAMP Verified 03/15/15 15:37 [From Vicodin] ED Review of Systems ROS: Stated complaint: NAUSEA/VOMITING X1 DAY Other details as noted in HPI Constitutional: malaise Eyes: denies: vision change ENT: denies: epistaxis Respiratory: cough Gastrointestinal: abdominal pain, nausea, vomiting Genitourinary: as per HPI Musculoskeletal: back pain Skin: lesions Neurological: as per HPI Psychiatric: as per HPI ED Past Medical Hx - Past Medical History Hx Hypertension: Yes Hx Heart Attack/AMI: Yes Hx Congestive Heart Failure: Yes Hx Diabetes: Yes Hx Renal Disease: Yes (M-W-F) Hx Arthritis: Yes Hx HIV: No - Surgical History Additional Surgical History: Right BKA & r wrist. Vas cath R chest-REMOVED. GRAFT LEFT UPPER ARM - Social History Smoking Status: Current Every Day Smoker Substance Use Type: Marijuana - Medications Home Medications: Home Medications Medication Instructions Recorded Confirmed Last Taken Type Labetalol [Normodyne TAB] 300 mg PO BID #60 tablet 03/19/14 09/28/16 Unknown Rx Simvastatin [Zocor TAB] 20 mg PO QHS 07/20/16 09/28/16 07/19/16 History Aspirin EC [Aspirin Enteric Coated 81 mg PO QDAY tablet 08/06/16 09/28/16 Unknown Rx TAB] Clopidogrel [Plavix] 75 mg PO QDAY #30 tablet 08/06/16 09/28/16 Unknown Rx amLODIPine [Norvasc] 5 mg PO DAILY #60 tablet 08/06/16 09/28/16 1 Day Ago Rx guaiFENesin ER [Mucinex ER] 600 mg PO BID #20 tablet 08/06/16 09/28/16 Unknown Rx oxyCODONE /ACETAMINOPHEN [Percocet 1 tab PO Q6H PRN #20 tablet 08/06/16 Unknown Rx 5/325 mg] ED Physical Exam - General Limitations: No Limitations General appearance: alert - Head Head exam: Present: atraumatic, normocephalic - Eye Eye exam: Present: normal appearance - ENT ENT exam: Present: normal exam, normal orophraynx, mucous membranes moist, normal external ear exam - Neck Neck exam: Present: normal inspection, full ROM. Absent: tenderness, meningismus - Respiratory Respiratory exam: Present: rhonchi. Absent: respiratory distress - Cardiovascular Cardiovascular Exam: Present: regular rate, normal rhythm, normal heart sounds. Absent: bradycardia, tachycardia, irregular rhythm, systolic murmur, diastolic murmur, rubs, gallop - GI/Abdominal GI/Abdominal exam: Present: soft, tenderness, normal bowel sounds, other (there is mild diffuse abdominal tenderness. There is no rebound, guarding or peritoneal signs. There is no right upper quadrant tenderness. There is negative Pierson sign.). Absent: distended, guarding, rebound, rigid, pulsatile mass - Rectal Rectal exam: Present: deferred - Extremities Exam Extremities exam: Present: full ROM, other (the right lower extremity is status post amputation. Left lower extremity demonstrates wound dehiscence on the medial aspect of the left foot. There is purulent discharge noted. There is blackened tissue noted. thready pulses are noted.) - Back Exam Back exam: Present: normal inspection, full ROM, paraspinal tenderness. Absent : tenderness, CVA tenderness (R), CVA tenderness (L), muscle spasm - Neurological Exam Neurological exam: Present: alert, oriented X3, other (Extraocular movements intact. Tongue midline. No facial droop. Facial sensation intact to light touch in the V1, V2, V3 distribution bilaterally. 5 and 5 strength in 4 extremities.. Sensation is intact to light touch in 4 extremities.). Absent: motor sensory deficit - Psychiatric Psychiatric exam: Present: normal affect, normal mood - Skin Skin exam: Present: warm, dry, intact, normal color. Absent: rash ED Course Vital Signs 09/27/16 09/27/16 09/27/16 17:15 18:15 18:20 Temperature 99.4 F Pulse Rate 91 H 86 91 H Respiratory 18 13 28 H Rate Blood Pressure 240/101 186/95 Blood Pressure [Right] O2 Sat by Pulse 100 Oximetry 09/27/16 09/27/16 09/27/16 18:21 18:30 18:40 Temperature Pulse Rate 90 87 Respiratory 20 19 23 Rate Blood Pressure 186/95 208/100 Blood Pressure [Right] O2 Sat by Pulse Oximetry 09/27/16 09/27/16 09/27/16 18:50 19:00 19:10 Temperature Pulse Rate 85 89 91 H Respiratory 18 18 16 Rate Blood Pressure 200/98 214/127 205/105 Blood Pressure [Right] O2 Sat by Pulse Oximetry 09/27/16 09/27/16 09/27/16 19:16 19:21 19:48 Temperature 98.1 F 98.8 F Pulse Rate 88 87 Respiratory 27 H 16 Rate Blood Pressure 209/100 Blood Pressure 205/105 [Right] O2 Sat by Pulse 98 Oximetry 09/27/16 09/27/16 20:00 22:04 Temperature Pulse Rate 89 98 H Respiratory 18 Rate Blood Pressure 160/110 Blood Pressure 179/87 [Right] O2 Sat by Pulse 98 Oximetry - Reevaluation(s) Reevaluation #1: 09/27/16 22:10 case discussed with covering tail puller, Dr. Giron, agrees with plan, she will see the patient as a consult in the morning. ED Medical Decision Making - Lab Data Result diagrams: 09/27/16 17:28 09/30/16 08:41 Vital Signs 09/27/16 09/27/16 09/27/16 17:15 18:15 18:20 Temperature 99.4 F Pulse Rate 91 H 86 91 H Respiratory 18 13 28 H Rate Blood Pressure 240/101 186/95 Blood Pressure [Right] O2 Sat by Pulse 100 Oximetry 09/27/16 09/27/16 09/27/16 18:21 18:30 18:40 Temperature Pulse Rate 90 87 Respiratory 20 19 23 Rate Blood Pressure 186/95 208/100 Blood Pressure [Right] O2 Sat by Pulse Oximetry 09/27/16 09/27/16 09/27/16 18:50 19:00 19:10 Temperature Pulse Rate 85 89 91 H Respiratory 18 18 16 Rate Blood Pressure 200/98 214/127 205/105 Blood Pressure [Right] O2 Sat by Pulse Oximetry 09/27/16 09/27/16 09/27/16 19:16 19:21 19:48 Temperature 98.1 F 98.8 F Pulse Rate 88 87 Respiratory 27 H 16 Rate Blood Pressure 209/100 Blood Pressure 205/105 [Right] O2 Sat by Pulse 98 Oximetry 09/27/16 22:04 Temperature Pulse Rate 98 H Respiratory 18 Rate Blood Pressure Blood Pressure 179/87 [Right] O2 Sat by Pulse 98 Oximetry Lab Results 09/27/16 09/27/16 09/27/16 Range/Units 17:28 17:28 17:28 WBC 2.7 L (4.5-11.0) K/mm3 RBC 4.06 (3.65-5.03) M/mm3 Hgb 11.5 L (11.8-15.2) gm/dl Hct 35.3 L (35.5-45.6) % MCV 87 (84-94) fl MCH 28 (28-32) pg MCHC 33 (32-34) % RDW 19.0 H (13.2-15.2) % Plt Count 214 (140-440) K/mm3 Lymph % (Auto) 10.9 L (13.4-35.0) % Stone % (Auto) 13.0 H (0.0-7.3) % Eos % (Auto) 0.8 (0.0-4.3) % Baso % (Auto) 1.6 (0.0-1.8) % Lymph # 0.3 L (1.2-5.4) K/mm3 Stone # 0.4 (0.0-0.8) K/mm3 Eos # 0.0 (0.0-0.4) K/mm3 Baso # 0.0 (0.0-0.1) K/mm3 Seg Neutrophils % 73.7 H (40.0-70.0) % Seg Neutrophils # 2.0 (1.8-7.7) K/mm3 ESR 40 (0-20) mm/Hr Sodium 133 L (137-145) mmol/L Potassium 2.9 L* (3.6-5.0) mmol/L Chloride 90.1 L (98-107) mmol/L Carbon Dioxide 25 (22-30) mmol/L Anion Gap 21 mmol/L BUN 20 (9-20) mg/dL Creatinine 4.3 H (0.8-1.5) mg/dL Estimated GFR 17 ml/min BUN/Creatinine Ratio 4.65 % Glucose 120 H (75-100) mg/dL Calcium 8.4 (8.4-10.2) mg/dL Magnesium (1.7-2.3) mg/dL Total Creatine Kinase (55-170) units/L C-Reactive Protein (0.00-1.30) mg/dL Urine Color (Yellow) Urine Turbidity (Clear) Urine pH (5.0-7.0) Ur Specific Kennard (1.003-1.030) Urine Protein (Negative) mg/dL Urine Glucose (UA) (Negative) mg/dL Urine Ketones (Negative) mg/dL Urine Blood (Negative) Urine Nitrite (Negative) Urine Bilirubin (Negative) Urine Urobilinogen (<2.0) mg/dL Ur Leukocyte Esterase (Negative) Urine WBC (Auto) (0.0-6.0) /HPF Urine RBC (Auto) (0.0-6.0) /HPF U Epithel Cells (Auto) (0-13.0) /HPF Urine Bacteria (Auto) (Negative) /HPF Urine Mucus /HPF 09/27/16 09/27/16 Range/Units 17:28 19:50 WBC (4.5-11.0) K/mm3 RBC (3.65-5.03) M/mm3 Hgb (11.8-15.2) gm/dl Hct (35.5-45.6) % MCV (84-94) fl MCH (28-32) pg MCHC (32-34) % RDW (13.2-15.2) % Plt Count (140-440) K/mm3 Lymph % (Auto) (13.4-35.0) % Stone % (Auto) (0.0-7.3) % Eos % (Auto) (0.0-4.3) % Baso % (Auto) (0.0-1.8) % Lymph # (1.2-5.4) K/mm3 Stone # (0.0-0.8) K/mm3 Eos # (0.0-0.4) K/mm3 Baso # (0.0-0.1) K/mm3 Seg Neutrophils % (40.0-70.0) % Seg Neutrophils # (1.8-7.7) K/mm3 ESR (0-20) mm/Hr Sodium (137-145) mmol/L Potassium (3.6-5.0) mmol/L Chloride (98-107) mmol/L Carbon Dioxide (22-30) mmol/L Anion Gap mmol/L BUN (9-20) mg/dL Creatinine (0.8-1.5) mg/dL Estimated GFR ml/min BUN/Creatinine Ratio % Glucose (75-100) mg/dL Calcium (8.4-10.2) mg/dL Magnesium 1.8 (1.7-2.3) mg/dL Total Creatine Kinase 54 L (55-170) units/L C-Reactive Protein 3.70 H (0.00-1.30) mg/dL Urine Color Yellow (Yellow) Urine Turbidity Clear (Clear) Urine pH 7.0 (5.0-7.0) Ur Specific Kennard 1.013 (1.003-1.030) Urine Protein >500 (Negative) mg/dL Urine Glucose (UA) 50 (Negative) mg/dL Urine Ketones Tr (Negative) mg/dL Urine Blood Neg (Negative) Urine Nitrite Neg (Negative) Urine Bilirubin Neg (Negative) Urine Urobilinogen 2.0 (<2.0) mg/dL Ur Leukocyte Esterase Neg (Negative) Urine WBC (Auto) < 1.0 (0.0-6.0) /HPF Urine RBC (Auto) 5.0 (0.0-6.0) /HPF U Epithel Cells (Auto) < 1.0 (0-13.0) /HPF Urine Bacteria (Auto) 1+ (Negative) /HPF Urine Mucus Few /HPF - EKG Data 09/27/16 22:13 Normal sinus, 99 bpm, prolonged QTC at 456 ms, premature ventricular contractions noted, abnormal EKG, not morphologically consistent with STEMI. Appears essentially unchanged compared to prior EKG from June 2016. - Radiology Data Radiology results: report reviewed, image reviewed interpreted by me: Contrast CT scan of the abdomen and pelvis demonstrates large bilateral pleural effusions. There is cholelithiasis. There is no CT evidence of cholecystitis. X-ray of the chest demonstrates left-sided vascular catheter. Bilateral large pleural effusions are noted. Critical care attestation.: If time is entered above; I have spent that time in minutes in the direct care of this critically ill patient, excluding procedure time. ED Disposition Clinical Impression: ESRD (end stage renal disease) on dialysis, Vomiting, Gangrene of foot, Diabetic gastroparesis Disposition: OP ADMITTED IP TO THIS HOSP Is pt being admited?: Yes Does the pt Need Aspirin: No Condition: Fair
[2016-09-27] MEDS ORDERED: LEVAQUIN 750MG/150ML 750 MG/150 ML BAG IV ONE (19:57)
[2016-09-27] MEDS ORDERED: REGLAN IV ONE (20:19)
[2016-09-27 20:22] LABS: Bacteria,Urine 1+ /HPF (Negative); Bilirubin,Urine NEG (Negative); Blood,Urine NEG (Negative); Ketones,Urine TR mg/dL (Negative); Leukocyte Esterase,Urine NEG (Negative); Mucus,Urine FEW /HPF; Nitrite,Urine NEG (Negative); Protein,Urine >500 mg/dL (Negative); WBC,Urine < 1.0 /HPF (0.0-6.0)
[2016-09-27 21:04] LABS: C-Reactive Protein 3.7 mg/dL (0.00-1.30); Magnesium 1.8 mg/dL (1.7-2.3)
--- NOTE | 2016-09-27 21:08 | Cat Scan Report ---
FINAL REPORT EXAM: CT ABDOMEN PELVIS WO CON HISTORY: abd pain n/v TECHNIQUE: Helical CT scan through the abdomen and pelvis without contrast. Images are reconstructed in the sagittal and coronal planes. PRIORS: 06/20/2016 FINDINGS: Solid organ and bowel evaluation is limited without intravenous contrast. Bowel evaluation is limited without oral contrast. Images through the lower chest show large bilateral pleural effusions, increased in size from the comparison exam. There is associated bibasilar subsegmental atelectasis. The liver, pancreas and adrenal glands appear normal. There are tiny calcifications in a dependent location of an otherwise normal-appearing gallbladder consistent with small stones. There are calcifications in the spleen consistent with old granulomatous disease. The kidneys appear grossly normal. The pelvic organs appear grossly normal. The stomach appears grossly within normal limits. There are no abnormally dilated loops of bowel or acute inflammatory changes. A normal-appearing appendix is identified. The abdominal aorta has a normal diameter. There is diffuse atherosclerotic calcification. There are degenerative changes of left hip with subchondral cyst formation in the femoral head. There is osteophyte formation on both sides of the joint. There is degenerative disc disease at L4-5 and L5-S1. The lower thoracic and lumbar vertebrae are normal in height. IMPRESSION: 1. Large bilateral pleural effusions, increased from the previous exam. Associated bibasilar subsegmental atelectasis. 2. Cholelithiasis. No CT evidence of acute cholecystitis 3. Osteoarthrosis of the left hip and degenerative disc disease of lumbar spine
[2016-09-27] MEDS: KCL 10MEQ/100ML 10 MEQ/100 ML BAG IV SCH (21:30)
[2016-09-27 23:52] LABS: Albumin 3.5 g/dL (3.9-5); Albumin/Globulin Ratio 0.9 %; Bilirubin,Direct 0.3 mg/dL (0-0.2); Bilirubin,Indirect 0.4 mg/dL; Bilirubin,Total 0.7 mg/dL (0.1-1.2); Total Protein 7.4 g/dL (6.3-8.2)
[2016-09-28] MEDS ORDERED: APRESOLINE IV PRN (00:17)
[2016-09-28] MEDS: ATIVAN IV PRN ×2 (00:59→22:31)
[2016-09-28] MEDS: AMBIEN PO PRN (01:00)
[2016-09-28] MEDS: KCL 10MEQ/100ML 10 MEQ/100 ML BAG IV SCH (02:29)
[2016-09-28] MEDS ORDERED: ALUM-MAG HYDROX-SIMETH 200-200-20MG/5ML PO PRN (05:15)
[2016-09-28] MEDS: ZOFRAN IV PRN (05:42)
--- NOTE | 2016-09-28 10:00 | XRay Report ---
AP CHEST: HISTORY: Cough Mild vascular congestion is appreciated. Heart size is within normal limits. No evidence for consolidation, large pleural effusion or pneumothorax. Left IJ venous catheter terminates in the mid to lower SVC. IMPRESSION: Mild pulmonary venous congestion. Correlate for mild volume overload.
--- NOTE | 2016-09-28 10:03 | XRay Report ---
LEFT FOOT, 2 VIEWS History: Left foot pain, wound, swelling. Findings: Compared to the MRI left foot dated 07/30/16. Most of the first metatarsal has been amputated since the previous exam. Multiple other amputations in the distal foot are unchanged. There appears to be a large soft tissue ulceration in the medial, distal left foot. No obvious bony destruction or periostitis to suggest osteomyelitis. Osteopenia and vascular calcifications are noted. Impression: Soft tissue/postsurgical findings as described. No convincing evidence for osteomyelitis on x-ray. If further evaluation is needed repeat MRI is recommended.
--- NOTE | 2016-09-28 15:21 | Consultation ---
History of Present Illness - Reason for Consult Consult date: 09/28/16 LLE wound Requesting physician: ARNOLDO BUNCH - History of Present Illness 70-year-old male with end-stage renal disease with indwelling PermCath with severe peripheral vascular disease complicated by gangrene of his left lower extremity and right lower extremity prior major amputation During his last admission the patient underwent left lower extremity pedal loop and tibial revascularization and minor amputation with flap placement in an attempt to salvage his left lower extremity. The patient is extremely noncompliant, did not take his aspirin or Plavix since discharge, and has not followed up with [facility] vascular once since discharge. He only poorly followed up with Dr. Valencia, his reel assembler, after numerous phone calls were made, and did not follow-up once he had dehiscence of his wound. Patient now represents to the ER with numerous complaints including cough, abdominal pain, nausea, vomiting, inability to tolerate liquid feeds, back pain , generalized weakness, and has partial dehiscence of his left foot wound. CT scan demonstrates bilateral pleural effusions. The patient reports that he "feels sick" and cannot breathe well and feels short of breath. Past History Past Medical History: dialysis, hypertension, hyperlipidemia, PVD, renal failure Past Surgical History: Other (LLE revascularization and flap/minor amputation) Social history: lives with family Family history: other (non contributory) Medications and Allergies Allergies Allergy/AdvReac Type Severity Reaction Status Date / Time hydrocodone bitartrate AdvReac SWEAT/CRAMP Verified 03/15/15 15:37 [From Vicodin] Home Medications Medication Instructions Recorded Confirmed Last Taken Type Labetalol [Normodyne TAB] 300 mg PO BID #60 tablet 03/19/14 09/28/16 Unknown Rx Simvastatin [Zocor TAB] 20 mg PO QHS 07/20/16 09/28/16 07/19/16 History Aspirin EC [Aspirin Enteric Coated 81 mg PO QDAY tablet 08/06/16 09/28/16 Unknown Rx TAB] Clopidogrel [Plavix] 75 mg PO QDAY #30 tablet 08/06/16 09/28/16 Unknown Rx amLODIPine [Norvasc] 5 mg PO DAILY #60 tablet 08/06/16 09/28/16 1 Day Ago Rx guaiFENesin ER [Mucinex ER] 600 mg PO BID #20 tablet 08/06/16 09/28/16 Unknown Rx oxyCODONE /ACETAMINOPHEN [Percocet 1 tab PO Q6H PRN #20 tablet 08/06/16 Unknown Rx 5/325 mg] Active Meds: Active Medications Al Hydrox/Mg Hydrox/Simethicone (Alum-Mag Hydrox-Simeth [id number]/5ml) 30 ml PO Q4H PRN PRN Reason: Indigestion Last Admin: 09/28/16 05:37 Dose: 30 ml Amlodipine Besylate (Norvasc) 5 mg PO DAILY NATALIE Aspirin (Halfprin Ec) 81 mg PO QDAY NATALIE Clopidogrel Bisulfate (Plavix) 75 mg PO QDAY NATALIE Guaifenesin (Mucinex Er) 600 mg PO BID NATALIE Hydralazine HCl (Apresoline) 10 mg IV Q6HR PRN PRN Reason: Blood Pressure Last Admin: 09/28/16 00:53 Dose: 10 mg Labetalol HCl (Normodyne) 300 mg PO BID NATALIE Lorazepam (Ativan) 1 mg IV Q6HR PRN PRN Reason: Agitation Last Admin: 09/28/16 00:59 Dose: 1 mg Ondansetron HCl (Zofran) 8 mg IV Q4H PRN PRN Reason: Nausea And Vomiting Last Admin: 09/28/16 05:42 Dose: 8 mg Simvastatin (Zocor) 20 mg PO QHS NATALIE Zolpidem Tartrate (Ambien) 5 mg PO QHS PRN PRN Reason: Sleep Last Admin: 09/28/16 01:00 Dose: 5 mg Review of Systems All systems: negative (see HPI) Exam - Constitutional Vitals: Temp Pulse Resp BP Pulse Ox 97.7 F 95 H 22 184/84 99 09/28/16 08:00 09/28/16 08:00 09/28/16 14:20 09/28/16 08:00 09/28/16 08:00 General appearance: Present: no acute distress - EENT Eyes: Present: EOM intact ENT: hearing intact - Respiratory Respiratory effort: other (coughing with minor labored breathing) - Extremities Extremities: normal temperature, normal color Extremity abnormal: pulses diminished (nonpalpable pedal pulses ; R BKA), other (one area with prolene sutures is well approximated, with the flap site dehissenced with some serous drainage and fibrinous tissue ; the surround tissue is very dry and flaky) - Psychiatric Psychiatric: appropriate mood/affect, cooperative Results - Labs CBC & Chem 7: 09/27/16 17:28 09/27/16 17:28 Labs: Abnormal lab results 09/27/16 09/27/16 09/28/16 Range/Units 23:18 23:18 06:51 POC Glucose 140 H (70-105) Direct Bilirubin 0.3 H (0-0.2) mg/dL NT-Pro-B Natriuret Pep 25037 H (0-900) pg/mL Albumin 3.5 L (3.9-5) g/dL Lipase 10 L (13-60) units/L - Imaging and Cardiology Venous US: report reviewed, image reviewed (arterial reviewed) Assessment and Plan 70-year-old male with severe peripheral vascular disease and end-stage renal disease with severe noncompliance with medical therapy and followup who presents with dehiscence of his left lower extremity. I evaluated the left lower extremity wound, which appear to have serous drainage. The patient reports that this started approximately 1 month ago. He did not seek medical attention at that time. He has not followed up with [facility] vascular since his discharge. He did not take his Plavix or aspirin. I discussed with him again the prospect of below-knee amputation versus attempts at limb salvage. The patient wishes to pursue limb salvage if possible , but his noncompliance makes this incredibly difficult. I will consult Dr. Valencia for evaluation. If he believes this is still salvageable, then the patient will probably require revascularization and subsequent debridement and wound VAC placement. Alternatively, we can consider below-knee amputation. Before any procedures can be contemplated, the patient's respiratory status must be improved as he is coughing, and feels significantly short of breath. I will defer management of pleural effusions to hospitalist and nephrology service. Recommend infectious disease consult.
--- NOTE | 2016-09-28 15:50 | Event Note ---
Date: 09/28/16 See H/p in reports Dehydration Volume overload Alexandre pleural effusion L foot infection ESRD on HD Persistent vomiting
[2016-09-28] MEDS ORDERED: K-DUR PO ONE (16:00)
--- NOTE | 2016-09-28 17:18 | History and Physical Report ---
CHIEF COMPLAINT: Nausea, vomiting, and abdominal pain for 1 day. HISTORY OF PRESENT ILLNESS: A 70-year-old male with multiple medical problems including right BKA and left foot ulcer, which is healing, comes in for nausea, vomiting and unable to tolerate liquid feeds, back pain and generalized weakness. No fever, no chills. The patient vomited about 5-6 times. Abdominal pain is about 7 on a scale of 1-10. The patient had surgical procedures on the left foot and has a healing ulcer. As per the ER physician, it is necrotic, but as per my exam, it is healing without any pus. The edges are and flesh can be seen, but no signs of infection. Wound dehiscence is present. The dorsum of the foot is black, which seems to be the previous discoloration. The main problem is vomiting and abdominal pain. The patient was seen by Vascular Surgery. PAST MEDICAL HISTORY: Significant for hypertension, hyperlipidemia, coronary artery disease, insomnia and end-stage renal disease, on dialysis. PAST SURGICAL HISTORY: Right BKA and a Vas-Cath in the right chest, graft in the left upper arm. SOCIAL HISTORY: Smokes everyday. Marijuana occasionally. FAMILY HISTORY: Hypertension. CURRENT MEDICATIONS: Labetalol 300 mg twice a day, simvastatin 20 mg p.o. daily, aspirin 81 mg p.o. daily, Plavix 75 mg p.o. daily, amlodipine 5 mg p.o. daily, Mucinex ER 600 mg twice a day, Percocet 5/325 one tablet q. 6 p.r.n. REVIEW OF SYSTEMS: Persistent nausea, vomiting, and abdominal pain. Otherwise, 14-point review of systems essentially negative. No fever, no chills. PHYSICAL EXAMINATION: GENERAL: Elderly male, cooperative during examination, in slight distress because of vomiting, has emesis bag in the hand. VITAL SIGNS: Blood pressure is 240/101, temperature is 99.4, pulse is 91, respirations are 18, O2 sats 100. HEENT: Unremarkable. Pupils equal and reactive. NECK: Supple, no lymphadenopathy, no thyromegaly. LUNGS: Clear to auscultation and percussion. Good air entry. CARDIOVASCULAR: S1, S2 heard. No gallop, no murmur, no rub. Apical impulse in left fifth intercostal space and midclavicular line. ABDOMEN: Soft and benign. No hepatosplenomegaly. No guarding, no rigidity. EXTREMITIES: Right BKA present. Left foot wound dehiscence present. The sutures were . Red flesh is seen. No pus is seen. Dorsum of the foot is discolored, which may be chronic. CENTRAL NERVOUS SYSTEM: Alert and oriented x 4, nonfocal exam. LABORATORY DATA: Significant for white count of 2700, H and H is 11.3 and 35.3, platelet count is 214,000. Potassium is 2.9, low; sodium is 133; BUN and creatinine is 20 and 4.3; glucose is 140. Creatine kinase is 54. BNP is 32,277. Urine is negative. EKG shows normal sinus rhythm. CT of the abdomen and pelvis demonstrates large bilateral pleural effusions, cholelithiasis. No evidence of cholecystitis. X-ray of the chest shows left-sided vascular catheter. ASSESSMENT AND PLAN: 1. Acute dehydration, secondary to nausea and vomiting, symptomatic treatment. Endoscopy if necessary. At this point, I do not think endoscopy is necessary. 2. Left foot wound dehiscence. Wound cultures and wound consult ordered. Also, Dr. Nicholas, vascular surgeon to consult. Foot surgery consulted. 3. End stage renal disease on dialysis, needs dialysis. Dr. Giron consulted. Dr. Toscano is sales marketing from the same group. 4. Hypertension. Continue labetalol 300 mg twice a day and amlodipine 5 mg daily. 5. Hyperlipidemia. Continue Zocor 20 mg daily. 6. Coronary artery disease. Continue Plavix 75 mg daily. 7. Deep venous thrombosis prophylaxis, Lovenox or heparin 30 mg p.o. daily. JOB# [id number] VSM/NTS
--- NOTE | 2016-09-28 20:06 | Consultation ---
History of Present Illness - Reason for Consult Consult date: 09/28/16 end stage renal disease - History of Present Illness Mr. Oconnor is a 70yo with ESRD on HD MWF who presents to the ED with multiple complaints. He reports cough for several weeks - cough is productive of white sputum. He denies fever, chills. He reports dyspnea with exertion and orthopnea. He also reports nausea/vomiting w/ inability to tolerate po intake. He denies abdominal pain and diarrhea. In the ED, he was also noted to have wound dehiscence of LLE wound. He has been admitted for further management. Past History Past Medical History: dialysis, hypertension, hyperlipidemia, PVD, renal failure Past Surgical History: Other (LLE revascularization and flap/minor amputation) Social history: lives with family Family history: other (non contributory) Medications and Allergies Allergies Allergy/AdvReac Type Severity Reaction Status Date / Time hydrocodone bitartrate AdvReac SWEAT/CRAMP Verified 03/15/15 15:37 [From Vicodin] Home Medications Medication Instructions Recorded Confirmed Last Taken Type Labetalol [Normodyne TAB] 300 mg PO BID #60 tablet 03/19/14 09/28/16 Unknown Rx Simvastatin [Zocor TAB] 20 mg PO QHS 07/20/16 09/28/16 07/19/16 History Aspirin EC [Aspirin Enteric Coated 81 mg PO QDAY tablet 08/06/16 09/28/16 Unknown Rx TAB] Clopidogrel [Plavix] 75 mg PO QDAY #30 tablet 08/06/16 09/28/16 Unknown Rx amLODIPine [Norvasc] 5 mg PO DAILY #60 tablet 08/06/16 09/28/16 1 Day Ago Rx guaiFENesin ER [Mucinex ER] 600 mg PO BID #20 tablet 08/06/16 09/28/16 Unknown Rx oxyCODONE /ACETAMINOPHEN [Percocet 1 tab PO Q6H PRN #20 tablet 08/06/16 Unknown Rx 5/325 mg] Active Meds: Active Medications Al Hydrox/Mg Hydrox/Simethicone (Alum-Mag Hydrox-Simeth [id number]/5ml) 30 ml PO Q4H PRN PRN Reason: Indigestion Last Admin: 09/28/16 05:37 Dose: 30 ml Amlodipine Besylate (Norvasc) 5 mg PO DAILY NATALIE Aspirin (Halfprin Ec) 81 mg PO QDAY NATALIE Clopidogrel Bisulfate (Plavix) 75 mg PO QDAY NATALIE Guaifenesin (Mucinex Er) 600 mg PO BID NATALIE Hydralazine HCl (Apresoline) 10 mg IV Q6HR PRN PRN Reason: Blood Pressure Last Admin: 09/28/16 00:53 Dose: 10 mg Labetalol HCl (Normodyne) 300 mg PO BID NATALIE Lorazepam (Ativan) 1 mg IV Q6HR PRN PRN Reason: Agitation Last Admin: 09/28/16 00:59 Dose: 1 mg Ondansetron HCl (Zofran) 8 mg IV Q4H PRN PRN Reason: Nausea And Vomiting Last Admin: 09/28/16 05:42 Dose: 8 mg Simvastatin (Zocor) 20 mg PO QHS NATALIE Zolpidem Tartrate (Ambien) 5 mg PO QHS PRN PRN Reason: Sleep Last Admin: 09/28/16 01:00 Dose: 5 mg Review of Systems Constitutional: no fever, no chills, no sweats Cardiovascular: orthopnea, dyspnea on exertion, no chest pain, no shortness of breath Respiratory: cough with sputum (white) Gastrointestinal: nausea, vomiting, no abdominal pain, no diarrhea, no constipation Integumentary: no rash Endocrine: no cold intolerance, no heat intolerance Exam - Vital Signs Vital signs: Vital Signs Temp Pulse Resp BP Pulse Ox 99.4 F 91 H 18 240/101 100 09/27/16 17:15 09/27/16 17:15 09/27/16 17:15 09/27/16 17:15 09/27/16 17:15 - General Appearance General appearance: well-developed, well-nourished, other (breathing comfortably on room air) EENT: ATNC Respiratory: Decreased Breath Sounds Heart: regular, S1S2 Gastrointestinal: Present: normal. Absent: tenderness, distended Integumentary: no rash Neurologic: alert and oriented x3 Psychiatric: cooperative Results - Lab Results 09/27/16 17:28 09/27/16 17:28 Most recent lab results Calcium 8.4 mg/dL (8.4-10.2) 09/27/16 17:28 Magnesium 1.8 mg/dL (1.7-2.3) 09/27/16 17:28 Assessment and Plan Impression: * End stage renal disease on HD MWF * Dehiscence of his left lower extremity wound * Dyspnea - r/o pulmonary edema * Pleural effusion * Hx of nausea/vomiting * Hypokalemia * Anemia secondary to ESRD * Secondary hyperparathyroidism Plan: * No acute indication for hemodialysis at present - lytes are stable and patient is breathing comfortably on room air. However, patient may benefit from an add'l treatment to challenge DW. He is agreeable. * Isolated UF in am * Continue MWF schedule * Vascular surgery recommendations noted * Symptomatic mgmt of n/v * Epogen with dialysis
[2016-09-28] MEDS: NORMODYNE PO SCH (22:32)
[2016-09-28] MEDS: ZOCOR PO SCH (22:32)
[2016-09-28] MEDS: MUCINEX ER PO SCH (22:32)
--- NOTE | 2016-09-28 23:57 | Admit Criteria Form ---
Admission Criteria Documentation: RENAL FAILURE, CHRONIC Clinical Indications for Admission to Inpatient Care (Place 'X' for any and all applicable criteria): Admission is indicated for ANY ONE of the following (1)(2)(3)(4)(5): [X ]I. Inpatient admission required rather than observation care (Use Renal Failure, Chronic: Observation Care Criteria as appropriate) because of ANY ONE of the following: [ ]a) Volume overload or uremic symptoms (eg, clinically significant pulmonary edema, hypertension, pericarditis, acidosis) too severe for, or not responsive (eg, for over 24 hours) to emergency department or observation care dialysis or treatment regimen (11) [ ]b) Hemodynamic instability that is severe or persistent [ ]c) Respiratory distress that is severe or persistent (11) [ ]d) Clinically significant electrolyte abnormality that requires inpatient care (eg,hyperkalemia with severe ECG findings)[B] [ ]e) Supplement O2 or respiratory therapy for over 24hrs that is performable only in acute inpatient setting [ ]f) Continuous IV infusion of anticoagulation, platelet inhibitor, vasoactive, or Antiarrhythmic medication (15), [ ]g) Pulmonary artery catheter monitoring [ ]h) Temporary pacemaker placement [ ]i) Emergent pericardiocentesis [ X]j) Other condition, treatment or monitoring requiring inpatient admission [ ]II. Unexplained syncope [A] [ ]III. Recurrent seizures [ ]IV. Severe infections not treatable in outpatient setting (eg, peritonitis)(9 ) [ ]V. Cardiac arrhythmias of immediate concern [ ]. Encephalopathy [ ]VII.Bleeding abnormalities (eg, platelet dysfunction) with active (eg, gastrointestinal) bleeding Extended stay beyond goal length of stay may be needed for (3)(4)(35)(36): [ ]a) Continuing uremic complications [ ]b) Comorbidities or complications The original [employer] content created by [employer] has been revised. The portions of the content which have been revised are identified through the use of italic text or in bold, and [facility] has neither reviewed nor approved the modified material. All other unmodified content is copyright [employer]. Please see references footnoted in the original [facility] Admission Criteria Met: Yes
[2016-09-29] MEDS: PLAVIX PO SCH (09:44)
[2016-09-29] MEDS: MUCINEX ER PO SCH ×2 (09:44→23:24)
[2016-09-29] MEDS: HALFPRIN EC PO SCH (09:44)
[2016-09-29] MEDS: NORVASC PO SCH (09:45)
[2016-09-29] MEDS: NORMODYNE PO SCH ×2 (09:45→23:26)
--- NOTE | 2016-09-29 10:00 | Progress Note ---
Assessment and Plan Impression: * End stage renal disease on HD MWF * Dehiscence of his left lower extremity wound * Dyspnea - r/o pulmonary edema * Pleural effusion, bilateral * Hx of nausea/vomiting * Hypokalemia * Anemia secondary to ESRD * Secondary hyperparathyroidism Plan: * Issolated UF today - UF as tolerated * Continue MWF schedule tomorrow * Vascular surgery recommendations noted * Symptomatic mgmt of n/v * Epogen with dialysis Subjective Date of service: 09/29/16 Interval history: Patient with c/o cough Objective - Vital Signs Vital signs: Vital Signs - 12hr 09/28/16 09/28/16 09/28/16 22:00 22:32 23:54 Temperature 98.3 F Pulse Rate 78 Pulse Rate [ 80 85 Left] Respiratory 24 20 Rate Respiratory 20 Rate [ Generalized] Blood Pressure 198/99 Blood Pressure 171/84 [Left Arm] O2 Sat by Pulse 98 Oximetry 09/29/16 09/29/16 09/29/16 08:20 09:45 09:51 Temperature 98.4 F Pulse Rate 80 Pulse Rate [ 87 Left] Respiratory 24 Rate Respiratory 22 Rate [ Generalized] Blood Pressure 162/73 Blood Pressure 168/74 [Left Arm] O2 Sat by Pulse 97 Oximetry - General Appearance General appearance: well-developed, well-nourished EENT: ATNC Respiratory: Present: Decreased Breath Sounds Cardiology: regular, S1S2 Gastrointestinal: normal, no tenderness, no distended Integumentary: no rash Neurologic: alert and oriented x3 Psychiatric: mood/affect appropriate, cooperative - Lab 09/27/16 17:28 09/30/16 08:41 Most recent lab results Calcium 8.4 mg/dL (8.4-10.2) 09/27/16 17:28 Magnesium 1.8 mg/dL (1.7-2.3) 09/27/16 17:28
[2016-09-29] MEDS ORDERED: NACL 0.9% 100 ML IV PRN ×4 (10:01→16:34)
--- NOTE | 2016-09-29 13:57 | Progress Note ---
Assessment and Plan 70-year-old male with severe peripheral vascular disease and end-stage renal disease with severe noncompliance with medical therapy and followup who presents with dehiscence of his left lower extremity. Left lower extremity wound dehiscence with noncompliance of follow-up, and medication. I discussed with him again the prospect of below-knee amputation versus attempts at limb salvage. The patient wishes to pursue limb salvage if possible, but his noncompliance makes this incredibly difficult. I consulted Dr. Valencia for evaluation. If he believes this is still salvageable, then the patient will probably require revascularization and subsequent debridement and wound VAC placement. Alternatively, we can consider below-knee amputation. Before any procedures can be contemplated, the patient's respiratory status should be improved. I will defer management of pleural effusions to hospitalist and nephrology service. Recommend infectious disease consult. Subjective Date of service: 09/29/16 Interval history: Feels the same. Complaining of cough with productive sputum. Some shortness of breath persists. Left foot feels the same. Objective - Constitutional Vitals: Vital Signs - 12hr 09/29/16 09/29/16 09/29/16 08:20 09:45 09:51 Temperature 98.4 F Pulse Rate 80 Pulse Rate [ 87 Left] Respiratory 24 Rate Respiratory 22 Rate [ Generalized] Blood Pressure 162/73 Blood Pressure 168/74 [Left Arm] O2 Sat by Pulse 97 Oximetry 09/29/16 12:06 Temperature Pulse Rate Pulse Rate [ Left] Respiratory 19 Rate Respiratory Rate [ Generalized] Blood Pressure Blood Pressure [Left Arm] O2 Sat by Pulse Oximetry General appearance: Present: no acute distress - EENT Eyes: EOM intact ENT: hearing intact - Respiratory Respiratory effort: other (coughing, no significant distress) Extremities: normal temperature, normal color Extremity abnormal: pulses diminished, other (wound is unchanged with dehiscence again noted) - Psychiatric Psychiatric: other (flat affect, feel sick) - Labs CBC & Chem 7: 09/27/16 17:28 09/27/16 17:28 Labs: Abnormal lab results 09/28/16 09/28/16 09/29/16 Range/Units 16:27 21:34 06:17 POC Glucose 127 H 122 H 118 H (70-105) 09/29/16 Range/Units 11:38 POC Glucose 146 H (70-105)
[2016-09-29 14:01] LABS: BUN/Creatinine Ratio 5.89; Calcium 8.1 mg/dL (8.4-10.2); Chloride 89.5 mmol/L (98-107)
[2016-09-29] MEDS ORDERED: HEPARIN ONE (16:07)
[2016-09-29] MEDS ORDERED: NACL 0.9 (PRIMING MACHINE ONLY DIALYSIS) MC ONE (16:07)
[2016-09-29] MEDS: PROCRIT IV PRN (17:00)
--- NOTE | 2016-09-29 19:42 | Progress Note ---
Assessment and Plan - Patient Problems (1) ESRD (end stage renal disease) Current Visit: Yes Status: Acute Plan to address problem: Nephrology consulted for dialysis. (2) Gangrene of foot Current Visit: Yes Status: Acute Plan to address problem: wound care, Vascular consult for revascularization procedure, (3) Noncompliance of patient with renal dialysis Current Visit: No Status: Acute Plan to address problem: Pt counseled, (4) Volume overload Current Visit: Yes Status: Acute Qualifiers: Hypervolemia type: H Plan to address problem: Fluid restriction, monitor uop q shift, Nephrology consulted (5) DVT prophylaxis Current Visit: No Status: Acute History Interval history: Pt resting in bed. Pt denies pain, No reported nursing events. Hospitalist Physical - Constitutional Vitals: Temp Pulse Resp BP Pulse Ox 98.1 F 64 20 138/69 97 09/29/16 17:47 09/29/16 17:47 09/29/16 17:47 09/29/16 17:47 09/29/16 08:20 General appearance: Present: mild distress, disheveled, malodorous - EENT Eyes: Present: PERRL ENT: hearing intact - Neck Neck: Present: supple - Respiratory Respiratory: bilateral: diminished - Cardiovascular Rhythm: regular Heart Sounds: Present: S1 & S2 - Extremities Extremity abnormal: pulses diminished Peripheral Pulses: abnormal - Abdominal General gastrointestinal: soft, non-tender, non-distended - Integumentary Integumentary: Present: clear, dry - Psychiatric Psychiatric: appropriate mood/affect, cooperative - Neurologic Neurologic: CNII-XII intact Results - Labs CBC & Chem 7: 09/27/16 17:28 09/29/16 13:09 Labs: Laboratory Last Values WBC 2.7 K/mm3 (4.5-11.0) L 09/27/16 17:28 RBC 4.06 M/mm3 (3.65-5.03) 09/27/16 17:28 Hgb 11.5 gm/dl (11.8-15.2) L 09/27/16 17:28 Hct 35.3 % (35.5-45.6) L 09/27/16 17:28 MCV 87 fl (84-94) 09/27/16 17:28 MCH 28 pg (28-32) 09/27/16 17:28 MCHC 33 % (32-34) 09/27/16 17:28 RDW 19.0 % (13.2-15.2) H 09/27/16 17:28 Plt Count 214 K/mm3 (140-440) 09/27/16 17:28 Lymph % (Auto) 10.9 % (13.4-35.0) L 09/27/16 17:28 [place] % (Auto) 13.0 % (0.0-7.3) H 09/27/16 17:28 Eos % (Auto) 0.8 % (0.0-4.3) 09/27/16 17:28 Baso % (Auto) 1.6 % (0.0-1.8) 09/27/16 17: Lymph # 0.3 K/mm3 (1.2-5.4) L 09/27/16 17: [place] # 0.4 K/mm3 (0.0-0.8) 09/27/16 17: Eos # 0.0 K/mm3 (0.0-0.4) 09/27/16 17: Baso # 0.0 K/mm3 (0.0-0.1) 09/27/16 17:28 Seg Neutrophils % 73.7 % (40.0-70.0) H 09/27/16 17: Seg Neutrophils # 2.0 K/mm3 (1.8-7.7) 09/27/16 17:28 ESR 40 mm/Hr (0-20) 09/27/16 17:28 Sodium 131 mmol/L (137-145) L 09/29/16 13:09 Potassium 4.0 mmol/L (3.6-5.0) D 09/29/16 13:09 Chloride 89.5 mmol/L (98-107) L 09/29/16 13:09 Carbon Dioxide 23 mmol/L (22-30) 09/29/16 13:09 Anion Gap 23 mmol/L 09/29/16 13:09 BUN 43 mg/dL (9-20) H 09/29/16 13:09 Creatinine 7.3 mg/dL (0.8-1.5) H D 09/29/16 13:09 Estimated GFR 9 ml/min 09/29/16 13:09 BUN/Creatinine Ratio 5.89 % 09/29/16 13:09 Glucose 125 mg/dL (75-100) H 09/29/16 13:09 POC Glucose 107 (70-105) H 09/29/16 17:43 Calcium 8.1 mg/dL (8.4-10.2) L 09/29/16 13:09 Magnesium 1.8 mg/dL (1.7-2.3) 09/27/16 17:28 Total Bilirubin 0.7 mg/dL (0.1-1.2) 09/27/16 23:18 Direct Bilirubin 0.3 mg/dL (0-0.2) H 09/27/16 23:18 Indirect Bilirubin 0.4 mg/dL 09/27/16 23:18 AST 17 units/L (5-40) 09/27/16 23:18 ALT 16 units/L (7-56) 09/27/16 23:18 Alkaline Phosphatase 97 units/L (35-129) 09/27/16 23:18 Total Creatine Kinase 54 units/L (55-170) L 09/27/16 17:28 C-Reactive Protein 3.70 mg/dL (0.00-1.30) H 09/27/16 17:28 NT-Pro-B Natriuret Pep 31681 pg/mL (0-900) H 09/27/16 23:18 Total Protein 7.4 g/dL (6.3-8.2) 09/27/16 23:18 Albumin 3.5 g/dL (3.9-5) L 09/27/16 23:18 Albumin/Globulin Ratio 0.9 % 09/27/16 23:18 Lipase 10 units/L (13-60) L 09/27/16 23:18 Urine Color Yellow (Yellow) 09/27/16 19:50 Urine Turbidity Clear (Clear) 09/27/16 19:50 Urine pH 7.0 (5.0-7.0) 09/27/16 19:50 Ur Specific [place] 1.013 (1.003-1.030) 09/27/16 19:50 Urine Protein >500 mg/dL (Negative) 09/27/16 19:50 Urine Glucose (UA) 50 mg/dL (Negative) 09/27/16 19:50 Urine Ketones Tr mg/dL (Negative) 09/27/16 19:50 Urine Blood Neg (Negative) 09/27/16 19:50 Urine Nitrite Neg (Negative) 09/27/16 19:50 Urine Bilirubin Neg (Negative) 09/27/16 19:50 Urine Urobilinogen 2.0 mg/dL (<2.0) 09/27/16 19:50 Ur Leukocyte Esterase Neg (Negative) 09/27/16 19:50 Urine WBC (Auto) < 1.0 /HPF (0.0-6.0) 09/27/16 19:50 Urine RBC (Auto) 5.0 /HPF (0.0-6.0) 09/27/16 19:50 U Epithel Cells (Auto) < 1.0 /HPF (0-13.0) 09/27/16 19:50 Urine Bacteria (Auto) 1+ /HPF (Negative) 09/27/16 19:50 Urine Mucus Few /HPF 09/27/16 19:50
[2016-09-29] MEDS: AMBIEN PO PRN (23:24)
[2016-09-29] MEDS: ATIVAN IV PRN (23:24)
[2016-09-29] MEDS: ZOCOR PO SCH (23:24)
--- NOTE | 2016-09-30 07:26 | Vascular Lab Report ---
LOWER EXTREMITY ARTERIAL DUPLEX: REASON FOR EXAM: Peripheral arterial disease. COMMENTS ON THE RIGHT: Biphasic waveforms are seen proximally. Monophasic waveforms are seen distally in the popliteal artery. No significant velocity gradients are identified. Status post below-knee amputation COMMENTS ON THE LEFT: Biphasic waveforms are seen proximally. Monophasic waveforms are seen distally. No flow seen in the anterior tibial artery. Scattered plaque noted throughout the vessel.. Findings are consistent with abnormal perfusion. Findings are inconsistent with the ability to heal distal wounds. IMPRESSION: RIGHT: No significant arterial disease in the arteries examined.. LEFT:Occluded anterior tibial artery. Monophasic flow in the infrapopliteal arteries suggest proximal diffuse disease..
--- NOTE | 2016-09-30 07:28 | Vascular Lab Report ---
LOWER EXTREMITY ARTERIAL PHYSIOLOGIC STUDY: REASON FOR EXAM: Peripheral arterial disease. COMMENTS ON THE RIGHT: Not examined due to BKA COMMENTS ON THE LEFT: Ankle brachial index is 0.49. This value is abnormal. Toe brachial index is is not obtained due to absence of toes. Pulse volume recording at the level of the ankle is abnormal. Exercise testing was not done. IMPRESSION: RIGHT: Not done due to below knee amputation LEFT:Severe arterial occlusive disease.
[2016-09-30 09:20] LABS: BUN/Creatinine Ratio 5.54; Chloride 92.9 mmol/L (98-107); Potassium 4.1 mmol/L (3.6-5.0)
--- NOTE | 2016-09-30 12:02 | Progress Note ---
Assessment and Plan Impression: * End stage renal disease on HD MWF * Dehiscence of his left lower extremity wound --Wound cx: Proteus, Klebsiella * Dyspnea - r/o pulmonary edema * Pleural effusion, bilateral * Hx of nausea/vomiting * Hypokalemia * Anemia secondary to ESRD * Secondary hyperparathyroidism Plan: * Hemodialysis MWF - UF as tolerated * Assess for need for add'l UF tomorrow * Abx per primary team * Vascular surgery recommendations noted * Symptomatic mgmt of n/v * Epogen with dialysis Subjective Date of service: 09/30/16 Objective - Vital Signs Vital signs: Vital Signs - 12hr 09/30/16 09/30/16 09/30/16 08:33 10:35 10:45 Temperature 99.9 F H 98.6 F Pulse Rate 67 66 Pulse Rate [ 68 Left] Respiratory 20 16 Rate Blood Pressure 143/67 155/77 Blood Pressure 147/69 [Left Arm] O2 Sat by Pulse 98 Oximetry 09/30/16 09/30/16 09/30/16 11:00 11:15 11:30 Temperature Pulse Rate 68 65 69 Pulse Rate [ Left] Respiratory Rate Blood Pressure 158/78 173/87 167/90 Blood Pressure [Left Arm] O2 Sat by Pulse Oximetry - Lab 09/27/16 17:28 09/30/16 08:41 Most recent lab results Calcium 8.0 mg/dL (8.4-10.2) L 09/30/16 08:41 Magnesium 1.8 mg/dL (1.7-2.3) 09/27/16 17:28
[2016-09-30] MEDS: MUCINEX ER PO SCH ×2 (12:11→21:26)
[2016-09-30] MEDS: NORMODYNE PO SCH ×2 (12:11→21:26)
[2016-09-30] MEDS: NORVASC PO SCH ×2 (12:11→16:46)
[2016-09-30] MEDS: HALFPRIN EC PO SCH ×2 (12:11→16:44)
[2016-09-30] MEDS: PLAVIX PO SCH ×2 (12:12→16:45)
--- NOTE | 2016-09-30 12:48 | Progress Note ---
Assessment and Plan - Patient Problems (1) ESRD (end stage renal disease) Current Visit: Yes Status: Acute Plan to address problem: Nephrology consulted for dialysis. (2) Gangrene of foot Current Visit: Yes Status: Acute Plan to address problem: wound care, Vascular consult for revascularization procedure, (3) Noncompliance of patient with renal dialysis Current Visit: No Status: Acute Plan to address problem: Pt counseled, (4) Volume overload Current Visit: Yes Status: Acute Qualifiers: Hypervolemia type: H Plan to address problem: Fluid restriction, monitor uop q shift, Nephrology consulted (5) DVT prophylaxis Current Visit: No Status: Acute History Interval history: Pt resting in bed. Pt denies pain, No reported nursing events. Hospitalist Physical - Constitutional Vitals: Temp Pulse Resp BP Pulse Ox 98.6 F 64 16 172/89 98 09/30/16 10:35 09/30/16 12:15 09/30/16 10:35 09/30/16 12:15 09/30/16 08:33 General appearance: Present: mild distress, disheveled, malodorous - EENT Eyes: Present: PERRL, EOM intact ENT: hearing intact - Neck Neck: Present: supple - Respiratory Respiratory: bilateral: diminished - Cardiovascular Rhythm: regular Heart Sounds: Present: S1 & S2 - Extremities Extremities: no ischemia, abnormal Extremity abnormal: ulceration, other (gangrene) - Abdominal General gastrointestinal: soft, non-tender, non-distended - Integumentary Integumentary: Present: clear, dry - Psychiatric Psychiatric: appropriate mood/affect, cooperative - Neurologic Neurologic: CNII-XII intact Results - Labs CBC & Chem 7: 09/27/16 17:28 09/30/16 08:41 Labs: Laboratory Last Values WBC 2.7 K/mm3 (4.5-11.0) L 09/27/16 17:28 RBC 4.06 M/mm3 (3.65-5.03) 09/27/16 17:28 Hgb 11.5 gm/dl (11.8-15.2) L 09/27/16 17:28 Hct 35.3 % (35.5-45.6) L 09/27/16 17:28 MCV 87 fl (84-94) 09/27/16 17:28 MCH 28 pg (28-32) 09/27/16 17: MCHC 33 % (32-34) 09/27/16 17: RDW 19.0 % (13.2-15.2) H 09/27/16 17: Plt Count 214 K/mm3 (140-440) 09/27/16 17: Lymph % (Auto) 10.9 % (13.4-35.0) L 09/27/16 17: [place] % (Auto) 13.0 % (0.0-7.3) H 09/27/16 17: Eos % (Auto) 0.8 % (0.0-4.3) 09/27/16 17: Baso % (Auto) 1.6 % (0.0-1.8) 09/27/16: Lymph # 0.3 K/mm3 (1.2-5.4) L 09/27/16: [place] # 0.4 K/mm3 (0.0-0.8) 09/27/16 17: Eos # 0.0 K/mm3 (0.0-0.4) 09/27/16 17: Baso # 0.0 K/mm3 (0.0-0.1) 09/27/16: Seg Neutrophils % 73.7 % (40.0-70.0) H 09/27/16: Seg Neutrophils # 2.0 K/mm3 (1.8-7.7) 09/27/16 17: ESR 40 mm/Hr (0-20) 09/27/16 17:28 Sodium 133 mmol/L (137-145) L 09/30/16 08:41 Potassium 4.1 mmol/L (3.6-5.0) 09/30/16 08:41 Chloride 92.9 mmol/L (98-107) L 09/30/16 08:41 Carbon Dioxide 22 mmol/L (22-30) 09/30/16 08:41 Anion Gap 22 mmol/L 09/30/16 08:41 BUN 51 mg/dL (9-20) H 09/30/16 08:41 Creatinine 9.2 mg/dL (0.8-1.5) H 09/30/16 08:41 Estimated GFR 7 ml/min 09/30/16 08:41 BUN/Creatinine Ratio 5.54 % 09/30/16 08:41 Glucose 130 mg/dL (75-100) H 09/30/16 08:41 POC Glucose 107 (70-105) H 09/29/16 17:43 Calcium 8.0 mg/dL (8.4-10.2) L 09/30/16 08:41 Magnesium 1.8 mg/dL (1.7-2.3) 09/27/16 17:28 Total Bilirubin 0.7 mg/dL (0.1-1.2) 09/27/16 23:18 Direct Bilirubin 0.3 mg/dL (0-0.2) H 09/27/16 23:18 Indirect Bilirubin 0.4 mg/dL 09/27/16 23:18 AST 17 units/L (5-40) 09/27/16 23:18 ALT 16 units/L (7-56) 09/27/16 23:18 Alkaline Phosphatase 97 units/L (35-129) 09/27/16 23:18 Total Creatine Kinase 54 units/L (55-170) L 09/27/16 17:28 C-Reactive Protein 3.70 mg/dL (0.00-1.30) H 09/27/16 17:28 NT-Pro-B Natriuret Pep 94140 pg/mL (0-900) H 09/27/16 23:18 Total Protein 7.4 g/dL (6.3-8.2) 09/27/16 23:18 Albumin 3.5 g/dL (3.9-5) L 09/27/16 23:18 Albumin/Globulin Ratio 0.9 % 09/27/16 23:18 Lipase 10 units/L (13-60) L 09/27/16 23:18 Urine Color Yellow (Yellow) 09/27/16 19:50 Urine Turbidity Clear (Clear) 09/27/16 19:50 Urine pH 7.0 (5.0-7.0) 09/27/16 19:50 Ur Specific [place] 1.013 (1.003-1.030) 09/27/16 19:50 Urine Protein >500 mg/dL (Negative) 09/27/16 19:50 Urine Glucose (UA) 50 mg/dL (Negative) 09/27/16 19:50 Urine Ketones Tr mg/dL (Negative) 09/27/16 19:50 Urine Blood Neg (Negative) 09/27/16 19:50 Urine Nitrite Neg (Negative) 09/27/16 19:50 Urine Bilirubin Neg (Negative) 09/27/16 19:50 Urine Urobilinogen 2.0 mg/dL (<2.0) 09/27/16 19:50 Ur Leukocyte Esterase Neg (Negative) 09/27/16 19:50 Urine WBC (Auto) < 1.0 /HPF (0.0-6.0) 09/27/16 19:50 Urine RBC (Auto) 5.0 /HPF (0.0-6.0) 09/27/16 19:50 U Epithel Cells (Auto) < 1.0 /HPF (0-13.0) 09/27/16 19:50 Urine Bacteria (Auto) 1+ /HPF (Negative) 09/27/16 19:50 Urine Mucus Few /HPF 09/27/16 19:50
[2016-09-30] MEDS: ROCEPHIN/NS 1 GM/50 ML 1 GM/50 ML BAG IV SCH (16:45)
[2016-09-30] MEDS: ZOFRAN IV PRN (20:51)
[2016-09-30] MEDS: ZOCOR PO SCH (21:25)
[2016-09-30] MEDS: PERCOCET 5/325 PO PRN (21:26)
[2016-09-30] MEDS: AMBIEN PO PRN (23:32)
--- NOTE | 2016-10-01 02:05 | Progress Note ---
Assessment and Plan - Patient Problems (1) ESRD (end stage renal disease) Current Visit: Yes Status: Acute Plan to address problem: Nephrology consulted for dialysis. (2) Gangrene of foot Current Visit: Yes Status: Acute Plan to address problem: wound care, Vascular consult for revascularization procedure, (3) Noncompliance of patient with renal dialysis Current Visit: No Status: Acute Plan to address problem: Pt counseled, (4) Volume overload Current Visit: Yes Status: Acute Qualifiers: Hypervolemia type: H Plan to address problem: Fluid restriction, monitor uop q shift, Nephrology consulted (5) DVT prophylaxis Current Visit: No Status: Acute History Interval history: Pt resting in bed. Pt denies pain, Pt states that he feels better today. No reported nursing events. Hospitalist Physical - Constitutional Vitals: Temp Pulse Resp BP Pulse Ox 99.9 F H 70 20 159/66 91 09/30/16 23:00 09/30/16 23:00 09/30/16 23:00 09/30/16 23:00 09/30/16 23:00 General appearance: Present: mild distress, disheveled, malodorous - EENT Eyes: Present: PERRL ENT: hearing intact - Neck Neck: Present: supple - Respiratory Respiratory: bilateral: diminished - Cardiovascular Rhythm: regular Heart Sounds: Present: S1 & S2 - Extremities Extremities: abnormal (Gangrene LLE) Extremity abnormal: edema Peripheral Pulses: abnormal - Abdominal General gastrointestinal: soft, non-tender, non-distended - Integumentary Integumentary: Present: clear, dry - Psychiatric Psychiatric: appropriate mood/affect, cooperative - Neurologic Neurologic: CNII-XII intact Results - Labs CBC & Chem 7: 09/27/16 17:28 09/30/16 08:41 Labs: Laboratory Last Values WBC 2.7 K/mm3 (4.5-11.0) L 09/27/16 17:28 RBC 4.06 M/mm3 (3.65-5.03) 09/27/16 17:28 Hgb 11.5 gm/dl (11.8-15.2) L 09/27/16 17:28 Hct 35.3 % (35.5-45.6) L 09/27/16 17:28 MCV 87 fl (84-94) 09/27/16 17:28 MCH 28 pg (28-32) 09/27/16 17:28 MCHC 33 % (32-34) 09/27/16 17:28 RDW 19.0 % (13.2-15.2) H 09/27/16 17:28 Plt Count 214 K/mm3 (140-440) 09/27/16 17:28 Lymph % (Auto) 10.9 % (13.4-35.0) L 09/27/16 17: [place] % (Auto) 13.0 % (0.0-7.3) H 09/27/16 17:28 Eos % (Auto) 0.8 % (0.0-4.3) 09/27/16 17: Baso % (Auto) 1.6 % (0.0-1.8) 09/27/16: Lymph # 0.3 K/mm3 (1.2-5.4) L 09/27/16 17: [place] # 0.4 K/mm3 (0.0-0.8) 09/27/16 17: Eos # 0.0 K/mm3 (0.0-0.4) 09/27/16 17: Baso # 0.0 K/mm3 (0.0-0.1) 09/27/16 17: Seg Neutrophils % 73.7 % (40.0-70.0) H 09/27/16 17: Seg Neutrophils # 2.0 K/mm3 (1.8-7.7) 09/27/16 17: ESR 40 mm/Hr (0-20) 09/27/16 17:28 Sodium 133 mmol/L (137-145) L 09/30/16 08:41 Potassium 4.1 mmol/L (3.6-5.0) 09/30/16 08:41 Chloride 92.9 mmol/L (98-107) L 09/30/16 08:41 Carbon Dioxide 22 mmol/L (22-30) 09/30/16 08:41 Anion Gap 22 mmol/L 09/30/16 08:41 BUN 51 mg/dL (9-20) H 09/30/16 08:41 Creatinine 9.2 mg/dL (0.8-1.5) H 09/30/16 08:41 Estimated GFR 7 ml/min 09/30/16 08:41 BUN/Creatinine Ratio 5.54 % 09/30/16 08:41 Glucose 130 mg/dL (75-100) H 09/30/16 08:41 POC Glucose 107 (70-105) H 09/29/16 17:43 Calcium 8.0 mg/dL (8.4-10.2) L 09/30/16 08:41 Magnesium 1.8 mg/dL (1.7-2.3) 09/27/16 17:28 Total Bilirubin 0.7 mg/dL (0.1-1.2) 09/27/16 23:18 Direct Bilirubin 0.3 mg/dL (0-0.2) H 09/27/16 23:18 Indirect Bilirubin 0.4 mg/dL 09/27/16 23:18 AST 17 units/L (5-40) 09/27/16 23:18 ALT 16 units/L (7-56) 09/27/16 23:18 Alkaline Phosphatase 97 units/L (35-129) 09/27/16 23:18 Total Creatine Kinase 54 units/L (55-170) L 09/27/16 17:28 C-Reactive Protein 3.70 mg/dL (0.00-1.30) H 09/27/16 17:28 NT-Pro-B Natriuret Pep 43460 pg/mL (0-900) H 09/27/16 23:18 Total Protein 7.4 g/dL (6.3-8.2) 09/27/16 23:18 Albumin 3.5 g/dL (3.9-5) L 09/27/16 23:18 Albumin/Globulin Ratio 0.9 % 09/27/16 23:18 Lipase 10 units/L (13-60) L 09/27/16 23:18 Urine Color Yellow (Yellow) 09/27/16 19:50 Urine Turbidity Clear (Clear) 09/27/16 19:50 Urine pH 7.0 (5.0-7.0) 09/27/16 19:50 Ur Specific [place] 1.013 (1.003-1.030) 09/27/16 19:50 Urine Protein >500 mg/dL (Negative) 09/27/16 19:50 Urine Glucose (UA) 50 mg/dL (Negative) 09/27/16 19:50 Urine Ketones Tr mg/dL (Negative) 09/27/16 19:50 Urine Blood Neg (Negative) 09/27/16 19:50 Urine Nitrite Neg (Negative) 09/27/16 19:50 Urine Bilirubin Neg (Negative) 09/27/16 19:50 Urine Urobilinogen 2.0 mg/dL (<2.0) 09/27/16 19:50 Ur Leukocyte Esterase Neg (Negative) 09/27/16 19:50 Urine WBC (Auto) < 1.0 /HPF (0.0-6.0) 09/27/16 19:50 Urine RBC (Auto) 5.0 /HPF (0.0-6.0) 09/27/16 19:50 U Epithel Cells (Auto) < 1.0 /HPF (0-13.0) 09/27/16 19:50 Urine Bacteria (Auto) 1+ /HPF (Negative) 09/27/16 19:50 Urine Mucus Few /HPF 09/27/16 19:50
[2016-10-01] MEDS: PERCOCET 5/325 PO PRN ×3 (06:31→22:28)
[2016-10-01] MEDS: ZOFRAN IV PRN ×2 (06:31→18:03)
[2016-10-01] MEDS: HALFPRIN EC PO SCH (10:32)
[2016-10-01] MEDS: MUCINEX ER PO SCH ×2 (10:32→22:27)
[2016-10-01] MEDS: ROCEPHIN/NS 1 GM/50 ML 1 GM/50 ML BAG IV SCH (10:32)
[2016-10-01] MEDS: NORMODYNE PO SCH ×2 (10:33→22:23)
[2016-10-01] MEDS: NORVASC PO SCH (10:33)
[2016-10-01] MEDS: PLAVIX PO SCH (10:34)
--- NOTE | 2016-10-01 12:25 | Progress Note ---
Assessment and Plan Impression: * End stage renal disease on HD MWF * Dehiscence of his left lower extremity wound --Wound cx: Proteus, Klebsiella * Dyspnea - r/o pulmonary edema * Pleural effusion, bilateral * Hx of nausea/vomiting * Hypokalemia * Anemia secondary to ESRD * Secondary hyperparathyroidism Plan: * Hemodialysis MWF - UF as tolerated * Obtain CXR today * Abx per primary team * Vascular surgery recommendations noted * Symptomatic mgmt of n/v * Epogen with dialysis Subjective Date of service: 10/01/16 Interval history: Reports cough and SOB improved. Abd cramps after dialysis yesterday. Objective - Vital Signs Vital signs: Vital Signs - 12hr 10/01/16 10/01/16 10/01/16 06:31 08:29 10:33 Temperature 98.8 F Pulse Rate [ 56 L Left] Respiratory 18 20 Rate Blood Pressure 122/59 Blood Pressure 122/59 [Left Arm] O2 Sat by Pulse 99 Oximetry - General Appearance General appearance: well-developed, well-nourished EENT: ATNC Respiratory: Present: Clear to Ascultation Cardiology: regular, S1S2 Gastrointestinal: normal, no tenderness, no distended Integumentary: no rash Neurologic: alert and oriented x3 Psychiatric: mood/affect appropriate, cooperative - Lab 09/27/16 17:28 09/30/16 08:41 Most recent lab results Calcium 8.0 mg/dL (8.4-10.2) L 09/30/16 08:41 Magnesium 1.8 mg/dL (1.7-2.3) 09/27/16 17:28
--- NOTE | 2016-10-01 14:19 | Progress Note ---
Assessment and Plan Assessment and plan: ESRD (end stage renal disease) * Nephrology following for dialysis. Gangrene of left foot * wound care, Vascular surgeon following for revascularization procedure, * Noted to vascular surgeon recommendation * Culture growing Proteus and Klebsiella * Continue ceftriaxone Noncompliance of patient with renal dialysis * Patient counseled Volume overload due to noncompliance with dialysis * Fluid restriction, monitor uop q shift, * HD per nephrology recommendation DVT prophylaxis * Continue on heparin Anemia of chronic disease * Monitor H&H * Epogen with dialysis Peripheral vascular disease * Patient was not compliant with his medication * Continue on aspirin and Plavix and statin Hypertension, controlled * Continue on labetalol, amlodipine * Adjust BP meds as needed Microbiology 09/27/16 19:38 Foot - Left Wound Culture - Final Klebsiella Oxytoca Proteus Mirabilis History Interval history: Patient seen and examined. Medical records and medication list reviewed. No acute event overnight noted by the RN. Patient denies any chest pain or difficulty breathing. Patient is tolerating diet. c/o left foot pain Discussed plan of care at bedside with patient. Hospitalist Physical - Physical exam Narrative exam: General appearance: Present: mild distress, disheveled, malodorous - EENT Eyes: Present: PERRL ENT: hearing intact - Neck Neck: Present: supple - Respiratory Respiratory: bilateral: diminished - Cardiovascular Rhythm: regular Heart Sounds: Present: S1 & S2 - Extremities Extremity abnormal: pulses diminished Peripheral Pulses: abnormal, and dry gangrenous ulcer on amputated left foot - Abdominal General gastrointestinal: soft, non-tender, non-distended - Integumentary Integumentary: Present: clear, dry - Psychiatric Psychiatric: appropriate mood/affect, cooperative - Neurologic Neurologic: CNII-XII intact - Constitutional Vitals: Temp Pulse Resp BP Pulse Ox 98.8 F 56 L 20 122/59 99 10/01/16 08:29 10/01/16 08:29 10/01/16 08:29 10/01/16 10:33 10/01/16 08:29 General appearance: Present: mild distress, disheveled, malodorous Results - Labs CBC & Chem 7: 09/27/16 17:28 09/30/16 08:41 Labs: Laboratory Last Values WBC 2.7 K/mm3 (4.5-11.0) L 09/27/16 17:28 RBC 4.06 M/mm3 (3.65-5.03) 09/27/16 17: Hgb 11.5 gm/dl (11.8-15.2) L 09/27/16 17: Hct 35.3 % (35.5-45.6) L 09/27/16 17: MCV 87 fl (84-94) 09/27/16 17: MCH 28 pg (28-32) 09/27/16 17: MCHC 33 % (32-34) 09/27/16 17: RDW 19.0 % (13.2-15.2) H 09/27/16 17: Plt Count 214 K/mm3 (140-440) 09/27/16: Lymph % (Auto) 10.9 % (13.4-35.0) L 09/27/16 17: [place] % (Auto) 13.0 % (0.0-7.3) H 09/27/16: Eos % (Auto) 0.8 % (0.0-4.3) 09/27/16 17: Baso % (Auto) 1.6 % (0.0-1.8) 09/27/16: Lymph # 0.3 K/mm3 (1.2-5.4) L 09/27/16: [place] # 0.4 K/mm3 (0.0-0.8) 09/27/16: Eos # 0.0 K/mm3 (0.0-0.4) 09/27/16: Baso # 0.0 K/mm3 (0.0-0.1) 09/27/16 17: Seg Neutrophils % 73.7 % (40.0-70.0) H 09/27/16 17: Seg Neutrophils # 2.0 K/mm3 (1.8-7.7) 09/27/16: ESR 40 mm/Hr (0-20) 09/27/16 17: Sodium 133 mmol/L (137-145) L 09/30/16 08:41 Potassium 4.1 mmol/L (3.6-5.0) 09/30/16 08:41 Chloride 92.9 mmol/L (98-107) L 09/30/16 08:41 Carbon Dioxide 22 mmol/L (22-30) 09/30/16 08:41 Anion Gap 22 mmol/L 09/30/16 08:41 BUN 51 mg/dL (9-20) H 09/30/16 08:41 Creatinine 9.2 mg/dL (0.8-1.5) H 09/30/16 08:41 Estimated GFR 7 ml/min 09/30/16 08:41 BUN/Creatinine Ratio 5.54 % 09/30/16 08:41 Glucose 130 mg/dL (75-100) H 09/30/16 08:41 POC Glucose 110 (70-105) H 10/01/16 06:38 Calcium 8.0 mg/dL (8.4-10.2) L 09/30/16 08:41 Magnesium 1.8 mg/dL (1.7-2.3) 09/27/16 17:28 Total Bilirubin 0.7 mg/dL (0.1-1.2) 09/27/16 23:18 Direct Bilirubin 0.3 mg/dL (0-0.2) H 09/27/16 23:18 Indirect Bilirubin 0.4 mg/dL 09/27/16 23:18 AST 17 units/L (5-40) 09/27/16 23:18 ALT 16 units/L (7-56) 09/27/16 23:18 Alkaline Phosphatase 97 units/L (35-129) 09/27/16 23:18 Total Creatine Kinase 54 units/L (55-170) L 09/27/16 17:28 C-Reactive Protein 3.70 mg/dL (0.00-1.30) H 09/27/16 17:28 NT-Pro-B Natriuret Pep 45789 pg/mL (0-900) H 09/27/16 23:18 Total Protein 7.4 g/dL (6.3-8.2) 09/27/16 23:18 Albumin 3.5 g/dL (3.9-5) L 09/27/16 23:18 Albumin/Globulin Ratio 0.9 % 09/27/16 23:18 Lipase 10 units/L (13-60) L 09/27/16 23:18 Urine Color Yellow (Yellow) 09/27/16 19:50 Urine Turbidity Clear (Clear) 09/27/16 19:50 Urine pH 7.0 (5.0-7.0) 09/27/16 19:50 Ur Specific [place] 1.013 (1.003-1.030) 09/27/16 19:50 Urine Protein >500 mg/dL (Negative) 09/27/16 19:50 Urine Glucose (UA) 50 mg/dL (Negative) 09/27/16 19:50 Urine Ketones Tr mg/dL (Negative) 09/27/16 19:50 Urine Blood Neg (Negative) 09/27/16 19:50 Urine Nitrite Neg (Negative) 09/27/16 19:50 Urine Bilirubin Neg (Negative) 09/27/16 19:50 Urine Urobilinogen 2.0 mg/dL (<2.0) 09/27/16 19:50 Ur Leukocyte Esterase Neg (Negative) 09/27/16 19:50 Urine WBC (Auto) < 1.0 /HPF (0.0-6.0) 09/27/16 19:50 Urine RBC (Auto) 5.0 /HPF (0.0-6.0) 09/27/16 19:50 U Epithel Cells (Auto) < 1.0 /HPF (0-13.0) 09/27/16 19:50 Urine Bacteria (Auto) 1+ /HPF (Negative) 09/27/16 19:50 Urine Mucus Few /HPF 09/27/16 19:50
--- NOTE | 2016-10-01 15:12 | Event Note ---
Date: 10/01/16 Patient to be evaluated by podiatry later today to assess if his TMA is salvageable. His arterial duplex suggested he does not have adequate blood flow to heal distal wounds. The patient states he did not take aspirin or Plavix following his previous arterial procedure once discharged home. I reiterated to the patient, revascularization will be unsuccessful if he does not stay on antiplatelet medications postoperatively. This would likely result in him needing a higher level amputation. I asked the patient if he wanted to save his leg. He responded with, "not really". We'll await podiatry's opinion regarding his foot salvageability. We will make the patient nothing by mouth for possible procedure tomorrow. He certainly will need additional blood flow to heal a TMA. If he opts for higher level amputation, then he would likely require additional blood flow to heal a BKA.
--- NOTE | 2016-10-01 15:26 | XRay Report ---
ROUTINE CHEST, TWO VIEWS: HISTORY: Dyspnea. Mild cardiomegaly, mild vascular congestion and trace pleural effusions are identified. Dialysis catheter is unchanged since 09/27/16. IMPRESSION: Mild volume overload.
[2016-10-01] MEDS: AMBIEN PO PRN (22:28)
[2016-10-01] MEDS: ZOCOR PO SCH (22:29)
[2016-10-01] MEDS: DAKIN'S HALF STRENGTH TP SCH (22:29)
[2016-10-02] MEDS: PERCOCET 5/325 PO PRN ×2 (05:16→20:54)
[2016-10-02] MEDS ORDERED: ANCEF/STERILE WATER 2 GM/20 ML IV NR (08:00)
--- NOTE | 2016-10-02 10:30 | Query-Infection ---
Deavince Covarrubias Date:_10/02/16 Hand Stripper/CDS:Kathy Anna Phone#:_[phone] Exercise your independent professional judgment when responding to this query. Questions asked do not imply a particular answer is desired or expected. We greatly appreciate your clarification on this issue. Clinical Documentation States: 70-year-old male with end-stage renal disease with indwelling PermCath with severe peripheral vascular disease complicated by gangrene of his left lower extremity and right lower extremity prior major amputation Patient now represents to the ER with numerous complaints including cough, abdominal pain, nausea, vomiting, inability to tolerate liquid feeds, back pain , generalized weakness, and has partial dehiscence of his left foot wound. CT scan demonstrates bilateral pleural effusions. The patient reports that he "feels sick" and cannot breathe well and feels short of breath. Clinical findings show: (please check applicable parameters) Infection, known /suspected, with some of the following indicators; Specify the infection: Wound culture: Klebsiella and Proteus Mirabilis WBC: 2.7 Temp: 99.4 HR: 91 RR: 28 Blood pressure: 240/101 3 General parameters [ ] Fever (core temp >38.30C or 100.40F) [ ] Hypothermia (core temp <36C) [+] Heart rate >90 bpm [+] Tachypnea: >20 bpm or pCO2 < 32 mmHg [ ] Altered mental status [ ] Significant edema / +ve fluid balance (>20 ml/kg 24 h) [ ] Hyperglycemia (Bl. glucose >110 mg/dl) w/o diabetes Inflammatory parameters [ ] Leukocytosis (white blood cell count >12,000/l) [+] Leukopenia (white blood cell count <4,000/l) [ ] Bandemia (immature WBC > 10%) [ ] Leucocyte Left Shift [ ] Plasma procalcitonin>2 SD above the normal value Hemodynamic and tissue perfusion parameters [ ] Arterial hypotension(SBP <90 mmHg, MAP <70 mmHg,or a SBP drop >40 mmHg in adults) [ ] Hyperlactatemia (>3 mmol/l) [ ] Anion Gap (> 11mEG/l) [ ] Decreased capillary refill or mottling Organ dysfunction parameters [ ] Arterial hypoxemia (PaO2/FIO2 <300) [ ] Creatinine increase =0.5 mg/dl [ ] Acute oliguria (urine output <0.5 ml | kg |h or 45 mM/l for at least 2 hrs) [ ] Coagulation abnormalities (INR >1.5 or activated partial thromboplastin time >60 s) [ ] Ileus (absent emily wel sounds) [ ] Thrombocytopenia (platelet count <100,000/l) [ ] Hyperbilirubinemia (plasma total bilirubin >4 mg/dl) According to the clinical indications above, can Bacteremia be further specified? If so, please indicate below and in your Progress Notes and/ or Discharge Summary. Indicate if the condition was present on admission. PHYSICIAN RESPONSE: [X] Sepsis [ ] Severe Sepsis [ ] Septic Shock [ ] Septicemia [ ] Sepsis now resolved [ ] SIRS due to non-infectious cause with organ dysfunction [ ] SIRS due to non-infectious cause without organ dysfunction [ ] Other: [ ] Comment/Explanation: Present on Admission: [X ] Yes (Y) [ ] Clinically undeterminable (W) [ ] No (N) [ ] Ruled Out Please also document response in your Progress Notes and/or Discharge Summary and indicate if the condition was present on admission Notes: SIRS/ SIRS WITH ORGAN DYSFUNCTION Systemic inflammatory response syndrome (SIRS) generally refers to the systemic response to trauma/glez or other insult such as Acute Myocardial Infarction, Acute Pancreatitis, and Major Surgery with symptoms including fever, tachycardia , tachypnea, and leukocytosis (1). BACTEREMIA Presence of viable bacteria in the circulating blood (2). This term is reserved for patients that do not manifest above SIRS response. SEPTICEMIA Generally refers to a systemic disease associated with the presence of pathological microorganisms or toxins in the blood, which can include bacteria, viruses, fungi or other organisms (1). SEPSIS Generally refers to SIRS due infection (1). SEVERE SEPSIS Generally refers to sepsis associated with acute organ dysfunction (1). SEPTIC SHOCK Generally refers to circulatory failure associated with severe sepsis (2), and defined as hypotension or hypoperfusion despite adequate fluid resuscitation (1 hour) (3). REFERENCES: 1. [employer] [employer]/Society of Critical Care Medicine Consensus Conference. Definitions for sepsis and organ failure and guidelines for the use of innovative therapies in sepsis. Critical Care Med 1992;20:864 - 74. 2. Salomon y MM, Jimmie MP, Jeremy BLANCHARD, Karan E, Collin D, Jose Manuel D, Yohannes J, Alicja SM , Ja JL, Karyn G; International Sepsis Definitions Conference. 2000 SCCM/ESICM/ACCP/ATS/SIS International Sepsis Definitions Conference. Intensive Care Med. 2002 Apr;29(4):530-8. Epub 2002Oct 22. Review. PubMed PMID:[id number] 3. ICD-9-CM Official Guidelines for Coding and Reporting 4. Medscape Drugs, Diseases and Procedures references 5. [employer] Textbook of Internal Medicine. 18th Edition MTDD
--- NOTE | 2016-10-02 10:56 | Progress Note ---
Assessment and Plan Impression: * End stage renal disease on HD MWF * Dehiscence of his left lower extremity wound --Wound cx: Proteus, Klebsiella * Dyspnea - r/o pulmonary edema * Pleural effusion, bilateral * Hx of nausea/vomiting * Hypokalemia * Anemia secondary to ESRD * Secondary hyperparathyroidism Plan: * Hemodialysis MWF * UF as tolerated today - CXR improved but w/ trace pleural effusion * Vascular surgery recommendations noted * Podiatry to see * Abx per primary team * Symptomatic mgmt of n/v * Epogen with dialysis Subjective Date of service: 10/02/16 Interval history: No complaints. Seen on dialysis. Objective - Vital Signs Vital signs: Vital Signs - 12hr 10/02/16 08:15 Temperature 98.1 F Pulse Rate [ 61 Left Radial] Respiratory 18 Rate Blood Pressure 154/70 [Left Arm] O2 Sat by Pulse 100 Oximetry - General Appearance General appearance: well-developed, well-nourished EENT: ATNC Respiratory: Present: Clear to Ascultation Cardiology: regular, S1S2 Gastrointestinal: normal, no tenderness, no distended Neurologic: no focal deficit Psychiatric: cooperative - Lab 09/27/16 17:28 09/30/16 08:41 Most recent lab results Calcium 8.0 mg/dL (8.4-10.2) L 09/30/16 08:41 Magnesium 1.8 mg/dL (1.7-2.3) 09/27/16 17:28
[2016-10-02] MEDS ORDERED: NACL 0.9% 1000 ML 2,000 ML ONE (11:28)
[2016-10-02] MEDS: ROCEPHIN/NS 1 GM/50 ML 1 GM/50 ML BAG IV SCH (12:29)
[2016-10-02] MEDS: MUCINEX ER PO SCH ×2 (12:29→21:48)
[2016-10-02] MEDS: NORMODYNE PO SCH ×2 (12:29→21:48)
[2016-10-02] MEDS: HALFPRIN EC PO SCH (12:29)
[2016-10-02] MEDS: PLAVIX PO SCH (12:30)
[2016-10-02] MEDS: DAKIN'S HALF STRENGTH TP SCH ×2 (12:30→22:00)
[2016-10-02] MEDS: NORVASC PO SCH (12:30)
[2016-10-02] MEDS: PROCRIT IV PRN (14:40)
[2016-10-02] MEDS ORDERED: NACL 0.9% 250ML 250 ML ONE ×2 (15:26→17:59)
[2016-10-02] MEDS ORDERED: ANCEF/STERILE WATER 2 GM/20 ML 2 GM/20 ML SYRINGE IV ONE (15:26)
[2016-10-02] MEDS ORDERED: HEPARIN/NS 5000 UNIT/500ML(CATH LAB) 1,000 ML IR ONE (15:26)
[2016-10-02] MEDS: VERSED ONE ×10 (16:03→18:21)
[2016-10-02] MEDS: XYLOCAINE 2% INFILTRATI ONE ×2 (16:03→16:15)
[2016-10-02] MEDS: SUBLIMAZE ONE ×10 (16:03→18:22)
[2016-10-02] MEDS: HEPARIN 10,000 UNITS/10 ML ONE ×4 (16:25→18:43)
[2016-10-02] MEDS: HEPARIN IV PRN (16:25)
[2016-10-02] MEDS ORDERED: NITROGLYCERIN SYRINGE 6 ML ONE ×2 (16:40→16:52)
--- NOTE | 2016-10-02 17:26 | Progress Note ---
Assessment and Plan Assessment and plan: ESRD (end stage renal disease) * Nephrology following for dialysis. Gangrene of left foot with sepsis * wound care, Vascular surgeon following for revascularization procedure, * Noted to vascular surgeon recommendation * Culture growing Proteus and Klebsiella * Continue ceftriaxone Noncompliance of patient with renal dialysis * Patient counseled Volume overload due to noncompliance with dialysis * Fluid restriction, monitor uop q shift, * HD per nephrology recommendation DVT prophylaxis * Continue on heparin Anemia of chronic disease * Monitor H&H * Epogen with dialysis Peripheral vascular disease * Patient was not compliant with his medication * Continue on aspirin, Plavix and statin Hypertension, controlled * Continue on labetalol, amlodipine * Adjust BP meds as needed Hypokalemia * Was present on admission, replaced, resolved now Microbiology 09/27/16 19:38 Foot - Left Wound Culture - Final Klebsiella Oxytoca Proteus Mirabilis History Interval history: Patient seen and examined. Medical records and medication list reviewed. No acute event overnight noted by the RN. Patient denies any chest pain or difficulty breathing. Patient is tolerating diet. c/o persistent left foot pain, podiatry consult pending Discussed plan of care at bedside with patient. Hospitalist Physical - Physical exam Narrative exam: General appearance: Present: mild distress, disheveled, malodorous - EENT Eyes: Present: PERRL ENT: hearing intact - Neck Neck: Present: supple - Respiratory Respiratory: bilateral: diminished - Cardiovascular Rhythm: regular Heart Sounds: Present: S1 & S2 - Extremities Extremity abnormal: pulses diminished Peripheral Pulses: abnormal, and dry gangrenous ulcer on amputated left foot - Abdominal General gastrointestinal: soft, non-tender, non-distended - Integumentary Integumentary: Present: clear, dry - Psychiatric Psychiatric: appropriate mood/affect, cooperative - Neurologic Neurologic: CNII-XII intact - Constitutional Vitals: Temp Pulse Resp BP Pulse Ox 98.2 F 55 L 18 163/84 95 10/02/16 14:45 10/02/16 14:45 10/02/16 14:45 10/02/16 14:45 10/02/16 09:20 General appearance: Present: mild distress, disheveled, malodorous Results - Labs CBC & Chem 7: 09/27/16 17:28 09/30/16 08:41 Labs: Laboratory Last Values WBC 2.7 K/mm3 (4.5-11.0) L 09/27/16: RBC 4.06 M/mm3 (3.65-5.03) 09/27/16: Hgb 11.5 gm/dl (11.8-15.2) L 09/27/16: Hct 35.3 % (35.5-45.6) L 09/27/16: MCV 87 fl (84-94) 09/27/16: MCH 28 pg (28-32) 09/27/16: MCHC 33 % (32-34) 09/27/16: RDW 19.0 % (13.2-15.2) H 09/27/16 Plt Count 214 K/mm3 (140-440) 09/27/16 Lymph % (Auto) 10.9 % (13.4-35.0) L 09/27/16: [place] % (Auto) 13.0 % (0.0-7.3) H 09/27/16: Eos % (Auto) 0.8 % (0.0-4.3) 09/27/16: Baso % (Auto) 1.6 % (0.0-1.8) 09/27/16 Lymph # 0.3 K/mm3 (1.2-5.4) L 09/27/16: [place] # 0.4 K/mm3 (0.0-0.8) 09/27/16: Eos # 0.0 K/mm3 (0.0-0.4) 09/27/16: Baso # 0.0 K/mm3 (0.0-0.1) 09/27/16: Seg Neutrophils % 73.7 % (40.0-70.0) H 09/27/16: Seg Neutrophils # 2.0 K/mm3 (1.8-7.7) 09/27/16: ESR 40 mm/Hr (0-20) 09/27/16 17: Sodium 133 mmol/L (137-145) L 09/30/16 08:41 Potassium 4.1 mmol/L (3.6-5.0) 09/30/16 08:41 Chloride 92.9 mmol/L (98-107) L 09/30/16 08:41 Carbon Dioxide 22 mmol/L (22-30) 09/30/16 08:41 Anion Gap 22 mmol/L 09/30/16 08:41 BUN 51 mg/dL (9-20) H 09/30/16 08:41 Creatinine 9.2 mg/dL (0.8-1.5) H 09/30/16 08:41 Estimated GFR 7 ml/min 09/30/16 08:41 BUN/Creatinine Ratio 5.54 % 09/30/16 08:41 Glucose 130 mg/dL (75-100) H 09/30/16 08:41 POC Glucose 110 (70-105) H 10/01/16 06:38 Calcium 8.0 mg/dL (8.4-10.2) L 09/30/16 08:41 Magnesium 1.8 mg/dL (1.7-2.3) 09/27/16 17:28 Total Bilirubin 0.7 mg/dL (0.1-1.2) 09/27/16 23:18 Direct Bilirubin 0.3 mg/dL (0-0.2) H 09/27/16 23:18 Indirect Bilirubin 0.4 mg/dL 09/27/16 23:18 AST 17 units/L (5-40) 09/27/16 23:18 ALT 16 units/L (7-56) 09/27/16 23:18 Alkaline Phosphatase 97 units/L (35-129) 09/27/16 23:18 Total Creatine Kinase 54 units/L (55-170) L 09/27/16 17:28 C-Reactive Protein 3.70 mg/dL (0.00-1.30) H 09/27/16 17:28 NT-Pro-B Natriuret Pep 09126 pg/mL (0-900) H 09/27/16 23:18 Total Protein 7.4 g/dL (6.3-8.2) 09/27/16 23:18 Albumin 3.5 g/dL (3.9-5) L 09/27/16 23:18 Albumin/Globulin Ratio 0.9 % 09/27/16 23:18 Lipase 10 units/L (13-60) L 09/27/16 23:18 Urine Color Yellow (Yellow) 09/27/16 19:50 Urine Turbidity Clear (Clear) 09/27/16 19:50 Urine pH 7.0 (5.0-7.0) 09/27/16 19:50 Ur Specific [place] 1.013 (1.003-1.030) 09/27/16 19:50 Urine Protein >500 mg/dL (Negative) 09/27/16 19:50 Urine Glucose (UA) 50 mg/dL (Negative) 09/27/16 19:50 Urine Ketones Tr mg/dL (Negative) 09/27/16 19:50 Urine Blood Neg (Negative) 09/27/16 19:50 Urine Nitrite Neg (Negative) 09/27/16 19:50 Urine Bilirubin Neg (Negative) 09/27/16 19:50 Urine Urobilinogen 2.0 mg/dL (<2.0) 09/27/16 19:50 Ur Leukocyte Esterase Neg (Negative) 09/27/16 19:50 Urine WBC (Auto) < 1.0 /HPF (0.0-6.0) 09/27/16 19:50 Urine RBC (Auto) 5.0 /HPF (0.0-6.0) 09/27/16 19:50 U Epithel Cells (Auto) < 1.0 /HPF (0-13.0) 09/27/16 19:50 Urine Bacteria (Auto) 1+ /HPF (Negative) 09/27/16 19:50 Urine Mucus Few /HPF 09/27/16 19:50
[2016-10-02] MEDS ORDERED: NITRO-BID 2% TP ONE (18:46)
--- NOTE | 2016-10-02 19:01 | Operative Report ---
Operative Report Operative Report: EXAM: 1. Ultrasound-guided access of the right common femoral artery. 2. Angiography of the right lower extremity (clinical change) 3. Selection of the suprarenal abdominal aorta with angiography (clinical change) 4. Third order selection of the left lower extremity with angiography of the left lower extremity (clinical change) 5. Selection of the anterior tibial artery with angiography 6. Selection of the left posterior tibial artery with angiography 7. Angioplasty of the left anterior tibial artery with a 2.5 mm angioplasty balloon 8. Angioplasty of the left anterior tibial artery with a 2.5 mm coronary angioplasty balloon 9. Angioplasty of the left posterior tibial artery and tibioperoneal trunk with a 2.5 mm angioplasty balloon 10. Angioplasty of the left posterior tibial artery and tibioperoneal trunk with a 3 mm angioplasty balloon 11. Angioplasty of the left anterior tibial artery with a 3 mm angioplasty balloon 12. Angioplasty of the popliteal artery with a 5 mm angioplasty balloon 13. Angioplasty of the left posterior tibial artery with a 3 mm angioplasty balloon 14. Closure of the arteriotomy with a 6 Czech Angio-Seal device DATE: 10/02/16 [employer] ASSEMBLER: KAHDAR SANTOS MD INDICATION: End-stage renal disease with dehiscence of the left lower extremity foot flap with abnormal arterial duplex requiring endovascular reconstruction. This represents a clinical change since the prior intervention. MEDICATIONS: Please see nursing report for full details. DEVICES: 2.5 mm angioplasty balloon 2.5 mm coronary angioplasty balloon 3 mm angioplasty balloon 5 mm angioplasty balloon CONTRAST: Please see molder labels report for full details PROCEDURE: The risks, benefits, and alternatives were discussed with the patient; written informed consent was obtained. The patient's groins were prepped and draped in sterile fashion. Right common femoral artery was evaluated with ultrasound was patent. The right common femoral artery was accessed with a 21-gauge micropuncture needle. 0.018 inch wire was passed into the aorta. Needle was exchanged for transitional dilator. 035 inch wire was passed into the aorta. Transitional dilator was exchanged for 5 Czech sheath. Digital subtraction angiography was performed to the sheath demonstrating a high bifurcation. The right common femoral artery was appropriately accessed with the sheath below the inferior epigastric artery and above the bifurcation. The right external iliac artery, and right common femoral artery were patent. There was a mild to moderate narrowing in the proximal portion of the superficial femoral artery and the proximal to midportion of the profunda femoral artery. Omni flush catheter was advanced over the wire and positioned into the abdominal aorta. Digital subtraction angiography was performed demonstrating the renal arteries are not well-visualized. The infrarenal abdominal aorta was patent. The bilateral common iliac arteries were patent. Bilateral external iliac arteries were patent. The bilateral internal iliac arteries had moderate ostial narrowing. Wire and catheter were used to select the left external iliac artery. Digital subtraction angiography was performed demonstrating patency of the left common iliac artery distally, and redemonstrating the moderate ostial narrowing of the left internal iliac artery. The left external iliac artery was patent. The left common femoral artery was patent. The left proximal profunda femoral artery and superficial femoral artery were patent. Wire and catheter were used to select the proximal superficial femoral artery. The catheter was exchanged for vertebral catheter. Digital subtraction angiography was performed to the proximal superficial femoral artery. The proximal and mid superficial femoral artery were patent. There was advanced into the mid superficial femoral artery. Digital subtraction angiography was performed demonstrating patency of the distal superficial femoral artery except for mild less than 20% narrowing. Digital subtraction angiography was repeated demonstrating approximately 40% narrowing of the proximal and mid popliteal artery. Wire and catheter were positioned in the popliteal artery. Digital subtraction angiography was repeated demonstrating the rest of the runoff. The tibioperoneal trunk was severely narrowed. The anterior tibial artery was occluded throughout its course with late reconstitution of a diseased dorsalis pedis. The peroneal artery was occluded 1-2 cm after its origin and did not reconstitute. The posterior tibial artery demonstrated moderate diffuse disease until the distal portion. The distal portion of the posterior tibial artery became occluded in the distal third of the calf. No clear reconstitution noted. No direct flow noted into the foot. The patient was systemically heparinized. [place] wire was passed into the popliteal artery. Sheath was exchanged for a 90 cm [place] destination. This was positioned in the popliteal artery. Vertebral catheter and V 18 were used to select the anterior tibial artery. Vertebral catheter was then exchanged for a 0.018 inch Trailblazer. This was used in conjunction with the V 18 in order to pass a wire back into the dorsalis pedis, crossing the total occlusion. With the series of wires and catheters, I was able to manipulate the wire through the pedal arch into the posterior tibial artery. Vertebral catheter and V 18 were used to carefully navigate the tibioperoneal trunk, and then passed into the posterior tibial artery. This was then exchanged for a 0.018 inch Trailblazer. V 18 and Trailblazer were then used to cross the chronic occlusion in the distal posterior tibial artery, crossing to the lateral plantar artery, through a different pedal arch and back into the anterior tibial artery. This was done with the series of wires and catheters. Angioplasty was then performed from the pedal arch throughout the entirety of the anterior tibial artery with a 2.5 mm angioplasty balloon. Angioplasty was then performed from the pedal arch throughout the entirety of the posterior tibial artery and tibioperoneal trunk with a 2.5 mm angioplasty balloon Due to difficulty passing a wire throughout the length of the dorsalis pedis, I used a 2.5 mm coronary angioplasty balloon after exchanging the wire for a choice PT. This was used at high pressure, but unfortunately resulted in rupture of the balloon. The balloon was removed and exchanged for a 2.5 mm nanocross which was used to perform angioplasty at this segment for 5 minutes to tamponade the dorsalis pedis in the foot. Digital subtraction angiography demonstrated residual multifocal moderate narrowings in these vessels without evidence of extravasation. The area of balloon rupture did not have extravasation or pseudoaneurysm. 3 mm angioplasty balloon was then performed from the pedal arch throughout the length of the anterior tibial artery from the pedal arch. 3 mm angioplasty balloon was then performed from the pedal arch throughout the length of the posterior tibial artery from the pedal arch. 5 mm angioplasty balloon was then used to perform angioplasty of the popliteal artery including the below the knee, and above the knee popliteal artery. Digital subtraction angiography was performed demonstrating minimal residual narrowing of the popliteal artery. There was prompt flow into the posterior tibial and anterior tibial arteries which then resulted in flow into the foot. There is a 5 cm severe narrowing in the midportion of the right posterior tibial artery. 3 mm angioplasty balloon was advanced over the wire and use to perform angioplasty at this area of severe narrowing for 5 minutes. Digital subtraction angiography demonstrated resolution of this narrowing with prompt flow into the foot. After obtaining this excellent angiographic result, all wires, catheters, and sheaths were retracted into the right external iliac artery. Wire was passed essentially into the aorta. Sheath was exchanged for 6 Czech Angio-Seal device which was used to obtain hemostasis in the right common femoral artery access site. Near immediate hemostasis was achieved. Patient tolerated the procedure well. No immediate postprocedural complication. Nitro paste was administered to the left foot. Patient was placed on aspirin and Plavix. FINDINGS: Please see procedure note above IMPRESSION: Successful revascularization of the anterior tibial artery, posterior tibial artery, tibioperoneal trunk, and distal popliteal artery with angioplasty.
[2016-10-02] MEDS: NITRO-BID 2% TP SCH (19:21)
[2016-10-02] MEDS: ZOCOR PO SCH (21:48)
[2016-10-02] MEDS: AMBIEN PO PRN (22:48)
[2016-10-03] MEDS: TYLENOL PO PRN ×2 (05:57→13:44)
[2016-10-03] MEDS: NITRO-BID 2% TP SCH ×3 (06:00→13:46)
[2016-10-03 08:00] LABS: INR 1.04 (0.87-1.13)
[2016-10-03 08:10] LABS: Basophils % (Auto) 0.7 % (0.0-1.8); Eosinophils % (Auto) 3.7 % (0.0-4.3); Hematocrit 33.8 % (35.5-45.6); Hemoglobin 10.7 gm/dl (11.8-15.2); Mean Corpuscular HGB Conc 32 % (32-34); Mean Corpuscular Hemoglobin 28 pg (28-32); Mean Corpuscular Volume 87 fl (84-94); Platelet Count 150 K/mm3 (140-440); Red Blood Count 3.87 M/mm3 (3.65-5.03); Red Cell Distribution Width 19.1 % (13.2-15.2); White Blood Count 3.8 K/mm3 (4.5-11.0)
[2016-10-03 08:11] LABS: Albumin 2.7 g/dL (3.9-5); Albumin/Globulin Ratio 0.8 %; BUN/Creatinine Ratio 3.15; Bilirubin,Total 0.3 mg/dL (0.1-1.2); Calcium 7.7 mg/dL (8.4-10.2); Chloride 96.7 mmol/L (98-107); Potassium 3.5 mmol/L (3.6-5.0); Total Protein 6.3 g/dL (6.3-8.2)
--- NOTE | 2016-10-03 08:37 | Progress Note ---
Assessment and Plan Impression: * End stage renal disease on HD MWF * Dehiscence of his left lower extremity wound --Wound cx: Proteus, Klebsiella * Peripheral artery disease --s/p Revascularization of the anterior tibial artery, posterior tibial artery, tibioperoneal trunk, and distal popliteal artery * Dyspnea - r/o pulmonary edema * Pleural effusion, bilateral * Hx of nausea/vomiting * Hypokalemia * Anemia secondary to ESRD * Secondary hyperparathyroidism Plan: * Hemodialysis MWF * UF as tolerated * Vascular surgery recommendations/findings noted * Abx per primary team - Marciano * Symptomatic mgmt of n/v * Epogen with dialysis Subjective Date of service: 10/03/16 Interval history: Patient without complaint today Objective - Vital Signs Vital signs: Vital Signs - 12hr 10/02/16 10/03/16 10/03/16 21:48 00:05 05:58 Temperature 98.0 F Pulse Rate 62 68 Pulse Rate [ 61 Left Radial] Respiratory 16 Rate Blood Pressure 119/67 130/70 Blood Pressure 111/53 [Left Arm] O2 Sat by Pulse 900 H Oximetry 10/03/16 10/03/16 06:00 08:05 Temperature 98.7 F Pulse Rate 68 Pulse Rate [ 59 L Left Radial] Respiratory 20 Rate Blood Pressure 128/76 Blood Pressure 137/64 [Left Arm] O2 Sat by Pulse 100 Oximetry - General Appearance General appearance: well-developed, well-nourished EENT: ATNC Respiratory: Present: Clear to Ascultation Cardiology: regular, S1S2 Gastrointestinal: normal Neurologic: alert and oriented x3 Musculoskeletal: other (no edema) Psychiatric: cooperative - Lab 10/03/16 06:54 10/04/16 07:23 Most recent lab results Calcium 7.7 mg/dL (8.4-10.2) L 10/03/16 06:54 Magnesium 1.8 mg/dL (1.7-2.3) 09/27/16 17:28
[2016-10-03] MEDS: ROCEPHIN/NS 1 GM/50 ML 1 GM/50 ML BAG IV SCH (09:15)
[2016-10-03] MEDS: HALFPRIN EC PO SCH (09:19)
[2016-10-03] MEDS: MUCINEX ER PO SCH ×2 (09:20→22:00)
[2016-10-03] MEDS: NORVASC PO SCH (09:20)
[2016-10-03] MEDS: NORMODYNE PO SCH ×2 (09:21→22:00)
[2016-10-03] MEDS: PLAVIX PO SCH (09:21)
[2016-10-03] MEDS: DAKIN'S HALF STRENGTH TP SCH ×2 (09:35→17:51)
--- NOTE | 2016-10-03 15:47 | Progress Note ---
Assessment and Plan Assessment and plan: ESRD (end stage renal disease) * Nephrology following for dialysis. Gangrene of left foot with sepsis * wound care, Vascular surgeon following * Status post injection lasting on 10/02/16 * Culture growing Proteus and Klebsiella * Continue ceftriaxone * Dr. Valencia to follow today Noncompliance of patient with renal dialysis * Patient counseled Volume overload due to noncompliance with dialysis * Fluid restriction, monitor uop q shift, resolved * HD per nephrology recommendation DVT prophylaxis * Continue on heparin Anemia of chronic disease * Monitor H&H * Epogen with dialysis Peripheral vascular disease * Patient was not compliant with his medication * Continue on aspirin, Plavix and statin Hypertension, controlled * Continue on labetalol, amlodipine * Adjust BP meds as needed Hypokalemia * Was present on admission, replaced, improved now Microbiology 09/27/16 19:38 Foot - Left Wound Culture - Final Klebsiella Oxytoca Proteus Mirabilis History Interval history: Patient seen and examined. Medical records and medication list reviewed. No acute event overnight noted by the RN. Patient denies any chest pain or difficulty breathing. Patient is complaining of nausea. podiatry consult pending, status post angioplasty yesterday Discussed plan of care at bedside with patient. Hospitalist Physical - Physical exam Narrative exam: General appearance: Present: mild distress, disheveled, malodorous - EENT Eyes: Present: PERRL ENT: hearing intact - Neck Neck: Present: supple - Respiratory Respiratory: bilateral: diminished - Cardiovascular Rhythm: regular Heart Sounds: Present: S1 & S2 - Extremities Extremity abnormal: pulses diminished Peripheral Pulses: Wound dressing on left foot - Abdominal General gastrointestinal: soft, non-tender, non-distended - Integumentary Integumentary: Present: clear, dry - Psychiatric Psychiatric: appropriate mood/affect, cooperative - Neurologic Neurologic: CNII-XII intact - Constitutional Vitals: Temp Pulse Resp BP Pulse Ox 98.7 F 64 20 137/64 100 10/03/16 08:05 10/03/16 09:21 10/03/16 08:05 10/03/16 09:21 10/03/16 08:05 General appearance: Present: mild distress, disheveled, malodorous Results - Labs CBC & Chem 7: 10/03/16 06:54 10/03/16 06:54 Labs: Laboratory Last Values WBC 3.8 K/mm3 (4.5-11.0) L 10/03/16 06:54 RBC 3.87 M/mm3 (3.65-5.03) 10/03/16 06:54 Hgb 10.7 gm/dl (11.8-15.2) L 10/03/16 06:54 Hct 33.8 % (35.5-45.6) L 10/03/16 06:54 MCV 87 fl (84-94) 10/03/16 06:54 MCH 28 pg (28-32) 10/03/16 06:54 MCHC 32 % (32-34) 10/03/16 06:54 RDW 19.1 % (13.2-15.2) H 10/03/16 06:54 Plt Count 150 K/mm3 (140-440) 10/03/16 06:54 Lymph % (Auto) 14.6 % (13.4-35.0) 10/03/16 06:54 [place] % (Auto) 9.1 % (0.0-7.3) H 10/03/16 06:54 Eos % (Auto) 3.7 % (0.0-4.3) 10/03/16 06:54 Baso % (Auto) 0.7 % (0.0-1.8) 10/03/16 06:54 Lymph # 0.6 K/mm3 (1.2-5.4) L 10/03/16 06:54 [place] # 0.3 K/mm3 (0.0-0.8) 10/03/16 06:54 Eos # 0.1 K/mm3 (0.0-0.4) 10/03/16 06:54 Baso # 0.0 K/mm3 (0.0-0.1) 10/03/16 06:54 Seg Neutrophils % 71.9 % (40.0-70.0) H 10/03/16 06:54 Seg Neutrophils # 2.8 K/mm3 (1.8-7.7) 10/03/16 06:54 ESR 40 mm/Hr (0-20) 09/27/16 17:28 PT 13.5 Sec. (12.2-14.9) 10/03/16 06:54 INR 1.04 (0.87-1.13) 10/03/16 06:54 Sodium 136 mmol/L (137-145) L 10/03/16 06:54 Potassium 3.5 mmol/L (3.6-5.0) L 10/03/16 06:54 Chloride 96.7 mmol/L (98-107) L 10/03/16 06:54 Carbon Dioxide 25 mmol/L (22-30) 10/03/16 06:54 Anion Gap 18 mmol/L 10/03/16 06:54 BUN 18 mg/dL (9-20) 10/03/16 06:54 Creatinine 5.7 mg/dL (0.8-1.5) H 10/03/16 06:54 Estimated GFR 12 ml/min 10/03/16 06:54 BUN/Creatinine Ratio 3.15 % 10/03/16 06:54 Glucose 124 mg/dL (75-100) H 10/03/16 06:54 POC Glucose 174 (70-105) H 10/03/16 11:43 Calcium 7.7 mg/dL (8.4-10.2) L 10/03/16 06:54 Magnesium 1.8 mg/dL (1.7-2.3) 09/27/16 17:28 Total Bilirubin 0.3 mg/dL (0.1-1.2) 10/03/16 06:54 Direct Bilirubin 0.3 mg/dL (0-0.2) H 09/27/16 23:18 Indirect Bilirubin 0.4 mg/dL 09/27/16 23:18 AST 15 units/L (5-40) 10/03/16 06:54 ALT 13 units/L (7-56) 10/03/16 06:54 Alkaline Phosphatase 118 units/L (35-129) 10/03/16 06:54 Total Creatine Kinase 54 units/L (55-170) L 09/27/16 17:28 C-Reactive Protein 3.70 mg/dL (0.00-1.30) H 09/27/16 17:28 NT-Pro-B Natriuret Pep 21820 pg/mL (0-900) H 09/27/16 23:18 Total Protein 6.3 g/dL (6.3-8.2) 10/03/16 06:54 Albumin 2.7 g/dL (3.9-5) L 10/03/16 06:54 Albumin/Globulin Ratio 0.8 % 10/03/16 06:54 Lipase 10 units/L (13-60) L 09/27/16 23:18 Urine Color Yellow (Yellow) 09/27/16 19:50 Urine Turbidity Clear (Clear) 09/27/16 19:50 Urine pH 7.0 (5.0-7.0) 09/27/16 19:50 Ur Specific [place] 1.013 (1.003-1.030) 09/27/16 19:50 Urine Protein >500 mg/dL (Negative) 09/27/16 19:50 Urine Glucose (UA) 50 mg/dL (Negative) 09/27/16 19:50 Urine Ketones Tr mg/dL (Negative) 09/27/16 19:50 Urine Blood Neg (Negative) 09/27/16 19:50 Urine Nitrite Neg (Negative) 09/27/16 19:50 Urine Bilirubin Neg (Negative) 09/27/16 19:50 Urine Urobilinogen 2.0 mg/dL (<2.0) 09/27/16 19:50 Ur Leukocyte Esterase Neg (Negative) 09/27/16 19:50 Urine WBC (Auto) < 1.0 /HPF (0.0-6.0) 09/27/16 19:50 Urine RBC (Auto) 5.0 /HPF (0.0-6.0) 09/27/16 19:50 U Epithel Cells (Auto) < 1.0 /HPF (0-13.0) 09/27/16 19:50 Urine Bacteria (Auto) 1+ /HPF (Negative) 09/27/16 19:50 Urine Mucus Few /HPF 09/27/16 19:50
--- NOTE | 2016-10-03 16:10 | Progress Note ---
Assessment and Plan 70-year-old male with severe peripheral vascular disease and end-stage renal disease with severe noncompliance with medical therapy and followup who presents with dehiscence of his left lower extremity. Left lower extremity wound dehiscence with noncompliance of follow-up, and medication. I discussed with him again the prospect of below-knee amputation versus attempts at limb salvage. He told our group 2 days ago that he wanted a BKA, but now wants to attempt to salvage his limb. The patient has been revascularized with good outflow. Dr. Valencia will see the patient today. Recommend infectious disease consult. Subjective Date of service: 10/03/16 Interval history: Left foot is warm. Patient feels more in his foot after procedure. Yesterday, prior to procedure, the patient decided that he wanted to try to preserve his left foot and did not want a below-knee amputation. Explained to the patient that in order to prevent BKA he is going to require compliance with medication, compliance with nursing/wound care appointments, follow-up with Dr. Valencia, and follow-up with myself. Objective - Constitutional Vitals: Vital Signs - 12hr 10/03/16 10/03/16 10/03/16 05:58 06:00 08:05 Temperature 98.7 F Pulse Rate 68 68 Pulse Rate [ 59 L Left Radial] Respiratory 20 Rate Blood Pressure 130/70 128/76 Blood Pressure 137/64 [Left Arm] O2 Sat by Pulse 100 Oximetry 10/03/16 10/03/16 10/03/16 09:19 09:20 09:21 Temperature Pulse Rate 64 64 64 Pulse Rate [ Left Radial] Respiratory Rate Blood Pressure 137/64 137/64 137/64 Blood Pressure [Left Arm] O2 Sat by Pulse Oximetry 10/03/16 15:48 Temperature 97.3 F L Pulse Rate Pulse Rate [ 59 L Left Radial] Respiratory 20 Rate Blood Pressure Blood Pressure 170/73 [Left Arm] O2 Sat by Pulse 99 Oximetry General appearance: Present: no acute distress - EENT Eyes: EOM intact ENT: hearing intact - Respiratory Respiratory effort: normal Extremities: normal temperature, normal color, abnormal (warm left foot) - Gastrointestinal General gastrointestinal: Present: soft, non-tender - Psychiatric Psychiatric: other (flat affect) - Labs CBC & Chem 7: 10/03/16 06:54 10/03/16 06:54 Labs: Abnormal lab results 10/02/16 10/03/16 10/03/16 Range/Units 21:55 06:46 06:54 WBC 3.8 L (4.5-11.0) K/mm3 Hgb 10.7 L (11.8-15.2) gm/dl Hct 33.8 L (35.5-45.6) % RDW 19.1 H (13.2-15.2) % [place] % (Auto) 9.1 H (0.0-7.3) % Lymph # 0.6 L (1.2-5.4) K/mm3 Seg Neutrophils % 71.9 H (40.0-70.0) % Sodium (137-145) mmol/L Potassium (3.6-5.0) mmol/L Chloride (98-107) mmol/L Creatinine (0.8-1.5) mg/dL Glucose (75-100) mg/dL POC Glucose 153 H 131 H (70-105) Calcium (8.4-10.2) mg/dL Albumin (3.9-5) g/dL 10/03/16 10/03/16 Range/Units 06:54 11:43 WBC (4.5-11.0) K/mm3 Hgb (11.8-15.2) gm/dl Hct (35.5-45.6) % RDW (13.2-15.2) % [place] % (Auto) (0.0-7.3) % Lymph # (1.2-5.4) K/mm3 Seg Neutrophils % (40.0-70.0) % Sodium 136 L (137-145) mmol/L Potassium 3.5 L (3.6-5.0) mmol/L Chloride 96.7 L (98-107) mmol/L Creatinine 5.7 H (0.8-1.5) mg/dL Glucose 124 H (75-100) mg/dL POC Glucose 174 H (70-105) Calcium 7.7 L (8.4-10.2) mg/dL Albumin 2.7 L (3.9-5) g/dL
[2016-10-03] MEDS ORDERED: K-DUR PO ONE (16:52)
[2016-10-03] MEDS: ZOCOR PO SCH (22:00)
--- NOTE | 2016-10-03 23:48 | Event Note ---
Date: 10/03/[address] Valencia to perform foot debridement/flap coverage/ limb salvage attempts tomorrow.
[2016-10-04] MEDS ORDERED: MARCAINE 0.5% INFILTRATI ONE (00:24)
[2016-10-04] MEDS ORDERED: XYLOCAINE 1% 20 mL ONE (00:24)
[2016-10-04] MEDS: DAKIN'S HALF STRENGTH TP SCH ×2 (08:03→23:17)
[2016-10-04 08:27] LABS: BUN/Creatinine Ratio 3.33; Calcium 7.9 mg/dL (8.4-10.2); Potassium 3.9 mmol/L (3.6-5.0)
--- NOTE | 2016-10-04 11:01 | Progress Note ---
Assessment and Plan Patient is receiving maximal endovascular and surgical therapy in an attempt to heal his foot. His indicated that he has difficulty in follow-up and medication compliance. The patient was counseled that he needs to continue to follow up and to take his medications or he will likely lose his leg. Subjective Date of service: 10/04/16 Principal diagnosis: PVD with ulceration Interval history: Patient is doing well following his revascularization procedure. He is scheduled today for a debridement with Dr. Valencia. The patient has significant issues with compliance and follow-up. Objective - Constitutional Vitals: Vital Signs - 12hr 10/04/16 07:45 Temperature 98.1 F Pulse Rate [ 63 Apical] Respiratory 14 Rate Blood Pressure 170/76 [Left Arm] O2 Sat by Pulse 98 Oximetry General appearance: Present: no acute distress - EENT Eyes: PERRL ENT: hearing intact - Neck Neck: supple, normal ROM - Respiratory Respiratory effort: normal - Gastrointestinal Rectal Exam: deferred - Genitourinary Male genitourinary: deferred - Psychiatric Psychiatric: cooperative - Labs CBC & Chem 7: 10/03/16 06:54 10/04/16 07:23 Labs: Abnormal lab results 10/03/16 10/03/16 10/04/16 Range/Units 11:43 17:35 07:23 Sodium 135 L (137-145) mmol/L BUN 23 H (9-20) mg/dL Creatinine 6.9 H (0.8-1.5) mg/dL POC Glucose 174 H 124 H (70-105) Calcium 7.9 L (8.4-10.2) mg/dL
[2016-10-04] MEDS ORDERED: NACL 0.9 (PRIMING MACHINE ONLY DIALYSIS) MC ONE (11:53)
[2016-10-04] MEDS: PROCRIT IV PRN (13:11)
[2016-10-04] MEDS: HEPARIN IV PRN (13:13)
--- NOTE | 2016-10-04 13:28 | Progress Note ---
Assessment and Plan Impression: * End stage renal disease on HD MWF * Dehiscence of his left lower extremity wound --Wound cx: Proteus, Klebsiella * Peripheral artery disease --s/p Revascularization of the anterior tibial artery, posterior tibial artery, tibioperoneal trunk, and distal popliteal artery * Dyspnea - r/o pulmonary edema * Pleural effusion, bilateral * Hx of nausea/vomiting * Hypokalemia * Anemia secondary to ESRD * Secondary hyperparathyroidism Plan: * Hemodialysis MWF * UF as tolerated * Vascular surgery recommendations/findings noted * Patient for debridement today w/ podiatry today * Abx per primary team - Marciano * Symptomatic mgmt of n/v * Epogen with dialysis Subjective Date of service: 10/04/16 Principal diagnosis: PVD with ulceration Interval history: "I woke up breathing good" Objective - Vital Signs Vital signs: Vital Signs - 12hr 10/04/16 10/04/16 10/04/16 07:45 09:20 09:30 Temperature 98.1 F 97.8 F Pulse Rate 62 61 Pulse Rate [ 63 Apical] Respiratory 14 20 Rate Blood Pressure 170/80 160/81 Blood Pressure 170/76 [Left Arm] O2 Sat by Pulse 98 Oximetry 10/04/16 10/04/16 10/04/16 09:45 10:00 10:15 Temperature Pulse Rate 60 62 62 Pulse Rate [ Apical] Respiratory Rate Blood Pressure 146/77 157/83 174/76 Blood Pressure [Left Arm] O2 Sat by Pulse Oximetry 10/04/16 10/04/16 10/04/16 10:30 10:45 11:00 Temperature Pulse Rate 60 60 62 Pulse Rate [ Apical] Respiratory Rate Blood Pressure 173/90 174/77 179/85 Blood Pressure [Left Arm] O2 Sat by Pulse Oximetry 10/04/16 10/04/16 10/04/16 11:15 11:30 11:45 Temperature Pulse Rate 61 60 60 Pulse Rate [ Apical] Respiratory Rate Blood Pressure 169/72 141/78 137/69 Blood Pressure [Left Arm] O2 Sat by Pulse Oximetry 10/04/16 10/04/16 12:00 12:15 Temperature Pulse Rate 59 L 60 Pulse Rate [ Apical] Respiratory Rate Blood Pressure 145/70 131/70 Blood Pressure [Left Arm] O2 Sat by Pulse Oximetry - General Appearance General appearance: well-developed, well-nourished EENT: ATNC Respiratory: Present: Clear to Ascultation Cardiology: regular, S1S2 Gastrointestinal: normal Neurologic: no focal deficit, alert and oriented x3 Psychiatric: mood/affect appropriate, cooperative - Lab 10/03/16 06:54 10/04/16 07:23 Most recent lab results Calcium 7.9 mg/dL (8.4-10.2) L 10/04/16 07:23 Magnesium 1.8 mg/dL (1.7-2.3) 09/27/16 17:28
--- NOTE | 2016-10-04 14:50 | Progress Note ---
Assessment and Plan Assessment and plan: ESRD (end stage renal disease) * Nephrology following for dialysis. Gangrene of left foot with sepsis * wound care, Vascular surgeon following * Status post injection lasting on 10/02/16 * Culture growing Proteus and Klebsiella * Continue ceftriaxone * foot debridement/flap coverage/limb salvage attempts by Dr. Valencia today Noncompliance of patient with renal dialysis * Patient counseled Volume overload due to noncompliance with dialysis * Fluid restriction, monitor uop q shift, resolved * HD per nephrology recommendation DVT prophylaxis * Continue on heparin Anemia of chronic disease * Monitor H&H * Epogen with dialysis Peripheral vascular disease * Patient was not compliant with his medication * Continue on aspirin, Plavix and statin Hypertension, controlled * Continue on labetalol, amlodipine * Adjust BP meds as needed Hypokalemia * Was present on admission, replaced, improved now Microbiology 09/27/16 19:38 Foot - Left Wound Culture - Final Klebsiella Oxytoca Proteus Mirabilis History Interval history: Patient seen and examined. Medical records and medication list reviewed. No acute event overnight noted by the RN. Patient denies any chest pain or difficulty breathing. getting HD now status post angioplasty on 10/02, will have surgery to foot debridement/flap coverage/limb salvage attempts today by Dr. Valencia Discussed plan of care at bedside with patient. Hospitalist Physical - Physical exam Narrative exam: General appearance: Present: mild distress, disheveled, malodorous - EENT Eyes: Present: PERRL ENT: hearing intact - Neck Neck: Present: supple - Respiratory Respiratory: bilateral: diminished - Cardiovascular Rhythm: regular Heart Sounds: Present: S1 & S2 - Extremities Extremity abnormal: pulses diminished Peripheral Pulses: Wound dressing on left foot - Abdominal General gastrointestinal: soft, non-tender, non-distended - Integumentary Integumentary: Present: clear, dry - Psychiatric Psychiatric: appropriate mood/affect, cooperative - Neurologic Neurologic: CNII-XII intact - Constitutional Vitals: Temp Pulse Resp BP Pulse Ox 97.8 F 60 20 131/70 98 10/04/16 09:20 10/04/16 12:15 10/04/16 09:20 10/04/16 12:15 10/04/16 07:45 General appearance: Present: no acute distress Results - Labs CBC & Chem 7: 10/03/16 06:54 10/04/16 07:23 Labs: Laboratory Last Values WBC 3.8 K/mm3 (4.5-11.0) L 10/03/16 06:54 RBC 3.87 M/mm3 (3.65-5.03) 10/03/16 06:54 Hgb 10.7 gm/dl (11.8-15.2) L 10/03/16 06:54 Hct 33.8 % (35.5-45.6) L 10/03/16 06:54 MCV 87 fl (84-94) 10/03/16 06:54 MCH 28 pg (28-32) 10/03/16 06:54 MCHC 32 % (32-34) 10/03/16 06:54 RDW 19.1 % (13.2-15.2) H 10/03/16 06:54 Plt Count 150 K/mm3 (140-440) 10/03/16 06:54 Lymph % (Auto) 14.6 % (13.4-35.0) 10/03/16 06:54 [place] % (Auto) 9.1 % (0.0-7.3) H 10/03/16 06:54 Eos % (Auto) 3.7 % (0.0-4.3) 10/03/16 06:54 Baso % (Auto) 0.7 % (0.0-1.8) 10/03/16 06:54 Lymph # 0.6 K/mm3 (1.2-5.4) L 10/03/16 06:54 [place] # 0.3 K/mm3 (0.0-0.8) 10/03/16 06:54 Eos # 0.1 K/mm3 (0.0-0.4) 10/03/16 06:54 Baso # 0.0 K/mm3 (0.0-0.1) 10/03/16 06:54 Seg Neutrophils % 71.9 % (40.0-70.0) H 10/03/16 06:54 Seg Neutrophils # 2.8 K/mm3 (1.8-7.7) 10/03/16 06:54 ESR 40 mm/Hr (0-20) 09/27/16 17:28 PT 13.5 Sec. (12.2-14.9) 10/03/16 06:54 INR 1.04 (0.87-1.13) 10/03/16 06:54 Sodium 135 mmol/L (137-145) L 10/04/16 07:23 Potassium 3.9 mmol/L (3.6-5.0) 10/04/16 07:23 Chloride 98.0 mmol/L (98-107) 10/04/16 07:23 Carbon Dioxide 24 mmol/L (22-30) 10/04/16 07:23 Anion Gap 17 mmol/L 10/04/16 07:23 BUN 23 mg/dL (9-20) H 10/04/16 07:23 Creatinine 6.9 mg/dL (0.8-1.5) H 10/04/16 07:23 Estimated GFR 10 ml/min 10/04/16 07:23 BUN/Creatinine Ratio 3.33 % 10/04/16 07:23 Glucose 98 mg/dL (75-100) 10/04/16 07:23 POC Glucose 124 (70-105) H 10/03/16 17:35 Calcium 7.9 mg/dL (8.4-10.2) L 10/04/16 07:23 Magnesium 1.8 mg/dL (1.7-2.3) 09/27/16 17:28 Total Bilirubin 0.3 mg/dL (0.1-1.2) 10/03/16 06:54 Direct Bilirubin 0.3 mg/dL (0-0.2) H 09/27/16 23:18 Indirect Bilirubin 0.4 mg/dL 09/27/16 23:18 AST 15 units/L (5-40) 10/03/16 06:54 ALT 13 units/L (7-56) 10/03/16 06:54 Alkaline Phosphatase 118 units/L (35-129) 10/03/16 06:54 Total Creatine Kinase 54 units/L (55-170) L 09/27/16 17:28 C-Reactive Protein 3.70 mg/dL (0.00-1.30) H 09/27/16 17:28 NT-Pro-B Natriuret Pep 27134 pg/mL (0-900) H 09/27/16 23:18 Total Protein 6.3 g/dL (6.3-8.2) 10/03/16 06:54 Albumin 2.7 g/dL (3.9-5) L 10/03/16 06:54 Albumin/Globulin Ratio 0.8 % 10/03/16 06:54 Lipase 10 units/L (13-60) L 09/27/16 23:18 Urine Color Yellow (Yellow) 09/27/16 19:50 Urine Turbidity Clear (Clear) 09/27/16 19:50 Urine pH 7.0 (5.0-7.0) 09/27/16 19:50 Ur Specific [place] 1.013 (1.003-1.030) 09/27/16 19:50 Urine Protein >500 mg/dL (Negative) 09/27/16 19:50 Urine Glucose (UA) 50 mg/dL (Negative) 09/27/16 19:50 Urine Ketones Tr mg/dL (Negative) 09/27/16 19:50 Urine Blood Neg (Negative) 09/27/16 19:50 Urine Nitrite Neg (Negative) 09/27/16 19:50 Urine Bilirubin Neg (Negative) 09/27/16 19:50 Urine Urobilinogen 2.0 mg/dL (<2.0) 09/27/16 19:50 Ur Leukocyte Esterase Neg (Negative) 09/27/16 19:50 Urine WBC (Auto) < 1.0 /HPF (0.0-6.0) 09/27/16 19:50 Urine RBC (Auto) 5.0 /HPF (0.0-6.0) 09/27/16 19:50 U Epithel Cells (Auto) < 1.0 /HPF (0-13.0) 09/27/16 19:50 Urine Bacteria (Auto) 1+ /HPF (Negative) 09/27/16 19:50 Urine Mucus Few /HPF 09/27/16 19:50
[2016-10-04] MEDS: TYLENOL PO PRN (15:26)
[2016-10-04] MEDS: ROCEPHIN/NS 1 GM/50 ML 1 GM/50 ML BAG IV SCH (15:28)
[2016-10-04] MEDS: HALFPRIN EC PO SCH (15:29)
[2016-10-04] MEDS: K-DUR PO SCH (15:30)
[2016-10-04] MEDS: MUCINEX ER PO SCH ×2 (15:30→22:10)
[2016-10-04] MEDS: NORMODYNE PO SCH ×3 (15:30→22:10)
[2016-10-04] MEDS ORDERED: DIPRIVAN 10 MG/ML IV ONE (16:59)
[2016-10-04] MEDS ORDERED: DILAUDID ONE (17:00)
[2016-10-04] MEDS ORDERED: XYLOCAINE MPF 2% ONE (17:00)
--- NOTE | 2016-10-04 17:36 | Anesthesia Consultation ---
Anesthesia Consult and Med Hx Date of service: 10/04/16 - Airway Anesthetic Teeth Evaluation: Poor ROM Head & Neck: Adequate Mental/Hyoid Distance: Adequate Mallampati Class: Class II Intubation Access Assessment: Probably Good - Pulmonary Exam CTA: Yes - Cardiac Exam Cardiac Exam: RRR - Pre-Operative Health Status ASA Pre-Surgery Classification: ASA3 Proposed Anesthetic Plan: General - Pulmonary Hx Smoking: Yes COPD: Yes Hx Pneumonia: Yes - Cardiovascular System Hx Hypertension: Yes Hx Heart Attack/AMI: Yes Hx Peripheral Vascular Disease: Yes - Central Nervous System CVA: Yes Hx Psychiatric Problems: No - Gastrointestinal Hx Gastroesophageal Reflux Disease: (Admitted with abdominal pain and N&V) - Endocrine Hx Renal Disease: Yes (--) Hx End Stage Renal Disease: Yes Hx Insulin Dependent Diabetes: Yes - Other Systems Hx Substance Use: Yes (Recreational Marijuana use) Hx Cancer: No
[2016-10-04] MEDS ORDERED: DILAUDID IV PRN (17:37)
--- NOTE | 2016-10-04 17:37 | Anesthesia Day of Surgery ---
Anesthesia Day of Surgery - Day of Surgery Patient Examined: Yes Patient H&P Reviewed: Yes Patient is NPO: Yes
[2016-10-04] MEDS ORDERED: ANCEF ONE (17:51)
[2016-10-04] MEDS ORDERED: NACL P/F VIAL (10 ML) 10 ML ONE ×2 (17:51→18:16)
[2016-10-04] MEDS ORDERED: ZOFRAN ONE (17:55)
[2016-10-04] MEDS ORDERED: DECADRON ONE (17:55)
[2016-10-04] MEDS ORDERED: NEOSPORIN GU IR ONE (18:02)
[2016-10-04] MEDS ORDERED: BACITRACIN ZINC OINT TP ONE (18:02)
[2016-10-04] MEDS ORDERED: ePHEDrine SULFATE ONE (18:16)
--- NOTE | 2016-10-04 19:50 | Post Anesthesia Evaluation ---
- Post Anesthesia Evaluation Patient Participated: Yes Airway Patent: Yes Stable Respiratory Function: Yes Nausea/Vomiting: No Temp > 96.8F: Yes Pain Manageable: Yes Adequeate Hydration: Yes Anesthesia Complications: No Block Receding Appropriately: Not Applicable Patient on Ventilator: No
--- NOTE | 2016-10-04 21:20 | Admit Criteria Form ---
Admission Criteria Documentation: AMBULATORY SURGERY EXCEPTION CRITERIA Ambulatory Surgery Exception Criteria ( Place 'X' for any and all applicable criteria): Surgery or procedure performed on ambulatory basis may require inpatient stay for[A] ANY ONE of the following(1)(2)(3)(4)(5)(6)(7)(8)(9): [X] I. A preoperative situation, condition, or finding that warrants inpatient stay as indicated by ANY ONE of the following: [] a) Inpatient care needed because of severity of a disease or condition rather than the surgery (eg, severe cardiac or respiratory disease, severe infection) (15) (16 ) (17) (18) [] b) Emergent procedure (eg, angioplasty for acute ischemia)(19) [] c) Complex surgical approach or situation as indicated by ANY ONE of the following(3): [] i) Open approach needed instead of usual endoscopic, transcatheter, or other less invasive procedure [] ii) Difficult approach because of previous operation [] iii) Airway monitoring required after open neck procedures(20)(21) [] iv) Large mass requiring unusually extensive dissection [] v) Additional complicating feature requiring inpatient care (eg, drain management)(22(23): [X] d) Major surgery in a pt with high anesthetic risk as indicated by ANY ONE of the following (2)(3)(5)(7)(8): [X] i) ASA risk class III or higher (severe systemic disease impairing function) [D] [] ii) Advanced age (eg, older than 85 years)(14)(24) [] iii) Symptomatic heart failure(25) [] iv) Symptomatic asthma or COPD(8)(21) [] v) Morbid obesity with hemodynamic or respiratory problems(20)( 21)(26)(27) [] vi) Obstructive sleep apnea(20)(21) [] vii) Former premature infants who are younger than 60 weeks [] viii) High risk for severe postoperative abnormalities (eg, severe postoperative hypocalcemia after parathyroidectomy for severe hyperparathyroidism)(27)( 28) [] ix) Unstable angina(25) [] e) Drug-related risk requiring inpatient stay as indicated by ANY ONE of the following(5)(10)(14)(32)(33) [] i) Procedure requires discontinuing drugs or other therapy (eg , antiarrhythmic medication, antiseizure medication), which necessitates inpatient observation or treatment.(18)(31) [] ii) Major surgery and high risk drug use as indicated by ANY ONE of the following: [] 1) Active abuse of cocaine or similar drug [] 2) Monoamine oxidase inhibitor use [] 3) Other drug identified as posing risk [] f) Inadequate outpatient care situation as indicated by ANY ONE of the following(5)(10)(14)(32)(33) [] i) Patient lives remote from medical facility and procedure has urgent complication potential, and temporary nearby residence cannot be arranged [] ii) Patient will have postprocedure incapacitation and inadequate assistance at home, or alternative level of care cannot be arranged. [] iii) Patient will have long general anesthesia or procedure side effect resolution time, and competent person to stay with patient on first postoperative night at home or alternative level of care cannot be arranged. []iv) Other inadequate outpatient situation that cannot be handled by other means [] II. A perioperative event, condition, or finding that warrants inpatient stay as indicated by ANY ONE of the following (1)(2)(3): [] a) Inadequate physiologic recovery: cardiovascular, respiratory, or hemodynamic status not normal or near preoperative baseline(18) [] b) Hemodynamic instability [] c) Patient not alert with near normal or baseline mental status [] d) Temperature not normal or as expected and not appropriate for outpatient treatment of condition [] e) Ambulatory or appropriate activity level status not yet achieved post procedure [E](34)(35)(36) [] f) Operative site not appropriate (eg, unexpected or excessive drainage or bleeding) [] g) Postoperative effects not resolved or adequately managed (eg, significant pain or vomiting not appropriate for outpatient or next level of care)(10)(12) [] h) Complicating features requiring inpatient care as indicated by ANY ONE of the following(37): [] i) Severe complications of procedure (eg, bowel injury, airway compromise, vascular injury,severe hemorrhage) [] ii) Extensive (eg, dissection far beyond usual scope of procedure ) or prolonged (eg, 120 minutes beyond usual) surgery needed requiring inpatient postoperative care [] iii) Conversion to an open or complex procedure that requires inpatient care (eg, open vs laparoscopic cholecystectomy, abdominal vs vaginal hysterectomy)(38) [] iv) Comorbid condition or test result identified during or post procedure that requires inpatient care (7) [] v) Malignant hyperthermia(30) [] vi) Other complicating feature requiring inpatient care(22)(23) Inpatient stay may be needed until ALL of the following are present (1)(2)(3)(4) (5)(6)(10)(14)(33)(40): []a) Physiologic recovery: cardiovascular, respiratory, and hemodynamic status normal or near preoperative baseline []b) Hemodynamic stability []c) Patient alert, with near normal or baseline mental status []d) Temperature appropriate: patient afebrile or temperature appropriate for outpt treatment of condition []e) Activity level appropriate: ambulatory or appropriate activity level post procedure []f) Operative site appropriate as indicated by ALL of the following: []i) Site dry or with expected drainage []ii) Any blood noted is as expected for procedure. []g) Postoperative effects resolved or managed as indicated by ALL of the following: []i) Pain management appropriate for outpatient (or next level of) care(10) []ii) Minimal nausea and vomiting: if present, successfully treated with oral medication(12) []iii) Headache, dizziness, or drowsiness (if present) are mild. []h) Voiding status acceptable as indicated by ANY ONE of the following: []i) Voiding spontaneously []ii) No voiding but instructions given for follow-up in 6 to 8 hours []iii) Urinary catheter in place, and instructions given for follow-up []i) Complicating features requiring inpatient care manageable at a lower level of care(37) []j) Comorbid conditions manageable at a lower level of care(37) The original [employer] content created by [employer] has been revised. The portions of the content which have been revised are identified through the use of italic text or in bold, and [email or web address] [employer] has neither reviewed nor approved the modified material. All other unmodified content is copyright [employer]. Please see references footnoted in the original [employer] edition 2016 Admission Criteria Met: Yes
[2016-10-04] MEDS: ZOCOR PO SCH (22:10)
[2016-10-05] MEDS: AMBIEN PO PRN (00:07)
[2016-10-05] MEDS: ZOFRAN IV PRN (06:10)
--- NOTE | 2016-10-05 10:01 | XRay Report ---
LEFT FOOT THREE VIEWS: 10/04/16 CLINICAL: Osteomyelitis and nonhealing wound. COMPARISON: 09/27/16 FINDINGS: The great toe has been completely amputated since the last exam. More remote amputation of the fifth toe. The cortical margins of the first cuneiform and the distal second metatarsal are indistinct and this is a new finding since the previous exam. Soft tissue air in the surgical wound at the medial aspect of the forefoot. IMPRESSION: Changes in the first cuneiform and the distal second metatarsal suggest extension of osteomyelitis to these bones.
[2016-10-05] MEDS: ROCEPHIN/NS 1 GM/50 ML 1 GM/50 ML BAG IV SCH (12:44)
[2016-10-05] MEDS: PLAVIX PO SCH (12:44)
[2016-10-05] MEDS: NORVASC PO SCH (12:44)
[2016-10-05] MEDS: HALFPRIN EC PO SCH (12:45)
[2016-10-05] MEDS: NORMODYNE PO SCH ×2 (12:45→21:00)
[2016-10-05] MEDS: K-DUR PO SCH (12:45)
[2016-10-05] MEDS: MUCINEX ER PO SCH ×2 (12:45→21:00)
[2016-10-05] MEDS ORDERED: PROTONIX IV SCH (13:00)
--- NOTE | 2016-10-05 13:10 | Progress Note ---
Assessment and Plan Impression: * End stage renal disease on HD MWF * Dehiscence of his left lower extremity wound --Wound cx: Proteus, Klebsiella * Peripheral artery disease --s/p Revascularization of the anterior tibial artery, posterior tibial artery, tibioperoneal trunk, and distal popliteal artery * Dyspnea - r/o pulmonary edema * Pleural effusion, bilateral * Hx of nausea/vomiting * Hypokalemia * Anemia secondary to ESRD * Secondary hyperparathyroidism Plan: * Hemodialysis MWF * UF as tolerated * Vascular surgery recommendations/findings noted * s/p debridement w/ podiatry * Abx per primary team * Symptomatic mgmt of n/v * Epogen with dialysis Subjective Date of service: 10/05/16 Principal diagnosis: PVD with ulceration Interval history: resting in bed today Objective - Exam Narrative Exam: General appearance: well-developed, well-nourished EENT: ATNC Respiratory: Present: Clear to Ascultation Cardiology: regular, S1S2 Gastrointestinal: normal Neurologic: no focal deficit, alert and oriented x3 Psychiatric: mood/affect appropriate, cooperative - Vital Signs Vital signs: Vital Signs - 12hr 10/05/16 08:00 Temperature 98.1 F Pulse Rate [ 72 Left Radial] Respiratory 18 Rate Blood Pressure 137/62 [Left Arm] O2 Sat by Pulse 100 Oximetry - Lab 10/03/16 06:54 10/04/16 07:23 Most recent lab results Calcium 7.9 mg/dL (8.4-10.2) L 10/04/16 07:23 Magnesium 1.8 mg/dL (1.7-2.3) 09/27/16 17:28
--- NOTE | 2016-10-05 13:31 | Progress Note ---
Assessment and Plan Assessment and plan: ESRD (end stage renal disease) * Nephrology following for dialysis. Gangrene of left foot with sepsis * wound care, Vascular surgeon following * Status post revascularization on 10/02/16 of the anterior tibial artery, posterior tibial artery, tibioperoneal trunk, and distal popliteal artery * Culture growing Proteus and Klebsiella * Continue ceftriaxone * s/p foot debridement/flap coverage/limb salvage by Dr. Valencia on 10/04/16 Noncompliance of patient with renal dialysis * Patient counseled Volume overload due to noncompliance with dialysis * Fluid restriction, monitor uop q shift, resolved * HD per nephrology recommendation DVT prophylaxis * Continue on heparin Anemia of chronic disease * Monitor H&H * Epogen with dialysis Peripheral vascular disease * Patient was not compliant with his medication * Continue on aspirin, Plavix and statin * Status post revascularization of the anterior tibial artery, posterior tibial artery, tibioperoneal trunk, and distal popliteal artery Hypertension, controlled * Continue on labetalol, amlodipine * Adjust BP meds as needed Hypokalemia * Was present on admission, replaced, improved now disposition: will f/u with vascular about d/c planning Microbiology 09/27/16 19:38 Foot - Left Wound Culture - Final Klebsiella Oxytoca Proteus Mirabilis History Interval history: Patient seen and examined. Medical records and medication list reviewed. No acute event overnight noted by the RN. Patient denies any chest pain or difficulty breathing. getting HD now status post angioplasty on 10/02, and foot debridement/flap coverage/limb salvage by Dr. Valencia on 10/04 Discussed plan of care at bedside with patient. Hospitalist Physical - Physical exam Narrative exam: General appearance: Present: mild distress, disheveled, malodorous - EENT Eyes: Present: PERRL ENT: hearing intact - Neck Neck: Present: supple - Respiratory Respiratory: bilateral: diminished - Cardiovascular Rhythm: regular Heart Sounds: Present: S1 & S2 - Extremities Extremity abnormal: pulses diminished Peripheral Pulses: Wound dressing on left foot - Abdominal General gastrointestinal: soft, non-tender, non-distended - Integumentary Integumentary: Present: clear, dry - Psychiatric Psychiatric: appropriate mood/affect, cooperative - Neurologic Neurologic: CNII-XII intact - Constitutional Vitals: Temp Pulse Resp BP Pulse Ox 98.1 F 72 18 137/62 100 10/05/16 08:00 10/05/16 08:00 10/05/16 08:00 10/05/16 08:00 10/05/16 08:00 General appearance: Present: no acute distress Results - Labs CBC & Chem 7: 10/03/16 06:54 10/04/16 07:23 Labs: Laboratory Last Values WBC 3.8 K/mm3 (4.5-11.0) L 10/03/16 06:54 RBC 3.87 M/mm3 (3.65-5.03) 10/03/16 06:54 Hgb 10.7 gm/dl (11.8-15.2) L 10/03/16 06:54 Hct 33.8 % (35.5-45.6) L 10/03/16 06:54 MCV 87 fl (84-94) 10/03/16 06:54 MCH 28 pg (28-32) 10/03/16 06:54 MCHC 32 % (32-34) 10/03/16 06:54 RDW 19.1 % (13.2-15.2) H 10/03/16 06:54 Plt Count 150 K/mm3 (140-440) 10/03/16 06:54 Lymph % (Auto) 14.6 % (13.4-35.0) 10/03/16 06:54 [place] % (Auto) 9.1 % (0.0-7.3) H 10/03/16 06:54 Eos % (Auto) 3.7 % (0.0-4.3) 10/03/16 06:54 Baso % (Auto) 0.7 % (0.0-1.8) 10/03/16 06:54 Lymph # 0.6 K/mm3 (1.2-5.4) L 10/03/16 06:54 [place] # 0.3 K/mm3 (0.0-0.8) 10/03/16 06:54 Eos # 0.1 K/mm3 (0.0-0.4) 10/03/16 06:54 Baso # 0.0 K/mm3 (0.0-0.1) 10/03/16 06:54 Seg Neutrophils % 71.9 % (40.0-70.0) H 10/03/16 06:54 Seg Neutrophils # 2.8 K/mm3 (1.8-7.7) 10/03/16 06:54 ESR 40 mm/Hr (0-20) 09/27/16 17:28 PT 13.5 Sec. (12.2-14.9) 10/03/16 06:54 INR 1.04 (0.87-1.13) 10/03/16 06:54 Sodium 135 mmol/L (137-145) L 10/04/16 07:23 Potassium 3.9 mmol/L (3.6-5.0) 10/04/16 07:23 Chloride 98.0 mmol/L (98-107) 10/04/16 07:23 Carbon Dioxide 24 mmol/L (22-30) 10/04/16 07:23 Anion Gap 17 mmol/L 10/04/16 07:23 BUN 23 mg/dL (9-20) H 10/04/16 07:23 Creatinine 6.9 mg/dL (0.8-1.5) H 10/04/16 07:23 Estimated GFR 10 ml/min 10/04/16 07:23 BUN/Creatinine Ratio 3.33 % 10/04/16 07:23 Glucose 98 mg/dL (75-100) 10/04/16 07:23 POC Glucose 86 (70-105) 10/04/16 16:04 Calcium 7.9 mg/dL (8.4-10.2) L 10/04/16 07:23 Magnesium 1.8 mg/dL (1.7-2.3) 09/27/16 17:28 Total Bilirubin 0.3 mg/dL (0.1-1.2) 10/03/16 06:54 Direct Bilirubin 0.3 mg/dL (0-0.2) H 09/27/16 23:18 Indirect Bilirubin 0.4 mg/dL 09/27/16 23:18 AST 15 units/L (5-40) 10/03/16 06:54 ALT 13 units/L (7-56) 10/03/16 06:54 Alkaline Phosphatase 118 units/L (35-129) 10/03/16 06:54 Total Creatine Kinase 54 units/L (55-170) L 09/27/16 17:28 C-Reactive Protein 3.70 mg/dL (0.00-1.30) H 09/27/16 17:28 NT-Pro-B Natriuret Pep 51385 pg/mL (0-900) H 09/27/16 23:18 Total Protein 6.3 g/dL (6.3-8.2) 10/03/16 06:54 Albumin 2.7 g/dL (3.9-5) L 10/03/16 06:54 Albumin/Globulin Ratio 0.8 % 10/03/16 06:54 Lipase 10 units/L (13-60) L 09/27/16 23:18 Urine Color Yellow (Yellow) 09/27/16 19:50 Urine Turbidity Clear (Clear) 09/27/16 19:50 Urine pH 7.0 (5.0-7.0) 09/27/16 19:50 Ur Specific [place] 1.013 (1.003-1.030) 09/27/16 19:50 Urine Protein >500 mg/dL (Negative) 09/27/16 19:50 Urine Glucose (UA) 50 mg/dL (Negative) 09/27/16 19:50 Urine Ketones Tr mg/dL (Negative) 09/27/16 19:50 Urine Blood Neg (Negative) 09/27/16 19:50 Urine Nitrite Neg (Negative) 09/27/16 19:50 Urine Bilirubin Neg (Negative) 09/27/16 19:50 Urine Urobilinogen 2.0 mg/dL (<2.0) 09/27/16 19:50 Ur Leukocyte Esterase Neg (Negative) 09/27/16 19:50 Urine WBC (Auto) < 1.0 /HPF (0.0-6.0) 09/27/16 19:50 Urine RBC (Auto) 5.0 /HPF (0.0-6.0) 09/27/16 19:50 U Epithel Cells (Auto) < 1.0 /HPF (0-13.0) 09/27/16 19:50 Urine Bacteria (Auto) 1+ /HPF (Negative) 09/27/16 19:50 Urine Mucus Few /HPF 09/27/16 19:50
[2016-10-05] MEDS: DAKIN'S HALF STRENGTH TP SCH (17:42)
[2016-10-05] MEDS: PEPCID IV SCH (17:43)
[2016-10-05] MEDS: ZOCOR PO SCH (21:00)
[2016-10-05] MEDS: PERCOCET 5/325 PO PRN (21:03)
[2016-10-06] MEDS: PEPCID IV SCH ×2 (04:24→15:11)
[2016-10-06] MEDS: PERCOCET 5/325 PO PRN ×3 (04:51→15:06)
[2016-10-06 05:46] LABS: Basophils % (Auto) 0.5 % (0.0-1.8); Eosinophils % (Auto) 3.2 % (0.0-4.3); Hematocrit 35.9 % (35.5-45.6); Hemoglobin 11.5 gm/dl (11.8-15.2); Mean Corpuscular HGB Conc 32 % (32-34); Mean Corpuscular Hemoglobin 28 pg (28-32); Mean Corpuscular Volume 87 fl (84-94); Platelet Count 220 K/mm3 (140-440); Red Blood Count 4.15 M/mm3 (3.65-5.03); Red Cell Distribution Width 18.8 % (13.2-15.2); White Blood Count 6.4 K/mm3 (4.5-11.0)
[2016-10-06 06:05] LABS: BUN/Creatinine Ratio 3.82; Calcium 7.9 mg/dL (8.4-10.2); Chloride 97.9 mmol/L (98-107)
--- NOTE | 2016-10-06 07:59 | Progress Note ---
Assessment and Plan Impression: * End stage renal disease on HD MWF * Dehiscence of his left lower extremity wound --Wound cx: Proteus, Klebsiella * Peripheral artery disease --s/p Revascularization of the anterior tibial artery, posterior tibial artery, tibioperoneal trunk, and distal popliteal artery * Pleural effusion, bilateral * Hx of nausea/vomiting * Hypokalemia * Anemia secondary to ESRD * Secondary hyperparathyroidism Plan: * Hemodialysis MWF * UF as tolerated * Vascular surgery recommendations/findings noted * s/p debridement w/ podiatry * Abx per primary team * Symptomatic mgmt of n/v * Epogen with dialysis * can dc from renal standpoint Subjective Date of service: 10/06/16 Principal diagnosis: PVD with ulceration Interval history: resting in bed today Objective - Exam Narrative Exam: General appearance: well-developed, well-nourished EENT: ATNC Respiratory: Present: Clear to Ascultation Cardiology: regular, S1S2 Gastrointestinal: normal Neurologic: no focal deficit, alert and oriented x3 Psychiatric: mood/affect appropriate, cooperative - Vital Signs Vital signs: Vital Signs - 12hr 10/05/16 10/05/16 10/06/16 20:00 21:00 00:03 Temperature 98.3 F Pulse Rate 70 Pulse Rate [ 88 88 Right Radial] Respiratory 18 18 Rate Blood Pressure 130/70 Blood Pressure 127/84 [Right Arm] O2 Sat by Pulse 98 Oximetry - Lab 10/06/16 05:10 10/06/16 05:10 Most recent lab results Calcium 7.9 mg/dL (8.4-10.2) L 10/06/16 05:10 Magnesium 1.8 mg/dL (1.7-2.3) 09/27/16 17:28
[2016-10-06] MEDS: NORMODYNE PO SCH (09:46)
[2016-10-06] MEDS: MUCINEX ER PO SCH (09:48)
[2016-10-06] MEDS: PLAVIX PO SCH (09:48)
[2016-10-06] MEDS: NORVASC PO SCH ×2 (09:48→09:50)
[2016-10-06] MEDS: HALFPRIN EC PO SCH (09:49)
[2016-10-06] MEDS: ROCEPHIN/NS 1 GM/50 ML 1 GM/50 ML BAG IV SCH (09:49)
--- NOTE | 2016-10-06 12:00 | Discharge Summary ---
Providers - Providers Date of Admission: 09/27/16 22:15 Date of discharge: 10/06/16 Attending physician: NORA GRIMES 09/28/16 15:16 Consult to Physician [CONS] Routine Consulting Provider: ANA PAULA VALENCIA Reason For Exam: wound dehissence in noncompliant patient Place consult to:: Notified:: [facility] Phone number called:: [phone] Was contact made?: Yes If yes, spoke with:: RENATA Time called:: 17:51 Comment:: ISAIAH NOTIFIED 09/28/16 15:21 Consult to Wound/ET Nurse [CONS] Routine Reason For Exam: wound eval 10/03/16 23:19 Consult to Anesthesiology [CONS] Routine Consulting Provider: MADYSON MCCLOUD Reason For Exam: NPO status for PM surgery 10/04/16 Primary care physician: PATIENT CARE PROVIDER Hospitalization Condition: Fair Hospital course: 70-year-old male with end-stage renal disease with indwelling PermCath with severe peripheral vascular disease complicated by gangrene of his left lower extremity and right lower extremity prior major amputation presented to ER with nausea, vomiting, generalized weakness, and partial dehiscence of his left foot wound. CT scan demonstrates bilateral pleural effusions. Patient has been noncompliant with his dialysis. Nephrology was consulted and dialysis was done in-house per nephrology recommendation. During his last admission the patient underwent left lower extremity pedal loop and tibial revascularization and minor amputation with flap placement in an attempt to salvage his left lower extremity. The patient is extremely noncompliant, did not take his aspirin or Plavix since discharge, and has not followed up with [facility] vascular since last discharge. Vascular surgery was consulted and he went through revascularization of the anterior tibial artery, posterior tibial artery, tibioperoneal trunk, and distal popliteal artery. Dr. Valencia was also consulted and he hasn't left foot debridement by Dr. Valencia. Patient was placed on Protonix and he was able to tolerate diet. He tolerated the procedure well and stated that he will maintain his outpatient follow-up and he will continue to take his medications. He was discharged home in stable condition with home health. He will also continue his antibiotics for 2 weeks. Discharge Diagnosis: ESRD (end stage renal disease) * cont dialysis as out pt. Gangrene of left foot with sepsis * cont wound care with HH, f/u with dr. Valencia * Status post revascularization on 10/02/16 of the anterior tibial artery, posterior tibial artery, tibioperoneal trunk, and distal popliteal artery * Culture grew Proteus and Klebsiella * s/p foot debridement/flap coverage/limb salvage by Dr. Valencia on 10/04/16 * cont abx for total two weeks Noncompliance of patient with renal dialysis * Patient counseled Volume overload due to noncompliance with dialysis * resolved with HD * counselled about fluid restriction Anemia of chronic disease * Epogen with dialysis Peripheral vascular disease * Patient was not compliant with his medication * Continue on aspirin, Plavix and statin * Status post revascularization of the anterior tibial artery, posterior tibial artery, tibioperoneal trunk, and distal popliteal artery Hypertension, controlled * Continue on labetalol, amlodipine Hypokalemia * Was present on admission, replaced, improved now Nausea and vomiting * Was present on admission likely due to possible gastritis * Resolved on discharge Disposition: DC/TX HOME UNDER HOME HEALTH Time spent for discharge: 32 minutes Core Measure Documentation - Palliative Care Palliative Care/ Comfort Measures: Not Applicable - Core Measures Any of the following diagnoses?: none Exam - Physical Exam Narrative exam: General appearance: Present: mild distress, disheveled, malodorous - EENT Eyes: Present: PERRL ENT: hearing intact - Neck Neck: Present: supple - Respiratory Respiratory: bilateral: diminished - Cardiovascular Rhythm: regular Heart Sounds: Present: S1 & S2 - Extremities Extremity abnormal: pulses diminished Peripheral Pulses: Wound dressing on left foot - Abdominal General gastrointestinal: soft, non-tender, non-distended - Integumentary Integumentary: Present: clear, dry - Psychiatric Psychiatric: appropriate mood/affect, cooperative - Neurologic Neurologic: CNII-XII intact - Constitutional Vitals: Temp Pulse Resp BP Pulse Ox 98.1 F 66 20 148/67 99 10/06/16 08:05 10/06/16 09:50 10/06/16 08:05 10/06/16 09:50 10/06/16 08:05 Plan Activity: advance as tolerated, fall precautions Weight Bearing Status: Non-Weight Bearing Diet: renal Wound: per wound nurse instructions Follow up with: PRIMARY CARE, [Primary Care Provider] - 3-5 Days Prescriptions: Simvastatin [Zocor TAB] 20 mg PO QHS #30 tablet Aspirin EC [Aspirin Enteric Coated TAB] 81 mg PO QDAY #30 tablet Cephalexin [Keflex] 500 mg PO Q12HR #14 cap Clopidogrel [Plavix] 75 mg PO QDAY #30 tablet oxyCODONE /ACETAMINOPHEN [Percocet 5/325 mg] 1 tab PO Q6H PRN #20 tablet PRN Reason: Pain, Moderate (4-6) Pending Studies f/u with Dr. Valencia in two weeks
[2016-10-06 15:55] VITALS: BP 125/58
--- NOTE | 2016-10-08 08:33 | Consultation ---
There be noted the patient was visited at bedside on request of Dr. [facility]. Let it be noted that the patient appears to be resting; however, agitated. Let it be noted the patient has a history of significant noncompliance and which was only followed up with Dr. Valencia once after his discharge from his previous surgery several weeks ago. The patient relates that he has issues with transportation and communication secondary to not having a phone. Let it be noted, the chart was reviewed. Labs noted. Wound evaluated. There appears to be open wound at the left medial aspect of the left foot. No odor present. There appears to be intact sutures at the second digit stump. Foot appears to be warm. Mild hyperpigmentation noted. There appeared to be some granulation tissue at the wound. There appears to be open at the medial aspect of the foot. There appears to be exposed bone as well. DIAGNOSIS: Possible osteomyelitis secondary to exposed bone and open wound, nonhealing wound of left foot, status post amputation of first ray and with aggressive debridement. PLAN: After medical clearance from all treating physician, plan to aggressively debride wound of the affected left foot. Hopefully, the patient can manage follow up on an outpatient basis whenever the patient is discharged from the home. Possible recommendation for wound VAC, however, compliance will be necessary if that is prescribed. However, more likely we will treat the patient in the office on a weekly basis for wound care and we will add wound care to his home. Anticipate procedure this p.m. and anesthesia will be required to assess, n.p.o. status for p.m. surgery today. JOB# [id number] JOSE/DEVONTE
--- NOTE | 2016-10-17 12:05 | Operative Report ---
PREOPERATIVE DIAGNOSES: Osteomyelitis, nonhealing wound, right foot with dehiscence. POSTOPERATIVE DIAGNOSES: Osteomyelitis, nonhealing wound, right foot with dehiscence. SURGICAL PROCEDURE: Aggressive debridement of bone, right transmetatarsal stump with rotational flap. SURGEON: Akin Valencia DPM ANESTHESIA: General. ESTIMATED BLOOD LOSS: Less than 40 mL. DESCRIPTION OF PROCEDURE: The patient was brought into the operating room, placed on the operating table in supine position. Following intravenous sedation, atraumatic intubation, the patient was given intravenous Keflex as well as Ancef as directed. At this time, attention was directed to the right foot, status post TMA stump in which there was an open wound with exposed bone noted and partial stitches in the affected area. It should be noted, stitch is from previous surgery which the patient has been notorious for nonfollowup, both vascular and podiatric care. There appeared to be mild drainage at the affected area. No tourniquet used. The foot was then scrubbed, prepped, and draped in a usual aseptic manner and the surgery was begun. At this time, attention was directed to the distal right aspect of the stump in which there was exposed bone noted and dehiscence of the periphery of the tissue. There was no odor present. Therefore, with both sharp and blunt dissection, redundant tissue was removed from the periphery of the wound, thus exposing the residual bone at the bases of the metatarsal. At this time, the base of the proximal metatarsal first was thus resected leaving a stump to promote rotation of the flap and closure. At this time, additional bone was thus removed without incident to be sent to the laboratory for further diagnosis and evaluation. At this time, the area was flushed copiously with normal sterile saline and gentamicin mixed. All rough sharp edges of bone was thus resected without incident and after remodeling of the flap both dorsally, plantarly, distally, and proximally, deep coaptation of the tissue was performed with ____. At this time, attention was directed to the superficial part of the wound and with 2-0 and 3-0 Prolene was thus used a routine rotation of the flap was done distally and medially and proximally. At this time, simple cabrera stitches and horizontal stitches were thus performed. The area was dressed with bacitracin ointment, Adaptic, sterile compressive dressing. The patient tolerated the procedure and anesthesia well and will be discharged home with both written and oral postoperative instructions. The patient will be readmitted to the floor as directed. JOB# [id number] JOSE/DEVONTE
== END 2016-10-06 17:55 | disposition home health service (06) | DRG 853 ==
LOC: ED 16:59 → 3A 22:15
PROVIDERS: ADMIT Internal Medicine; ATTEND Internal Medicine
PROC: 5A1D60Z (ICD-10-PCS; 2016-09-29)
PROC: 047Q3ZZ Dilation of Left Anterior Tibial Artery, Percutaneous Approach (ICD-10-PCS; principal; 2016-10-02)
PROC: 047N3ZZ Dilation of Left Popliteal Artery, Percutaneous Approach (ICD-10-PCS; 2016-10-02)
PROC: 047S3ZZ Dilation of Left Posterior Tibial Artery, Percutaneous Approach (ICD-10-PCS; 2016-10-02)
PROC: 047U3ZZ Dilation of Left Peroneal Artery, Percutaneous Approach (ICD-10-PCS; 2016-10-02)
PROC: B41D1ZZ Fluoroscopy of Aorta and Bilateral Lower Extremity Arteries using Low Osmolar Contrast (ICD-10-PCS; 2016-10-02)
PROC: 0QBN0ZZ Excision of Right Metatarsal, Open Approach (ICD-10-PCS; 2016-10-04)
DX: A41.9 Sepsis, unspecified organism (principal); N18.6 End stage renal disease; E87.1 Hypo-osmolality and hyponatremia; I13.2 Hypertensive heart and chronic kidney disease with heart failure and with stage 5 chronic kidney disease, or end stage renal disease; E11.52 Type 2 diabetes mellitus with diabetic peripheral angiopathy with gangrene; T81.30XA Disruption of wound, unspecified, initial encounter; M86.9 Osteomyelitis, unspecified; E87.6 Hypokalemia; I50.9 Heart failure, unspecified; M19.90 Unspecified osteoarthritis, unspecified site; F17.210 Nicotine dependence, cigarettes, uncomplicated; E11.22 Type 2 diabetes mellitus with diabetic chronic kidney disease; E11.43 Type 2 diabetes mellitus with diabetic autonomic (poly)neuropathy; K31.84 Gastroparesis; E78.5 Hyperlipidemia, unspecified; D63.1 Anemia in chronic kidney disease; J44.9 Chronic obstructive pulmonary disease, unspecified; K21.9 Gastro-esophageal reflux disease without esophagitis; E11.69 Type 2 diabetes mellitus with other specified complication; I25.10 Atherosclerotic heart disease of native coronary artery without angina pectoris; E86.0 Dehydration; I25.2 Old myocardial infarction; Z88.6 Allergy status to analgesic agent; Z99.2 Dependence on renal dialysis; Z79.82 Long term (current) use of aspirin; Z88.8 Allergy status to other drugs, medicaments and biological substances; Z91.15 Patient's noncompliance with renal dialysis; Z82.49 Family history of ischemic heart disease and other diseases of the circulatory system; Z89.511 Acquired absence of right leg below knee
CPT/HCPCS: 36247; 36415; 37224; 37228; 37232; 51701; 71010; 71020; 74176; 75710; 76937; 80048; 80053; 80074; 81001; 82550; 82962; 83690; 83735; 83880; 85025; 85610; 85652; 86140; 87075; 87076; 87116; 87186; 88304; 88305; 88311; 93005; 93010; 93922; 93925; 96365; 96375; A6260; C1725; C1760; C1769; C1887; J0360; J0690; J0696; J0885; J1100; J1170; J1644; J1956; J2060; J2250; J2405; J2704; J2765; J3010; J3480; J7030; J7050; Q9967

== ENCOUNTER 2016-10-29 00:43 | Inpatient (IN) | payer MEDICAID, MEDICARE ==
--- NOTE | 2016-10-29 01:19 | Emergency Department Report ---
ED General Adult HPI - General Stated complaint: SHORTNESS OF BREATH Time Seen by Provider: 10/29/16 01:03 - History of Present Illness Initial comments: This is a 71-year-old gentleman who is end-stage renal disease on hemodialysis Friday. He has Port-A-Cath. He follows with Dr. Toscano. He indicates he went to dialysis this morning and they told him to go to the ER instead. Patient initially states it was because of his high blood pressure but it sounds like it was due to his being dyspneic and dialysis. He reports instead of coming to the ER he went home. He finally decided to come to the ED due to not been able to sleep. She states for the last 4 days he's been intolerant of lying flat due to dyspnea. He also complains of pain in his left foot. He is status post left foot debridement from necrotic ulcer. This was done 3 weeks ago by . Patient states wound nurse was at the house on Friday and did redress the wound. She did inform him about time that the wound appeared to be worse and was foul-smelling. Patient denies fever. He does complain of left foot pain. He denies any specific chest pains. He is not on oxygen at home. - Related Data Previous Rx's Medication Instructions Recorded Last Taken Type Labetalol [Normodyne TAB] 300 mg PO BID #60 tablet 03/19/14 Unknown Rx amLODIPine [Norvasc] 5 mg PO DAILY #60 tablet 08/06/16 1 Day Ago Rx guaiFENesin ER [Mucinex ER] 600 mg PO BID #20 tablet 08/06/16 Unknown Rx Aspirin EC [Aspirin Enteric Coated 81 mg PO QDAY #30 tablet 10/06/16 Unknown Rx TAB] Cephalexin [Keflex] 500 mg PO Q12HR #14 cap 10/06/16 Unknown Rx Clopidogrel [Plavix] 75 mg PO QDAY #30 tablet 10/06/16 Unknown Rx Simvastatin [Zocor TAB] 20 mg PO QHS #30 tablet 10/06/16 Unknown Rx oxyCODONE /ACETAMINOPHEN [Percocet 1 tab PO Q6H PRN #20 tablet 10/06/16 Unknown Rx 5/325 mg] Allergies Allergy/AdvReac Type Severity Reaction Status Date / Time hydrocodone bitartrate AdvReac SWEAT/CRAMP Verified 03/15/15 15:37 [From Vicodin] ED Review of Systems ROS: Stated complaint: SHORTNESS OF BREATH Other details as noted in HPI Comment: All other systems reviewed and negative Constitutional: other (fatigue). denies: chills, fever Eyes: denies: eye pain, eye discharge, vision change ENT: denies: ear pain, throat pain Respiratory: orthopnea, shortness of breath. denies: cough, wheezing Cardiovascular: denies: chest pain, palpitations Endocrine: no symptoms reported Gastrointestinal: denies: abdominal pain, nausea, diarrhea Genitourinary: denies: urgency, dysuria Musculoskeletal: other (L foot pains). denies: back pain, joint swelling, arthralgia Skin: denies: rash, lesions Neurological: denies: headache, weakness, paresthesias Psychiatric: denies: anxiety, depression Hematological/Lymphatic: denies: easy bleeding, easy bruising ED Past Medical Hx - Past Medical History Hx Hypertension: Yes Hx Heart Attack/AMI: Yes Hx Congestive Heart Failure: Yes Hx Diabetes: Yes Hx Renal Disease: Yes (M-W-F) Hx Arthritis: Yes Hx COPD: Yes Hx HIV: No - Surgical History Additional Surgical History: Right BKA & r wrist. Vas cath R chest-REMOVED. GRAFT LEFT UPPER ARM - Social History Smoking Status: Current Every Day Smoker - Medications Home Medications: Home Medications Medication Instructions Recorded Confirmed Last Taken Type Labetalol [Normodyne TAB] 300 mg PO BID #60 tablet 03/19/14 09/28/16 Unknown Rx amLODIPine [Norvasc] 5 mg PO DAILY #60 tablet 08/06/16 09/28/16 1 Day Ago Rx guaiFENesin ER [Mucinex ER] 600 mg PO BID #20 tablet 08/06/16 09/28/16 Unknown Rx Aspirin EC [Aspirin Enteric Coated 81 mg PO QDAY #30 tablet 10/06/16 Unknown Rx TAB] Cephalexin [Keflex] 500 mg PO Q12HR #14 cap 10/06/16 Unknown Rx Clopidogrel [Plavix] 75 mg PO QDAY #30 tablet 10/06/16 Unknown Rx Simvastatin [Zocor TAB] 20 mg PO QHS #30 tablet 10/06/16 Unknown Rx oxyCODONE /ACETAMINOPHEN [Percocet 1 tab PO Q6H PRN #20 tablet 03/12/17 Unknown Rx 5/325 mg] ED Physical Exam - General General appearance: alert, in no apparent distress - Head Head exam: Present: atraumatic, normocephalic - Eye Eye exam: Present: normal appearance, EOMI. Absent: scleral icterus - ENT ENT exam: Present: normal exam, normal orophraynx, mucous membranes moist - Neck Neck exam: Present: normal inspection. Absent: lymphadenopathy - Respiratory Respiratory exam: Present: rales (diffusely, more prominent in the bases bilat) , decreased breath sounds. Absent: respiratory distress, chest wall tenderness - Cardiovascular Cardiovascular Exam: Present: regular rate, normal rhythm. Absent: systolic murmur, diastolic murmur, rubs, gallop - GI/Abdominal GI/Abdominal exam: Present: soft, normal bowel sounds. Absent: tenderness, guarding - Rectal Rectal exam: Present: deferred - Extremities Exam Extremities exam: Present: other (left foot lateral aspect with a fairly involved in a chronic appearing lesion. He has since of the surgical incision has been noted. There are remnants of the nylon still intact and the wound margins. Again they have become dehisced. There is foul-smelling necrotic odor. Based does not appear granular and appears quite ragged. There is moderate amount of tenderness around the head showed some margins of the wound as well. Thready distal pedal pulses noted.) - Back Exam Back exam: Present: normal inspection - Neurological Exam Neurological exam: Present: alert, oriented X3 - Psychiatric Psychiatric exam: Present: normal affect, normal mood - Skin Skin exam: Present: warm, dry, intact, normal color. Absent: rash ED Course Vital Signs 10/29/16 10/29/16 10/29/16 01:09 01:24 01:29 Temperature 98.5 F 98.5 F Pulse Rate 72 72 Respiratory 18 18 Rate Blood Pressure 178/74 Blood Pressure 178/75 [Left] O2 Sat by Pulse 100 100 100 Oximetry 10/29/16 10/29/16 10/29/16 01:42 01:51 02:01 Temperature Pulse Rate 75 79 76 Respiratory 20 29 H 25 H Rate Blood Pressure Blood Pressure [Left] O2 Sat by Pulse 100 100 98 Oximetry 10/29/16 10/29/16 02:11 02:20 Temperature 98.6 F Pulse Rate 69 75 Respiratory 23 28 H Rate Blood Pressure Blood Pressure [Left] O2 Sat by Pulse 100 100 Oximetry - Reevaluation(s) Reevaluation #1: 10/29/16 01:27 ECG was no sinus rhythm at 73 bpm with normal VT. Prolonged QRS at 104 ms[address] normal axis. Nonspecific ST-T wave abnormalities are noted. No change compared to prior however. Reevaluation #2: 10/29/16 02:35 Labs are noted here. I do have concern regarding the left foot. His foot does appear to be not doing well. Will place the patient on antibiotics here. Chest x-ray is noted. There is some mild vascular congestion. I suspect this will come off with dialysis. Patient does not have an O2 requirement here. subjectively he feels improved on oxygen. I have left him on it for his comfort. I suspect again that dialysis will help resolve much of the fluid retention he is having right now. Reevaluation #3: 10/29/16 02:40 Labs noted with evidence of chronic anemia. Electrolyte studies consistent with renal failure. No acute concerning findings associated with this however. I will speak with the hospitalist regarding admission. ED Medical Decision Making - Lab Data Result diagrams: 10/29/16 01:40 10/29/16 01:40 Critical care attestation.: If time is entered above; I have spent that time in minutes in the direct care of this critically ill patient, excluding procedure time. ED Disposition Clinical Impression: End stage kidney disease, Gangrene of foot Dyspnea Qualifiers: Dyspnea type: shortness of breath Qualified Code(s): R06.02 - Shortness of breath Disposition: OP ADMITTED IP TO THIS HOSP Is pt being admited?: Yes Does the pt Need Aspirin: No Condition: Stable
[2016-10-29] MEDS ORDERED: PERCOCET 5/325 PO ONE (01:24)
[2016-10-29 02:03] LABS: Basophils % (Auto) 1.4 % (0.0-1.8); Eosinophils % (Auto) 3.1 % (0.0-4.3); Hematocrit 26.4 % (35.5-45.6); Hemoglobin 8.5 gm/dl (11.8-15.2); Mean Corpuscular HGB Conc 32 % (32-34); Mean Corpuscular Hemoglobin 27 pg (28-32); Mean Corpuscular Volume 83 fl (84-94); Platelet Count 387 K/mm3 (140-440); Red Blood Count 3.19 M/mm3 (3.65-5.03); Red Cell Distribution Width 18.8 % (13.2-15.2); White Blood Count 4.4 K/mm3 (4.5-11.0)
[2016-10-29 02:27] LABS: Albumin 2.6 g/dL (3.9-5); Albumin/Globulin Ratio 0.6 %; BUN/Creatinine Ratio 6.22; Bilirubin,Total 0.5 mg/dL (0.1-1.2); Calcium 8.1 mg/dL (8.4-10.2); Chloride 92.1 mmol/L (98-107); Potassium 3.4 mmol/L (3.6-5.0); Total Protein 6.9 g/dL (6.3-8.2)
[2016-10-29] MEDS ORDERED: NORMODYNE PO ONE (03:46)
[2016-10-29] MEDS ORDERED: VANCOMYCIN/NS 1 GM/250 ML 1 GM/250 ML BAG IV ONE ×2 (04:43→16:57)
[2016-10-29] MEDS ORDERED: TYLENOL PO PRN (04:47)
--- NOTE | 2016-10-29 05:43 | Admit Criteria Form ---
Admission Criteria Documentation: RENAL FAILURE, CHRONIC Clinical Indications for Admission to Inpatient Care (Place 'X' for any and all applicable criteria): Admission is indicated for ANY ONE of the following (1)(2)(3)(4)(5): [X ]I. Inpatient admission required rather than observation care (Use Renal Failure, Chronic: Observation Care Criteria as appropriate) because of ANY ONE of the following: [ ]a) Volume overload or uremic symptoms (eg, clinically significant pulmonary edema, hypertension, pericarditis, acidosis) too severe for, or not responsive (eg, for over 24 hours) to emergency department or observation care dialysis or treatment regimen (11) [ ]b) Hemodynamic instability that is severe or persistent [ ]c) Respiratory distress that is severe or persistent (11) [ ]d) Clinically significant electrolyte abnormality that requires inpatient care (eg,hyperkalemia with severe ECG findings)[B] [ ]e) Supplement O2 or respiratory therapy for over 24hrs that is performable only in acute inpatient setting [ ]f) Continuous IV infusion of anticoagulation, platelet inhibitor, vasoactive, or Antiarrhythmic medication (15), [ ]g) Pulmonary artery catheter monitoring [ ]h) Temporary pacemaker placement [ ]i) Emergent pericardiocentesis [X ]j) Other condition, treatment or monitoring requiring inpatient admission [ ]II. Unexplained syncope [A] [ ]III. Recurrent seizures [ ]IV. Severe infections not treatable in outpatient setting (eg, peritonitis)(9 ) [ ]V. Cardiac arrhythmias of immediate concern [ ]. Encephalopathy [ ]VII.Bleeding abnormalities (eg, platelet dysfunction) with active (eg, gastrointestinal) bleeding Extended stay beyond goal length of stay may be needed for (3)(4)(35)(36): [ ]a) Continuing uremic complications [ ]b) Comorbidities or complications The original [employer] content created by [employer] has been revised. The portions of the content which have been revised are identified through the use of italic text or in bold, and [facility] has neither reviewed nor approved the modified material. All other unmodified content is copyright [employer]. Please see references footnoted in the original [facility] edition 2016 Admission Criteria Met: Yes
[2016-10-29] MEDS ORDERED: ZOSYN/NS 2.25 GM/50ML 2.25 GM/50 ML BAG IV SCH (06:00)
[2016-10-29] MEDS ORDERED: ZOSYN/NS 3.375GM/50ML 50 ML IV SCH (06:00)
--- NOTE | 2016-10-29 06:17 | History and Physical Report ---
CHIEF COMPLAINT: Swelling, dark discoloration and pain in the left foot. HISTORY OF PRESENT ILLNESS: The patient is a 71-year-old male who developed swelling, pain and dark discoloration of the left foot some weeks after having debridement for necrotic ulcer done. This procedure was done [address] Valencia. The patient said that the wound care nurse came to his house and redressed the wound and informed him that the wound seemed to be getting worse and has become foul smelling and that he needs to see a doctor for that. There is also history of pain in the left leg. There is no history of fever or chills and no history of nausea, vomiting or shortness of breath or chest pain. The patient presented to be evaluated in the Emergency Room. PAST MEDICAL HISTORY: Pertinent for hypertension, coronary artery disease status post myocardial infarction, congestive heart failure, diabetes mellitus, end-stage renal disease, on dialysis, arthritis, COPD. PAST SURGICAL HISTORY: Pertinent for right below the knee amputation, right wrist surgery. Also, the patient had vascular cath in the right chest wall area and graft in the left upper arm. FAMILY HISTORY: Noncontributory. SOCIAL HISTORY: The patient lives with family, smokes every day. Does not use illicit drugs and does not drink alcohol. MEDICATIONS: The patient is on labetalol 300 mg twice daily, Norvasc 5 mg by mouth daily, Mucinex extended release 600 mg by mouth twice daily, aspirin 81 mg by mouth daily, cephalexin 500 mg every 6 hours, Plavix 75 mg by mouth daily, simvastatin 20 mg at bedtime and Percocet 5/325 mg 1 by mouth every 6 hours. ALLERGIES: THE PATIENT IS ALLERGIC TO HYDROCODONE BITARTRATE. REVIEW OF SYSTEMS: CONSTITUTION: There is no fever, no chills, no diaphoresis. HEENT: There is no headache or sore throat. CARDIOVASCULAR: There is no chest pain, orthopnea. RESPIRATORY: There is no shortness of breath or cough. GASTROINTESTINAL: There is no nausea, no vomiting, no abdominal pain, diarrhea or constipation. NEUROLOGICAL: There is no numbness, no dizziness, no altered mental status. MUSCULOSKELETAL: There is pain in the left foot with swelling in the left foot_. DERMATOLOGICAL: There is dark discoloration on the left foot with drainage and foul smelling odor. GENITOURINARY SYSTEM: Denies dysuria, but no hematuria or flank pain. Rest of system review is normal. PHYSICAL EXAMINATION: GENERAL: At the time of the exam, the patient was found to be alert, oriented x 3 and not in acute distress. VITAL SIGNS: Shows normal temperature with pulse of 73, respirations 28, blood pressure 184/79, O2 sat of 100% on room air. HEENT: Shows pupils to be equal, round, reactive to light and accommodating. Extraocular muscles are intact. NECK: Supple with no JVD or carotid bruit. CARDIOVASCULAR SYSTEM: Show first and second heart sounds with no gallops, or murmurs. RESPIRATORY SYSTEM: Show good air entry on both sides of the lung with no abnormal breath sounds. GASTROINTESTINAL SYSTEM: Show abdomen to be full, soft, nontender with no organomegaly or rigidity. NEUROLOGICAL: Showed no focal deficit. MUSCULOSKELETAL SYSTEM: Showed swollen left foot with dark discoloration and foul smelling, it is from discharge. GENITOURINARY: Show no costovertebral angle tenderness. PERTINENT LABORATORY and IMAGING STUDIES: The patient had CBC done with normal white count, low hemoglobin of 8.5 and low hematocrit of 26.4 with a chemistry showing slightly low potassium of 3.4, low sodium of 134 with high BUN of 38 and a high creatinine of 6.1 and high glucose of 133. IMAGING STUDIES: The patient had a chest x-ray done that revealed soft tissue swelling with features pointing to bone involvement in the left foot. DIAGNOSIS: 1. Gangrenous left foot ulcer.2 . End stage Renal disease on Dialysis PLAN: The patient will be admitted to medical floor and will have one dose of vancomycin 1 gram. The patient will also be on IV Zosyn 2.25 grams every 6 hours and will be on Percocet, his home medication one every 6 hours as needed for pain. The patient will be on IV Zofran 4 mg every 6 hours for nausea and vomiting and will be on Tylenol 650 mg by mouth every 6 hours for fever, headache. The patient will have wound care nurse consult today and will also have an orthopedic surgical consult with Dr. Valencia who did debridement on the left foot about 3 weeks ago.He will also have nephrology consult with Dr. Toscano for ESRD on dialysis The patient's home medications will be applied after confirmation. JOB# [id number] OCN/NTS MTDD
--- NOTE | 2016-10-29 08:07 | XRay Report ---
AP CHEST :10/29/16 00:43:00 CLINICAL: Dyspnea. COMPARISON:10/01/16 FINDINGS: Increased vascular congestion and new diffuse alveolar opacities with air bronchograms. Bibasal streaky opacities are unchanged. The heart is mildly large. A Vas-Cath tip is in the distal SVC and is unchanged compared to the previous exam. IMPRESSION: CHF with worsening pulmonary edema.
[2016-10-29] MEDS: ZOSYN/NS 2.25 GM/50ML 2.25 GM/50 ML BAG IV SCH ×4 (08:12→21:56)
--- NOTE | 2016-10-29 08:45 | XRay Report ---
Left foot 3 views: Compared to 10/04/16. History: Rule out osteomyelitis. Findings: Generalized demineralization without significant bony abnormality compared to previous study. Suspicion of increase cellulitis medial and lateral foot compared to previous study. Post amputation changes stable. Impression: No significant bony changes compatible previous study. Increase in cellulitis.
[2016-10-29] MEDS ORDERED: ALBURX 25% (ALBUMIN) IV PRN (09:17)
[2016-10-29] MEDS ORDERED: NACL 0.9% 100 ML IV PRN (09:17)
[2016-10-29] MEDS: HALFPRIN EC PO SCH (09:18)
[2016-10-29] MEDS: MUCINEX ER PO SCH ×2 (09:18→21:56)
[2016-10-29] MEDS: NORVASC PO SCH (09:18)
[2016-10-29] MEDS: NORMODYNE PO SCH ×2 (09:18→21:57)
[2016-10-29] MEDS: PLAVIX PO SCH (09:18)
[2016-10-29] MEDS: PERCOCET 5/325 PO PRN ×2 (09:34→17:13)
[2016-10-29] MEDS ORDERED: KEFLEX PO SCH (10:00)
[2016-10-29] MEDS ORDERED: NORMODYNE PO SCH (10:00)
[2016-10-29] MEDS ORDERED: NACL 0.9 (PRIMING MACHINE ONLY DIALYSIS) MC ONE (13:57)
[2016-10-29] MEDS: HEPARIN IV PRN (14:09)
--- NOTE | 2016-10-29 16:55 | Event Note ---
Date: 10/29/16 Patient seen and examined today acute distress will continue current therapy. We'll proceed with obtaining orthopedic evaluation as this appears gangrene and doubt salvageability.
[2016-10-29] MEDS ORDERED: VANCOMYCIN PHARMACY TO DOSE IV SCH (17:00)
[2016-10-29] MEDS ORDERED: ROBITUSSIN DM PO PRN (17:12)
[2016-10-29] MEDS: ZOFRAN IV PRN (17:13)
--- NOTE | 2016-10-29 17:16 | Consultation ---
History of Present Illness - Reason for Consult Consult date: 10/29/16 Medications and Allergies Allergies Allergy/AdvReac Type Severity Reaction Status Date / Time hydrocodone bitartrate AdvReac SWEAT/CRAMP Verified 03/15/15 15:37 [From Vicodin] Home Medications Medication Instructions Recorded Confirmed Last Taken Type Labetalol [Normodyne TAB] 300 mg PO BID #60 tablet 03/19/14 09/28/16 Unknown Rx amLODIPine [Norvasc] 5 mg PO DAILY #60 tablet 08/06/16 09/28/16 1 Day Ago Rx guaiFENesin ER [Mucinex ER] 600 mg PO BID #20 tablet 08/06/16 09/28/16 Unknown Rx Aspirin EC [Aspirin Enteric Coated 81 mg PO QDAY #30 tablet 10/06/16 Unknown Rx TAB] Cephalexin [Keflex] 500 mg PO Q12HR #14 cap 10/06/16 Unknown Rx Clopidogrel [Plavix] 75 mg PO QDAY #30 tablet 10/06/16 Unknown Rx Simvastatin [Zocor TAB] 20 mg PO QHS #30 tablet 10/06/16 Unknown Rx oxyCODONE /ACETAMINOPHEN [Percocet 1 tab PO Q6H PRN #20 tablet 10/06/16 Unknown Rx 5/325 mg] Active Meds: Active Medications Acetaminophen (Tylenol) 650 mg PO Q6H PRN PRN Reason: For Pain/Fever/Headache Albumin Human (Alburx 25% (Albumin)) 25 gm IV SHRUTHI PRN PRN Reason: Hypotension Amlodipine Besylate (Norvasc) 5 mg PO DAILY [facility] Last Admin: 10/29/16 09:18 Dose: 5 mg Aspirin (Halfprin Ec) 81 mg PO QDAY [facility] Last Admin: 10/29/16 09:18 Dose: 81 mg Clopidogrel Bisulfate (Plavix) 75 mg PO QDAY [facility] Last Admin: 10/29/16 09:18 Dose: 75 mg Guaifenesin (Mucinex Er) 600 mg PO BID [facility] Last Admin: 10/29/16 09:18 Dose: 600 mg Guaifenesin (Robitussin Dm) 10 ml PO Q4H PRN PRN Reason: Cough Heparin Sodium (Porcine) (Heparin) 5,000 unit SUB-Q Q12HR [facility] Heparin Sodium (Porcine) (Heparin) 5,000 unit IV SHRUTHI PRN PRN Reason: hemodialysis Last Admin: 10/29/16 14:09 Dose: 5,000 unit Piperacillin Sod/Tazobactam Sod (Zosyn/Ns 2.25 Gm/50ml) 2.25 gm in 50 mls @ 100 mls/hr IV Q8HR NATALIE PRN Reason: Protocol Last Admin: 10/29/16 15:35 Dose: 100 mls/hr Sodium Chloride (Nacl 0.9%) 100 mls @ 999 mls/hr IV SHRUTHI PRN PRN Reason: Hypotension Vancomycin HCl (Vancomycin/Ns 1 Gm/250 Ml) 1 gm in 250 mls @ 167.007 mls/hr IV ONCE ONE PRN Reason: Protocol Stop: 10/29/16 18:26 Labetalol HCl (Normodyne) 300 mg PO BID [facility] Last Admin: 10/29/16 09:18 Dose: 300 mg Ondansetron HCl (Zofran) 4 mg IV Q6H PRN PRN Reason: Nausea And Vomiting Last Admin: 10/29/16 17:13 Dose: 4 mg Oxycodone/Acetaminophen (Percocet 5/325) 1 tab PO Q6H PRN PRN Reason: Pain, Moderate (4-6) Last Admin: 10/29/16 17:13 Dose: 1 tab Simvastatin (Zocor) 20 mg PO QHS NATALIE Sodium Hypochlorite (Dakin's Half Strength) 1 applic TP BID NATALIE Vancomycin HCl (Vancomycin Pharmacy To Dose) 1 each IV PKCONSULT NATALIE PRN Reason: Protocol Exam - Vital Signs Vital signs: Vital Signs Temp Pulse BP Pulse Ox 98.5 F 72 178/74 100 10/29/16 01:09 10/29/16 01:09 10/29/16 01:09 10/29/16 01:09 Results - Lab Results 10/29/16 01:40 10/29/16 01:40 Most recent lab results Calcium 8.1 mg/dL (8.4-10.2) L 10/29/16 01:40
[2016-10-29] MEDS: ZOCOR PO SCH (21:56)
[2016-10-29] MEDS: HEPARIN SUB-Q SCH ×2 (21:57→22:01)
[2016-10-30] MEDS: DAKIN'S HALF STRENGTH TP SCH ×3 (00:38→22:18)
[2016-10-30] MEDS: PERCOCET 5/325 PO PRN ×3 (05:09→23:35)
[2016-10-30] MEDS: ZOSYN/NS 2.25 GM/50ML 2.25 GM/50 ML BAG IV SCH ×3 (06:30→22:16)
[2016-10-30 07:42] LABS: BUN/Creatinine Ratio 4.68; Calcium 7.9 mg/dL (8.4-10.2); Chloride 94.6 mmol/L (98-107); Potassium 3.3 mmol/L (3.6-5.0)
[2016-10-30 07:48] LABS: Hematocrit 25.2 % (35.5-45.6); Hemoglobin 8.1 gm/dl (11.8-15.2); Mean Corpuscular HGB Conc 32 % (32-34); Mean Corpuscular Hemoglobin 27 pg (28-32); Mean Corpuscular Volume 83 fl (84-94); Platelet Count 343 K/mm3 (140-440); Red Blood Count 3.04 M/mm3 (3.65-5.03); Red Cell Distribution Width 18.7 % (13.2-15.2)
[2016-10-30] MEDS ORDERED: VANCOMYCIN/NS 1 GM/250 ML 1 GM/250 ML BAG IV ONE (10:00)
--- NOTE | 2016-10-30 10:16 | Consultation ---
History of Present Illness - HPI Consult date: 10/30/16 History of present illness: A 71-year-old, with peripheral vascular disease, gangrene foot. Had undergone a ray amputation, being treated by his admin prog coord and vascular surgeons, seen by a vascular surgeon on October 03, 2016. On his previous visits several months ago, I had seen on consultation and recommended below-knee amputation. Since an condition is unchanged. Medications and Allergies Allergies Allergy/AdvReac Type Severity Reaction Status Date / Time hydrocodone bitartrate AdvReac SWEAT/CRAMP Verified 03/15/15 15:37 [From Vicodin] Home Medications Medication Instructions Recorded Confirmed Last Taken Type Labetalol [Normodyne TAB] 300 mg PO BID #60 tablet 03/19/14 10/30/16 1 Day Ago Rx amLODIPine [Norvasc] 5 mg PO DAILY #60 tablet 08/06/16 10/30/16 1 Day Ago Rx guaiFENesin ER [Mucinex ER] 600 mg PO BID #20 tablet 08/06/16 10/30/16 1 Day Ago Rx Aspirin EC [Aspirin Enteric Coated 81 mg PO QDAY #30 tablet 10/06/16 10/30/16 1 Day Ago Rx TAB] Clopidogrel [Plavix] 75 mg PO QDAY #30 tablet 10/06/16 10/30/16 1 Day Ago Rx Simvastatin [Zocor TAB] 20 mg PO QHS #30 tablet 10/06/16 10/30/16 1 Day Ago Rx Cephalexin [Keflex] 500 mg PO Q12HR #14 cap 11/02/16 Unknown Rx Gabapentin [Neurontin] 100 mg PO QHS #30 capsule 11/02/16 Unknown Rx oxyCODONE /ACETAMINOPHEN [Percocet 2 tab PO Q6H PRN #20 tablet 11/02/16 Unknown Rx 5/325 mg] Active Meds: Active Medications Acetaminophen (Tylenol) 650 mg PO Q6H PRN PRN Reason: For Pain/Fever/Headache Last Admin: 10/30/16 05:11 Dose: 650 mg Albumin Human (Alburx 25% (Albumin)) 25 gm IV SHRUTHI PRN PRN Reason: Hypotension Amlodipine Besylate (Norvasc) 5 mg PO DAILY [facility] Last Admin: 10/29/16 09:18 Dose: 5 mg Aspirin (Halfprin Ec) 81 mg PO QDAY [facility] Last Admin: 10/29/16 09:18 Dose: 81 mg Clopidogrel Bisulfate (Plavix) 75 mg PO QDAY [facility] Last Admin: 10/29/16 09:18 Dose: 75 mg Guaifenesin (Mucinex Er) 600 mg PO BID [facility] Last Admin: 10/29/16 21:56 Dose: 600 mg Guaifenesin (Robitussin Dm) 10 ml PO Q4H PRN PRN Reason: Cough Heparin Sodium (Porcine) (Heparin) 5,000 unit SUB-Q Q12HR [facility] Last Admin: 10/29/16 22:01 Dose: Not Given Heparin Sodium (Porcine) (Heparin) 5,000 unit IV SHRUTHI PRN PRN Reason: hemodialysis Last Admin: 10/29/16 14:09 Dose: 5,000 unit Piperacillin Sod/Tazobactam Sod (Zosyn/Ns 2.25 Gm/50ml) 2.25 gm in 50 mls @ 100 mls/hr IV Q8HR [facility] PRN Reason: Protocol Last Admin: 10/30/16 06:30 Dose: 100 mls/hr Sodium Chloride (Nacl 0.9%) 100 mls @ 999 mls/hr IV SHRUTHI PRN PRN Reason: Hypotension Vancomycin HCl (Vancomycin/Ns 1 Gm/250 Ml) 1 gm in 250 mls @ 167.007 mls/hr IV ONCE ONE Stop: 10/30/16 11:29 Labetalol HCl (Normodyne) 300 mg PO BID [facility] Last Admin: 10/29/16 21:57 Dose: Not Given Ondansetron HCl (Zofran) 4 mg IV Q6H PRN PRN Reason: Nausea And Vomiting Last Admin: 10/29/16 17:13 Dose: 4 mg Oxycodone/Acetaminophen (Percocet 5/325) 1 tab PO Q6H PRN PRN Reason: Pain, Moderate (4-6) Last Admin: 10/29/16 17:13 Dose: 1 tab Simvastatin (Zocor) 20 mg PO QHS [facility] Last Admin: 10/29/16 21:56 Dose: 20 mg Sodium Hypochlorite (Dakin's Half Strength) 1 applic TP BID [facility] Last Admin: 10/30/16 00:38 Dose: Not Given Vancomycin HCl (Vancomycin Pharmacy To Dose) 1 each IV PKCONSULT [facility] PRN Reason: Protocol Physical Examination - Ankle & Foot left Foot swelling: other (Left foot with metatarsals exposed, dry, indicating dry gangrene. They're dystrophic changes of the foot, leg is warm.) Assessment and Plan - Patient Problems (1) Gangrene of foot Current Visit: No Status: Acute Plan to address problem: Expossed dry metatarsals, will need AN amputation, BK or even AK. Being followed by Vascular Surg , seen by Dr. Nicholas on 10/03/16. will leave decision to them!
--- NOTE | 2016-10-30 10:57 | Progress Note ---
Assessment and Plan Impression: * End stage renal disease on HD MWF * Fluid overload * Left foot gangrene * Hx of Dehiscence of his left lower extremity wound --Wound cx: Proteus, Klebsiella * Peripheral artery disease --s/p Revascularization of the anterior tibial artery, posterior tibial artery, tibioperoneal trunk, and distal popliteal artery * Anemia secondary to ESRD * Secondary hyperparathyroidism Plan: * Patient is s/p HD yesterday. Resume outpatient MWF schedule * UF as tolerated * Note ortho recs. Have consulted vascular surgery * Abx per primary team * Epogen with dialysis Subjective Date of service: 10/30/16 Interval history: Patient w/o complaint - reports "I have fluid on me" Objective - Vital Signs Vital signs: Vital Signs - 12hr 10/30/16 10/30/16 10/30/16 01:11 05:12 07:11 Temperature 97.8 F 99.6 F 98.8 F Pulse Rate [ 70 80 71 Right Radial] Respiratory 20 20 20 Rate Blood Pressure 130/66 133/63 [Left Arm] Blood Pressure 159/71 [Right Arm] O2 Sat by Pulse 100 99 100 Oximetry 10/30/16 10/30/16 08:05 08:44 Temperature Pulse Rate [ Right Radial] Respiratory Rate Blood Pressure [Left Arm] Blood Pressure [Right Arm] O2 Sat by Pulse 100 97 Oximetry - General Appearance General appearance: well-developed, well-nourished EENT: ATNC Respiratory: Present: Decreased Breath Sounds Cardiology: regular, S1S2 Gastrointestinal: no tenderness, no distended, obese Psychiatric: cooperative - Lab 10/30/16 06:32 10/30/16 06:32 Most recent lab results Calcium 7.9 mg/dL (8.4-10.2) L 10/30/16 06:32
[2016-10-30] MEDS ORDERED: NACL 0.9% 100 ML IV PRN (11:30)
[2016-10-30] MEDS: PLAVIX PO SCH (11:40)
[2016-10-30] MEDS: HALFPRIN EC PO SCH (11:41)
[2016-10-30] MEDS: NORVASC PO SCH (11:41)
[2016-10-30] MEDS: MUCINEX ER PO SCH ×2 (11:44→22:17)
[2016-10-30] MEDS: NORMODYNE PO SCH ×2 (11:44→22:17)
[2016-10-30] MEDS: HEPARIN SUB-Q SCH ×2 (12:06→22:19)
--- NOTE | 2016-10-30 14:36 | Consultation ---
History of Present Illness - Reason for Consult Consult date: 10/30/16 - History of Present Illness The patient is a 71-year-old [place] male that was admitted on 10/29/2016 due to a left foot wound. He is well known to our service due to previous hospitalizations. He is status post multiple successful attempts at revascularization to his left lower extremity. He's had multiple wound debridement, and podiatric procedures by Dr. Valencia in attempts to salvage his left foot. Unfortunately, the patient has a history of extreme medical noncompliance. He failed follow-up or take postoperative antiplatelet medications. This has resulted in further deterioration of his left foot. The patient has been evaluated by orthopedics since admission. His wounds were evaluated, and noted to have exposed dry metatarsals. An amputation was recommended. A Vascular surgery consult has been requested to further evaluate. Past History Past Medical History: arthritis, CAD (status post myocardial infarction), diabetes, dialysis, ESRD, heart failure, hypertension Past Surgical History: Other (he's had a right below the knee amputation, multiple successful attempts at revascularization to his left lower extremity, multiple debridements and podiatric procedures the salvage his left foot, left upper arm hemodialysis access) Social history: lives with family (brother), smoking Family history: no significant family history (none listed) Medications and Allergies Allergies Allergy/AdvReac Type Severity Reaction Status Date / Time hydrocodone bitartrate AdvReac SWEAT/CRAMP Verified 03/15/15 15:37 [From Vicodin] Home Medications Medication Instructions Recorded Confirmed Last Taken Type Labetalol [Normodyne TAB] 300 mg PO BID #60 tablet 03/19/14 10/30/16 1 Day Ago Rx amLODIPine [Norvasc] 5 mg PO DAILY #60 tablet 08/06/16 10/30/16 1 Day Ago Rx guaiFENesin ER [Mucinex ER] 600 mg PO BID #20 tablet 08/06/16 10/30/16 1 Day Ago Rx Aspirin EC [Aspirin Enteric Coated 81 mg PO QDAY #30 tablet 10/06/16 10/30/16 1 Day Ago Rx TAB] Cephalexin [Keflex] 500 mg PO Q12HR #14 cap 10/06/16 10/30/16 1 Month Ago Rx Clopidogrel [Plavix] 75 mg PO QDAY #30 tablet 10/06/16 10/30/16 1 Day Ago Rx Simvastatin [Zocor TAB] 20 mg PO QHS #30 tablet 10/06/16 10/30/16 1 Day Ago Rx Active Meds: Active Medications Acetaminophen (Tylenol) 650 mg PO Q6H PRN PRN Reason: For Pain/Fever/Headache Last Admin: 10/30/16 05:11 Dose: 650 mg Albumin Human (Alburx 25% (Albumin)) 25 gm IV SHRUTHI PRN PRN Reason: Hypotension Amlodipine Besylate (Norvasc) 5 mg PO DAILY [facility] Last Admin: 10/30/16 11:41 Dose: 5 mg Aspirin (Halfprin Ec) 81 mg PO QDAY [facility] Last Admin: 10/30/16 11:41 Dose: 81 mg Clopidogrel Bisulfate (Plavix) 75 mg PO QDAY [facility] Last Admin: 10/30/16 11:40 Dose: 75 mg Epoetin Boris (Epogen) 10,000 unit IV SHRUTHI PRN PRN Reason: hemodialysis Guaifenesin (Mucinex Er) 600 mg PO BID [facility] Last Admin: 10/30/16 11:44 Dose: 600 mg Guaifenesin (Robitussin Dm) 10 ml PO Q4H PRN PRN Reason: Cough Heparin Sodium (Porcine) (Heparin) 5,000 unit SUB-Q Q12HR [facility] Last Admin: 10/30/16 12:06 Dose: Not Given Heparin Sodium (Porcine) (Heparin) 5,000 unit IV SHRUTHI PRN PRN Reason: hemodialysis Last Admin: 10/29/16 14:09 Dose: 5,000 unit Piperacillin Sod/Tazobactam Sod (Zosyn/Ns 2.25 Gm/50ml) 2.25 gm in 50 mls @ 100 mls/hr IV Q8HR [facility] PRN Reason: Protocol Last Admin: 10/30/16 06:30 Dose: 100 mls/hr Sodium Chloride (Nacl 0.9%) 100 mls @ 999 mls/hr IV SHRUTHI PRN PRN Reason: Hypotension Sodium Chloride (Nacl 0.9%) 100 mls @ 999 mls/hr IV SHRUTHI PRN PRN Reason: Hypotension Labetalol HCl (Normodyne) 300 mg PO BID [facility] Last Admin: 10/30/16 11:44 Dose: 300 mg Ondansetron HCl (Zofran) 4 mg IV Q6H PRN PRN Reason: Nausea And Vomiting Last Admin: 10/29/16 17:13 Dose: 4 mg Oxycodone/Acetaminophen (Percocet 5/325) 1 tab PO Q6H PRN PRN Reason: Pain, Moderate (4-6) Last Admin: 10/30/16 11:41 Dose: 1 tab Simvastatin (Zocor) 20 mg PO QHS [facility] Last Admin: 10/29/16 21:56 Dose: 20 mg Sodium Hypochlorite (Dakin's Half Strength) 1 applic TP BID [facility] Last Admin: 10/30/16 11:59 Dose: 1 applicatio Vancomycin HCl (Vancomycin Pharmacy To Dose) 1 each IV PKCONSULT [facility] PRN Reason: Protocol Review of Systems All systems: negative Exam - Constitutional Vitals: Temp Pulse Resp BP Pulse Ox 71 F L 78 20 140/65 99 10/30/16 11:25 10/30/16 11:44 10/30/16 11:25 10/30/16 11:25 10/30/16 11:25 General appearance: Present: no acute distress - EENT Eyes: Present: EOM intact ENT: hearing intact - Neck Neck: Present: supple - Respiratory Respiratory effort: normal (labored at rest on room air) - Extremities Extremities: normal temperature, abnormal (he has a right below the knee amputation, his left leg is warm I'm unable to palpate pedal pulses. He has wounds to his left foot that are presently bandaged.) - Psychiatric Psychiatric: appropriate mood/affect, intact judgment & insight, cooperative - Neurologic Neurologic: no focal deficits Results - Labs CBC & Chem 7: 10/30/16 06:32 10/30/16 06:32 Labs: Abnormal lab results 10/30/16 10/30/16 Range/Units 06:32 06:32 RBC 3.04 L (3.65-5.03) M/mm3 Hgb 8.1 L (11.8-15.2) gm/dl Hct 25.2 L (35.5-45.6) % MCV 83 L (84-94) fl MCH 27 L (28-32) pg RDW 18.7 H (13.2-15.2) % Sodium 134 L (137-145) mmol/L Potassium 3.3 L (3.6-5.0) mmol/L Chloride 94.6 L (98-107) mmol/L BUN 22 H (9-20) mg/dL Creatinine 4.7 H (0.8-1.5) mg/dL Glucose 134 H (75-100) mg/dL Calcium 7.9 L (8.4-10.2) mg/dL Assessment and Plan This patient has had multiple recent hospitalizations in attempts to salvage his left lower extremity. Despite successful revascularization with subsequent podiatric debridement and wound closures, he has failed to follow up or comply with postoperative instructions. This resulted in further wound deterioration. The Patient has been evaluated by orthopedics. His limb was felt to be unsalvageable. A Vascular surgery consult has been requested to further evaluate. Surgical options were discussed. The patient wishes to proceed with a below the knee amputation. The risks benefits and alternatives to this procedure were discussed in great detail. He understands that there is a possibility that a BKA would not heal and may require conversion to an [id number] amputation. The patient has been placed on the surgical schedule for tomorrow. - Patient Problems (1) Atherosclerosis of [place] arteries of the extremities with gangrene Current Visit: Yes Status: Acute Qualifiers: Peripheral atherosclerosis location: P Laterality: L (2) Medical non-compliance Current Visit: Yes Status: Acute (3) End stage kidney disease Current Visit: Yes Status: Acute (4) Diabetes Onset Date: 12/01/13 Current Visit: No Status: Chronic Qualifiers: Diabetes mellitus type: type 2 Diabetes mellitus complication status: D Diabetes mellitus complication detail: D Diabetic retinopathy severity: D Proliferative retinopathy type: P Diabetes mellitus macular edema: D Diabetes mellitus group home insulin use: D Laterality: L Chronic kidney disease stage: on chronic dialysis (5) ESRD (end stage renal disease) on dialysis Current Visit: No Status: Chronic (6) Hypertension Current Visit: No Status: Chronic Qualifiers: Hypertension type: H
--- NOTE | 2016-10-30 16:00 | Anesthesia Consultation ---
Anesthesia Consult and Med Hx Date of service: 10/30/16 - Airway Anesthetic Teeth Evaluation: Poor ROM Head & Neck: Adequate Mental/Hyoid Distance: Adequate Mallampati Class: Class II Intubation Access Assessment: Probably Good - Pre-Operative Health Status ASA Pre-Surgery Classification: ASA3 Proposed Anesthetic Plan: General - Pulmonary Hx Smoking: Yes COPD: Yes Hx Pneumonia: Yes - Cardiovascular System Hx Hypertension: Yes Hx Heart Attack/AMI: Yes Hx Peripheral Vascular Disease: Yes (gangrene) - Central Nervous System CVA: Yes Hx Psychiatric Problems: No - Gastrointestinal Hx Gastroesophageal Reflux Disease: (Admitted with abdominal pain and N&V) - Endocrine Hx Renal Disease: Yes (-W-) Hx End Stage Renal Disease: Yes Hx Insulin Dependent Diabetes: Yes - Hematic Hx Anemia: Yes - Other Systems Hx Substance Use: Yes (Recreational Marijuana use) Hx Cancer: No
--- NOTE | 2016-10-30 16:28 | Progress Note ---
Assessment and Plan Assessment and plan: Patient is a 71-year-old male with multiple medical conditions including end- stage renal disease on hemodialysis and also severe peripheral vascular disease and has been revascularized about 3 times but remains noncompliant therapy and social has failed revascularization. Presents to the hospital with pain and swelling and back discoloration of the left foot which has been ongoing for about weeks had a recent debridement at Dr. Valencia's office. He at this point has failed outpatient therapy. His wounds were evaluated, and noted to have exposed dry metatarsals. - Patient Problems (1) Atherosclerosis of [place] arteries of the extremities with gangrene * Vascular and Ortho consult * will need amputation * Wound cx showing Proteus Klebsiella * Failed revascularization * -S/p Revascularization of the anterior tibial artery, posterior tibial artery , tibioperoneal trunk, and distal popliteal artery * Continue Vacomycin 1gm (2) End stage kidney disease * Nephrology Following. (3) Medical non-compliance * Extensive discussion about compliance (4) Diabetes Mellitus * Continue insulin therapy (5) Hypertension * Continue current therapy (6) Left Lower extremity wound * Wound care (7) Anemia secondary to ESRD (8) Hypokalemia * Replace with during dialysis (8) DVT/GI prophylaxis History Interval history: Patient's on examination today in no acute distress. "I am filled with fluids." He denies any chest pain, nausea, vomiting, diarrhea he denies any shortness of breath at this time. Adverse events reported by nursing staff. He reports also in his left lower extremity. Hospitalist Physical - Physical exam Narrative exam: VITAL SIGNS: Reviewed. GENERAL: The patient appeared well nourished and normally developed. Vital signs as documented. HEAD: No signs of head trauma. EYES: Pupils are equal. Extraocular motions intact. EARS: Hearing grossly intact. MOUTH: Oropharynx is normal. NECK: No adenopathy, no JVD. CHEST: Chest with clear breath sounds bilaterally. No wheezes, rales, or rhonchi. CARDIAC: Regular rate and rhythm. S1 and S2, without murmurs, gallops, or rubs. VASCULAR: No Edema. Peripheral pulses normal and equal in all extremities. ABDOMEN: Soft, without detectable tenderness. No sign of distention. No rebound or guarding, and no masses palpated. Bowel Sounds normal. MUSCULOSKELETAL: Good range of motion, right BKA, left leg back dressing in place. No pedal pulses palpable. NEUROLOGIC EXAM: Alert and oriented x 3. No focal sensory or strength deficits. Speech normal. Follows commands. PSYCHIATRIC: Mood normal. SKIN: Left foot gangrene. - Constitutional Vitals: Temp Pulse Resp BP Pulse Ox 71 F L 64 20 158/69 99 10/30/16 11:25 10/30/16 15:00 10/30/16 11:25 10/30/16 15:00 10/30/16 11:25 General appearance: Present: no acute distress Results - Labs CBC & Chem 7: 10/30/16 06:32 10/30/16 06:32 Labs: Laboratory Last Values WBC 6.0 K/mm3 (4.5-11.0) 10/30/16 06:32 RBC 3.04 M/mm3 (3.65-5.03) L 10/30/16 06:32 Hgb 8.1 gm/dl (11.8-15.2) L 10/30/16 06:32 Hct 25.2 % (35.5-45.6) L 10/30/16 06:32 MCV 83 fl (84-94) L 10/30/16 06:32 MCH 27 pg (28-32) L 10/30/16 06:32 MCHC 32 % (32-34) 10/30/16 06:32 RDW 18.7 % (13.2-15.2) H 10/30/16 06:32 Plt Count 343 K/mm3 (140-440) 10/30/16 06:32 Lymph % (Auto) 10.2 % (13.4-35.0) L 10/29/16 01:40 [place] % (Auto) 8.8 % (0.0-7.3) H 10/29/16 01:40 Eos % (Auto) 3.1 % (0.0-4.3) 10/29/16 01:40 Baso % (Auto) 1.4 % (0.0-1.8) 10/29/16 01:40 Lymph # 0.5 K/mm3 (1.2-5.4) L 10/29/16 01:40 [place] # 0.4 K/mm3 (0.0-0.8) 10/29/16 01:40 Eos # 0.1 K/mm3 (0.0-0.4) 10/29/16 01:40 Baso # 0.1 K/mm3 (0.0-0.1) 10/29/16 01:40 Seg Neutrophils % 76.5 % (40.0-70.0) H 10/29/16 01:40 Seg Neutrophils # 3.4 K/mm3 (1.8-7.7) 10/29/16 01:40 Sodium 134 mmol/L (137-145) L 10/30/16 06:32 Potassium 3.3 mmol/L (3.6-5.0) L 10/30/16 06:32 Chloride 94.6 mmol/L (98-107) L 10/30/16 06:32 Carbon Dioxide 28 mmol/L (22-30) 10/30/16 06:32 Anion Gap 15 mmol/L 10/30/16 06:32 BUN 22 mg/dL (9-20) H 10/30/16 06:32 Creatinine 4.7 mg/dL (0.8-1.5) H 10/30/16 06:32 Estimated GFR 15 ml/min 10/30/16 06:32 BUN/Creatinine Ratio 4.68 % 10/30/16 06:32 Glucose 134 mg/dL (75-100) H 10/30/16 06:32 Calcium 7.9 mg/dL (8.4-10.2) L 10/30/16 06:32 Total Bilirubin 0.5 mg/dL (0.1-1.2) 10/29/16 01:40 AST 12 units/L (5-40) 10/29/16 01:40 ALT 9 units/L (7-56) 10/29/16 01:40 Alkaline Phosphatase 167 units/L (35-129) H 10/29/16 01:40 C-Reactive Protein 11.70 mg/dL (0.00-1.30) H 10/29/16 01:40 Total Protein 6.9 g/dL (6.3-8.2) 10/29/16 01:40 Albumin 2.6 g/dL (3.9-5) L 10/29/16 01:40 Albumin/Globulin Ratio 0.6 % 10/29/16 01:40
[2016-10-30] MEDS: HEPARIN IV PRN (19:08)
[2016-10-30] MEDS: ZOFRAN IV PRN (19:09)
[2016-10-30] MEDS ORDERED: APRESOLINE IV PRN (21:57)
[2016-10-30] MEDS: ZOCOR PO SCH (22:17)
[2016-10-31] MEDS: ZOSYN/NS 2.25 GM/50ML 2.25 GM/50 ML BAG IV SCH ×3 (05:42→22:18)
[2016-10-31] MEDS ORDERED: DIPRIVAN 10 MG/ML IV ONE (06:31)
[2016-10-31] MEDS ORDERED: DILAUDID ONE (06:31)
[2016-10-31] MEDS ORDERED: XYLOCAINE MPF 2% ONE (06:31)
[2016-10-31] MEDS ORDERED: NACL 0.9% 1000 ML 1,000 ML IV SCH (07:00)
[2016-10-31] MEDS ORDERED: VERSED IV NR (07:00)
[2016-10-31] MEDS ORDERED: PROVENTIL IH NR (07:00)
[2016-10-31] MEDS ORDERED: PEPCID IV NR (07:00)
[2016-10-31] MEDS ORDERED: MARCAINE-EPI/PF 0.5%-1:200,000 INFILTRATI ONE ×2 (07:59→13:33)
[2016-10-31] MEDS ORDERED: ANCEF/STERILE WATER 2 GM/20 ML 2 GM/20 ML SYRINGE IV NR (08:00)
--- NOTE | 2016-10-31 08:03 | Anesthesia Day of Surgery ---
Anesthesia Day of Surgery - Day of Surgery Patient Examined: Yes Patient H&P Reviewed: Yes Patient is NPO: Yes
[2016-10-31] MEDS ORDERED: ZOFRAN ONE (08:35)
[2016-10-31] MEDS ORDERED: DECADRON ONE (08:36)
[2016-10-31] MEDS ORDERED: NACL 0.9% IR ONE (08:56)
[2016-10-31] MEDS ORDERED: MARCAINE-EPI 0.5%-1:200,000 INFILTRATI ONE ×2 (08:56)
--- NOTE | 2016-10-31 10:28 | Post Operative Note ---
Date of procedure: 10/31/16 Pre-op diagnosis: PVD with Gangrene Post-op diagnosis: same Procedure: Left BKA Anesthesia: GETA Surgeon: COLTON ALCARAZ [employer] Operator: JACQUI ONTIVEROS Estimated blood loss: 50-100ml Pathology: list (Left lower leg) Specimen disposition: to lab Condition: stable Disposition: PACU
--- NOTE | 2016-10-31 10:33 | Post Anesthesia Evaluation ---
- Post Anesthesia Evaluation Patient Participated: Yes Airway Patent: Yes Stable Respiratory Function: Yes Nausea/Vomiting: No Temp > 96.8F: Yes Pain Manageable: Yes Adequeate Hydration: Yes Anesthesia Complications: No
[2016-10-31] MEDS: NORMODYNE PO SCH ×2 (11:35→22:20)
[2016-10-31] MEDS: HALFPRIN EC PO SCH (11:35)
[2016-10-31] MEDS: NORVASC PO SCH (11:36)
[2016-10-31] MEDS: MUCINEX ER PO SCH ×2 (11:36→22:19)
[2016-10-31] MEDS: PLAVIX PO SCH (11:36)
[2016-10-31] MEDS: DAKIN'S HALF STRENGTH TP SCH ×2 (11:37→22:19)
[2016-10-31] MEDS: HEPARIN SUB-Q SCH ×3 (11:39→22:28)
[2016-10-31 11:47] LABS: BUN/Creatinine Ratio 3.5; Chloride 96.6 mmol/L (98-107); Potassium 3.4 mmol/L (3.6-5.0)
--- NOTE | 2016-10-31 11:54 | Progress Note ---
Assessment and Plan Impression: * End stage renal disease on HD MWF * Fluid overload * Left foot gangrene s/p left BKA * Hx of Dehiscence of his left lower extremity wound --Wound cx: Proteus, Klebsiella * Peripheral artery disease --s/p Revascularization of the anterior tibial artery, posterior tibial artery, tibioperoneal trunk, and distal popliteal artery * Anemia secondary to ESRD * Secondary hyperparathyroidism Plan: * Continue HD MWF schedule * UF as tolerated * Vascular surgery following; patient is s/p BKA * Abx per primary team * Epogen with dialysis Subjective Date of service: 10/31/16 Interval history: Reports breathing has improved Objective - Vital Signs Vital signs: Vital Signs - 12hr 10/31/16 10/31/16 10/31/16 00:00 04:00 04:44 Temperature 98.4 F 98.6 F Pulse Rate 78 Pulse Rate [ 72 72 Right Radial] Respiratory 18 18 Rate Blood Pressure Blood Pressure [Left Arm] Blood Pressure 121/58 133/60 [Right Arm] O2 Sat by Pulse 97 97 Oximetry 10/31/16 10/31/16 10/31/16 07:35 08:10 10:19 Temperature 99.5 F 99.5 F 97.9 F Pulse Rate 74 74 74 Pulse Rate [ Right Radial] Respiratory 18 18 16 Rate Blood Pressure 144/59 144/59 130/52 Blood Pressure [Left Arm] Blood Pressure [Right Arm] O2 Sat by Pulse 97 97 100 Oximetry 10/31/16 10/31/16 10/31/16 10:25 10:30 10:35 Temperature Pulse Rate 70 73 73 Pulse Rate [ Right Radial] Respiratory 19 14 12 Rate Blood Pressure 135/42 144/46 143/47 Blood Pressure [Left Arm] Blood Pressure [Right Arm] O2 Sat by Pulse 97 95 98 Oximetry 10/31/16 10/31/16 10:50 11:17 Temperature 97.5 F L Pulse Rate 72 Pulse Rate [ 71 Right Radial] Respiratory 13 16 Rate Blood Pressure 160/57 Blood Pressure 181/80 [Left Arm] Blood Pressure [Right Arm] O2 Sat by Pulse 100 100 Oximetry - General Appearance General appearance: well-developed, well-nourished EENT: ATNC Respiratory: Present: Clear to Ascultation Cardiology: regular, S1S2 Gastrointestinal: normal, no tenderness, no distended Integumentary: no rash - Lab 10/30/16 06:32 10/31/16 10:47 Most recent lab results Calcium 8.0 mg/dL (8.4-10.2) L 10/31/16 10:47
[2016-10-31] MEDS: DILAUDID IV PRN ×3 (12:10→23:30)
--- NOTE | 2016-10-31 16:58 | Progress Note ---
Assessment and Plan Assessment and plan: Patient is a 71-year-old male with multiple medical conditions including end- stage renal disease on hemodialysis and also severe peripheral vascular disease and has been revascularized about 3 times but remains noncompliant therapy and social has failed revascularization. Presents to the hospital with pain and swelling and back discoloration of the left foot which has been ongoing for about weeks had a recent debridement at Dr. Valencia's office. He at this point has failed outpatient therapy. His wounds were evaluated, and noted to have exposed dry metatarsals. - Patient Problems (1) Atherosclerosis of [place] arteries of the extremities with gangrene * Vascular and Ortho consult * amputation planned for today * Wound cx showing Proteus Klebsiella, await I/D * Failed revascularization * -S/p Revascularization of the anterior tibial artery, posterior tibial artery , tibioperoneal trunk, and distal popliteal artery * Continue Vacomycin 1gm (2) End stage kidney disease * Nephrology Following. (3) Medical non-compliance * Extensive discussion about compliance (4) Diabetes Mellitus * Continue insulin therapy (5) Hypertension * Continue current therapy (6) Left Lower extremity wound * Wound care (7) Anemia secondary to ESRD Continue epogen with dialysis (8) Hypokalemia * Replace with during dialysis (8) DVT/GI prophylaxis History Interval history: Patient's on examination today in no acute distress. PLANNED for amputation today. No other adverse event reported by nursing staff Hospitalist Physical - Physical exam Narrative exam: VITAL SIGNS: Reviewed. GENERAL: The patient appeared well nourished and normally developed. Vital signs as documented. HEAD: No signs of head trauma. EYES: Pupils are equal. Extraocular motions intact. EARS: Hearing grossly intact. MOUTH: Oropharynx is normal. NECK: No adenopathy, no JVD. CHEST: Chest with clear breath sounds bilaterally. No wheezes, rales, or rhonchi. CARDIAC: Regular rate and rhythm. S1 and S2, without murmurs, gallops, or rubs. VASCULAR: No Edema. Peripheral pulses normal and equal in all extremities. ABDOMEN: Soft, without detectable tenderness. No sign of distention. No rebound or guarding, and no masses palpated. Bowel Sounds normal. MUSCULOSKELETAL: Good range of motion, right BKA, left leg back dressing in place. No pedal pulses palpable. NEUROLOGIC EXAM: Alert and oriented x 3. No focal sensory or strength deficits. Speech normal. Follows commands. PSYCHIATRIC: Mood normal. SKIN: Left foot gangrene. - Constitutional Vitals: Temp Pulse Resp BP Pulse Ox 97.5 F L 70 16 181/80 100 10/31/16 11:17 10/31/16 12:00 10/31/16 11:17 10/31/16 11:17 10/31/16 11:17 General appearance: Present: no acute distress Results - Labs CBC & Chem 7: 10/30/16 06:32 10/31/16 10:47 Labs: Laboratory Last Values WBC 6.0 K/mm3 (4.5-11.0) 10/30/16 06:32 RBC 3.04 M/mm3 (3.65-5.03) L 10/30/16 06:32 Hgb 8.1 gm/dl (11.8-15.2) L 10/30/16 06:32 Hct 25.2 % (35.5-45.6) L 10/30/16 06:32 MCV 83 fl (84-94) L 10/30/16 06:32 MCH 27 pg (28-32) L 10/30/16 06:32 MCHC 32 % (32-34) 10/30/16 06:32 RDW 18.7 % (13.2-15.2) H 10/30/16 06:32 Plt Count 343 K/mm3 (140-440) 10/30/16 06:32 Lymph % (Auto) 10.2 % (13.4-35.0) L 10/29/16 01:40 [place] % (Auto) 8.8 % (0.0-7.3) H 10/29/16 01:40 Eos % (Auto) 3.1 % (0.0-4.3) 10/29/16 01:40 Baso % (Auto) 1.4 % (0.0-1.8) 10/29/16 01:40 Lymph # 0.5 K/mm3 (1.2-5.4) L 10/29/16 01:40 [place] # 0.4 K/mm3 (0.0-0.8) 10/29/16 01:40 Eos # 0.1 K/mm3 (0.0-0.4) 10/29/16 01:40 Baso # 0.1 K/mm3 (0.0-0.1) 10/29/16 01:40 Seg Neutrophils % 76.5 % (40.0-70.0) H 10/29/16 01:40 Seg Neutrophils # 3.4 K/mm3 (1.8-7.7) 10/29/16 01:40 Sodium 134 mmol/L (137-145) L 10/31/16 10:47 Potassium 3.4 mmol/L (3.6-5.0) L 10/31/16 10:47 Chloride 96.6 mmol/L (98-107) L 10/31/16 10:47 Carbon Dioxide 26 mmol/L (22-30) 10/31/16 10:47 Anion Gap 15 mmol/L 10/31/16 10:47 BUN 14 mg/dL (9-20) 10/31/16 10:47 Creatinine 4.0 mg/dL (0.8-1.5) H 10/31/16 10:47 Estimated GFR 18 ml/min 10/31/16 10:47 BUN/Creatinine Ratio 3.50 % 10/31/16 10:47 Glucose 141 mg/dL (75-100) H 10/31/16 10:47 POC Glucose 157 (70-105) H 10/31/16 10:30 Calcium 8.0 mg/dL (8.4-10.2) L 10/31/16 10:47 Total Bilirubin 0.5 mg/dL (0.1-1.2) 10/29/16 01:40 AST 12 units/L (5-40) 10/29/16 01:40 ALT 9 units/L (7-56) 10/29/16 01:40 Alkaline Phosphatase 167 units/L (35-129) H 10/29/16 01:40 C-Reactive Protein 11.70 mg/dL (0.00-1.30) H 10/29/16 01:40 Total Protein 6.9 g/dL (6.3-8.2) 10/29/16 01:40 Albumin 2.6 g/dL (3.9-5) L 10/29/16 01:40 Albumin/Globulin Ratio 0.6 % 10/29/16 01:40
[2016-10-31] MEDS: PERCOCET 5/325 PO PRN (17:32)
[2016-10-31] MEDS: ZOCOR PO SCH (22:19)
[2016-11-01] MEDS: DILAUDID IV PRN ×6 (02:38→20:39)
[2016-11-01] MEDS: PERCOCET 5/325 PO PRN (04:26)
[2016-11-01] MEDS: ZOSYN/NS 2.25 GM/50ML 2.25 GM/50 ML BAG IV SCH ×3 (06:24→22:19)
[2016-11-01 06:53] LABS: Hematocrit 21.6 % (35.5-45.6); Hemoglobin 6.9 gm/dl (11.8-15.2); Mean Corpuscular HGB Conc 32 % (32-34); Mean Corpuscular Hemoglobin 27 pg (28-32); Mean Corpuscular Volume 84 fl (84-94); Platelet Count 246 K/mm3 (140-440); Red Blood Count 2.57 M/mm3 (3.65-5.03); Red Cell Distribution Width 18.4 % (13.2-15.2); White Blood Count 7.8 K/mm3 (4.5-11.0)
[2016-11-01 07:08] LABS: BUN/Creatinine Ratio 4.25; Chloride 95.9 mmol/L (98-107); Potassium 3.5 mmol/L (3.6-5.0)
[2016-11-01] MEDS ORDERED: NACL 0.9% 500 ML 500 ML IV NR (09:00)
[2016-11-01] MEDS ORDERED: NACL 0.9 (PRIMING MACHINE ONLY DIALYSIS) MC ONE (11:44)
[2016-11-01] MEDS: HEPARIN IV PRN (11:54)
[2016-11-01] MEDS ORDERED: VANCOMYCIN/NS 1 GM/250 ML 1 GM/250 ML BAG IV ONE (12:00)
[2016-11-01] MEDS: HEPARIN SUB-Q SCH ×3 (12:06→22:28)
[2016-11-01] MEDS: HALFPRIN EC PO SCH (12:07)
[2016-11-01] MEDS: NORMODYNE PO SCH ×2 (12:08→22:27)
[2016-11-01] MEDS: NORVASC PO SCH (12:08)
[2016-11-01] MEDS: MUCINEX ER PO SCH ×2 (12:08→22:25)
[2016-11-01] MEDS: PLAVIX PO SCH (12:09)
--- NOTE | 2016-11-01 12:12 | Progress Note ---
Assessment and Plan Check bandages in the next 24-48 hrs. Increased oral analgesic dose from 1 to 2 tabs per dose. Pt with acute blood loss anemia, pt may benefit from transfusion (defer to Nephrology and Hospitalist). Subjective Date of service: 11/01/16 Interval history: Pt awake and alert. C/o incisional pain, poorly controlled with analgesics thus far. Objective - Constitutional Vitals: Vital Signs - 12hr 11/01/16 11/01/16 11/01/16 01:50 04:00 06:45 Temperature 98.3 F 97.3 F L Pulse Rate 65 Pulse Rate [ 63 63 Right Radial] Respiratory 20 20 Rate Blood Pressure Blood Pressure 129/63 117/56 [Right Arm] O2 Sat by Pulse 99 94 Oximetry 11/01/16 11/01/16 11/01/16 07:43 10:45 10:58 Temperature 36.7 F L 97.7 F Pulse Rate 60 60 Pulse Rate [ 67 Right Radial] Respiratory 12 18 Rate Blood Pressure 158/78 136/58 Blood Pressure 126/60 [Right Arm] O2 Sat by Pulse 88 Oximetry 11/01/16 11:00 Temperature Pulse Rate 60 Pulse Rate [ Right Radial] Respiratory Rate Blood Pressure 154/74 Blood Pressure [Right Arm] O2 Sat by Pulse Oximetry General appearance: Present: no acute distress - EENT Eyes: EOM intact ENT: hearing intact - Neck Neck: supple - Respiratory Respiratory effort: normal Extremities: abnormal (LLE BKA, knee immobilizer and bandages Clean, Dry, and intact. ) - Neurologic Neurologic: no focal deficits - Psychiatric Psychiatric: appropriate mood/affect, intact judgment & insight, cooperative - Labs CBC & Chem 7: 11/01/16 06:35 11/01/16 06:35 Labs: Abnormal lab results 11/01/16 11/01/16 11/01/16 Range/Units 06:35 06:35 11:08 RBC 2.57 L (3.65-5.03) M/mm3 Hgb 6.9 L (11.8-15.2) gm/dl Hct 21.6 L (35.5-45.6) % MCH 27 L (28-32) pg RDW 18.4 H (13.2-15.2) % Sodium 136 L (137-145) mmol/L Potassium 3.5 L (3.6-5.0) mmol/L Chloride 95.9 L (98-107) mmol/L BUN 23 H (9-20) mg/dL Creatinine 5.4 H (0.8-1.5) mg/dL Glucose 117 H (75-100) mg/dL Calcium 8.0 L (8.4-10.2) mg/dL Crossmatch See Detail
--- NOTE | 2016-11-01 12:13 | Progress Note ---
Assessment and Plan Impression: * End stage renal disease on HD MWF * Fluid overload * Left foot gangrene s/p left BKA * Phantom pain * Anemia secondary to ESRD vs ABL * Secondary hyperparathyroidism Plan: * Continue HD MWF schedule; UF as tolerated * Note Hb - pRBC ordered by primary team * Vascular surgery following; patient is s/p BKA * Will start low dose neurontin for phantom pain - 100mg qhs * Abx per primary team * Epogen with dialysis Subjective Date of service: 11/01/16 Interval history: Patient seen on dialysis. Complains of pain in foot that has been amputated Objective - Vital Signs Vital signs: Vital Signs - 12hr 11/01/16 11/01/16 11/01/16 01:50 04:00 06:45 Temperature 98.3 F 97.3 F L Pulse Rate 65 Pulse Rate [ 63 63 Right Radial] Respiratory 20 20 Rate Blood Pressure Blood Pressure 129/63 117/56 [Right Arm] O2 Sat by Pulse 99 94 Oximetry 11/01/16 11/01/16 11/01/16 07:43 10:45 10:58 Temperature 36.7 F L 97.7 F Pulse Rate 60 60 Pulse Rate [ 67 Right Radial] Respiratory 12 18 Rate Blood Pressure 158/78 136/58 Blood Pressure 126/60 [Right Arm] O2 Sat by Pulse 88 Oximetry 11/01/16 11:00 Temperature Pulse Rate 60 Pulse Rate [ Right Radial] Respiratory Rate Blood Pressure 154/74 Blood Pressure [Right Arm] O2 Sat by Pulse Oximetry - General Appearance General appearance: well-developed, well-nourished EENT: ATNC Respiratory: Present: Clear to Ascultation Cardiology: regular, S1S2 Gastrointestinal: normal, no tenderness, no distended Integumentary: no rash Neurologic: no focal deficit Musculoskeletal: other (bilateral amputee) Psychiatric: cooperative - Lab 11/01/16 06:35 11/01/16 06:35 Most recent lab results Calcium 8.0 mg/dL (8.4-10.2) L 11/01/16 06:35
--- NOTE | 2016-11-01 19:26 | Progress Note ---
Assessment and Plan Assessment and plan: Patient is a 71-year-old male with multiple medical conditions including end- stage renal disease on hemodialysis and also severe peripheral vascular disease and has been revascularized about 3 times but remains noncompliant therapy and social has failed revascularization. Presents to the hospital with pain and swelling and back discoloration of the left foot which has been ongoing for about weeks had a recent debridement at Dr. Valencia's office. He at this point has failed outpatient therapy. His wounds were evaluated, and noted to have exposed dry metatarsals. - Patient Problems (1) Atherosclerosis of [place] arteries of the extremities with gangrene * Vascular and Ortho consult * S/P Left BKA POD 1 * adjust pain control * Wound cx showing Proteus Klebsiella, await I/D * Rehab eval * wound care per ostomy team and vascular. * Failed revascularization * -S/p Revascularization of the anterior tibial artery, posterior tibial artery , tibioperoneal trunk, and distal popliteal artery * Continue Vacomycin 1gm * Fall precaution (2) End stage kidney disease * Nephrology Following. (3) Medical non-compliance * Extensive discussion about compliance (4) Diabetes Mellitus * Continue insulin therapy (5) Hypertension * Continue current therapy (6) Left Lower extremity wound * Wound care (7) Anemia secondary to ESRD Continue epogen with dialysis Transfuse 1 UNIT PRBC- ordered this morning. have called the nurse tonight to ensure it is done. Repeat h/h IN AM (8) Hypokalemia * Replace with during dialysis (8) DVT/GI prophylaxis History Interval history: Patient's on examination today in no acute distress. COMPLAINING OF PAIN IN LEFT FOOT - S/P BKA 10/31/16 Hospitalist Physical - Physical exam Narrative exam: VITAL SIGNS: Reviewed. GENERAL: CRYING IN PAIN. Vital signs as documented. HEAD: No signs of head trauma. EYES: Pupils are equal. Extraocular motions intact. EARS: Hearing grossly intact. MOUTH: Oropharynx is normal. NECK: No adenopathy, no JVD. CHEST: Chest with clear breath sounds bilaterally. No wheezes, rales, or rhonchi. CARDIAC: Regular rate and rhythm. S1 and S2, without murmurs, gallops, or rubs. VASCULAR: No Edema. Peripheral pulses normal and equal in all extremities. ABDOMEN: Soft, without detectable tenderness. No sign of distention. No rebound or guarding, and no masses palpated. Bowel Sounds normal. MUSCULOSKELETAL: Good range of motion, right BKA, dressing BKA stump. NEUROLOGIC EXAM: Alert and oriented x 3. No focal sensory or strength deficits. Speech normal. Follows commands. PSYCHIATRIC: Mood normal. SKIN: dressing in place - Constitutional Vitals: Temp Pulse Resp BP Pulse Ox 98 F 60 18 156/66 100 11/01/16 14:48 11/01/16 14:48 11/01/16 14:48 11/01/16 14:48 11/01/16 12:00 General appearance: Present: no acute distress Results - Labs CBC & Chem 7: 11/01/16 06:35 11/01/16 06:35 Labs: Laboratory Last Values WBC 7.8 K/mm3 (4.5-11.0) 11/01/16 06:35 RBC 2.57 M/mm3 (3.65-5.03) L 11/01/16 06:35 Hgb 6.9 gm/dl (11.8-15.2) L 11/01/16 06:35 Hct 21.6 % (35.5-45.6) L 11/01/16 06:35 MCV 84 fl (84-94) 11/01/16 06:35 MCH 27 pg (28-32) L 11/01/16 06:35 MCHC 32 % (32-34) 11/01/16 06:35 RDW 18.4 % (13.2-15.2) H 11/01/16 06:35 Plt Count 246 K/mm3 (140-440) 11/01/16 06:35 Lymph % (Auto) 10.2 % (13.4-35.0) L 10/29/16 01:40 [place] % (Auto) 8.8 % (0.0-7.3) H 10/29/16 01:40 Eos % (Auto) 3.1 % (0.0-4.3) 10/29/16 01:40 Baso % (Auto) 1.4 % (0.0-1.8) 10/29/16 01:40 Lymph # 0.5 K/mm3 (1.2-5.4) L 10/29/16 01:40 [place] # 0.4 K/mm3 (0.0-0.8) 10/29/16 01:40 Eos # 0.1 K/mm3 (0.0-0.4) 10/29/16 01:40 Baso # 0.1 K/mm3 (0.0-0.1) 10/29/16 01:40 Seg Neutrophils % 76.5 % (40.0-70.0) H 10/29/16 01:40 Seg Neutrophils # 3.4 K/mm3 (1.8-7.7) 10/29/16 01:40 Sodium 136 mmol/L (137-145) L 11/01/16 06:35 Potassium 3.5 mmol/L (3.6-5.0) L 11/01/16 06:35 Chloride 95.9 mmol/L (98-107) L 11/01/16 06:35 Carbon Dioxide 26 mmol/L (22-30) 11/01/16 06:35 Anion Gap 18 mmol/L 11/01/16 06:35 BUN 23 mg/dL (9-20) H 11/01/16 06:35 Creatinine 5.4 mg/dL (0.8-1.5) H 11/01/16 06:35 Estimated GFR 13 ml/min 11/01/16 06:35 BUN/Creatinine Ratio 4.25 % 11/01/16 06:35 Glucose 117 mg/dL (75-100) H 11/01/16 06:35 POC Glucose 157 (70-105) H 10/31/16 10:30 Calcium 8.0 mg/dL (8.4-10.2) L 11/01/16 06:35 Total Bilirubin 0.5 mg/dL (0.1-1.2) 10/29/16 01:40 AST 12 units/L (5-40) 10/29/16 01:40 ALT 9 units/L (7-56) 10/29/16 01:40 Alkaline Phosphatase 167 units/L (35-129) H 10/29/16 01:40 C-Reactive Protein 11.70 mg/dL (0.00-1.30) H 10/29/16 01:40 Total Protein 6.9 g/dL (6.3-8.2) 10/29/16 01:40 Albumin 2.6 g/dL (3.9-5) L 10/29/16 01:40 Albumin/Globulin Ratio 0.6 % 10/29/16 01:40 Vancomycin Trough 13.1 ug/mL (5.0-20.0) 11/01/16 06:35 Blood Type A POSITIVE 11/01/16 11:08 Antibody Screen Negative 11/01/16 11:08 Crossmatch See Detail 11/01/16 11:08
[2016-11-01] MEDS: DAKIN'S HALF STRENGTH TP SCH ×2 (19:57→22:20)
[2016-11-01] MEDS: NEURONTIN PO SCH (22:25)
[2016-11-01] MEDS: ZOCOR PO SCH (22:27)
[2016-11-02] MEDS: DILAUDID IV PRN ×5 (01:20→23:59)
[2016-11-02] MEDS: ZOSYN/NS 2.25 GM/50ML 2.25 GM/50 ML BAG IV SCH (05:19)
[2016-11-02 06:33] LABS: Hematocrit 23.7 % (35.5-45.6); Hemoglobin 7.5 gm/dl (11.8-15.2); Mean Corpuscular HGB Conc 32 % (32-34); Mean Corpuscular Hemoglobin 27 pg (28-32); Mean Corpuscular Volume 85 fl (84-94); Platelet Count 254 K/mm3 (140-440); Red Blood Count 2.79 M/mm3 (3.65-5.03); White Blood Count 5.6 K/mm3 (4.5-11.0)
[2016-11-02 06:36] LABS: BUN/Creatinine Ratio 3.5; Calcium 7.7 mg/dL (8.4-10.2); Chloride 97.4 mmol/L (98-107); Potassium 3.7 mmol/L (3.6-5.0)
[2016-11-02] MEDS: PERCOCET 5/325 PO PRN (10:36)
[2016-11-02] MEDS: HALFPRIN EC PO SCH (10:37)
[2016-11-02] MEDS: MUCINEX ER PO SCH ×2 (10:37→21:16)
[2016-11-02] MEDS: PLAVIX PO SCH (10:38)
[2016-11-02] MEDS: NORVASC PO SCH (10:38)
[2016-11-02] MEDS: HEPARIN SUB-Q SCH ×2 (10:39→21:05)
[2016-11-02] MEDS: DAKIN'S HALF STRENGTH TP SCH ×2 (10:39→21:04)
[2016-11-02] MEDS: NORMODYNE PO SCH ×2 (10:39→21:15)
--- NOTE | 2016-11-02 11:48 | Discharge Summary ---
Providers - Providers Date of Admission: 10/29/16 04:39 Date of discharge: 11/02/16 Attending physician: LAURA BURDEN MD 10/29/16 06:48 Consult to Wound/ET Nurse [CONS] Routine Reason For Exam: wound eval 10/29/16 06:50 Consult to Physician [CONS] Routine Consulting Provider: ANA PAULA KIM Reason For Exam: GANGRENOUS LEFT FOOT Place consult to:: ANA PAULA KIM Notified:: Georgette RN Phone number called:: Was contact made?: Yes If yes, spoke with:: Lu-office Time called:: 09:10 10/29/16 06:53 Consult to Physician [CONS] Routine Consulting Provider: CLAUDIA GRAJEDA Reason For Exam: ESRD ON DIALYSIS Place consult to:: CLAUDIA GRAJEDA Notified:: Georgette RN Phone number called:: Was contact made?: Yes If yes, spoke with:: Romario service Time called:: 08:39 10/29/16 16:55 Consult to Physician [CONS] Routine Consulting Provider: FIDELIA LACEY V Reason For Exam: left foot gangrene Place consult to:: Dr. Lacey Notified:: Georgette RN Phone number called:: Was contact made?: Yes If yes, spoke with:: Nan service Time called:: 17:38 10/30/16 10:59 Consult to Physician [CONS] Routine Consulting Provider: KHADAR SANTOS Reason For Exam: PAD; dry gangrene Place consult to:: vascular Notified:: bessy 10/31/16 Consult to Case Management [CONS] Routine Services Needed at Discharge: Other Notified:: saul Comment:: rehab eval Occupational Therapy Evaluate and Treat [CONS] Routine Comment: Reason For Exam: s/p amputation Physical Therapy Evaluation and Treat [CONS] Routine Comment: Reason For Exam: s/p amputation 10/31/16 10:12 Consult Acute Rehabilitation [CONS] Routine Consulting Provider: MIKE BRADLEY Reason For Exam: eval for acute rehab Primary care physician: [employer] Hospitalization Condition: Stable Disposition: DC/TX SNF W [facility] CERT Time spent for discharge: 35 mins Core Measure Documentation - Palliative Care Palliative Care/ Comfort Measures: Not Applicable - Core Measures Any of the following diagnoses?: none - VTE Discharge Requirements Deep Vein Thrombosis/Pulmonary Embolism Present on Admission: No Exam - Constitutional Vitals: Temp Pulse Resp BP Pulse Ox 98.3 F 67 20 133/46 100 11/02/16 08:59 11/02/16 08:59 11/02/16 10:36 11/02/16 08:59 11/02/16 08:59 Plan Activity: advance as tolerated, fall precautions Diet: renal Special Instructions: record daily weights, record daily BP diary, record blood sugar diary Follow up with: PRIMARY CAREMD [Primary Care Provider] - 7 Days KHADAR SANTOS MD [Staff Physician] - 7 Days JULI SLADE MD [Staff Physician] - 7 Days Prescriptions: Gabapentin [Neurontin] 100 mg PO QHS #30 capsule Cephalexin [Keflex] 500 mg PO Q12HR #14 cap oxyCODONE /ACETAMINOPHEN [Percocet 5/325 mg] 2 tab PO Q6H PRN #20 tablet PRN Reason: Pain, Moderate (4-6)
--- NOTE | 2016-11-02 13:39 | Progress Note ---
Assessment and Plan Assessment and plan: Patient is a 71-year-old male with multiple medical conditions including end- stage renal disease on hemodialysis and also severe peripheral vascular disease and has been revascularized about 3 times but remains noncompliant therapy and social has failed revascularization. Presents to the hospital with pain and swelling and back discoloration of the left foot which has been ongoing for about weeks had a recent debridement at Dr. Valencia's office. He at this point has failed outpatient therapy. His wounds were evaluated, and noted to have exposed dry metatarsals. - Patient Problems (1) Atherosclerosis of [place] arteries of the extremities with gangrene * Vascular and Ortho consult * S/P Left BKA POD 2 * adjust pain control * Wound cx showing Proteus Klebsiella, outpatient, await I/D no evidence of bacteremia. Considering surgical cure at this time I will discontinue antibiotics and maybe treats with a few days of Keflex. * Rehab eval * wound care per ostomy team and vascular. * Failed revascularization * -S/p Revascularization of the anterior tibial artery, posterior tibial artery , tibioperoneal trunk, and distal popliteal artery * Fall precaution * Awaiting evaluation for transfer to inpatient rehabilitation unit (2) End stage kidney disease * Nephrology Following. (3) Medical non-compliance * Extensive discussion about compliance (4) Diabetes Mellitus * Continue insulin therapy (5) Hypertension * Continue current therapy (6) Left Lower extremity wound * Wound care (7) Anemia secondary to ESRD Continue epogen with dialysis Status post 1 unit packed red blood cells with improvement in hemoglobin to 7.5 will defer to nephrology if additional transfusion should be done. (8) Hypokalemia * Replace with during dialysis (8) DVT/GI prophylaxis History Interval history: Patient's on examination today in no acute distress. Still complains of left foot pain. States is improving though.- S/P BKA 10/31/16 Hospitalist Physical - Physical exam Narrative exam: VITAL SIGNS: Reviewed. GENERAL: CRYING IN PAIN. Vital signs as documented. HEAD: No signs of head trauma. EYES: Pupils are equal. Extraocular motions intact. EARS: Hearing grossly intact. MOUTH: Oropharynx is normal. NECK: No adenopathy, no JVD. CHEST: Chest with clear breath sounds bilaterally. No wheezes, rales, or rhonchi. CARDIAC: Regular rate and rhythm. S1 and S2, without murmurs, gallops, or rubs. VASCULAR: No Edema. Peripheral pulses normal and equal in all extremities. ABDOMEN: Soft, without detectable tenderness. No sign of distention. No rebound or guarding, and no masses palpated. Bowel Sounds normal. MUSCULOSKELETAL: Good range of motion, right BKA, dressing BKA stump, cast in place. NEUROLOGIC EXAM: Alert and oriented x 3. No focal sensory or strength deficits. Speech normal. Follows commands. PSYCHIATRIC: Mood normal. SKIN: dressing in place - Constitutional Vitals: Temp Pulse Resp BP Pulse Ox 98.4 F 71 18 125/50 98 11/02/16 12:00 11/02/16 12:00 11/02/16 12:00 11/02/16 12:00 11/02/16 12:00 General appearance: Present: no acute distress Results - Labs CBC & Chem 7: 11/02/16 06:02 11/02/16 06:02 Labs: Laboratory Last Values WBC 5.6 K/mm3 (4.5-11.0) 11/02/16 06:02 RBC 2.79 M/mm3 (3.65-5.03) L 11/02/16 06:02 Hgb 7.5 gm/dl (11.8-15.2) L 11/02/16 06:02 Hct 23.7 % (35.5-45.6) L 11/02/16 06:02 MCV 85 fl (84-94) 11/02/16 06:02 MCH 27 pg (28-32) L 11/02/16 06:02 MCHC 32 % (32-34) 11/02/16 06:02 RDW 18.0 % (13.2-15.2) H 11/02/16 06:02 Plt Count 254 K/mm3 (140-440) 11/02/16 06:02 Lymph % (Auto) 10.2 % (13.4-35.0) L 10/29/16 01:40 [place] % (Auto) 8.8 % (0.0-7.3) H 10/29/16 01:40 Eos % (Auto) 3.1 % (0.0-4.3) 10/29/16 01:40 Baso % (Auto) 1.4 % (0.0-1.8) 10/29/16 01:40 Lymph # 0.5 K/mm3 (1.2-5.4) L 10/29/16 01:40 [place] # 0.4 K/mm3 (0.0-0.8) 10/29/16 01:40 Eos # 0.1 K/mm3 (0.0-0.4) 10/29/16 01:40 Baso # 0.1 K/mm3 (0.0-0.1) 10/29/16 01:40 Seg Neutrophils % 76.5 % (40.0-70.0) H 10/29/16 01:40 Seg Neutrophils # 3.4 K/mm3 (1.8-7.7) 10/29/16 01:40 Sodium 138 mmol/L (137-145) 11/02/16 06:02 Potassium 3.7 mmol/L (3.6-5.0) 11/02/16 06:02 Chloride 97.4 mmol/L (98-107) L 11/02/16 06:02 Carbon Dioxide 27 mmol/L (22-30) 11/02/16 06:02 Anion Gap 17 mmol/L 11/02/16 06:02 BUN 14 mg/dL (9-20) 11/02/16 06:02 Creatinine 4.0 mg/dL (0.8-1.5) H 11/02/16 06:02 Estimated GFR 18 ml/min 11/02/16 06:02 BUN/Creatinine Ratio 3.50 % 11/02/16 06:02 Glucose 128 mg/dL (75-100) H 11/02/16 06:02 POC Glucose 157 (70-105) H 10/31/16 10:30 Calcium 7.7 mg/dL (8.4-10.2) L 11/02/16 06:02 Total Bilirubin 0.5 mg/dL (0.1-1.2) 10/29/16 01:40 AST 12 units/L (5-40) 10/29/16 01:40 ALT 9 units/L (7-56) 10/29/16 01:40 Alkaline Phosphatase 167 units/L (35-129) H 10/29/16 01:40 C-Reactive Protein 11.70 mg/dL (0.00-1.30) H 10/29/16 01:40 Total Protein 6.9 g/dL (6.3-8.2) 10/29/16 01:40 Albumin 2.6 g/dL (3.9-5) L 10/29/16 01:40 Albumin/Globulin Ratio 0.6 % 10/29/16 01:40 Vancomycin Trough 13.1 ug/mL (5.0-20.0) 11/01/16 06:35 Blood Type A POSITIVE 11/01/16 11:08 Antibody Screen Negative 11/01/16 11:08 Crossmatch See Detail 11/01/16 11:08
--- NOTE | 2016-11-02 14:30 | Progress Note ---
Assessment and Plan Impression: * End stage renal disease on HD MWF * Fluid overload * Left foot gangrene s/p left BKA * Phantom pain * Anemia secondary to ESRD vs ABL * Secondary hyperparathyroidism Plan: * Continue HD MWF schedule; UF as tolerated * Shall check a chest x-ray today * Vascular surgery following; patient is s/p BKA * Abx per primary team * Epogen with dialysis Subjective Date of service: 11/02/16 Interval history: Patient is comfortable. Denies any shortness of breath. No nausea vomiting or diarrhea Objective - Vital Signs Vital signs: Vital Signs - 12hr 11/02/16 11/02/16 11/02/16 04:00 06:11 06:41 Temperature 98.0 F Pulse Rate [ 68 Right Radial] Respiratory 20 20 20 Rate Blood Pressure 132/58 [Right Arm] O2 Sat by Pulse 97 Oximetry 11/02/16 11/02/16 11/02/16 08:59 10:36 11:50 Temperature 98.3 F 98.4 F Pulse Rate [ 67 71 Right Radial] Respiratory 18 20 18 Rate Blood Pressure 133/46 125/50 [Right Arm] O2 Sat by Pulse 100 98 Oximetry 11/02/16 12:00 Temperature 98.4 F Pulse Rate [ 71 Right Radial] Respiratory 18 Rate Blood Pressure 125/50 [Right Arm] O2 Sat by Pulse 98 Oximetry - General Appearance General appearance: well-developed, well-nourished, appears stated age EENT: PERRL, mucous membranes moist Neck: no JVD, no thyromegaly, no carotid bruit, supple, other (left IJ PermCath in place) Respiratory: Present: Ronchi (few scattered rhonchi) Cardiology: regular, normal heart rate, S1S2, no murmurs Gastrointestinal: normal, normoactive bowel sounds Integumentary: other (bilateral below-knee amputation. Left stump covered with dressing) - Lab 11/02/16 06:02 11/02/16 06:02 Most recent lab results Calcium 7.7 mg/dL (8.4-10.2) L 11/02/16 06:02
--- NOTE | 2016-11-02 17:26 | Event Note ---
Date: 11/02/16 Mr. Oconnor is a 71-year-old male, who is postoperative day 2 from a left below- knee amputation. There have been no significant events overnight, and he reports feeling well overall, with mild pain at the surgical site. The surgical site itself appears intact, with a small amount of oozing. There is no edema. The site was rewrapped with Kerlix and Zak bandage. We will continue to follow him with you.
[2016-11-02] MEDS: NEURONTIN PO SCH (21:16)
[2016-11-02] MEDS: ZOCOR PO SCH (21:16)
[2016-11-03] MEDS: DILAUDID IV PRN ×3 (03:04→11:15)
--- NOTE | 2016-11-03 09:55 | XRay Report ---
AP CHEST: HISTORY: Shortness of breath, followup CHF There is better inspiration on today's exam. Heart size is at the upper limits of normal. Pulmonary venous congestion has resolved since 10/29/16. No consolidation, pleural effusion or pneumothorax. Left dialysis catheter remains in the same position. IMPRESSION: Near normal chest x-ray. Improvement in volume overload/CHF.
--- NOTE | 2016-11-03 10:33 | Progress Note ---
Assessment and Plan Assessment and plan: Patient is a 71-year-old male with multiple medical conditions including end- stage renal disease on hemodialysis and also severe peripheral vascular disease and has been revascularized about 3 times but remains noncompliant therapy and social has failed revascularization. Presents to the hospital with pain and swelling and back discoloration of the left foot which has been ongoing for about weeks had a recent debridement at Dr. Valencia's office. He at this point has failed outpatient therapy. His wounds were evaluated, and noted to have exposed dry metatarsals. - Patient Problems (1) Atherosclerosis of [place] arteries of the extremities with gangrene * Vascular and Ortho consult * S/P Left BKA POD 3 * adjust pain control * Wound cx showing Proteus Klebsiella, outpatient, await I/D no evidence of bacteremia. Considering surgical cure at this time I will discontinue antibiotics and maybe treats with a few days of Keflex. * Rehab eval * wound care per ostomy team and vascular. * Failed revascularization * -S/p Revascularization of the anterior tibial artery, posterior tibial artery , tibioperoneal trunk, and distal popliteal artery * Fall precaution * Not accepted to our inpatient REHAB. Awaiting SNF placement. discussed with Case management, already faxed out referral, (2) End stage kidney disease * Nephrology Following. (3) Medical non-compliance * Extensive discussion about compliance (4) Diabetes Mellitus * Continue insulin therapy (5) Hypertension * Continue current therapy (6) Left Lower extremity wound * Wound care (7) Anemia secondary to ESRD Continue epogen with dialysis Status post 1 unit packed red blood cells with improvement in hemoglobin to 7.5 will defer to nephrology if additional transfusion should be done. (8) Hypokalemia * Replace with during dialysis (8) DVT/GI prophylaxis History Interval history: Patient's on examination today in no acute distress. continues to complains of left foot pain. States is improving though.- S/P BKA 10/31/16 Hospitalist Physical - Physical exam Narrative exam: VITAL SIGNS: Reviewed. GENERAL: CRYING IN PAIN. Vital signs as documented. HEAD: No signs of head trauma. EYES: Pupils are equal. Extraocular motions intact. EARS: Hearing grossly intact. MOUTH: Oropharynx is normal. NECK: No adenopathy, no JVD. CHEST: Chest with clear breath sounds bilaterally. No wheezes, rales, or rhonchi. CARDIAC: Regular rate and rhythm. S1 and S2, without murmurs, gallops, or rubs. VASCULAR: No Edema. Peripheral pulses normal and equal in all extremities. ABDOMEN: Soft, without detectable tenderness. No sign of distention. No rebound or guarding, and no masses palpated. Bowel Sounds normal. MUSCULOSKELETAL: Good range of motion, right BKA, dressing BKA stump, cast in place. NEUROLOGIC EXAM: Alert and oriented x 3. No focal sensory or strength deficits. Speech normal. Follows commands. PSYCHIATRIC: Mood normal. SKIN: dressing in place - Constitutional Vitals: Temp Pulse Resp BP Pulse Ox 98.0 F 75 20 160/70 96 11/03/16 08:00 11/03/16 08:00 11/03/16 08:00 11/03/16 08:00 11/03/16 08:00 General appearance: Present: no acute distress Results - Labs CBC & Chem 7: 11/02/16 06:02 11/02/16 06:02 Labs: Laboratory Last Values WBC 5.6 K/mm3 (4.5-11.0) 11/02/16 06:02 RBC 2.79 M/mm3 (3.65-5.03) L 11/02/16 06:02 Hgb 7.5 gm/dl (11.8-15.2) L 11/02/16 06:02 Hct 23.7 % (35.5-45.6) L 11/02/16 06:02 MCV 85 fl (84-94) 11/02/16 06:02 MCH 27 pg (28-32) L 11/02/16 06:02 MCHC 32 % (32-34) 11/02/16 06:02 RDW 18.0 % (13.2-15.2) H 11/02/16 06:02 Plt Count 254 K/mm3 (140-440) 11/02/16 06:02 Lymph % (Auto) 10.2 % (13.4-35.0) L 10/29/16 01:40 [place] % (Auto) 8.8 % (0.0-7.3) H 10/29/16 01:40 Eos % (Auto) 3.1 % (0.0-4.3) 10/29/16 01:40 Baso % (Auto) 1.4 % (0.0-1.8) 10/29/16 01:40 Lymph # 0.5 K/mm3 (1.2-5.4) L 10/29/16 01:40 [place] # 0.4 K/mm3 (0.0-0.8) 10/29/16 01:40 Eos # 0.1 K/mm3 (0.0-0.4) 10/29/16 01:40 Baso # 0.1 K/mm3 (0.0-0.1) 10/29/16 01:40 Seg Neutrophils % 76.5 % (40.0-70.0) H 10/29/16 01:40 Seg Neutrophils # 3.4 K/mm3 (1.8-7.7) 10/29/16 01:40 Sodium 138 mmol/L (137-145) 11/02/16 06:02 Potassium 3.7 mmol/L (3.6-5.0) 11/02/16 06:02 Chloride 97.4 mmol/L (98-107) L 11/02/16 06:02 Carbon Dioxide 27 mmol/L (22-30) 11/02/16 06:02 Anion Gap 17 mmol/L 11/02/16 06:02 BUN 14 mg/dL (9-20) 11/02/16 06:02 Creatinine 4.0 mg/dL (0.8-1.5) H 11/02/16 06:02 Estimated GFR 18 ml/min 11/02/16 06:02 BUN/Creatinine Ratio 3.50 % 11/02/16 06:02 Glucose 128 mg/dL (75-100) H 11/02/16 06:02 POC Glucose 157 (70-105) H 10/31/16 10:30 Calcium 7.7 mg/dL (8.4-10.2) L 11/02/16 06:02 Total Bilirubin 0.5 mg/dL (0.1-1.2) 10/29/16 01:40 AST 12 units/L (5-40) 10/29/16 01:40 ALT 9 units/L (7-56) 10/29/16 01:40 Alkaline Phosphatase 167 units/L (35-129) H 10/29/16 01:40 C-Reactive Protein 11.70 mg/dL (0.00-1.30) H 10/29/16 01:40 Total Protein 6.9 g/dL (6.3-8.2) 10/29/16 01:40 Albumin 2.6 g/dL (3.9-5) L 10/29/16 01:40 Albumin/Globulin Ratio 0.6 % 10/29/16 01:40 Vancomycin Trough 13.1 ug/mL (5.0-20.0) 11/01/16 06:35 Blood Type A POSITIVE 11/01/16 11:08 Antibody Screen Negative 11/01/16 11:08 Crossmatch See Detail 11/01/16 11:08 - Imaging and Cardiology Chest x-ray: image reviewed (small congestion. significantly improved FROM PREVIOUS)
[2016-11-03] MEDS: HALFPRIN EC PO SCH (11:13)
[2016-11-03] MEDS: MUCINEX ER PO SCH ×2 (11:13→22:25)
[2016-11-03] MEDS: PLAVIX PO SCH (11:13)
[2016-11-03] MEDS: NORMODYNE PO SCH ×2 (11:14→22:25)
[2016-11-03] MEDS: NORVASC PO SCH (11:14)
--- NOTE | 2016-11-03 11:27 | Progress Note ---
Assessment and Plan Impression: * End stage renal disease on HD MWF * Fluid overload * Left foot gangrene s/p left BKA * Phantom pain * Anemia secondary to ESRD vs ABL * Secondary hyperparathyroidism Plan: * Continue HD MWF schedule; UF as tolerated * chest x-ray near normal with almost complete resolution of CHF * Vascular surgery following; patient is s/p BKA * Abx per primary team * Epogen with dialysis * Shall increase the dose of his gabapentin Subjective Date of service: 11/03/16 Interval history: Patient complains of pain in his left stump. Denies any shortness of breath. No nausea or vomiting Objective - Vital Signs Vital signs: Vital Signs - 12hr 11/02/16 11/03/16 11/03/16 23:59 00:11 00:29 Temperature 97.6 F Pulse Rate Pulse Rate [ 84 Apical] Respiratory 20 20 20 Rate Blood Pressure Blood Pressure 148/63 [Right Arm] O2 Sat by Pulse 98 Oximetry 11/03/16 11/03/16 11/03/16 05:15 05:45 08:00 Temperature 98.2 F 98.0 F Pulse Rate 70 Pulse Rate [ 77 75 Apical] Respiratory 18 20 Rate Blood Pressure Blood Pressure 156/69 160/70 [Right Arm] O2 Sat by Pulse 99 96 Oximetry 11/03/16 11:14 Temperature Pulse Rate 75 Pulse Rate [ Apical] Respiratory Rate Blood Pressure 160/70 Blood Pressure [Right Arm] O2 Sat by Pulse Oximetry - General Appearance General appearance: well-developed, well-nourished, appears stated age EENT: PERRL, mucous membranes moist Neck: no JVD, no thyromegaly, no carotid bruit, supple, other (left IJ PermCath in place) Respiratory: Present: Clear to Ascultation Cardiology: regular, normal heart rate, S1S2, no murmurs Gastrointestinal: normal, normoactive bowel sounds Integumentary: other (bilateral BKA. Left stump covered with a brace) - Lab 11/02/16 06:02 11/02/16 06:02 Most recent lab results Calcium 7.7 mg/dL (8.4-10.2) L 11/02/16 06:02
[2016-11-03] MEDS: HEPARIN SUB-Q SCH ×2 (11:29→22:13)
[2016-11-03] MEDS: DAKIN'S HALF STRENGTH TP SCH ×2 (11:30→22:27)
[2016-11-03] MEDS: MORPHINE IV PRN ×2 (16:20→18:11)
[2016-11-03] MEDS: PERCOCET 5/325 PO PRN (22:23)
[2016-11-03] MEDS: ZOCOR PO SCH (22:25)
[2016-11-03] MEDS: NEURONTIN PO SCH (22:25)
[2016-11-04 07:04] LABS: BUN/Creatinine Ratio 4.41; Calcium 8.3 mg/dL (8.4-10.2); Chloride 97.7 mmol/L (98-107); Potassium 3.8 mmol/L (3.6-5.0)
[2016-11-04 07:32] LABS: Hematocrit 25.3 % (35.5-45.6); Mean Corpuscular HGB Conc 32 % (32-34); Mean Corpuscular Hemoglobin 27 pg (28-32); Mean Corpuscular Volume 84 fl (84-94); Platelet Count 274 K/mm3 (140-440); Red Blood Count 3.02 M/mm3 (3.65-5.03); Red Cell Distribution Width 18.3 % (13.2-15.2); White Blood Count 6.1 K/mm3 (4.5-11.0)
[2016-11-04] MEDS: PERCOCET 5/325 PO PRN ×2 (08:46→14:59)
[2016-11-04] MEDS: HALFPRIN EC PO SCH (09:24)
[2016-11-04] MEDS: MUCINEX ER PO SCH (09:24)
[2016-11-04] MEDS: PLAVIX PO SCH (09:24)
[2016-11-04] MEDS: HEPARIN SUB-Q SCH (09:26)
--- NOTE | 2016-11-04 09:55 | Progress Note ---
Assessment and Plan - Patient Problems (1) End stage kidney disease Current Visit: Yes Status: Chronic Plan to address problem: pt was seen and examined during HD. BP-154/69,P-66, afebrile, tolerating Ultrafiltration.Hb-low-- Epogen per protocol. Consider protein supplements. (2) Essential hypertension Current Visit: No Status: Chronic Plan to address problem: BP under control-continue present meds (3) Anemia in ESRD (end-stage renal disease) Current Visit: No Status: Chronic (4) Diabetes Onset Date: 12/01/13 Current Visit: No Status: Chronic Qualifiers: Diabetes mellitus type: type 2 Diabetes mellitus complication status: D Diabetes mellitus complication detail: D Diabetic retinopathy severity: D Proliferative retinopathy type: P Diabetes mellitus macular edema: D Diabetes mellitus long term acute care registered nurse insulin use: D Laterality: L Chronic kidney disease stage: on chronic dialysis (5) PAD (peripheral artery disease) Current Visit: No Status: Chronic Subjective Date of service: 11/04/16 Interval history: pt is alert, oriented, currently on HD via left IJ tunneled catheter.C/O pain from recebnt surgery-left BKA Objective - Vital Signs Vital signs: Vital Signs - 12hr 11/03/16 11/03/16 11/04/16 22:00 22:25 00:00 Temperature 99.0 F Pulse Rate 60 73 Pulse Rate [ 72 Apical] Respiratory 20 Rate Blood Pressure 163/74 Blood Pressure 157/73 [Right Arm] O2 Sat by Pulse 98 Oximetry 11/04/16 11/04/16 04:00 08:34 Temperature 98.2 F Pulse Rate Pulse Rate [ 65 Apical] Respiratory 20 Rate Blood Pressure Blood Pressure 152/66 [Right Arm] O2 Sat by Pulse 95 100 Oximetry - General Appearance General appearance: well-developed EENT: mucous membranes moist Neck: no JVD Respiratory: Present: Clear to Ascultation Cardiology: regular Gastrointestinal: normoactive bowel sounds Neurologic: alert and oriented x3 Psychiatric: mood/affect appropriate, cooperative - Lab 11/04/16 06:24 11/04/16 06:24 Most recent lab results Calcium 8.3 mg/dL (8.4-10.2) L 11/04/16 06:24
[2016-11-04] MEDS: DAKIN'S HALF STRENGTH TP SCH (11:00)
[2016-11-04] MEDS ORDERED: NACL 0.9 (PRIMING MACHINE ONLY DIALYSIS) MC ONE (11:25)
[2016-11-04] MEDS ORDERED: PROCRIT IV PRN (11:37)
--- NOTE | 2016-11-04 13:14 | Progress Note ---
Assessment and Plan Assessment and plan: Patient is a 71-year-old male with multiple medical conditions including end- stage renal disease on hemodialysis, severe peripheral vascular disease and has been revascularized about 3 times but remains noncompliant therapy. Presents to the hospital with pain and swelling and back discoloration of the left foot which has been ongoing for about weeks had a recent debridement at Dr. Valencia 's performance test architect office. He at this point has failed outpatient therapy. His wounds were evaluated, and noted to have exposed dry metatarsals. (1) Atherosclerosis of [place] arteries of the extremities with gangrene Vascular and Ortho consult S/P Left BKA POD 3 adjust pain control Wound cx showing Proteus Klebsiella, outpatient, await I/D no evidence of bacteremia. Considering surgical cure at this time I will discontinue antibiotics and maybe treats with a few days of Keflex. Rehab eval wound care per ostomy team and vascular. Failed revascularization -S/p Revascularization of the anterior tibial artery, posterior tibial artery , tibioperoneal trunk, and distal popliteal artery Fall precaution Not accepted to our inpatient REHAB. Awaiting SNF placement. discussed with Case management, already faxed out referral, (2) End stage kidney disease Nephrology Following. (3) Medical non-compliance Extensive discussion about compliance (4) Diabetes Mellitus Continue insulin therapy (5) Hypertension Continue current therapy (6) Left Lower extremity wound Wound care (7) Anemia secondary to ESRD Continue epogen with dialysis Status post 1 unit packed red blood cells with improvement in hemoglobin to 7.5 will defer to nephrology if additional transfusion should be done. (8) Hypokalemia Replace with during dialysis (8) DVT/GI prophylaxis Disposition: Placement pending History Interval history: Patient seen and examined. Follow up on left leg pain which is improved after amputation. Overnight uneventful. No cp, sob, n/v or severe headaches. Imaging , old records, testing, labs, nursing notes reviewed. Plan discussed with patient. Hospitalist Physical - Physical exam Narrative exam: GEN: WDWN, NAD, AWAKE, ALERT, ORIENTATED 3 CVS: RRR, NORMAL S1S2 LUNGS/CHEST: CTA B, NORMAL CHEST EXPANSION B, GOOD AIR ENTRY B ABD: SOFT NTND, GBS, NO REBOUND OR GUARDING EXT/SKIN: Left BKA, right BKA NEURO: CN 2-12 GROSSLY INTACT, NO new FOCAL DEFICITS PSY: CALM - Constitutional Vitals: Temp Pulse Resp BP Pulse Ox 98.1 F 63 20 174/77 100 11/04/16 10:42 11/04/16 12:15 11/04/16 10:42 11/04/16 12:15 11/04/16 08:34 General appearance: Present: no acute distress Results - Labs CBC & Chem 7: 11/04/16 06:24 11/04/16 06:24 Labs: Laboratory Last Values WBC 6.1 K/mm3 (4.5-11.0) 11/04/16 06:24 RBC 3.02 M/mm3 (3.65-5.03) L 11/04/16 06:24 Hgb 8.0 gm/dl (11.8-15.2) L 11/04/16 06:24 Hct 25.3 % (35.5-45.6) L 11/04/16 06:24 MCV 84 fl (84-94) 11/04/16 06:24 MCH 27 pg (28-32) L 11/04/16 06:24 MCHC 32 % (32-34) 11/04/16 06:24 RDW 18.3 % (13.2-15.2) H 11/04/16 06:24 Plt Count 274 K/mm3 (140-440) 11/04/16 06:24 Lymph % (Auto) 10.2 % (13.4-35.0) L 10/29/16 01:40 [place] % (Auto) 8.8 % (0.0-7.3) H 10/29/16 01:40 Eos % (Auto) 3.1 % (0.0-4.3) 10/29/16 01:40 Baso % (Auto) 1.4 % (0.0-1.8) 10/29/16 01:40 Lymph # 0.5 K/mm3 (1.2-5.4) L 10/29/16 01:40 [place] # 0.4 K/mm3 (0.0-0.8) 10/29/16 01:40 Eos # 0.1 K/mm3 (0.0-0.4) 10/29/16 01:40 Baso # 0.1 K/mm3 (0.0-0.1) 10/29/16 01:40 Seg Neutrophils % 76.5 % (40.0-70.0) H 10/29/16 01:40 Seg Neutrophils # 3.4 K/mm3 (1.8-7.7) 10/29/16 01:40 Sodium 138 mmol/L (137-145) 11/04/16 06:24 Potassium 3.8 mmol/L (3.6-5.0) 11/04/16 06:24 Chloride 97.7 mmol/L (98-107) L 11/04/16 06:24 Carbon Dioxide 22 mmol/L (22-30) 11/04/16 06:24 Anion Gap 22 mmol/L 11/04/16 06:24 BUN 30 mg/dL (9-20) H 11/04/16 06:24 Creatinine 6.8 mg/dL (0.8-1.5) H D 11/04/16 06:24 Estimated GFR 10 ml/min 11/04/16 06:24 BUN/Creatinine Ratio 4.41 % 11/04/16 06:24 Glucose 119 mg/dL (75-100) H 11/04/16 06:24 POC Glucose 157 (70-105) H 10/31/16 10:30 Calcium 8.3 mg/dL (8.4-10.2) L 11/04/16 06:24 Total Bilirubin 0.5 mg/dL (0.1-1.2) 10/29/16 01:40 AST 12 units/L (5-40) 10/29/16 01:40 ALT 9 units/L (7-56) 10/29/16 01:40 Alkaline Phosphatase 167 units/L (35-129) H 10/29/16 01:40 C-Reactive Protein 11.70 mg/dL (0.00-1.30) H 10/29/16 01:40 Total Protein 6.9 g/dL (6.3-8.2) 10/29/16 01:40 Albumin 2.6 g/dL (3.9-5) L 10/29/16 01:40 Albumin/Globulin Ratio 0.6 % 10/29/16 01:40 Vancomycin Trough 13.1 ug/mL (5.0-20.0) 11/01/16 06:35 Blood Type A POSITIVE 11/01/16 11:08 Antibody Screen Negative 11/01/16 11:08 Crossmatch See Detail 11/01/16 11:08
--- NOTE | 2016-11-04 13:29 | Discharge Summary ---
Providers - Providers Date of Admission: 10/29/16 04:39 Date of discharge: 11/04/16 Attending physician: MONSE WALTERS 10/29/16 06:48 Consult to Wound/ET Nurse [CONS] Routine Reason For Exam: wound eval 10/29/16 06:50 Consult to Physician [CONS] Routine Consulting Provider: ANA PAULA VALENCIA Reason For Exam: GANGRENOUS LEFT FOOT Place consult to:: ANA PAULA VALENCIA Notified:: Georgette RN Phone number called:: Was contact made?: Yes If yes, spoke with:: Lu-office Time called:: 09:10 10/29/16 06:53 Consult to Physician [CONS] Routine Consulting Provider: CLAUDIA GRAJEDA Reason For Exam: ESRD ON DIALYSIS Place consult to:: CLAUDIA GRAJEDA Notified:: Georgette RN Phone number called:: Was contact made?: Yes If yes, spoke with:: Romario service Time called:: 08:39 10/29/16 16:55 Consult to Physician [CONS] Routine Consulting Provider: FIDELIA LACEY V Reason For Exam: left foot gangrene Place consult to:: Dr. Lacey Notified:: Georgette RN Phone number called:: Was contact made?: Yes If yes, spoke with:: Nan service Time called:: 17:38 10/30/16 10:59 Consult to Physician [CONS] Routine Consulting Provider: KHADAR SANTOS Reason For Exam: PAD; dry gangrene Place consult to:: vascular Notified:: bessy 10/31/16 Consult to Case Management [CONS] Routine Services Needed at Discharge: Other Notified:: saul Comment:: rehab eval Occupational Therapy Evaluate and Treat [CONS] Routine Comment: Reason For Exam: s/p amputation Physical Therapy Evaluation and Treat [CONS] Routine Comment: Reason For Exam: s/p amputation 10/31/16 10:12 Consult Acute Rehabilitation [CONS] Routine Consulting Provider: MIKE BRADLEY Reason For Exam: eval for acute rehab Primary care physician: TURN MACHINE OPERATOR Hospitalization Condition: Stable Hospital course: Patient is a 71-year-old male with multiple medical conditions including end- stage renal disease on hemodialysis, severe peripheral vascular disease and has been revascularized about 3 times but remains noncompliant therapy. Presents to the hospital with pain and swelling and back discoloration of the left foot which has been ongoing for about weeks had a recent debridement at Dr. Valencia 's radiology physician office. He at this point has failed outpatient therapy. His wounds were evaluated, and noted to have exposed dry metatarsals. (1) Atherosclerosis of [place] arteries of the extremities with gangrene Vascular and Ortho consult S/P Left BKA POD 3 adjust pain control Wound cx showing Proteus Klebsiella, outpatient, await I/D no evidence of bacteremia. Considering surgical cure at this time I will discontinue antibiotics and maybe treats with a few days of Keflex. Rehab eval wound care per ostomy team and vascular. Failed revascularization -S/p Revascularization of the anterior tibial artery, posterior tibial artery , tibioperoneal trunk, and distal popliteal artery Fall precaution Not accepted to our inpatient REHAB. Awaiting SNF placement. discussed with Case management, already faxed out referral, (2) End stage kidney disease Nephrology Following. (3) Medical non-compliance Extensive discussion about compliance (4) Diabetes Mellitus Continue insulin therapy (5) Hypertension Continue current therapy (6) Left Lower extremity wound Wound care (7) Anemia secondary to ESRD Continue epogen with dialysis Status post 1 unit packed red blood cells with improvement in hemoglobin to 7.5 will defer to nephrology if additional transfusion should be done. (8) Hypokalemia Replace with during dialysis (8) DVT/GI prophylaxis Disposition: Placement pending==>patient changed his mind and wants to go home Disposition: DC/TX HOME UNDER HOME HEALTH Time spent for discharge: 33 minutes Core Measure Documentation - Palliative Care Palliative Care/ Comfort Measures: Not Applicable - Core Measures Any of the following diagnoses?: none - VTE Discharge Requirements Deep Vein Thrombosis/Pulmonary Embolism Present on Admission: No Has pt received <5 days of overlap therapy or INR<2.0: No Anticoagulant overlap therapy prescribed at discharge: No Contraindication No Overlap Therapy order at DC: Not Indicated Exam - Physical Exam Narrative exam: GEN: WDWN, NAD, AWAKE, ALERT, ORIENTATED 3 CVS: RRR, NORMAL S1S2 LUNGS/CHEST: CTA B, NORMAL CHEST EXPANSION B, GOOD AIR ENTRY B ABD: SOFT NTND, GBS, NO REBOUND OR GUARDING EXT/SKIN: Left BKA, right BKA NEURO: CN 2-12 GROSSLY INTACT, NO new FOCAL DEFICITS PSY: CALM - Constitutional Vitals: Temp Pulse Resp BP Pulse Ox 98.1 F 63 20 174/77 100 11/04/16 10:42 11/04/16 12:15 11/04/16 10:42 11/04/16 12:15 11/04/16 08:34 Plan Activity: up only with assistance, fall precautions Diet: renal Follow up with: KHADAR SANTOS MD [Staff Physician] - 7 Days JULI SLADE MD [Staff Physician] - 7 Days PRIMARY CARE, [Primary Care Provider] - 7 Days Prescriptions: Gabapentin [Neurontin] 100 mg PO QHS #30 capsule Cephalexin [Keflex] 500 mg PO Q12HR #14 cap oxyCODONE /ACETAMINOPHEN [Percocet 5/325 mg] 2 tab PO Q6H PRN #20 tablet PRN Reason: Pain, Moderate (4-6)
[2016-11-04] MEDS: HEPARIN IV PRN (13:45)
[2016-11-04] MEDS: NORVASC PO SCH (15:02)
[2016-11-04] MEDS: NEURONTIN PO SCH (15:02)
[2016-11-04] MEDS: NORMODYNE PO SCH (15:03)
[2016-11-04 21:33] VITALS: BP 155/81
--- NOTE | 2016-11-06 11:10 | Operative Report ---
Operative Report Operative Report: Date of procedure: 10/31/2016 Pre-operative diagnosis: Vascular disease with gangrene left foot Post-operative diagnosis: Same Procedure name(s): Left below-knee amputation Surgeon: Santiago Baez MD Branch Credit Counselor: Deandre Penaloza PA-C Anesthesia: Gen. anesthesia EBL: Less than 100 mL Specimen(s): Left lower leg and foot Complications: None Findings: Adequate perfusion at the amputation site. Muscle viable. Procedure: Patient in the supine position after adequate levels of general anesthesia was obtained the patient'sleft leg was prepped and draped using standard sterile technique. A transverse incision was made over the tibia approximately 10 cm below the tibial plateau and carried down to distance of between one third to one half the diameter of the calf at this level. The incision was then gently curved distally creating a adequate thickness posterior flap and then turned transversely dividing the skin at this level. A 7-8 cm long posterior flap was created. Incision was deepened to the fascia which was divided with Bovie and the tibia was exposed. The anterior compartment was then divided using the Bovie and the anterior tibial artery and vein were identified and divided. The fibula was then identified. The peroneal artery was divided ligatures. The lateral compartment was divided and the fibula was identified. Periosteum was then mobilized proximally 3-5 cm proximal to the skin suture line and using a bone biter the fibula was divided. The periosteum was elevated off the tibia which was then divided at the previously identified skin incision site. The lower leg was then flexed and the posterior flap was then created using an amputation knife. The foot ankle and calf were then sent to pathology. Hemostasis was obtained using suture. The anterior one third of the tibia was beveled at a 45 angle the edges were smooth. Posterior flap was then further thinned until approximation in a tensionless fashion was possible. The incision was copiously irrigated. All major blood vessels were ligated, fascias are reapproximated using 2-0 Vicryl suture, the skin was reapproximated using skin greg after a Marcaine field block 2was created. The wound was then dressed using Xeroform,fluff, and a compression wrap the left leg and knee was placed in an immobilizer. The patient was then extubated and returned to recovery room in stable condition having tolerated procedure well. Sponge and needle counts were correct.
== END 2016-11-04 20:45 | disposition home health service (06) | DRG 239 ==
LOC: ED 00:43 → 4A 04:39
PROVIDERS: ADMIT Internal Medicine; ATTEND Internal Medicine
PROC: 0Y6G0ZZ Detachment at Left Knee Region, Open Approach (ICD-10-PCS; principal; 2016-10-31)
PROC: 30233N1 Transfusion of Nonautologous Red Blood Cells into Peripheral Vein, Percutaneous Approach (ICD-10-PCS; 2016-11-01)
PROC: 5A1D60Z (ICD-10-PCS; 2016-11-02)
DX: I70.262 Atherosclerosis of native arteries of extremities with gangrene, left leg (principal); N18.6 End stage renal disease; E11.52 Type 2 diabetes mellitus with diabetic peripheral angiopathy with gangrene; I13.2 Hypertensive heart and chronic kidney disease with heart failure and with stage 5 chronic kidney disease, or end stage renal disease; E11.22 Type 2 diabetes mellitus with diabetic chronic kidney disease; F17.210 Nicotine dependence, cigarettes, uncomplicated; I25.10 Atherosclerotic heart disease of native coronary artery without angina pectoris; M19.90 Unspecified osteoarthritis, unspecified site; I50.9 Heart failure, unspecified; D63.1 Anemia in chronic kidney disease; J44.9 Chronic obstructive pulmonary disease, unspecified; N25.81 Secondary hyperparathyroidism of renal origin; Z88.8 Allergy status to other drugs, medicaments and biological substances; Z88.5 Allergy status to narcotic agent; Z99.2 Dependence on renal dialysis; Z91.19 Patient's noncompliance with other medical treatment and regimen; I25.2 Old myocardial infarction; Z89.511 Acquired absence of right leg below knee; Z71.6 Tobacco abuse counseling; Z79.84 Long term (current) use of oral hypoglycemic drugs
CPT/HCPCS: 36415; 71010; 80048; 80053; 80202; 82962; 85025; 85027; 86140; 86850; 86900; 86901; 86920; 88307; 88311; 93005; 93010; 94760; 96365; 96366; 99406; A6260; J0360; J0690; J0885; J1100; J1170; J1644; J2250; J2270; J2405; J2543; J2704; J3370; J7030; P9016

== ENCOUNTER 2016-12-22 12:44 | Inpatient (IN) | payer MEDICAID, MEDICARE ==
[2016-12-22] MEDS ORDERED: PROTONIX IV ONE (12:55)
[2016-12-22] MEDS ORDERED: NACL 0.9% 250ML 250 ML ONE (12:59)
[2016-12-22] MEDS ORDERED: ZOFRAN IV ONE (13:03)
[2016-12-22] MEDS ORDERED: NACL 0.9% 250ML 250 ML IV ONE (13:09)
--- NOTE | 2016-12-22 13:11 | Emergency Department Report ---
HPI - General Time Seen by Provider: 12/22/16 12:54 - HPI HPI: Room 23 The patient is a 71-year-old male presenting with a chief complaint of GI bleed. The patient states his brother noticed blood in his stool this morning. Patient does admit to nausea vomiting but will not describe what his vomitus looks like. Family reports the patient has been constipated for weeks and he has been taking a laxative. The patient has maroon colored blood in his diaper. The patient screams out "I'm sick" and is not able to focus to provide further history. The patient has end-stage renal disease and was last dialyzed 2 days ago (12/20/2016). Location: Gastrointestinal system Duration: Constant since this morning Quality: Rectal bleeding Severity: Severe Modifying factors: [see above] Context: [see above] Mode of transportation: EMS ED Past Medical Hx - Past Medical History Hx Hypertension: Yes Hx Heart Attack/AMI: Yes (x2, 4 years ago) Hx Congestive Heart Failure: Yes Hx Diabetes: Yes Hx Renal Disease: Yes (M-W-F) Hx Arthritis: Yes Hx COPD: Yes (cant breath laying down flat on his back) - Surgical History Additional Surgical History: Right BKA & r wrist. Vas cath R chest-REMOVED. GRAFT LEFT UPPER ARM, left bka - Family History Family history: no significant - Social History Smoking Status: Never Smoker Substance Use Type: None - Medications Home Medications: Home Medications Medication Instructions Recorded Confirmed Last Taken Type Aspirin EC [Aspirin Enteric Coated 81 mg PO QDAY #30 tablet 10/06/16 11/12/16 1 Day Ago Rx TAB] Clopidogrel [Plavix] 75 mg PO QDAY #30 tablet 10/06/16 11/12/16 1 Day Ago Rx Simvastatin [Zocor TAB] 20 mg PO QHS #30 tablet 10/06/16 11/12/16 1 Day Ago Rx Gabapentin [Neurontin] 100 mg PO QHS #30 capsule 11/02/16 11/12/16 Unknown Rx Losartan [Cozaar] 100 mg PO QDAY 11/12/16 11/12/16 Unknown History Ranitidine HCl [Acid Alignment Specialist] 150 mg PO DAILY 11/12/16 11/12/16 Unknown History cloNIDine [Catapres] 0.2 mg PO TID 11/12/16 11/12/16 Unknown History Insulin Glargine [Lantus] 10 unit SUB-Q QHS 30 Days 11/29/16 Unknown Rx Metoprolol Xl [Metoprolol 50 mg PO QDAY #30 tablet 11/29/16 Unknown Rx SUCCINATE ER TAB] NIFEdipine XL [Procardia Xl] 30 mg PO Q12HR #60 tablet 11/29/16 Unknown Rx Prednisone [predniSONE 10 mg 10 mg PO .TAPER #1 tab.ds.pk 11/29/16 Unknown Rx (6-Day Pack, 21 Tabs)] hydrALAZINE [Apresoline TAB] 50 mg PO Q8HR #90 tablet 11/29/16 Unknown Rx oxyCODONE /ACETAMINOPHEN [Percocet 1 tab PO QHS PRN #7 tablet 11/29/16 Unknown Rx 5/325 mg] ED Review of Systems ROS: Stated complaint: RECTAL BLEED Other details as noted in HPI Comment: All other systems reviewed and negative Constitutional: diaphoresis, malaise Eyes: denies: eye pain, eye discharge, vision change ENT: denies: ear pain, throat pain Respiratory: denies: cough, shortness of breath, wheezing Cardiovascular: denies: chest pain, palpitations Endocrine: no symptoms reported Gastrointestinal: nausea, vomiting, diarrhea, constipation, hematochezia Genitourinary: denies: urgency, dysuria Musculoskeletal: denies: back pain, joint swelling, arthralgia Skin: denies: rash, lesions Neurological: denies: headache, weakness, paresthesias Psychiatric: denies: anxiety, depression Hematological/Lymphatic: denies: easy bleeding, easy bruising Physical Exam - Physical Exam Vital Signs: Vital Signs 12/22/16 12:50 Temperature 97.4 F L Pulse Rate 86 Blood Pressure 89/47 O2 Sat by Pulse 92 Oximetry Physical Exam: GENERAL: The patient is well-developed well-nourished male diaphoretic on stretcher appearing to be in moderate discomfort. [] HEENT: Normocephalic. Atraumatic. Extraocular motions are intact. Patient has moist mucous membranes. NECK: Supple. Trachea midline CHEST/LUNGS: Clear to auscultation. There is no respiratory distress noted. HEART/CARDIOVASCULAR: Regular. There is no tachycardia. There is no gallop rub or murmur. ABDOMEN: Abdomen is soft, nontender. Patient has normal bowel sounds. There is no abdominal distention. SKIN: There is no rash. There is no edema. The patient is diaphoretic NEURO: The patient is awake, alert, and oriented. The patient is cooperative. The patient has normal speech MUSCULOSKELETAL: There is no evidence of acute injury. RECTAL: Obvious dark red blood with clots being passed rectally ED Course Vital Signs 12/22/16 12:50 Temperature 97.4 F L Pulse Rate 86 Blood Pressure 89/47 O2 Sat by Pulse 92 Oximetry - Reevaluation(s) Reevaluation #1: 12/22/16 Left external jugular vein IV 20-gauge placed by myself - Consultations Consultation #1: 12/22/16 13:48 Gastroenterology paged 12/22/16 14:[address] Reeder-recommends nuclear medicine bleeding scan ED Medical Decision Making - Lab Data Result diagrams: 12/22/16 13:04 12/22/16 12:54 Laboratory Tests 12/22/16 12/22/16 12/22/16 12:54 13:04 13:04 WBC 3.9 L RBC 2.34 L Hgb 6.7 L Hct 21.5 L MCV 92 MCH 29 MCHC 31 L RDW 20.8 H Plt Count 290 Lymph % (Auto) 29.1 [place] % (Auto) 9.8 H Eos % (Auto) 1.6 Baso % (Auto) 1.2 Lymph # 1.1 L [place] # 0.4 Eos # 0.1 Baso # 0.0 Seg Neutrophils % 58.3 Seg Neutrophils # 2.2 PT 15.5 H INR 1.24 H APTT 31.9 Sodium 138 Potassium 3.2 L Chloride 96.2 L Carbon Dioxide 23 Anion Gap 22 BUN 39 H Creatinine 6.5 H Estimated GFR 10 BUN/Creatinine Ratio 6.00 Glucose 224 H Calcium 8.4 Total Bilirubin 0.50 AST 11 Alkaline Phosphatase 85 Total Protein 5.2 L Albumin 2.4 L Albumin/Globulin Ratio 0.9 Blood Type Antibody Screen Crossmatch 12/22/16 13:04 WBC RBC Hgb Hct MCV MCH MCHC RDW Plt Count Lymph % (Auto) [place] % (Auto) Eos % (Auto) Baso % (Auto) Lymph # [place] # Eos # Baso # Seg Neutrophils % Seg Neutrophils # PT INR APTT Sodium Potassium Chloride Carbon Dioxide Anion Gap BUN Creatinine Estimated GFR BUN/Creatinine Ratio Glucose Calcium Total Bilirubin AST Alkaline Phosphatase Total Protein Albumin Albumin/Globulin Ratio Blood Type A POSITIVE Antibody Screen TNR Crossmatch See Detail - Differential Diagnosis diverticulosis, upper GI bleed Critical Care Time: Yes Critical care time in (mins) excluding proc time.: 30 Critical care attestation.: If time is entered above; I have spent that time in minutes in the direct care of this critically ill patient, excluding procedure time. ED Disposition Clinical Impression: GI bleed, ESRD (end stage renal disease) on dialysis, Hemorrhagic shock Disposition: OP ADMITTED IP TO THIS HOSP Is pt being admited?: Yes Does the pt Need Aspirin: No Condition: Serious Referrals: PRIMARY CARE, [Primary Care Provider] - 3-5 Days Forms: Accompanied Note Time of Disposition: 14:12 (hospitalist paged)
[2016-12-22] MEDS ORDERED: NACL 0.9% 500 ML 250 ML IV ONE (13:17)
[2016-12-22 13:28] LABS: Basophils % (Auto) 1.2 % (0.0-1.8); Eosinophils % (Auto) 1.6 % (0.0-4.3); Hematocrit 21.5 % (35.5-45.6); Hemoglobin 6.7 gm/dl (11.8-15.2); Mean Corpuscular HGB Conc 31 % (32-34); Mean Corpuscular Hemoglobin 29 pg (28-32); Mean Corpuscular Volume 92 fl (84-94); Platelet Count 290 K/mm3 (140-440); Red Blood Count 2.34 M/mm3 (3.65-5.03); White Blood Count 3.9 K/mm3 (4.5-11.0)
[2016-12-22 13:37] LABS: INR 1.24 (0.87-1.13)
[2016-12-22 13:38] LABS: Partial Thromboplastin Time 31.9 Sec. (24.2-36.6)
[2016-12-22 13:39] LABS: Red Cell Distribution Width 20.8 % (13.2-15.2)
[2016-12-22] MEDS ORDERED: NACL 0.9% 500 ML 500 ML IV ONE ×2 (13:46→17:53)
[2016-12-22 13:51] LABS: Albumin 2.4 g/dL (3.9-5); Albumin/Globulin Ratio 0.9 %; Alkaline Phosphatase 85 units/L (35-129); Anion Gap 22 mmol/L; Blood Urea Nitrogen 39 mg/dL (9-20); Calcium 8.4 mg/dL (8.4-10.2); Carbon Dioxide 23 mmol/L (22-30); Chloride 96.2 mmol/L (98-107); Glucose 224 mg/dL (75-100); Potassium 3.2 mmol/L (3.6-5.0); Sodium 138 mmol/L (137-145); Total Protein 5.2 g/dL (6.3-8.2)
--- NOTE | 2016-12-22 14:02 | Admit Criteria Form ---
Admission Criteria Documentation: GASTROINTESTINAL BLEEDING, LOWER Clinical Indications for Admission to Inpatient Care ( Place 'X' for any and all applicable criteria): Admission is indicated for ANY ONE of the following(1)(2)(3)(4)(5): [X ]I. Active gross bleeding per rectum [ ]II. Inpatient admission required rather than observation care (Also use Gastrointestinal Bleeding, Lower: Observation Care as appropriate) because of ANY ONE of the following: [ ]a) Hemodynamic instability that is severe or persistent [ ]b) Anemia requiring inpatient admission as indicated by ALL of the following: [ ]1) Presence of significant clinical finding indicated by ANY ONE of the following: [ ]A. Tachycardia for age [ ]B. Orthostatic vital sign changes [ ]C. Cognitive impairment [ ]D. Heart failure [ ]E. Chest pain [ ]F. Exertional dyspnea [ ]G. Other findings suggesting inadequate perfusion (eg, peripheral or myocardial ischemia, end organ dysfunction) [ ]2) Initial (eg, emergency department, observation care) treatment with transfusion or volume replacement is judged inappropriate (due to severity of the finding) or has been ineffective [ ]c) Severe pain requiring acute inpatient management [ ]d) Absent bowel sounds with complete ileus [ ]e) Signs of intestinal obstruction or peritonitis [A] [ ]f) High-risk low platelet count [ ]g) Severe electrolyte abnormalities requiring inpatient care [ ]h) Acute renal failure [ ]i) High fever or infection requiring inpatient admission as indicated by ANY ONE of the following(8)(9): [ ]1) Appropriate outpatient or observation care antimicrobial treatment unavailable, not effective, or not feasible Documented bacteremia [ ]2) Documented bacteremia [ ]3) Temperature greater than 104.9 degrees F ( 40.5 degrees C) (oral) [ ]4) Temperature greater than 103.1 degrees F ( 39.5 degrees C) (oral) or less than 96.8 degrees F (36 degrees C) (rectal) that does not respond to all emergency treatment measures [ ]j) IV fluid to replace significant ongoing losses ( greater than 3 L/m2 per day) [ ]k) Immediate inpatient surgery needed [ ]l) Parenteral nutrition regimen that must be implemented on inpatient basis [ ]m) Other condition, treatment or monitoring requiring inpatient admission [ ]III. Unstable comorbid illness (renal, hepatic, pulmonary, hematologic, neurologic, or cardiac) [ ]IV. Failure to control bleeding after colonoscopy [ ]V. Coagulopathy [ ]. Suspected or known ischemic colitis(6) [ ]VII. Previous aortic graft placement or known aortic aneurysm Extended stay beyond goal length of stay may be needed for(3)(4)(28): [ ]a) Emergency surgery [ ]b) Coagulation abnormalities(26) [ ]c) Recurrent or persistent bleeding, continued vital sign instability(27)( 28) [ ]d) Active comorbidities (eg, renal insufficiency, heart failure, pre- existing liver disease) The original [email or web address] content created by [email or web address] has been revised. The portions of the content which have been revised are identified through the use of italic text or in bold, and [facility] has neither reviewed nor approved the modified material. All other unmodified content is copyright [facility]. Please see references footnoted in the original [email or web address] edition 2016 Admission Criteria Met: Yes
[2016-12-22 14:21] LABS: Alanine Aminotransferase < 5 units/L (7-56)
[2016-12-22] MEDS: PROTONIX 80 MG in NACL 0.9% 100 ML IV SCH (15:07)
--- NOTE | 2016-12-22 17:14 | Gastroenterology Consultation ---
History of Present Illness - Reason for Consult Consult date: 12/22/16 GI bleed Requesting physician: NEREIDA DAVIS - History of Present Illness Mr Oconnor is a 71 yo AAM with extensive past medical history including ESRD, CAD , and PVD presents with multiple episodes of maroon blood per rectum with clots. Patient is a poor historian, and provides minimal history. Reportedly the bleeding started today, and has episodes of bloody bm's in the ED. Pt on aspirin/plavix. Hypotensive in the ED, with hct of 21 (31 on 11/28). Patient unlikely to tolerate bowel prep. Obtain nuclear RBC scan with possible IR intervention if possible. Past History Past Medical History: anemia, CAD, ESRD, PVD Past Surgical History: Other (h/o BKA) Social history: no significant social history Family history: no significant family history Medications and Allergies Allergies Allergy/AdvReac Type Severity Reaction Status Date / Time hydrocodone bitartrate AdvReac SWEAT/CRAMP Verified 03/15/15 15:37 [From Vicodin] Home Medications Medication Instructions Recorded Confirmed Last Taken Type Aspirin EC [Aspirin Enteric Coated 81 mg PO QDAY #30 tablet 10/06/16 12/22/16 1 Day Ago Rx TAB] Clopidogrel [Plavix] 75 mg PO QDAY #30 tablet 10/06/16 12/22/16 1 Day Ago Rx Gabapentin [Neurontin] 100 mg PO QHS #30 capsule 11/02/16 12/22/16 Unknown Rx Losartan [Cozaar] 100 mg PO QDAY 11/12/16 12/22/16 Unknown History Ranitidine HCl [Acid [employer]] 150 mg PO DAILY 11/12/16 12/22/16 Unknown History cloNIDine [Catapres] 0.2 mg PO TID 11/12/16 12/22/16 Unknown History Insulin Glargine [Lantus] 10 unit SUB-Q QHS 30 Days 11/29/16 12/22/16 Unknown Rx Metoprolol Xl [Metoprolol 50 mg PO QDAY #30 tablet 11/29/16 12/22/16 Unknown Rx SUCCINATE ER TAB] hydrALAZINE [Apresoline TAB] 50 mg PO Q8HR #90 tablet 11/29/16 12/22/16 Unknown Rx oxyCODONE /ACETAMINOPHEN [Percocet 1 tab PO QHS PRN #7 tablet 11/29/16 12/22/16 Unknown Rx 5/325 mg] Morphine Sulfate [Morphine Sulfate 15 mg PO Q12H 12/22/16 12/22/16 Unknown History ER] Ondansetron [Zofran Odt] 4 mg PO Q8H PRN 12/22/16 12/22/16 Unknown History Polyethylene Glycol 3350 [Miralax 17 gm PO QDAY 12/22/16 12/22/16 Unknown History 3350] Sennosides [Senna] 17.2 mg PO QHS 12/22/16 12/22/16 Unknown History Active Meds: Active Medications Pantoprazole Sodium 80 mg/ (Sodium Chloride) 100 mls @ 10 mls/hr IV Q10H NATALIE PRN Reason: 8 MG/HR Last Admin: 12/22/16 15:07 Dose: 8 mg/hr, 10 mls/hr Review of Systems - Review of Systems All systems: negative (per HPI, otherwise pt not answering questions) Exam - Exam Narrative Exam: Gen: NAD, pt seen during nuclear medicine study, obese male Head: nc/at Mouth: no oral lesions, dry mucous membranes CV: RRR, no murmurs Lungs: CTAB, non labored Abd: soft, mild diffuse ttp, no r/g, +bs Ext: + BKA - Constitutional Vital Signs: Temp Pulse Resp BP Pulse Ox 97.5 F L 71 16 115/61 98 12/22/16 16:44 12/22/16 16:44 12/22/16 16:44 12/22/16 16:44 12/22/16 16:44 - Labs CBC & Chem 7: 12/22/16 13:04 12/22/16 12:54 Lab Results: Laboratory Results - last 24 hr 12/22/16 12/22/16 12/22/16 12:54 13:04 13:04 WBC 3.9 L RBC 2.34 L Hgb 6.7 L Hct 21.5 L MCV 92 MCH 29 MCHC 31 L RDW 20.8 H Plt Count 290 Lymph % (Auto) 29.1 [place] % (Auto) 9.8 H Eos % (Auto) 1.6 Baso % (Auto) 1.2 Lymph # 1.1 L [place] # 0.4 Eos # 0.1 Baso # 0.0 Seg Neutrophils % 58.3 Seg Neutrophils # 2.2 PT 15.5 H INR 1.24 H APTT 31.9 Sodium 138 Potassium 3.2 L Chloride 96.2 L Carbon Dioxide 23 Anion Gap 22 BUN 39 H Creatinine 6.5 H Estimated GFR 10 BUN/Creatinine Ratio 6.00 Glucose 224 H Calcium 8.4 Total Bilirubin 0.50 AST 11 ALT < 5 L Alkaline Phosphatase 85 Total Protein 5.2 L Albumin 2.4 L Albumin/Globulin Ratio 0.9 Blood Type Antibody Screen TOREY Antibody Screen Crossmatch 12/22/16 13:04 WBC RBC Hgb Hct MCV MCH MCHC RDW Plt Count Lymph % (Auto) [place] % (Auto) Eos % (Auto) Baso % (Auto) Lymph # [place] # Eos # Baso # Seg Neutrophils % Seg Neutrophils # PT INR APTT Sodium Potassium Chloride Carbon Dioxide Anion Gap BUN Creatinine Estimated GFR BUN/Creatinine Ratio Glucose Calcium Total Bilirubin AST ALT Alkaline Phosphatase Total Protein Albumin Albumin/Globulin Ratio Blood Type A POSITIVE Antibody Screen TNR TOREY Antibody Screen Negative Crossmatch See Detail - Imaging Bleeding Scan: pending, image reviewed Assessment and Plan GI bleed - pt seen in nuclear medicine. images reviewed showing + study in LUQ (final results pending). Discussed with IR, and will review images followed by possible embolization.
[2016-12-22] MEDS ORDERED: ZOFRAN IV PRN (17:32)
[2016-12-22] MEDS ORDERED: TYLENOL PO PRN (17:32)
--- NOTE | 2016-12-22 17:32 | Event Note ---
Date: 12/22/16 See H/p in reports Lower GI Bleed Acute Anemia ESRD HTN IDDM
[2016-12-22] MEDS ORDERED: NACL 0.9% 1000 ML 1,000 ML IV SCH (18:00)
--- NOTE | 2016-12-22 18:10 | Nuclear Medicine Report ---
FINAL REPORT PROCEDURE: NM GI BLEEDING SCAN TECHNIQUE: Arterial flow and static planar gamma camera images of the abdomen and pelvis were obtained after the IV administration of twenty-two mCi Tc-99m tagged red blood cells. HISTORY: rectal bleeding, hypotension COMPARISON: CT exam dated September 27, 2016 FINDINGS: The initial flow images were lost due to computer error. Early images reveal activity in the region of the left upper quadrant of the abdomen. This suggest possible bleed in the region of the splenic flexure of the colon there. May be a few diverticula seen in this region on prior CT study. Activity appears to have dissipated on delayed imaging. IMPRESSION: Possible mild hemorrhage is seen in the region of the splenic flexure of the colon.
--- NOTE | 2016-12-22 19:00 | Event Note ---
Date: 12/22/16 Saw Mr. Oconnor who is not tachycardic and A&Ox3. Reviewed images. No accumulation of radiotracer. No movement of radiotracer. No evidence of GI bleed. Activity in the left upper quadrant of unclear etiology, but it does NOT move and does NOT accumulate. Discussed with Sean radiology. Will repeat study in AM.
[2016-12-23] MEDS: PROTONIX 80 MG in NACL 0.9% 100 ML IV SCH ×4 (00:13→22:38)
[2016-12-23] MEDS ORDERED: NACL 0.9% 500 ML 500 ML IV ONE ×2 (01:05→04:05)
[2016-12-23] MEDS: NOVOLOG SUB-Q SCH ×4 (01:30→17:38)
--- NOTE | 2016-12-23 02:07 | History and Physical Report ---
REASON FOR CONSULTATION: Lower GI bleed for one day. HISTORY OF PRESENT ILLNESS: The patient is a 71-year-old -[place] male with past medical history of end-stage renal disease, peripheral vascular disease, coronary artery disease who was brought in because of bright red blood per rectum for 1 day. He started bleeding this morning, had episodes of bloody bowel movements in the ED. The patient on aspirin and Plavix. He was hypotensive in the ER. PAST MEDICAL HISTORY: Significant for anemia, coronary artery disease, end-stage renal disease, PVD. PAST SURGICAL HISTORY: History of BKA. SOCIAL HISTORY: Does not smoke. No alcohol. No recreational drugs. FAMILY HISTORY: Significant for hypertension. CURRENT MEDICATIONS: Plavix 75 mg daily, losartan 100 mg daily, ranitidine 150 mg daily, Lantus 10 units subcutaneous at bedtime, metoprolol 50 mg daily, hydralazine 50 mg p.o. q. 8 hours., Percocet 5/325 at bedtime p.r.n., morphine sulfate 50 mg p.o. q. 12 hours, Zofran 4 mg p.o. q 8 hours, MiraLax 17 grams in 8 ounces of water, senna 17.2 p.o. at bedtime. REVIEW OF SYSTEMS: Significant for lower GI bleed and feeling weak. Otherwise, 14-point review of systems is essentially negative. All systems reviewed. PHYSICAL EXAMINATION: GENERAL: Elderly male, poor historian, cooperative. VITAL SIGNS: Blood pressure is 115/61, temperature is 97.5, pulse is 71, respirations 16, pulse ox is 98%. HEENT: Unremarkable. Conjunctivae are pale. NECK: Supple. No lymphadenopathy. No thyromegaly. LUNGS: Clear to auscultation and percussion. Good air entry. CARDIOVASCULAR: S1, S2 heard. No gallop, no murmur, no rub. Apical impulse in left fifth intercostal space in midclavicular line. ABDOMEN: Soft and benign. No hepatosplenomegaly. No guarding, no rigidity. Hernial orifices are normal. EXTREMITIES: Good pedal pulses. No pedal edema. Left BKA present. CENTRAL NERVOUS SYSTEM: Alert and oriented x 4, slightly lethargic. LABORATORY DATA: H and H is 6.7 and 21.5, potassium is 3.2, chloride is 96.2. Sodium is 138, BUN and creatinine 39 and 6.5, blood glucose is 224. ASSESSMENT AND PLAN: 1. Gastrointestinal bleed, the patient is started on IV Protonix. The patient to be taken to Interventional Radiology for possible embolization of the bleeding artery. Nuclear scan to be done before the interventional radiology procedure. 2. Acute anemia, transfuse 2 to 3 units of blood. 3. Insulin-dependent diabetes, coverage for now. No Lantus. Check hemoglobin A1c. 4. End-stage renal disease. Continue hemodialysis. 5. Hypertension. We will hold antihypertensives because of the blood pressure being low, we will resume once the blood pressure is stable and higher. 6. Coronary artery disease. The patient is on Plavix. We will hold the Plavix. 7. Chronic pain. Continue Percocet. 8. Constipation. We will hold the MiraLax for the time being because the patient is bleeding. 9. Deep venous thrombosis prophylaxis ____ at this point. JOB# [id number] STONE/DEVONTE
[2016-12-23] MEDS ORDERED: NACL 0.9% 100 ML IV PRN (09:40)
--- NOTE | 2016-12-23 09:42 | Consultation ---
History of Present Illness - History of Present Illness Thank you for the consultation, dictation to follow Patient was evaluated today, events of this hospitalization and old records were also reviewed. Patient currently receives dialysis at [facility] facility Assessment and plan End-stage renal disease the patient is currently on maintenance hemodialysis on Friday at [facility] dialysis clinic Compliance has been very poor doubtful with medications, Admitted with nausea vomiting and blood in stool Anemia severe with leukopenia patient will benefit from at least 2 units of packed red blood cell, and hemodialysis today Patient has history of chronic intermittent nausea vomiting and will benefit from GI evaluation Difficult to control hypertension patient also has been very noncompliant with medications, I have offered him home health in the past and he refuses to accept that he did not want his family to be involved in his care Anemia in end-stage renal disease to monitor and follow Bilateral amputee now Secondary hyperparathyroidism to monitor phosphorus and PTH level periodically Overall prognosis guarded to poor due to issues with severe compliance We'll continue to follow and make recommendation from renal standpoint Past History Past Medical History: anemia, CAD, ESRD, PVD Past Surgical History: Other (h/o BKA) Social history: no significant social history Family history: no significant family history Medications and Allergies Allergies Allergy/AdvReac Type Severity Reaction Status Date / Time hydrocodone bitartrate AdvReac SWEAT/CRAMP Verified 03/15/15 15:37 [From Vicodin] Home Medications Medication Instructions Recorded Confirmed Last Taken Type Aspirin EC [Aspirin Enteric Coated 81 mg PO QDAY #30 tablet 10/06/16 12/22/16 1 Day Ago Rx TAB] Clopidogrel [Plavix] 75 mg PO QDAY #30 tablet 10/06/16 12/22/16 1 Day Ago Rx Gabapentin [Neurontin] 100 mg PO QHS #30 capsule 11/02/16 12/22/16 Unknown Rx Losartan [Cozaar] 100 mg PO QDAY 11/12/16 12/22/16 Unknown History Ranitidine HCl [Acid Pocket As[employer]er] 150 mg PO DAILY 11/12/16 12/22/16 Unknown History cloNIDine [Catapres] 0.2 mg PO TID 11/12/16 12/22/16 Unknown History Insulin Glargine [Lantus] 10 unit SUB-Q QHS 30 Days 11/29/16 12/22/16 Unknown Rx Metoprolol Xl [Metoprolol 50 mg PO QDAY #30 tablet 11/29/16 12/22/16 Unknown Rx SUCCINATE ER TAB] hydrALAZINE [Apresoline TAB] 50 mg PO Q8HR #90 tablet 11/29/16 12/22/16 Unknown Rx oxyCODONE /ACETAMINOPHEN [Percocet 1 tab PO QHS PRN #7 tablet 11/29/16 12/22/16 Unknown Rx 5/325 mg] Morphine Sulfate [Morphine Sulfate 15 mg PO Q12H 12/22/16 12/22/16 Unknown History ER] Ondansetron [Zofran Odt] 4 mg PO Q8H PRN 12/22/16 12/22/16 Unknown History Polyethylene Glycol 3350 [Miralax 17 gm PO QDAY 12/22/16 12/22/16 Unknown History 3350] Sennosides [Senna] 17.2 mg PO QHS 12/22/16 12/22/16 Unknown History Active Meds: Active Medications Acetaminophen (Tylenol) 650 mg PO Q4H PRN PRN Reason: Pain MILD(1-3)/Fever >100.5/JACKSON Hydromorphone HCl (Dilaudid) 0.5 mg IV Q3H PRN PRN Reason: Pain , Severe (7-10) Pantoprazole Sodium 80 mg/ (Sodium Chloride) 100 mls @ 10 mls/hr IV Q10H NATALIE PRN Reason: 8 MG/HR Last Admin: 12/23/16 05:06 Dose: 8 mg/hr, 10 mls/hr Sodium Chloride (Nacl 0.9% 1000 Ml) 1,000 mls @ 75 mls/hr IV DIRECT NATALIE Insulin Aspart (Novolog) 0 units SUB-Q Q6HR NATALIE PRN Reason: Protocol Last Admin: 12/23/16 06:15 Dose: Not Given Ondansetron HCl (Zofran) 4 mg IV Q3H PRN PRN Reason: N/V unrelieved by Reglan Exam - Vital Signs Vital signs: Vital Signs Pulse Resp 81 12 12/22/16 12:49 12/22/16 12:49 Results - Lab Results 12/23/16 11:05 12/23/16 11:05 Most recent lab results Calcium 8.4 mg/dL (8.4-10.2) 12/22/16 12:54
[2016-12-23] MEDS ORDERED: FLUSH HEPARIN IV ONE (10:45)
--- NOTE | 2016-12-23 11:19 | Nuclear Medicine Report ---
BLEEDING SCAN: Standard distribution of radiotracer is noted. No enteric activity to suggest gastrointestinal bleeding is noted. IMPRESSION: Normal bleeding scan. No evidence for active bleeding at the time of study.
[2016-12-23] MEDS ORDERED: HEPARIN IV PRN (11:24)
[2016-12-23 11:53] LABS: Basophils % (Auto) 1.1 % (0.0-1.8); Eosinophils % (Auto) 4.1 % (0.0-4.3); Hematocrit 23.8 % (35.5-45.6); Hemoglobin 7.8 gm/dl (11.8-15.2); Mean Corpuscular HGB Conc 33 % (32-34); Mean Corpuscular Hemoglobin 30 pg (28-32); Mean Corpuscular Volume 92 fl (84-94); Platelet Count 229 K/mm3 (140-440); Red Blood Count 2.59 M/mm3 (3.65-5.03); Red Cell Distribution Width 18.3 % (13.2-15.2); White Blood Count 4.8 K/mm3 (4.5-11.0)
[2016-12-23 12:07] LABS: Albumin 2.6 g/dL (3.9-5); BUN/Creatinine Ratio 5.64; Calcium 8.1 mg/dL (8.4-10.2); Chloride 98.3 mmol/L (98-107); Potassium 3.8 mmol/L (3.6-5.0); Total Protein 5.3 g/dL (6.3-8.2)
--- NOTE | 2016-12-23 12:10 | Progress Note ---
Assessment and Plan Assessment and plan: Patient is 71-year-old man history hypertension, type 2 diabetes mellitus, peripheral vascular disease with bilateral BKA and end-stage renal disease on hemodialysis who presents with GI bleed. -Acute on chronic blood loss anemia status post blood transfusion: Consulted GI , protonix drip -End-stage renal disease needing hemodialysis: Nephrology is following -Type 2 diabetes mellitus: Add sliding scale insulin -Hypotension, improved -DVT prophylaxis: No heparin due to blood loss anemia Bleeding scan negative Await GI further recommendation on which direction to go ? Colonoscopy EGD was patient states he never had before. History Interval history: Patient seen and examined. Follow up on GI bleed. Overnight uneventful. No cp, sob, n/v or severe headaches. Imaging, old records, testing, labs, nursing notes reviewed. Hospitalist Physical - Physical exam Narrative exam: GEN: Thin frail NAD, AWAKE, ALERT, ORIENTATED CVS: RRR, NORMAL S1S2 LUNGS/CHEST: CTA B, NORMAL CHEST EXPANSION B, GOOD AIR ENTRY B ABD: SOFT NTND, GBS, NO REBOUND OR GUARDING EXT/SKIN: NO SIGNIFICANT EDEMA OR RASH MSK: Bilateral BKA NEURO: CN 2-12 GROSSLY INTACT, NO new FOCAL DEFICITS PSY: CALM - Constitutional Vitals: Temp Pulse Resp BP Pulse Ox 97.8 F 70 18 109/55 100 12/23/16 07:49 12/23/16 07:49 12/23/16 07:49 12/23/16 07:49 12/23/16 07:49 Results - Labs CBC & Chem 7: 12/23/16 11:05 12/22/16 12:54 Labs: Laboratory Last Values WBC 4.8 K/mm3 (4.5-11.0) 12/23/16 11:05 RBC 2.59 M/mm3 (3.65-5.03) L 12/23/16 11:05 Hgb 7.8 gm/dl (11.8-15.2) L 12/23/16 11:05 Hct 23.8 % (35.5-45.6) L 12/23/16 11:05 MCV 92 fl (84-94) 12/23/16 11:05 MCH 30 pg (28-32) 12/23/16 11:05 MCHC 33 % (32-34) 12/23/16 11:05 RDW 18.3 % (13.2-15.2) H 12/23/16 11:05 Plt Count 229 K/mm3 (140-440) 12/23/16 11:05 Lymph % (Auto) 23.7 % (13.4-35.0) 12/23/16 11:05 [place] % (Auto) 8.3 % (0.0-7.3) H 12/23/16 11:05 Eos % (Auto) 4.1 % (0.0-4.3) 12/23/16 11:05 Baso % (Auto) 1.1 % (0.0-1.8) 12/23/16 11:05 Lymph # 1.1 K/mm3 (1.2-5.4) L 12/23/16 11:05 [place] # 0.4 K/mm3 (0.0-0.8) 12/23/16 11:05 Eos # 0.2 K/mm3 (0.0-0.4) 12/23/16 11:05 Baso # 0.1 K/mm3 (0.0-0.1) 12/23/16 11:05 Seg Neutrophils % 62.8 % (40.0-70.0) 12/23/16 11:05 Seg Neutrophils # 3.0 K/mm3 (1.8-7.7) 12/23/16 11:05 PT 15.5 Sec. (12.2-14.9) H 12/22/16 13:04 INR 1.24 (0.87-1.13) H 12/22/16 13:04 APTT 31.9 Sec. (24.2-36.6) 12/22/16 13:04 Sodium 138 mmol/L (137-145) 12/22/16 12:54 Potassium 3.2 mmol/L (3.6-5.0) L 12/22/16 12:54 Chloride 96.2 mmol/L (98-107) L 12/22/16 12:54 Carbon Dioxide 23 mmol/L (22-30) 12/22/16 12:54 Anion Gap 22 mmol/L 12/22/16 12:54 BUN 39 mg/dL (9-20) H 12/22/16 12:54 Creatinine 6.5 mg/dL (0.8-1.5) H 12/22/16 12:54 Estimated GFR 10 ml/min 12/22/16 12:54 BUN/Creatinine Ratio 6.00 % 12/22/16 12:54 Glucose 224 mg/dL (75-100) H 12/22/16 12:54 POC Glucose 101 (70-105) 12/23/16 05:59 Calcium 8.4 mg/dL (8.4-10.2) 12/22/16 12:54 Total Bilirubin 0.50 mg/dL (0.1-1.2) 12/22/16 12:54 AST 11 units/L (5-40) 12/22/16 12:54 ALT < 5 units/L (7-56) L 12/22/16 12:54 Alkaline Phosphatase 85 units/L (35-129) 12/22/16 12:54 Total Protein 5.2 g/dL (6.3-8.2) L 12/22/16 12:54 Albumin 2.4 g/dL (3.9-5) L 12/22/16 12:54 Albumin/Globulin Ratio 0.9 % 12/22/16 12:54 Blood Type A POSITIVE 12/22/16 13:04 Antibody Screen TNR 12/22/16 13:04 TOREY Antibody Screen Negative 12/22/16 13:04 Crossmatch See Detail 12/22/16 13:04
--- NOTE | 2016-12-23 13:44 | Gastroenterology Progress Note ---
Assessment and Plan GI bleed - no further bleeding since admission. further details regarding presentation was provided by pt this morning. his brother noticed blood in his bm's after which he came to ED. He was constipated for 2 weeks prior to this. Denies prior colonoscopy. He had recent LHC, and is on aspirin plavix. Nuclear scan this morning neg for active bleeding. Vitals stable. ddx includes diverticular bleed, ischemic colitis, hemorrhoids, malignancy. Discussed possible colonoscopy with pt (if cleared by cardiology). Will monitor for time being as no signs of active bleeding and stable vitals. Can d/ c PPI drip and switch to oral daily dosing. Bowel regimen daily as needed to avoid constipation/straining. Subjective Date of service: 12/23/16 Principal diagnosis: GI bleed Interval history: pt seen in dialysis. much more alert/awake compared to yesterday. able to provide detailed history. states he was constipated for 2 weeks, started having large bm's prior to admission. His brother noticed blood in his bm's after which ambulance was called. Pt did not see the bm. No further bleeding since admission. Denies prior h/o GI bleeding. Reports abd cramping intermittently for several years, including prior to recent bm's. States abd pain improved. Objective - Exam Narrative Exam: Gen: NAD, in dialysis CV: RRR Lungs: CTAB, non labored Abd: soft, mild rlq ttp, no r/g, nd, +bs - Constitutional Vitals: Temp Pulse Resp BP Pulse Ox 97.8 F 68 18 138/60 100 12/23/16 11:05 12/23/16 13:00 12/23/16 11:05 12/23/16 13:00 12/23/16 07:49 - Labs CBC & Chem 7: 12/23/16 11:05 12/23/16 11:05 Labs: Laboratory Results - last 24 hr 12/22/16 12/23/16 12/23/16 21:33 05:59 11:05 WBC 4.8 RBC 2.59 L Hgb 7.8 L Hct 23.8 L MCV 92 MCH 30 MCHC 33 RDW 18.3 H Plt Count 229 Lymph % (Auto) 23.7 [place] % (Auto) 8.3 H Eos % (Auto) 4.1 Baso % (Auto) 1.1 Lymph # 1.1 L [place] # 0.4 Eos # 0.2 Baso # 0.1 Seg Neutrophils % 62.8 Seg Neutrophils # 3.0 Sodium Potassium Chloride Carbon Dioxide Anion Gap BUN Creatinine Estimated GFR BUN/Creatinine Ratio Glucose POC Glucose 162 H 101 Calcium Total Bilirubin AST ALT Alkaline Phosphatase Total Protein Albumin Albumin/Globulin Ratio 12/23/16 11:05 WBC RBC Hgb Hct MCV MCH MCHC RDW Plt Count Lymph % (Auto) [place] % (Auto) Eos % (Auto) Baso % (Auto) Lymph # [place] # Eos # Baso # Seg Neutrophils % Seg Neutrophils # Sodium 138 Potassium 3.8 Chloride 98.3 Carbon Dioxide 24 Anion Gap 20 BUN 44 H Creatinine 7.8 H Estimated GFR 8 BUN/Creatinine Ratio 5.64 Glucose 142 H POC Glucose Calcium 8.1 L Total Bilirubin 1.00 AST 12 ALT 6 L Alkaline Phosphatase 79 Total Protein 5.3 L Albumin 2.6 L Albumin/Globulin Ratio 1.0 - Imaging HIDA Scan: report reviewed
--- NOTE | 2016-12-23 15:02 | Event Note ---
Date: 12/23/16 No further bleeding. GI bleeding study negative. H&H responded appropriately. Please consult IR again if needed.
[2016-12-23] MEDS ORDERED: NACL 0.9 (PRIMING MACHINE ONLY DIALYSIS) MC ONE (15:06)
[2016-12-23] MEDS: HEPARIN IV PRN (15:32)
--- NOTE | 2016-12-23 21:53 | Consultation ---
REQUESTING PHYSICIAN: Dr. Nikita Santiago. REASON FOR CONSULTATION: Management of end-stage renal disease and the patient is admitted with possible GI bleed. HISTORY OF PRESENT ILLNESS: The patient is a pleasant 71-year-old chronically noncompliant -Citizen Of [place] male who has been admitted here with GI bleed. Upon further questioning, the patient states that his last hemodialysis treatment was uneventful on Friday and approximately 3-4 L of fluid was removed. The patient tolerated the fluid removal well. Apparently, he has also been constipated for the last 2 weeks with some nausea, vomiting, and his brother saw blood in the stool for which he was brought to the hospital. The patient claims to be taking his medications like prescribed at this point, but he does not know the name of these medications. He did not have any complaints of fever or chills. Current access is Perm-A-Cath in his chest and had a fistula placed as well. PAST MEDICAL HISTORY: Significant for: 1. End-stage renal disease, currently on maintenance hemodialysis. 2. Anemia in end-stage renal disease. 3. Secondary hyperparathyroidism. 4. Chronic noncompliance. 5. Chronic intermittent nausea and vomiting for which I have referred him to GI in the past as well. 6. Congestive heart failure. 7. Status post fistula creation. CURRENT ALLERGIES: Reviewed. HOME MEDICATIONS: The patient is not so sure about current medications ____ previous admission was also reviewed. SOCIAL HISTORY: The patient denies any history of alcohol, drug, or tobacco abuse. The patient now states that his brother and sister, both of them are involved in his care. FAMILY HISTORY: Essentially noncontributory for renal-related disorder. REVIEW OF SYSTEMS: Positive for constipation almost 2 weeks, some nausea and vomiting, blood in the stool. Otherwise unremarkable. Complete other systems are obtained, pertinent positive as mentioned above. Other review of systems negative. PHYSICAL EXAMINATION: GENERAL: The patient is a pleasant 71-year-old -Citizen Of [place] male who is lying comfortably in bed, not in acute distress. VITAL SIGNS: Reveal a blood pressure of 140/70, pulse rate is around 70s to 80, respiratory rate 18 and temperature afebrile. HEENT: Normocephalic and atraumatic. Extraocular movements are intact. Moderate pallor present. NECK: Supple without thyromegaly, mass, or JVD. CHEST: Reveals the patient does have upper chest Perm-A-Cath, site is clear. HEART: Regular rate and rhythm. S1, S2 is heard. No S3, S4. ABDOMEN: Soft, nontender. No voluntary guarding or rebound. No organomegaly, no masses. EXTREMITIES: Bilateral below knee amputee. NEUROLOGIC: Alert, awake, oriented x4. Follows all commands. Higher functions including speech, memory, thought, cognition within normal limits. Lab results and x-rays were reviewed from this admission. ASSESSMENT AND PLAN: 1. End-stage renal disease. The patient is currently on maintenance hemodialysis on Friday, Friday, and Friday. Blood pressure on the low normal side and hence we will consider judicious ultrafiltration also because he does not have any crackles, JVD at this time. The patient stated that he has been complying better with diet and lifestyle. 2. Chronic intermittent nausea and vomiting, which has been an issue for quite sometime. The patient had presented with similar symptoms of constipation as well as symptoms of GI bleed, I believe he will need a comprehensive workup for GI bleed including an upper and lower endoscopy. 3. Accelerated hypertension. A. Uncontrolled hypertension chronically. The patient seems to be doing better, possibly he is more compliant at this time. 4. Anemia in end-stage renal disease, partly worsened by anemia of blood loss. Packed red blood cell transfusion to be given on hemodialysis. 5. Secondary hyperparathyroidism and bone mineral disorder, will be monitored. Malnutrition risk is high in dialysis patients. Please consider high protein diet and Nutrition consultation. Plan of care discussed with the patient who was also seen and supervised on hemodialysis today. He was receiving his packed red blood cell transfusion with hemodialysis support. Consider GI evaluation, avoid any medications that would make him bleed more. We will continue to follow and make recommendations from Renal standpoint. Prognosis will depend on degree of compliance. The patient was counseled and educated at length about lifestyle changes. He may be doing better on compliance but that needs to be monitored, however. JOB# [id number] GARCÍA/DEVONTE
[2016-12-24] MEDS: NOVOLOG SUB-Q SCH ×4 (00:40→19:15)
[2016-12-24] MEDS: PROTONIX 80 MG in NACL 0.9% 100 ML IV SCH (06:25)
[2016-12-24 07:56] LABS: Hematocrit 21.6 % (35.5-45.6); Hemoglobin 7.1 gm/dl (11.8-15.2); Mean Corpuscular HGB Conc 33 % (32-34); Mean Corpuscular Hemoglobin 30 pg (28-32); Mean Corpuscular Volume 91 fl (84-94); Platelet Count 177 K/mm3 (140-440); Red Blood Count 2.36 M/mm3 (3.65-5.03); Red Cell Distribution Width 18.4 % (13.2-15.2); White Blood Count 4.1 K/mm3 (4.5-11.0)
[2016-12-24 08:13] LABS: Potassium 3.8 mmol/L (3.6-5.0)
--- NOTE | 2016-12-24 08:29 | Progress Note ---
Assessment and Plan Impression * Rectal bleeding * End-stage renal disease on maintenance hemodialysis * Hypertension * Peripheral vascular disease. Status post bilateral below-knee amputation * Diabetes Recommendations * Continue hemodialysis on Mondays, Wednesdays and Fridays as outpatient schedule. Shall hold heparin now due to GI bleed * His hemoglobin noted to be somewhat lower today. Continue to monitor his H&H and transfuse as needed * Further plan as per GI services * Procrit with dialysis per protocol * Patient's left upper arm AV graft seems to be nonfunctional. Plan as per vascular surgery * Adjust diet and meds for ESRD state * Avoid nephrotoxins Subjective Date of service: 12/24/16 Principal diagnosis: GI bleed Interval history: Patient is comfortable at this time. Denies any rectal bleeding at this point. No nausea or vomiting. No abdominal pain Objective - Vital Signs Vital signs: Vital Signs - 12hr 12/23/16 12/23/16 12/24/16 22:00 23:25 08:00 Temperature 99.0 F 99.1 F Pulse Rate [ 69 Left Radial] Pulse Rate [ 87 Right From Monitor] Pulse Rate [ 73 Right] Respiratory 18 20 22 Rate Blood Pressure 148/56 [Left Arm] Blood Pressure 118/54 [Right Arm] O2 Sat by Pulse 98 98 Oximetry - General Appearance General appearance: well-developed, well-nourished, appears stated age EENT: PERRL, mucous membranes moist Neck: no JVD, no thyromegaly, other (left IJ PermCath in place) Respiratory: Present: Clear to Ascultation Cardiology: regular, normal heart rate Gastrointestinal: normal, normoactive bowel sounds Integumentary: no rash, other (patient has bilateral below-knee amputation. AV graft in his left upper arm. I do not hear any bruit) - Lab 12/24/16 07:15 12/24/16 07:15 Most recent lab results Calcium 8.0 mg/dL (8.4-10.2) L 12/24/16 07:15
[2016-12-24] MEDS ORDERED: PROTONIX IV SCH (12:00)
--- NOTE | 2016-12-24 16:30 | Gastroenterology Progress Note ---
Assessment and Plan GI: pt w/o GI complaints at this time - h/h stable - pt refuses colonoscopy or any endoscopic eval at this time - ok to d/c from GI standpoint, call if needed Subjective Date of service: 12/24/16 Principal diagnosis: GI bleed Interval history: - no GI complaints overnight Objective - Constitutional Vitals: Temp Pulse Resp BP Pulse Ox 98.4 F 70 20 148/66 98 12/24/16 15:49 12/24/16 15:49 12/24/16 15:49 12/24/16 15:49 12/24/16 15:49 General appearance: no acute distress - Respiratory Respiratory: bilateral: CTA - Cardiovascular Rhythm: regular Heart Sounds: Present: S1 & S2 - Gastrointestinal General gastrointestinal: Present: soft, non-tender, non-distended - Labs CBC & Chem 7: 12/24/16 07:15 12/24/16 07:15 Labs: Laboratory Results - last 24 hr 12/23/16 12/24/16 12/24/16 20:59 06:17 07:15 WBC RBC Hgb Hct MCV MCH MCHC RDW Plt Count Sodium Potassium Chloride Carbon Dioxide Anion Gap BUN Creatinine Estimated GFR BUN/Creatinine Ratio Glucose POC Glucose 119 H 95 Hemoglobin A1c 6.0 Calcium 12/24/16 12/24/16 12/24/16 07:15 07:15 11:37 WBC 4.1 L RBC 2.36 L Hgb 7.1 L Hct 21.6 L MCV 91 MCH 30 MCHC 33 RDW 18.4 H Plt Count 177 Sodium 141 Potassium 3.8 Chloride 102.0 Carbon Dioxide 26 Anion Gap 17 BUN 20 Creatinine 5.0 H Estimated GFR 14 BUN/Creatinine Ratio 4.00 Glucose 91 POC Glucose 103 Hemoglobin A1c Calcium 8.0 L
--- NOTE | 2016-12-24 19:56 | Progress Note ---
Assessment and Plan Patient is 71-year-old man history hypertension, type 2 diabetes mellitus, peripheral vascular disease with bilateral BKA and end-stage renal disease on hemodialysis who presents with GI bleed. -Acute on chronic blood loss anemia status post blood transfusion: No more evidence of any active GI bleeding. D/Terrell protonix drip. On po Protoix drip. For colonoscopy tomorrow, but pt declined -End-stage renal disease needing hemodialysis: Nephrology is following -Type 2 diabetes mellitus: On sliding scale insulin -Hypotension, improved -DVT prophylaxis: No heparin due to blood loss anemia Subjective Date of service: 12/24/16 Principal diagnosis: GI bleed Interval history: Wants to eat Objective - Constitutional Vitals: Vital Signs - 12hr 12/24/16 12/24/16 12/24/16 08:00 12:10 15:49 Temperature 99.1 F 98.9 F 98.4 F Pulse Rate [ 69 Left Radial] Pulse Rate [ 70 70 Right Radial] Respiratory 22 22 20 Rate Blood Pressure 148/56 [Left Arm] Blood Pressure 163/71 148/66 [Right Arm] O2 Sat by Pulse 98 98 98 Oximetry General appearance: Present: no acute distress, well-nourished - EENT Eyes: PERRL, EOM intact ENT: hearing intact, clear oral mucosa Ears: bilateral: normal - Neck Neck: supple, normal ROM - Respiratory Respiratory effort: normal Respiratory: bilateral: CTA - Cardiovascular Rhythm: regular Heart Sounds: Present: S1 & S2. Absent: gallop, rub Extremities: pulses intact, No edema, normal color, Full ROM - Gastrointestinal General gastrointestinal: Present: soft, non-tender, non-distended, normal bowel sounds - Genitourinary Male genitourinary: normal - Integumentary Integumentary: clear, warm, dry - Musculoskeletal Musculoskeletal: 1, strength equal bilaterally - Neurologic Neurologic: moves all extremities - Psychiatric Psychiatric: memory intact, appropriate mood/affect, intact judgment & insight - Labs CBC & Chem 7: 12/24/16 07:15 12/24/16 07:15 Labs: Abnormal lab results 12/23/16 12/24/16 12/24/16 Range/Units 20:59 07:15 07:15 WBC 4.1 L (4.5-11.0) K/mm3 RBC 2.36 L (3.65-5.03) M/mm3 Hgb 7.1 L (11.8-15.2) gm/dl Hct 21.6 L (35.5-45.6) % RDW 18.4 H (13.2-15.2) % Creatinine 5.0 H (0.8-1.5) mg/dL POC Glucose 119 H (70-105) Calcium 8.0 L (8.4-10.2) mg/dL
[2016-12-25] MEDS: NOVOLOG SUB-Q SCH ×4 (00:05→18:17)
--- NOTE | 2016-12-25 08:38 | Progress Note ---
Assessment and Plan Impression * Rectal bleeding * End-stage renal disease on maintenance hemodialysis * Hypertension * Peripheral vascular disease. Status post bilateral below-knee amputation * Diabetes Recommendations * Continue hemodialysis on Mondays, Wednesdays and Fridays as outpatient schedule. Shall hold heparin now due to GI bleed * Continue to monitor his H&H and transfuse as needed * Further plan as per GI services * Procrit with dialysis per protocol * Patient's left upper arm AV graft seems to be nonfunctional. Plan as per vascular surgery * Adjust diet and meds for ESRD state * Avoid nephrotoxins Subjective Date of service: 12/25/16 Principal diagnosis: GI bleed Interval history: Patient has been vomiting this morning. He took off his court recording monitor. Refusing to take his meds. Wants to go home Objective - Vital Signs Vital signs: Vital Signs - 12hr 12/24/16 22:00 Pulse Rate [ 78 Right From Monitor] Respiratory 18 Rate O2 Sat by Pulse 98 Oximetry - General Appearance General appearance: well-developed, well-nourished, appears stated age EENT: PERRL, mucous membranes moist Neck: no JVD, no thyromegaly, no carotid bruit, supple, other (left IJ PermCath in place) Respiratory: Present: Clear to Ascultation Cardiology: regular, normal heart rate Gastrointestinal: normal, normoactive bowel sounds Integumentary: other (bilateral below-knee amputation. AV graft in his left upper arm. No bruit appreciated) - Lab 12/24/16 07:15 12/24/16 07:15 Most recent lab results Calcium 8.0 mg/dL (8.4-10.2) L 12/24/16 07:15
[2016-12-25] MEDS: DILAUDID IV PRN ×2 (08:39→15:32)
[2016-12-25 09:17] LABS: Basophils % (Auto) 1.2 % (0.0-1.8); Eosinophils % (Auto) 5.5 % (0.0-4.3); Hemoglobin 7.7 gm/dl (11.8-15.2); Mean Corpuscular HGB Conc 32 % (32-34); Mean Corpuscular Hemoglobin 30 pg (28-32); Mean Corpuscular Volume 92 fl (84-94); Platelet Count 236 K/mm3 (140-440); Red Blood Count 2.61 M/mm3 (3.65-5.03); Red Cell Distribution Width 18.3 % (13.2-15.2); White Blood Count 4.6 K/mm3 (4.5-11.0)
[2016-12-25 09:31] LABS: BUN/Creatinine Ratio 3.76; Calcium 8.5 mg/dL (8.4-10.2); Chloride 102.5 mmol/L (98-107); Potassium 4.1 mmol/L (3.6-5.0)
[2016-12-25] MEDS ORDERED: PROTONIX PO SCH (10:00)
[2016-12-25] MEDS: HEPARIN IV PRN (14:27)
[2016-12-25 14:52] VITALS: BP 151/73
--- NOTE | 2016-12-25 15:50 | Discharge Summary ---
Providers - Providers Date of Admission: 12/22/16 17:32 Date of discharge: 12/25/16 Attending physician: MAITE ESCOBAR 12/23/16 01:00 Consult to Physician [CONS] Routine Consulting Provider: HILARIO BIRMINGHAM Reason For Exam: esrd Place consult to:: dr. bruner Notified:: answering service Phone number called:: Was contact made?: Yes If yes, spoke with:: denise Time called:: 07:51 12/23/16 05:19 Consult to Wound/ET Nurse [CONS] Routine Reason For Exam: wound eval Primary care physician: [employer] Hospitalization Reason for admission: GI bleeding Condition: Serious Pertinent studies: GI bleeding scan that was normal Procedures: None. Patient declined endoscopy Hospital course: Patient is 71-year-old gentleman was a history of end-stage disease on hemodialysis, peripheral arterial disease status post bilateral below-knee amputation, diabetes mellitus said to be having bright red blood per rectum. His brother who lives with him called EMS. Brought to the emergency department. Patient was found to be hypotensive and pale. Patient was on Plavix and aspirin. Commenced on Protonix drip. Transfused 2 units of blood. GI consult was obtained. Bleeding scan was done. Results was normal. Endoscopy recommended. Patient declined stating that the bleeding was only minimally. With IV hydration and blood transfusion blood pressure improved. No evidence of active bleeding and minimal. Nephrology consult was obtained. Patient continued on hemodialysis while on admission. Disposition: DISCHARGED TO HOME OR SELFCARE Core Measure Documentation - Palliative Care Palliative Care/ Comfort Measures: Not Applicable - Core Measures Any of the following diagnoses?: none Exam - Constitutional Vitals: Temp Pulse Resp BP Pulse Ox 98.1 F 66 20 151/73 97 12/25/16 14:20 12/25/16 14:20 12/25/16 14:20 12/25/16 14:20 12/25/16 08:30 General appearance: Present: no acute distress, well-nourished - EENT Eyes: Present: PERRL ENT: hearing intact, clear oral mucosa - Neck Neck: Present: supple, normal ROM - Respiratory Respiratory effort: normal Respiratory: bilateral: CTA - Cardiovascular Heart Sounds: Present: S1 & S2. Absent: rub, click - Extremities Extremities: pulses symmetrical, No edema Extremity abnormal: other (below-knee amputation bilaterally) Peripheral Pulses: abnormal - Abdominal General gastrointestinal: Present: soft, non-tender, non-distended, normal bowel sounds Male genitourinary: Present: normal - Integumentary Integumentary: Present: clear, warm, dry - Musculoskeletal Musculoskeletal: gait normal, strength equal bilaterally - Psychiatric Psychiatric: appropriate mood/affect, intact judgment & insight - Neurologic Neurologic: CNII-XII intact, moves all extremities Plan Activity: advance as tolerated Diet: renal Durable Medical Equipment Needed Upon Discharge: Wheelchair Follow up with: PRIMARY CARE, [Primary Care Provider] - 3-5 Days Forms: Accompanied Note Prescriptions: cloNIDine [Catapres] 0.2 mg PO TID #60 tablet Clopidogrel [Plavix] 75 mg PO QDAY #30 tablet Gabapentin [Neurontin] 100 mg PO QHS #30 capsule hydrALAZINE [Apresoline TAB] 50 mg PO Q8HR #90 tablet Insulin Glargine [Lantus VIAL] 10 unit SUB-Q QHS 30 Days Losartan [Cozaar] 100 mg PO QDAY #30 tablet Metoprolol Xl [Metoprolol SUCCINATE ER TAB] 50 mg PO QDAY #30 tablet Morphine Sulfate [Morphine Sulfate ER] 15 mg PO Q12H #30 tablet.er oxyCODONE /ACETAMINOPHEN [Percocet 5/325 mg] 1 tab PO QHS PRN #30 tablet PRN Reason: Pain, Moderate (4-6) Ranitidine HCl [Acid Estimator [employer]ing [employer] Making] 150 mg PO DAILY #30 tablet Sennosides [Senna] 17.2 mg PO QHS #30 tablet
== END 2016-12-25 18:35 | disposition home health service (06) | DRG 377 ==
LOC: ED 12:44 → 3A 17:32
PROVIDERS: ADMIT Internal Medicine; ATTEND Family Medicine
PROC: 30233N1 Transfusion of Nonautologous Red Blood Cells into Peripheral Vein, Percutaneous Approach (ICD-10-PCS; 2016-12-22)
PROC: 5A1D60Z (ICD-10-PCS; principal; 2016-12-23)
DX: K92.2 Gastrointestinal hemorrhage, unspecified (principal); N18.6 End stage renal disease; D62 Acute posthemorrhagic anemia; E11.51 Type 2 diabetes mellitus with diabetic peripheral angiopathy without gangrene; I95.9 Hypotension, unspecified; I13.2 Hypertensive heart and chronic kidney disease with heart failure and with stage 5 chronic kidney disease, or end stage renal disease; I50.9 Heart failure, unspecified; E11.22 Type 2 diabetes mellitus with diabetic chronic kidney disease; M19.90 Unspecified osteoarthritis, unspecified site; J44.9 Chronic obstructive pulmonary disease, unspecified; I25.10 Atherosclerotic heart disease of native coronary artery without angina pectoris; G89.29 Other chronic pain; K59.00 Constipation, unspecified; D72.819 Decreased white blood cell count, unspecified; D63.1 Anemia in chronic kidney disease; N25.81 Secondary hyperparathyroidism of renal origin; Z53.29 Procedure and treatment not carried out because of patient's decision for other reasons; Z82.49 Family history of ischemic heart disease and other diseases of the circulatory system; Z99.2 Dependence on renal dialysis; Z91.14 Patient's other noncompliance with medication regimen; Z89.512 Acquired absence of left leg below knee; Z89.511 Acquired absence of right leg below knee; Z79.4 Long term (current) use of insulin; Z88.5 Allergy status to narcotic agent; Z91.19 Patient's noncompliance with other medical treatment and regimen
CPT/HCPCS: 36415; 78278; 80048; 80053; 82962; 83036; 85025; 85027; 85610; 85730; 86850; 86900; 86901; 86920; 96361; 96374; 96375; 99291; A9560; C9113; J1170; J1642; J1644; J1815; J2405; J7030; J7040; J7050; P9016

== ENCOUNTER 2017-01-27 14:01 | Emergency (ER) | payer MEDICARE ==
[2017-01-27] MEDS ORDERED: ZOFRAN IV ONE (16:18)
[2017-01-27] MEDS ORDERED: MORPHINE IV ONE ×2 (16:18→19:48)
--- NOTE | 2017-01-27 16:25 | Emergency Department Report ---
ED Abdominal Pain HPI - General Chief Complaint: Abdominal Pain Stated Complaint: CONSTIPATION X 7 DAYS Time Seen by Provider: 01/27/17 16:09 Source: patient, EMS Mode of arrival: Stretcher Limitations: Physical Limitation, Other - History of Present Illness Initial Comments: PATIENT STATED THAT HE HAS CONSTIPATION FOR ONE WEEK. HE STATED THAT HE HAS DIALYSIS TODAY AND HE FINISHED HIS SESSION Complaint: abdominal pain -: week(s) Location: diffuse Radiation: none Migration to: no migration Severity scale (0 -10): 10 Quality: cramping, fullness Consistency: intermittent Improves With: nothing Worsens With: vomiting Associated Symptoms: nausea, vomiting - Related Data Previous Rx's Medication Instructions Recorded Last Taken Type Gabapentin [Neurontin] 100 mg PO QHS #30 capsule 12/25/16 Unknown Rx Insulin Glargine [Lantus VIAL] 10 unit SUB-Q QHS 30 Days 12/25/16 Unknown Rx Sennosides [Senna] 17.2 mg PO QHS #30 tablet 12/25/16 Unknown Rx Acetaminophen [Acetaminophen TAB] 325 mg PO Q6H PRN #30 tablet 01/10/17 Unknown Rx AtorvaSTATin [Lipitor] 40 mg PO QHS #30 tablet 01/15/17 Unknown Rx Carvedilol [Coreg] 3.125 mg PO BID #60 tablet 01/15/17 Unknown Rx ISOSORBIDE MONOnitrate [Imdur ER] 30 mg PO QDAY #30 tablet 01/15/17 Unknown Rx Lisinopril [Zestril TAB] 20 mg PO QDAY #30 tablet 01/15/17 Unknown Rx Morphine Sulfate [Morphine Sulfate 15 mg PO Q12H #14 tablet.er 01/15/17 Unknown Rx ER] Pantoprazole [Protonix TAB] 40 mg PO QDAY #30 tablet 01/15/17 Unknown Rx Lactulose 10 gm PO DAILY PRN #150 ml 01/27/17 Unknown Rx Na Phos,M-B/Na Phos,Di-Ba [Fleet 118 ml RC ONCE #1 enema 01/27/17 Unknown Rx Enema] Allergies Allergy/AdvReac Type Severity Reaction Status Date / Time hydrocodone bitartrate AdvReac SWEAT/CRAMP Verified 03/15/15 15:37 [From Vicodin] ED Review of Systems ROS: Stated complaint: CONSTIPATION X 7 DAYS Other details as noted in HPI Constitutional: denies: chills, fever Respiratory: denies: cough, shortness of breath, wheezing Cardiovascular: denies: chest pain, palpitations Gastrointestinal: abdominal pain, nausea, vomiting, constipation Genitourinary: denies: urgency, dysuria Skin: denies: rash, lesions Neurological: denies: headache, weakness, paresthesias ED Past Medical Hx - Past Medical History Hx Hypertension: Yes Hx Heart Attack/AMI: Yes (x2, 4 years ago) Hx Congestive Heart Failure: Yes Hx Diabetes: Yes Hx Renal Disease: Yes (M-W-F) Hx Sickle Cell Disease: No Hx Arthritis: Yes Hx COPD: Yes Hx HIV: No - Surgical History Additional Surgical History: Left and Right BKA; rt wrist surgery. Vas cath R chest-REMOVED. GRAFT LEFT UPPER ARM, left bka - Social History Smoking Status: Never Smoker - Medications Home Medications: Home Medications Medication Instructions Recorded Confirmed Last Taken Type Gabapentin [Neurontin] 100 mg PO QHS #30 capsule 12/25/16 01/14/17 Unknown Rx Insulin Glargine [Lantus VIAL] 10 unit SUB-Q QHS 30 Days 12/25/16 01/14/17 Unknown Rx Sennosides [Senna] 17.2 mg PO QHS #30 tablet 12/25/16 01/14/17 Unknown Rx Acetaminophen [Acetaminophen TAB] 325 mg PO Q6H PRN #30 tablet 01/10/17 Unknown Rx AtorvaSTATin [Lipitor] 40 mg PO QHS #30 tablet 01/15/17 Unknown Rx Carvedilol [Coreg] 3.125 mg PO BID #60 tablet 01/15/17 Unknown Rx ISOSORBIDE MONOnitrate [Imdur ER] 30 mg PO QDAY #30 tablet 01/15/17 Unknown Rx Lisinopril [Zestril TAB] 20 mg PO QDAY #30 tablet 01/15/17 Unknown Rx Morphine Sulfate [Morphine Sulfate 15 mg PO Q12H #14 tablet.er 01/15/17 Unknown Rx ER] Pantoprazole [Protonix TAB] 40 mg PO QDAY #30 tablet 01/15/17 Unknown Rx Lactulose 10 gm PO DAILY PRN #150 ml 01/27/17 Unknown Rx Na Phos,M-B/Na Phos,Di-Ba [Fleet 118 ml RC ONCE #1 enema 01/27/17 Unknown Rx Enema] ED Physical Exam - General Limitations: Other General appearance: alert - Head Head exam: Present: atraumatic - Respiratory Respiratory exam: Present: normal lung sounds bilaterally. Absent: respiratory distress - Cardiovascular Cardiovascular Exam: Present: regular rate, normal rhythm. Absent: bradycardia , tachycardia, systolic murmur, diastolic murmur, rubs, gallop - GI/Abdominal GI/Abdominal exam: Present: soft, rigid, normal bowel sounds, other. Absent: tenderness, guarding, rebound, hyperactive bowel sounds, hypoactive bowel sounds , mass, bruit, pulsatile mass, hernia - Rectal Rectal exam: Present: deferred - Back Exam Back exam: Absent: tenderness, CVA tenderness (R), CVA tenderness (L) - Neurological Exam Neurological exam: Present: alert, oriented X3, CN II-XII intact - Psychiatric Psychiatric exam: Present: normal affect - Skin Skin exam: Present: warm ED Course Vital Signs 01/27/17 01/27/17 01/27/17 15:46 16:40 17:25 Pulse Rate 93 H 83 Respiratory 20 20 18 Rate Blood Pressure 196/81 150/63 [Left] O2 Sat by Pulse 100 100 Oximetry 01/27/17 01/27/17 01/27/17 19:13 19:21 19:26 Pulse Rate Respiratory 18 Rate Blood Pressure [Left] O2 Sat by Pulse 100 100 Oximetry 01/27/17 19:35 Pulse Rate Respiratory 19 Rate Blood Pressure [Left] O2 Sat by Pulse Oximetry ED Medical Decision Making - Lab Data Result diagrams: 01/27/17 16:39 01/27/17 16:39 Critical care attestation.: If time is entered above; I have spent that time in minutes in the direct care of this critically ill patient, excluding procedure time. ED Disposition Clinical Impression: Abdominal pain, Constipation Disposition: DC-01 TO HOME OR SELFCARE Is pt being admited?: No Does the pt Need Aspirin: No Condition: Stable Instructions: Constipation (ED) Prescriptions: Lactulose 10 gm PO DAILY PRN #150 ml PRN Reason: Constipation Na Phos,M-B/Na Phos,Di-Ba [Fleet Enema] 118 ml RC ONCE #1 enema Referrals: PRIMARY CARE,MD [Primary Care Provider] - 3-5 Days
[2017-01-27 17:04] LABS: Basophils % (Auto) 0.9 % (0.0-1.8); Eosinophils % (Auto) 0.8 % (0.0-4.3); Hematocrit 39.2 % (35.5-45.6); Hemoglobin 12.6 gm/dl (11.8-15.2); Mean Corpuscular HGB Conc 32 % (32-34); Mean Corpuscular Hemoglobin 30 pg (28-32); Mean Corpuscular Volume 93 fl (84-94); White Blood Count 6.3 K/mm3 (4.5-11.0)
[2017-01-27 17:11] LABS: Albumin/Globulin Ratio 1.1 %; BUN/Creatinine Ratio 4.75; Bilirubin,Total 0.5 mg/dL (0.1-1.2); Calcium 8.4 mg/dL (8.4-10.2); Chloride 94.2 mmol/L (98-107); Potassium 3.4 mmol/L (3.6-5.0); Total Protein 5.8 g/dL (6.3-8.2)
--- NOTE | 2017-01-27 18:47 | Cat Scan Report ---
FINAL REPORT PROCEDURE: CT ABDOMEN PELVIS WO CON TECHNIQUE: Computerized axial tomography of the abdomen and pelvis was performed without intravenous contrast. This study is performed without intravascular contrast material and its sensitivity for abdominal and pelvic pathology, including neoplasms, inflammation, abscess, free fluid, thrombosis, arterial dissection and infarction, is reduced compared with a contrast enhanced study. HISTORY: Abdominal pain. COMPARISON: CT scan dated 01/15/2017. FINDINGS: Visualized lower thorax: Small pericardial effusion. Coronary artery disease. Hyperinflation. 1.5 centimeter cyst with septations in the right middle lobe. Pleural parenchymal nodularity with slight bibasilar airspace disease, more evident in the left lower lobe with ground-glass opacities. Liver: Hepatic granulomas. Spleen: Splenic granulomas. Gallbladder and biliary system: Dependent high attenuation in the gallbladder. Pancreas: Pancreatic atrophy. Adrenals: Normal. Kidneys: Bilateral renal calcifications, felt to most likely be vascular. GI tract: Normal caliber air-filled appendix. Scattered prominent loops of small bowel with scattered air-fluid levels without definite transition point. Moderate stool in the cecum and colon to the level of the splenic flexure. Descending colon decompressed. Mild thickening of the colon at the mid sigmoid colon, remainder of the colon is filled with stool with rectum being moderately distended with stool. Small hiatal hernia. Lymph nodes and mesentery: Subtle diffuse mesenteric stranding. Vasculature: Moderate atherosclerosis. Bladder: Normal. Reproductive organs: Normal. Peritoneum: No free fluid. Musculoskeletal structures: Mild L3-4 disc bulge. L4-5 disc bulge/herniation. There is ligamentum flavum thickening and mild canal stenosis. L5-S1 disc bulge. Multilevel osteophytes and facet arthropathy. L4 Schmorl's nodes. L5-S1 disc space narrowing. Large subchondral cyst of the left femoral head. Subacute/chronic right 6th rib fracture. Other: Subtle diffuse anasarca. IMPRESSION: Small pericardial effusion, bilateral pleural effusions, and bibasilar pleural parenchymal nodularity with slight bibasilar airspace disease, more evident in the left lower lobe with ground-glass opacities. With subtle anasarca and mesenteric stranding, consider underlying etiology such as cardiac, hepatic, or renal. Consider chest radiographic followup. Cyst with septations in the right middle lobe can be re-evaluated on followup thoracic imaging. Evidence of prior granulomatous disease. Dependent high attenuation in the gallbladder, consider gallstones or sludge. Consider right upper quadrant ultrasound for further characterization. Consider a mild ileus or enteritis. Consider constipation. Descending colon is decompressed and mildly thick-walled, likely related to degree of distension. Mild thickening of the colon in the mid sigmoid colon, may be related to caliber transition from nondistended to mildly distended colon. Consider further evaluation and followup including CT scan with oral contrast if there is continued clinical concern. Small hiatal hernia. Other incidental findings as above.
[2017-01-27 19:16] LABS: Platelet Count 59 K/mm3 (140-440)
--- NOTE | 2017-01-27 19:20 | Admit Criteria Form ---
Admission Criteria Documentation: ABDOMINAL PAIN Clinical Indications for Admission to Inpatient Care (Place 'X' for any and all applicable criteria): Admission is indicated for ANY ONE of the following(1)(2)(3)(4)(5): [X]I. Inpatient admission required rather than observation care (Also use Abdominal Pain: Observation Care, as appropriate) because of ANY ONE of the following: [ ]a) Severe pain requiring acute inpatient management [X ]b) Identification of etiology/finding that requires inpatient care (eg, aortic dissection, free air) [ ]c) Absent bowel sounds with complete ileus(6) [ ]d) Suspected toxic megacolon [ ]e) Severe electrolyte abnormalities requiring inpatient care [ ]f) High fever or infection requiring inpatient admission as indicated by ANY ONE of following(7)(8): [ ] i) Appropriate outpatient or observational care antimicrobial treatment unavailable, not effective, or not feasible [ ] ii) Documented bacteremia [ ] iii) Temperature > 104.9 degrees F (oral) [ ] iv) T >103.1 F (oral) or < 96.8 F(rectal) that does not respond to all emergency treatment measures [ ]g) Signs of intestinal obstruction [B] [ ]h) Hemodynamic instability [ ]i) IV fluid to replace significant ongoing losses (greater than 3 L/m2 per day) (12)(13) [ ]j) Percutaneous or open drainage (eg, abscess, biliary tract ) procedures [ ]k) Parenteral nutrition regimen that must be implemented on inpatient basis [ ]l) Other condition,treatment or monitoring requiring inpatient admission. [ ]II. Peritoneal signs present [ ]III. Surgery needed that cannot be performed on an ambulatory basis. [ ]IV. Evaluation requires patient to not eat or drink for extended period ( eg, more than 24 hours). [ ]V. Contraindications and/or Inappropriate clinical situations for Observational Care in patients with abdominal pain, when ANY ONE of the following is required: [ ]a) Thorough evaluation is required to prevent catastrophic events due to delays in diagnosing (e.g.Mesenteric ischemia) 1,3 [ ]b) Patient with severe pathology or with chronic symptoms unlikely to improve in the ED stay (3) [ ]. General contraindications and/or Inappropriate clinical situations for Observational Care in patients with abdominal pain, when ANY ONE of the following is required: [ ]a) Prediction of prolongation of LOS based on ANY ONE of the following may be considered as a contraindication for observational care 2, 3, 4, 5, 6, 7, 8, 9, 10, 11 [ ]i) Age > 65 yrs. [ ]ii) Patient arriving by ambulance [ ]iii) Patient with high acuity [ ]iv) Patient requiring vital sign monitoring [ ]v) Patient on IV medication [ ]b) Systolic blood pressures 180mmHg 3,12 [ ]c) Patient with altered mental status including delirium and other alteration of consciousness, (3) [ ]d) Patient whose discharge disposition will be to a [place] [facility] home or rehabilitation home should not be managed in Emergency Department Observation Unit. CMS rule requires 3 days hospital stay before such placement.3,13 [ ]e) Patient with failure to thrive due to broad array of etiologies 3,16,17 [ ]f) Inability to ambulate 3,14 Extended stay beyond goal length of stay may be needed for(2)(3): [ ]a) Persistent abdominal pain with suspected intra-abdominal process [ ]b) Diagnosed condition requiring continued stay (e.g., pancreatitis, complicated diverticulitis) [ ]c) Surgery (e.g., colectomy) The original [facility] content created by [employer] has been revised. The portions of the content which have been revised are identified through the use of italic text or in bold, and [facility] has neither reviewed nor approved the modified material.All other unmodified content is copyright [facility]. Please see references footnoted in the original [facility] edition 2016 Admission Criteria Met: Yes
[2017-01-27 23:06] VITALS: BP 176/73
== END 2017-01-27 23:06 | disposition home or self-care (01) ==
LOC: ED 14:01
DX: K59.00 Constipation, unspecified (principal); I11.0 Hypertensive heart disease with heart failure; I50.9 Heart failure, unspecified; I25.2 Old myocardial infarction; E11.9 Type 2 diabetes mellitus without complications; M19.90 Unspecified osteoarthritis, unspecified site; J44.9 Chronic obstructive pulmonary disease, unspecified; Z88.6 Allergy status to analgesic agent; Z79.4 Long term (current) use of insulin
CPT/HCPCS: 36415; 74176; 80053; 83690; 85025; 96374; 96375; 96376; 99284; J2270; J2405

== ENCOUNTER 2017-03-13 08:06 | Day surgery (SDC) | payer MEDICARE ==
[~2017-03-13 08:06] MED LIST: ANCEF/STERILE WATER 2 GM/20 ML 2 GM/20 ML SYRINGE IV NR; NACL 0.9% 1000 ML 1,000 ML IV SCH
[2017-03-13] MEDS ORDERED: NACL 0.9% 500 ML 500 ML IV SCH (10:00)
[2017-03-13 10:02] LABS: Basophils % (Auto) 1.4 % (0.0-1.8); Eosinophils % (Auto) 4.9 % (0.0-4.3); Hematocrit 36.3 % (35.5-45.6); Hemoglobin 11.8 gm/dl (11.8-15.2); Mean Corpuscular HGB Conc 33 % (32-34); Mean Corpuscular Hemoglobin 30 pg (28-32); Mean Corpuscular Volume 91 fl (84-94); Platelet Count 173 K/mm3 (140-440); Red Blood Count 3.97 M/mm3 (3.65-5.03); Red Cell Distribution Width 17.8 % (13.2-15.2); White Blood Count 3.6 K/mm3 (4.5-11.0)
[2017-03-13 10:13] LABS: INR 0.96 (0.87-1.13)
[2017-03-13] MEDS ORDERED: HEPARIN/NS 5000 UNIT/500ML(CATH LAB) 1,000 ML IR ONE (10:43)
[2017-03-13] MEDS ORDERED: XYLOCAINE 2% INFILTRATI ONE (10:44)
[2017-03-13] MEDS ORDERED: NACL 0.9% 250ML 0 ML ONE (10:44)
[2017-03-13] MEDS ORDERED: ANCEF/STERILE WATER 2 GM/20 ML 2 GM/20 ML SYRINGE IV ONE (10:44)
[2017-03-13] MEDS: SUBLIMAZE ONE ×5 (11:40→13:47)
[2017-03-13] MEDS ORDERED: WATER FOR INJ (PF) 10 ML ONE (11:41)
[2017-03-13] MEDS ORDERED: CATHFLO ONE (11:42)
[2017-03-13] MEDS: VERSED ONE ×5 (11:46→13:47)
[2017-03-13] MEDS: HEPARIN 10,000 UNITS/10 ML ONE ×2 (11:46→12:31)
[2017-03-13 12:04] LABS: BUN/Creatinine Ratio 6.14; Calcium 8.3 mg/dL (8.4-10.2); Chloride 95.9 mmol/L (98-107); Potassium 3.5 mmol/L (3.6-5.0)
--- NOTE | 2017-03-13 14:35 | Operative Report ---
Operative Report Operative Report: EXAM: 1. Ultrasound guided access of the AV graft towards the venous limb. 2. Selection of the left innominate vein with venography 3. Angioplasty of the SVC and left innominate vein with a 10 mm x 40 mm angioplasty balloon 4. Infusion of 4 mg of TPA throughout the left axillary vein and left thrombosed AV graft 5. Angioplasty of the left axillary vein and left AV graft with an 8 mm x 80 mm angioplasty balloon 6. Mechanical thrombectomy of the thrombosed left AV graft with Trerotola device 7. Hailey thrombectomy from the AV graft to the central veins 8. Ultrasound guided access of the AV graft towards the arterial limb. 9. Selection of the brachial artery and a retrograde fashion with angiography of the left upper extremity 10. Hailey thrombectomy of the AV graft from the brachial artery to the arterial sheath 11. Hailey thrombectomy with 8 mm x 2 cm angioplasty balloon from the venous sheath to the central veins 12. Angioplasty of the axillary vein with an 8 mm x 80 mm with associated balloon tamponade for 5 minutes 13. Placement of a 8 mm x 100 mm Viabahn stent graft from the left axillary vein extending into the left AV graft postdilatation with an 8 mm angioplasty balloon 14. Angioplasty of both of the central portions of the axillary vein and AV graft with an 8 mm x 80 mm angioplasty balloon 15. Angioplasty of the innominate vein and SVC with a 10 mm x 40 mm angioplasty balloon 16. Trerotola mechanical thrombectomy of the left innominate vein/venous thrombectomy 17. Second order selection of the left subclavian artery with angiography of the left upper extremity 18. First order selection of the left axillary artery with angiography of the left upper extremity INDICATION: THROMBOSED LEFT ARM AV GRAFT WITH END-STAGE RENAL DISEASE. The patient recently had a thrombectomy 1-2 days ago, and due to repeat thrombosis, there is a concern for insufficient arterial flow which will be evaluated on this examination. DATE: 03/13/17 MEDICATIONS: Please refer to nursing documentation for complete list of medications and heparin administration. VERSED AND FENTANYL TITRATED TO MODERATE SEDATION. THE PATIENT WAS MONITORED UNDER CONTINUOUS CARDIOPULMONARY MONITORING THROUGHOUT THE CASE. 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 Informed consent was obtained. The patient was transported into the angiography suite in stable condition and placed on the angiographic table. The left arm was assessed under real-time ultrasound which demonstrated a thrombosed left arm AV graft. The patient was prepped and draped in a sterile fashion. Lidocaine was used to anesthetize the skin. Under ultrasound guidance, the AV graft was punctured with the needle pointing towards the venous limb. 0.018 inch wire was advanced through the needle and this was exchanged for a transitional dilator. The inner dilator and wire were removed and a 0.035 inch Sawant wire was advanced through the transitional dilator. The dilator was exchanged for a 7 Georgian short sheath. Angled catheter was advanced over the wire and the wire was advanced into the inferior vena cava under fluoroscopic guidance. There was significant difficulty advancing the catheter and wire pass the SVC and left innominate vein junction. There is an indwelling left internal jugular vein permcath with the tip in the right atrium. The wire was removed and the Angled catheter was used to perform a pullback venogram. Digital subtraction venography was performed in the left brachiocephalic vein which demonstrated moderate narrowing of the SVC/left innominate vein junction. 10 mm x 40 mm angioplasty balloon was advanced over the wire and used to perform angioplasty of the SVC and the SVC/left innominate vein junction. There was mild residual narrowing at this location after angioplasty. I did not want to use a larger angioplasty balloon due to the indwelling catheter which would increase the risk of rupture. The catheter also prohibits the use of a cutting balloon which could cut the catheter. The catheter was pulled back until clot was encountered which was in the left axillary vein. The left axillary vein was thrombosed as well as the left AV graft. 4 mg of TPA were infused through the length of the axillary vein and AV graft clot to the sheath as the arterial anastomosis was manually compressed. Catheter was exchanged for an 8 mm x 8 cm balloon and the axillary vein and AV graft was sequentially venoplasty. Trerotola thrombectomy device was used multiple times through the AV graft. I then used the device to perform mechanical thrombectomy of the axillary vein using intermittent pulses of the device without movement to prevent catching any of the valves. Trerotola device was then removed. The Hailey catheter and subsequently the angioplasty balloon was used to sweep from the sheath to the central veins. Angled catheter and Sawant wire were negotiated into the inferior vena cava. The arm was then punctured towards the arterial anastomosis under ultrasound guidance. 0.018 inch wire was advanced through the needle and exchanged for transitional dilator. The inner dilator and wire were removed and a 0.035 inch Sawant wire was advanced to the transitional dilator. The dilator was exchanged for 6 Georgian short sheath. The angled catheter was advanced over the 0.035 wire and the wire was advanced into the kaw brachial artery in a retrograde fashion. Digital subtraction angiography was performed which demonstrated flow-limiting thrombus in the AV graft without thrombus in the brachial artery which was patent proximal and distal to the anastomosis. Hailey catheter was inflated and use to sweep the anastomosis multiple times, pulling the plug towards the venous limb. I then had to use an 8 mm x 2 cm angioplasty balloon to sweep the venous side of the AV graft. Hailey was then used to pull the plug towards the venous limb from the arterial anastomosis. This was performed multiple times in both directions. Ultimately, blood was aspirated from both sheaths and thrill was restored. Hailey catheter was exchanged for the angled catheter and digital subtraction angiography was performed. This demonstrated patency of the brachial artery proximal distal to the anastomosis with some mild nonflow limiting thrombus near the arterial sheath, and venous sheath. The AV graft was otherwise patent. There was some mild extravasation around the axillary vein which was previously thrombosed. I then used an 8 mm x 80 mm angioplasty balloon to tamponade the axillary vein with a five-minute inflation at 2 stations. Digital subtraction angiography demonstrated minimal extravasation at the area, but it was still persistent. I decided to stent graft at this point. Wire was exchanged for V 18. 8 mm x 10 cm Viabahn stent graft was advanced over the wire and used to stent the axillary vein, into the AV graft. This was post dilated with an 8 mm angioplasty balloon. Digital subtraction angiography demonstrated excellent flow with no residual extravasation. The central portion of the axillary vein was bifurcated as it extended into the subclavian vein with one of the branches, the superior branch , moderately narrowed. The lower branch was mildly narrowed. The subclavian vein was patent. There is a large thrombus that was in the left innominate vein , lodged at the pre-existing narrowing. I then wired both branches of the central portion of the of the axillary vein and sequentially performed angioplasty with an 8 mm x 80 mm angioplasty balloon. There was no residual narrowing of the central portion of the axillary veins. I then used a 10 mm angioplasty balloon to dilate the SVC and left innominate junction and performed angioplasty of the left innominate vein. There was minimal change in the amount of thrombus in the left innominate vein. I attempted to sweep this, but this did not change the amount of thrombus. Since I could not sweep the thrombus, I decided to remove the angioplasty balloon and I advanced the Trerotola device into the left innominate vein. I performed a few intermittent pulses in the left innominate vein with the Trerotola mechanical thrombectomy device and perform digital subtraction angiography. There were some mild improvement. This was repeated. There is further improvement. This was repeated again and then there was no residual thrombus in the left innominate vein. 8 mm x 80 mm angioplasty balloon was used to perform angioplasty across the arterial sheath. Digital subtraction angiography demonstrated no residual thrombus afterwards. I advanced a catheter into the brachial artery, and then using a 0.035 inch Sawant wire, I selected the left axillary artery and then the left subclavian artery. Digital subtraction angiography was performed to the left subclavian artery, but the 4 Georgian catheter did not provide adequate imaging. I exchanged a catheter for a 6 Georgian multi sidehole MPA and perform digital subtraction angiography and the left subclavian artery, then selective the left axillary artery and perform digital subtraction angiography, and then selective the left brachial artery and perform digital subtraction angiography. The left subclavian artery was patent. There are ostial calcifications of the left subclavian artery, but this did not appear to impinge on the lumen on angiography. The left axillary artery was patent. The left brachial artery was patent proximal and distal to the anastomosis. 0.035 inch wire was passed into the brachial artery and 6 mm angioplasty balloon was used to perform angioplasty at the site of the venous sheath. Digital subtraction angiography was then performed demonstrating no residual thrombus in the graft. All wires and cath is removed. 3-0 Vicryl was used to close the access sites. The patient was then transferred to the outpatient recovery area. FINDINGS: Please see the procedure note for the findings. IMPRESSION: 1. Successful pharmacomechanical thrombectomy of the thrombosed left AV graft. 2. Successful venous thrombectomy of the left axillary vein and left innominate vein 3. Successful angioplasty, thrombectomy and stenting of the left AV graft 4. Successful central vein angioplasty 5. Successful 2nd order and 1st order arterial selection of the left subclavian artery and axillary artery with angiography of the left upper extremity 6. Final imaging demonstrates no areas of focal stenosis within the AV graft on completion venography. There is no evidence of thrombus within the graft on completion venography.
--- NOTE | 2017-03-13 14:38 | Short Stay Summary ---
Short Stay Documentation Date of service: 03/13/17 Narrative H&P: LUE AVG thrombosis in a patient with ESRD - History H&P: obtained from office - Allergies and Medications Current Medications: Allergies hydrocodone bitartrate [From Vicodin] Adverse Reaction (Verified 03/15/15 15:37) SWEAT/CRAMP Home Medications Medication Instructions Recorded Confirmed Last Taken Type Gabapentin [Neurontin] 100 mg PO QHS #30 capsule 12/25/16 03/13/17 03/12/17 Rx 100mg Insulin Glargine [Lantus VIAL] 10 unit SUB-Q QHS 30 Days 12/25/16 01/14/17 Unknown Rx Sennosides [Senna] 17.2 mg PO QHS #30 tablet 12/25/16 03/13/17 03/12/17 Rx 17.2mg Acetaminophen [Acetaminophen TAB] 325 mg PO Q6H PRN #30 tablet 01/10/1703/12/17 Rx 650mg AtorvaSTATin [Lipitor] 40 mg PO QHS #30 tablet 01/15/17 03/13/17 03/12/17 Rx 40mg Carvedilol [Coreg] 3.125 mg PO BID #60 tablet 01/15/17 03/13/17 03/12/17 Rx 3.125mg ISOSORBIDE MONOnitrate [Imdur ER] 30 mg PO QDAY #30 tablet 01/15/17 03/13/17 Rx 30mg Lisinopril [Zestril TAB] 20 mg PO QDAY #30 tablet 01/15/17 03/13/17 03/12/17 Rx 20mg Morphine Sulfate [Morphine Sulfate 15 mg PO Q12H #14 tablet.er 01/15/1703/12/17 Rx ER] 15mg Pantoprazole [Protonix TAB] 40 mg PO QDAY #30 tablet 01/15/17 03/13/17 03/12/17 Rx 40mg Lactulose 10 gm PO DAILY PRN #150 ml 01/27/17 03/13/17 03/12/17 Rx 10gm Zofran TAB 4 mg PO TID PRN 03/13/17 03/13/17 03/12/17 History 4mg Active Medications Cefazolin Sodium (Ancef/Sterile Water 2 Gm/20 Ml) 2 gm in 20 mls @ 80 mls/hr IV PREOP NR PRN Reason: Protocol Stop: 03/13/17 23:00 Last Admin: 03/13/17 11:20 Dose: 20 mls Sodium Chloride (Nacl 0.9% 500 Ml) 500 mls @ 50 mls/hr IV DIRECT NATALIE Last Admin: 03/13/17 11:20 Dose: 200 mls - Physical exam General appearance: no acute distress Lungs: Normal air movement Extremities: abnormal (thrombosed AVG) - Brief post op/procedure progress note Date of procedure: 03/13/17 Pre-op diagnosis: thrombosed AVG Post-op diagnosis: same Procedure: thrombectomy, angioplasty, stenting, central thrombectomy and angioplasty Anesthesia: local (w/ conscious sedation) Surgeon: KHADAR SANTOS Estimated blood loss: minimal Condition: stable - Hospital course Hospital course: Ready for discharge. - Disposition Condition at discharge: Stable Disposition: [id number] TO HOME OR SELFCARE - Discharge Diagnoses (1) Hemodialysis AV fistula thrombosis Status: Acute Qualifiers: Encounter type: E (2) Anemia in ESRD (end-stage renal disease) Status: Acute Short Stay Discharge Plan Activity: advance as tolerated Weight Bearing Status: Weight Bear as Tolerated Diet: renal Wound: keep clean and dry
[2017-03-13 14:59] VITALS: BP 155/63
--- NOTE | 2017-03-14 06:59 | Vascular Lab Report ---
MISCELLANEOUS VESSEL IDENTIFICATION: The arteriovenous access was identified in the left upper extremity and under real-time ultrasound guidance was cannulated. IMPRESSION: Successful ultrasound guided cannulation of the arteriovenous access site.
== END 2017-03-13 17:15 | disposition home or self-care (01) ==
LOC: CATHLABREC 08:06
PROVIDERS: ATTEND Surgery Vascular Surgery
DX: T82.868A Thrombosis due to vascular prosthetic devices, implants and grafts, initial encounter (principal); E11.22 Type 2 diabetes mellitus with diabetic chronic kidney disease; I12.0 Hypertensive chronic kidney disease with stage 5 chronic kidney disease or end stage renal disease; N18.6 End stage renal disease; D63.1 Anemia in chronic kidney disease; Z79.4 Long term (current) use of insulin; Z79.899 Other long term (current) drug therapy; Z88.5 Allergy status to narcotic agent; Z99.2 Dependence on renal dialysis; Y83.2 Surgical operation with anastomosis, bypass or graft as the cause of abnormal reaction of the patient, or of later complication, without mention of misadventure at the time of the procedure
CPT/HCPCS: 36216; 36415; 36906; 36907; 75710; 76937; 80048; 85025; 85610; 85730; C1725; C1751; C1769; C1874; C1894; J0690; J1644; J2250; J2997; J3010; J7040; Q9967; J7050

== ENCOUNTER 2019-02-26 15:35 | Emergency (ER) | payer MEDICARE ==
[2019-02-26 16:07] VITALS: BP 143/48
--- NOTE | 2019-02-26 16:16 | Emergency Department Report ---
ED General Adult HPI - General Chief complaint: Extremity Problem,Nontraumatic Stated complaint: (L) ARM PAIN Time Seen by Provider: 02/26/19 16:08 Source: patient Mode of arrival: Ambulatory Limitations: Physical Limitation - History of Present Illness Initial comments: Patient is a 73-year-old male that presents emergency room with complaints of left upper extremity pain. Patient states going on for 2 days. Patient states yesterday he had dialysis and everything was normal. Patient states he is having pain in the medial aspect of the upper arm on the left side. Patient denies forearm pain. Patient denies injury. Patient denies trauma. Patient denies bleeding from the site. -: Sudden, days(s) Location: left, upper extremity Radiation: non-radiation Severity scale (0 -10): 10 Quality: sharp Consistency: constant Improves with: rest Worsens with: movement Associated Symptoms: denies other symptoms. denies: confusion, chest pain, cough, diaphoresis, fever/chills, headaches, loss of appetite, malaise, nausea/vomiting, rash, seizure, shortness of breath, syncope, weakness Treatments Prior to Arrival: none - Related Data Home Medications Medication Instructions Recorded Confirmed Last Taken Zofran TAB 4 mg PO TID PRN 03/13/17 03/13/17 03/12/17 4mg Previous Rx's Medication Instructions Recorded Last Taken Type RX: Gabapentin [Neurontin] 100 mg PO QHS #30 capsule 12/25/16 03/12/17 Rx 100mg RX: Insulin Glargine [Lantus VIAL] 10 unit SUB-Q QHS 30 Days ml 12/25/16 Unknown Rx RX: Sennosides [Senna] 17.2 mg PO QHS #30 tablet 12/25/16 03/12/17 Rx 17.2mg RX: Acetaminophen [Acetaminophen 325 mg PO Q6H PRN #30 tablet 01/10/17 03/12/17 Rx TAB] 650mg RX: AtorvaSTATin [Lipitor] 40 mg PO QHS #30 tablet 01/15/17 03/12/17 Rx 40mg RX: Carvedilol [Coreg] 3.125 mg PO BID #60 tablet 01/15/17 03/12/17 Rx 3.125mg RX: ISOSORBIDE MONOnitrate [Imdur 30 mg PO QDAY #30 tablet 01/15/17 03/12/17 Rx ER] 30mg RX: Lisinopril [Zestril TAB] 20 mg PO QDAY #30 tablet 01/15/17 03/12/17 Rx 20mg RX: Morphine Sulfate [Morphine 15 mg PO Q12H #14 tablet.er 01/15/17 03/12/17 Rx Sulfate ER] 15mg RX: Pantoprazole [Protonix TAB] 40 mg PO QDAY #30 tablet 01/15/17 03/12/17 Rx 40mg RX: Lactulose 10 gm PO DAILY PRN #150 ml 01/27/17 03/12/17 Rx 10gm RX: Aspirin 325 mg PO ONCE 7 Days #7 tablet 02/26/19 Unknown Rx Allergies Allergy/AdvReac Type Severity Reaction Status Date / Time hydrocodone bitartrate AdvReac SWEAT/CRAMP Verified 03/15/15 15:37 [From Vicodin] ED Review of Systems ROS: Stated complaint: (L) ARM PAIN Other details as noted in HPI Constitutional: denies: chills, fever Eyes: denies: eye pain, eye discharge, vision change ENT: denies: ear pain, throat pain Respiratory: denies: cough, shortness of breath, wheezing Cardiovascular: denies: chest pain, palpitations Endocrine: no symptoms reported Gastrointestinal: denies: abdominal pain, nausea, diarrhea Genitourinary: denies: urgency, dysuria Musculoskeletal: denies: back pain, joint swelling, arthralgia Skin: denies: rash, lesions Neurological: denies: headache, weakness, paresthesias Psychiatric: denies: anxiety, depression Hematological/Lymphatic: denies: easy bleeding, easy bruising ED Past Medical Hx - Past Medical History Previous Medical History?: Yes Hx Hypertension: Yes Hx Heart Attack/AMI: Yes (x2, 4 years ago) Hx Congestive Heart Failure: Yes Hx Diabetes: Yes Hx Renal Disease: Yes (M-W-F) Hx Sickle Cell Disease: No Hx Arthritis: Yes Hx COPD: Yes Hx HIV: No - Surgical History Past Surgical History?: Yes Additional Surgical History: Left and Right BKA; rt wrist surgery. Vas cath R chest-REMOVED. GRAFT LEFT UPPER ARM, left bka - Family History Family history: no significant - Social History Smoking Status: Current Every Day Smoker Substance Use Type: None - Medications Home Medications: Home Medications Medication Instructions Recorded Confirmed Last Taken Type RX: Gabapentin [Neurontin] 100 mg PO QHS #30 capsule 12/25/16 03/13/17 03/12/17 Rx 100mg RX: Insulin Glargine [Lantus VIAL] 10 unit SUB-Q QHS 30 Days ml 12/25/16 01/14/17 Unknown Rx RX: Sennosides [Senna] 17.2 mg PO QHS #30 tablet 12/25/16 03/13/17 03/12/17 Rx 17.2mg RX: Acetaminophen [Acetaminophen 325 mg PO Q6H PRN #30 tablet 01/10/17 03/13/17 03/12/17 Rx TAB] 650mg RX: AtorvaSTATin [Lipitor] 40 mg PO QHS #30 tablet 01/15/17 03/13/17 03/12/17 Rx 40mg RX: Carvedilol [Coreg] 3.125 mg PO BID #60 tablet 01/15/17 03/13/17 03/12/17 Rx 3.125mg RX: ISOSORBIDE MONOnitrate [Imdur 30 mg PO QDAY #30 tablet 01/15/17 03/13/17 03/12/17 Rx ER] 30mg RX: Lisinopril [Zestril TAB] 20 mg PO QDAY #30 tablet 01/15/17 03/13/17 03/12/17 Rx 20mg RX: Morphine Sulfate [Morphine 15 mg PO Q12H #14 tablet.er 01/15/17 03/13/17 03/12/17 Rx Sulfate ER] 15mg RX: Pantoprazole [Protonix TAB] 40 mg PO QDAY #30 tablet 01/15/17 03/13/17 03/12/17 Rx 40mg RX: Lactulose 10 gm PO DAILY PRN #150 ml 01/27/17 03/13/17 03/12/17 Rx 10gm Zofran TAB 4 mg PO TID PRN 03/13/17 03/13/17 03/12/17 History 4mg RX: Aspirin 325 mg PO ONCE 7 Days #7 tablet 02/26/19 Unknown Rx ED Physical Exam - General Limitations: Physical Limitation General appearance: alert, in no apparent distress - Head Head exam: Present: atraumatic, normocephalic - Eye Eye exam: Present: normal appearance - ENT ENT exam: Present: mucous membranes moist - Neck Neck exam: Present: normal inspection - Respiratory Respiratory exam: Present: normal lung sounds bilaterally. Absent: respiratory distress - Cardiovascular Cardiovascular Exam: Present: regular rate, normal rhythm. Absent: systolic murmur, diastolic murmur, rubs, gallop - GI/Abdominal GI/Abdominal exam: Present: soft, normal bowel sounds. Absent: distended, tenderness, guarding (except for bilateral lower extremity amputations. Left upper extremity has tenderness to palpation around dialysis site.) - Rectal Rectal exam: Present: deferred - Extremities Exam Extremities exam: Present: normal inspection, full ROM, tenderness (left upper extremity) - Back Exam Back exam: Present: normal inspection - Neurological Exam Neurological exam: Present: alert, oriented X3 - Psychiatric Psychiatric exam: Present: normal affect, normal mood - Skin Skin exam: Present: warm, dry, intact, normal color. Absent: rash ED Course Vital Signs 02/26/19 02/26/19 16:00 17:28 Temperature 97.9 F Pulse Rate 67 61 Respiratory 16 12 Rate Blood Pressure 143/48 Blood Pressure 143/48 [Right] O2 Sat by Pulse 100 99 Oximetry - Reevaluation(s) Reevaluation #1: I discussed all results with patient. I discussed plan of care with patient. Patient will be discharged home. Patient given discharge instructions. Patient voiced understanding of discharge instructions. Patient is stable for d ischarge. Patient agrees with plan of care 02/26/19 17:53 - Consultations Consultation #1: Vascular surgery consultation. I discussed case with Dr. Nicholas. Dr. Nicholas recommends 325 aspirin for 1 week with warm compresses and a vascular surgery outpatient visit. 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 The left axillary and subclavian veins are widely patent. A-V graft is seen in the left upper extremity. This appears widely patent. There is some superficial thrombosis in the cephalic vein in the region of the distal biceps. No acute DVT seen. - Medical Decision Making Patient is a 73-year-old male that presents emergency room with left arm pain. Patient found to have a cephalic SVT on ultrasound. Patient's ultrasound shows no acute DVT. Vascular surgery paged. Vascular surgery recommendations received. Patient will be discharged home. Patient stable for discharge. - Differential Diagnosis SVT. DVT. Arm pain Critical care attestation.: If time is entered above; I have spent that time in minutes in the direct care of this critically ill patient, excluding procedure time. ED Disposition Clinical Impression: Superficial venous thrombosis of left arm, Left upper arm pain, ESRD (end stage renal disease) on dialysis Disposition: TO HOME OR SELFCARE Is pt being admited?: No Does the pt Need Aspirin: No Condition: Stable Instructions: Deep Venous Thrombosis (ED) Additional Instructions: Patient to follow-up with primary care in 2-3 days. Patient to follow-up with Dr. Nicholas, vascular surgery in 2-3 days. Patient to return to ER if condition worsens. Patient take aspirin 325 mg daily. Patient to do warm compresses to the left upper extremity 15 minutes on and 15 minutes off, at least 15 times per day. Patient to take Tylenol when necessary for pain. Patient to increase water. Patient to continue dialysis schedule. Prescriptions: RX: Aspirin 325 mg PO ONCE 7 Days #7 tablet Time of Disposition: 18:03
[2019-02-26] MEDS ORDERED: TYLENOL PO ONE (16:30)
--- NOTE | 2019-02-26 17:37 | Vascular Lab Report ---
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 The l eft axillary and subclavian veins are widely patent. A-V graft is seen in the left upper extremity. T his appears widely patent. There is some superficial thrombosis in the cephalic vein in the region of the distal biceps. No acute DVT seen. Signer Name: Flip Engel MD Signed: 02/26/2019 5:33 PM Workstation Name: [id number]
== END 2019-02-26 18:59 | disposition home or self-care (01) ==
LOC: ED 15:35
DX: I82.612 Acute embolism and thrombosis of superficial veins of left upper extremity (principal); I25.2 Old myocardial infarction; I11.0 Hypertensive heart disease with heart failure; I50.9 Heart failure, unspecified; M19.90 Unspecified osteoarthritis, unspecified site; J44.9 Chronic obstructive pulmonary disease, unspecified; F17.200 Nicotine dependence, unspecified, uncomplicated; I13.2 Hypertensive heart and chronic kidney disease with heart failure and with stage 5 chronic kidney disease, or end stage renal disease; E11.22 Type 2 diabetes mellitus with diabetic chronic kidney disease; N18.6 End stage renal disease; Z99.2 Dependence on renal dialysis; Z79.899 Other long term (current) drug therapy; Z98.890 Other specified postprocedural states; Z88.5 Allergy status to narcotic agent